=== PATIENT | male | born 1950 | race Caucasian/White ===

== ENCOUNTER 2017-09-13 16:13 | Inpatient (IN) ==
--- NOTE | 2017-09-13 16:23 | Emergency Department Note ---
Disposition Clinical Impression: CAD (coronary artery disease), History of hypertension, History of hyperlipidemia, History of diabetes mellitus, Renal failure, Abnormal chest x- ray, Chest pain, Dyspnea Disposition: Admitted As Inpatient Condition: Fair [facility]: [facility]Primary Care Provider[facility] - Forms: ED Satisfaction Letter General Adult HPI - General Chief complaint: ED Shortness of Breath/Dyspnea Stated complaint: "sob" Time Seen by Provider: 09/13/17 16:21 - History of Present Illness HPI Narrative: 66-year-old male with a history of coronary artery disease diabetes hypertension hyperlipidemia and previous RI currently on dialysis reports emergency department from the [facility]. There is concern for chest pain. The patient's had chest pain since yesterday. He describes midsternal nonradiating pain at rest. There has been no cough leg swelling or pain coughing up blood. The patient has no history of cancer and has not been anticoagulated. There is no history of abdominal pain vomiting or diarrhea. No back pain. There is no history of difficulty moving the arms or legs independently no slurred speech confusion or fever. The patient missed dialysis on Tuesday, his last dialysis was Tuesday. [facility] was concerned regarding the patient's chest pain, as well as missed dialysis and transferred the patient to the ED for evaluation. They report his initial troponin was negative. The patient has no history of PE or aneurysm. The patient also complains of shortness of breath. - Related Data Allergies Allergy/AdvReac Type Severity Reaction Status Date / Time diphenhydramine Allergy Rash Verified 09/13/17 16:19 [From Benadryl] meperidine Allergy Nausea Verified 09/13/17 16:20 morphine Allergy Nausea Verified 09/13/17 16:19 All systems ED: reviewed and negative except as stated. Past Medical History - Past Medical History Source: patient Medical history: Reports: coronary artery disease, diabetes, hyperlipidemia, hypertension, renal disease Course Course Narrative: [facility], chest x-ray shows a tortuous aorta. Initial troponin [facility] the [facility] negative per provider report. EKG from the [facility] negative. EKG on arrival shows no ST elevations. Vital Signs Temperature 97.0 F L 09/13/17 16:21 Pulse Rate 69 09/13/17 16:21 Respiratory Rate 16 09/13/17 16:21 Blood Pressure 131/72 09/13/17 16:21 O2 Sat by Pulse Oximetry 99 09/13/17 16:21 Temperature 97.0 F L 09/13/17 16:21 Pulse Rate 69 09/13/17 16:21 Respiratory Rate 16 09/13/17 16:21 Blood Pressure 131/72 09/13/17 16:21 O2 Sat by Pulse Oximetry 99 09/13/17 16:21 Oxygen Delivery Oxygen Delivery Nasal Cannula Medical Decision Making - [facility] Narrative Medical decision making narrative: The patient's chest x-ray report from the [facility] reveals a tortuous aorta, CT scan of the chest reveals no acute disease. The patient appears to have missed dialysis, his creatinine is 11 and his potassium was climbing 5.7. He has been complaining of chest pain, aspirin was ordered. The patient has a known history of CAD. The [facility], they felt the patient should be admitted, evaluated for chest pain, and dialyzed. Given the patient has significant comorbidities including coronary disease, renal failure , hyperlipidemia, hypertension, diabetes, with an elevated potassium, and recurrent chest pain, I thought it be appropriate to admit the patient to the hospital. It appears to be stable at this time. I reviewed the case with the hospitalist on-call who has accepted the patient to their care. - Lab Data Lab results reviewed: Yes I reviewed the patient's lab results. Result diagrams: 09/13/17 17:23 09/13/17 17:23 Lab Results 09/13/17 09/13/17 09/13/17 Range/Units 17:23 17:23 17:23 WBC 6.6 (4.3-11.1) K/mcL RBC 4.08 L (4.19-5.50) M/mcL Hgb 13.1 (12.9-16.9) g/dL Hct 40.7 (37.5-50.1) % MCV 99.8 (83.0-100.0) fL MCH 32.1 (28.0-33.3) pg MCHC 32.2 (31.6-35.5) g/dL RDW 14.6 H (11.5-14.5) % Plt Count 141 (140-400) K/mcL MPV 10.6 (9.4-12.4) fL Immature Gran % 0.3 (0-4) % Seg Neutrophils % 53.7 % Lymphocytes % 33.6 % Monocytes % 5.8 % Eosinophils % 5.5 % Basophils % 1.1 % Neutrophils # 3.5 (1.6-8.9) K/mcL Lymphocytes # 2.2 (0.6-4.6) K/mcL Monocytes # 0.4 (0.0-1.3) K/mcL Eosinophils # 0.4 (0.0-0.6) K/mcL Basophils # 0.1 (0.0-0.2) K/mcL PT 9.9 (9.4-12.1) Seconds INR 0.9 APTT 29.3 (26.0-36.0) Seconds Sodium 137 (136-145) mEq/L Potassium 5.7 H (3.5-5.1) mEq/L Chloride 96 L (98-107) mEq/L Carbon Dioxide 25 (23-29) mEq/L BUN 72 H (8-23) mg/dL Creatinine 11.28 H (0.70-1.30) mg/dL Est GFR ( Amer) 6 L (> 60) Est GFR (Non-Af Amer) 5 L (> 60) BUN/Creatinine Ratio 6 (6-26) Glucose 97 (70-105) mg/dL Calculated Osmolality 305 H (280-300) Lactic Acid (0.5-2.2) mmol/L Calcium 9.1 (8.6-10.3) mg/dL Total Bilirubin 0.4 (0.3-1.0) mg/dL Direct Bilirubin 0.0 (0.0-0.2) mg/dL Indirect Bilirubin 0.4 (0.0-1.2) mg/dL AST 11 L (13-39) Units/L ALT 10 (7-52) Units/L Alkaline Phosphatase 61 (34-104) Units/L Troponin I < 0.03 (< 0.04) ng/mL C-Reactive Protein 7 (Less than 10) mg/L B-Natriuretic Peptide (Less than 100) pg/mL Serum Total Protein 7.2 (6.4-8.9) g/dL Albumin 4.2 (3.5-5.7) g/dL Globulin 3.0 (2.4-3.5) g/dL Albumin/Globulin Ratio 1.4 (1.1-2.2) 09/13/17 09/13/17 Range/Units 17:23 17:23 WBC (4.3-11.1) K/mcL RBC (4.19-5.50) M/mcL Hgb (12.9-16.9) g/dL Hct (37.5-50.1) % MCV (83.0-100.0) fL MCH (28.0-33.3) pg MCHC (31.6-35.5) g/dL RDW (11.5-14.5) % Plt Count (140-400) K/mcL MPV (9.4-12.4) fL Immature Gran % (0-4) % Seg Neutrophils % % Lymphocytes % % Monocytes % % Eosinophils % % Basophils % % Neutrophils # (1.6-8.9) K/mcL Lymphocytes # (0.6-4.6) K/mcL Monocytes # (0.0-1.3) K/mcL Eosinophils # (0.0-0.6) K/mcL Basophils # (0.0-0.2) K/mcL PT (9.4-12.1) Seconds INR APTT (26.0-36.0) Seconds Sodium (136-145) mEq/L Potassium (3.5-5.1) mEq/L Chloride (98-107) mEq/L Carbon Dioxide (23-29) mEq/L BUN (8-23) mg/dL Creatinine (0.70-1.30) mg/dL Est GFR ( Amer) (> 60) Est GFR (Non-Af Amer) (> 60) BUN/Creatinine Ratio (6-26) Glucose (70-105) mg/dL Calculated Osmolality (280-300) Lactic Acid 0.5 (0.5-2.2) mmol/L Calcium (8.6-10.3) mg/dL Total Bilirubin (0.3-1.0) mg/dL Direct Bilirubin (0.0-0.2) mg/dL Indirect Bilirubin (0.0-1.2) mg/dL AST (13-39) Units/L ALT (7-52) Units/L Alkaline Phosphatase (34-104) Units/L Troponin I (< 0.04) ng/mL C-Reactive Protein (Less than 10) mg/L B-Natriuretic Peptide 238 H (Less than 100) pg/mL Serum Total Protein (6.4-8.9) g/dL Albumin (3.5-5.7) g/dL Globulin (2.4-3.5) g/dL Albumin/Globulin Ratio (1.1-2.2) - Radiology Data Radiology results reviewed: Yes I reviewed the patient's radiology results.
[2017-09-13] MEDS ORDERED: *HR* FentaNYL (PF) 100 MCG/2 ML VIAL IVP ONE (16:52)
[2017-09-13] MEDS ORDERED: Ondansetron 4 MG/2 ML VIAL IVP ONE (16:52)
[2017-09-13] MEDS ORDERED: Aspirin 81 MG TAB.CHEW PO ONE (16:53)
[2017-09-13] MEDS ORDERED: Isovue-370 500 ML INFUS..BTL IV ONE (16:59)
[2017-09-13 17:41] LABS: Basophils # 0.1 K/mcL (0.0-0.2); Basophils % 1.1 %; Eosinophils # 0.4 K/mcL (0.0-0.6); Eosinophils % 5.5 %; Hematocrit 40.7 % (37.5-50.1); Hemoglobin 13.1 g/dL (12.9-16.9); Immature Granulocytes % 0.3 % (0-4); Lymphocytes # 2.2 K/mcL (0.6-4.6); Lymphocytes % 33.6 %; Mean Corpuscular HGB Conc 32.2 g/dL (31.6-35.5); Mean Corpuscular Hemoglobin 32.1 pg (28.0-33.3); Mean Corpuscular Volume 99.8 fL (83.0-100.0); Mean Platelet Volume 10.6 fL (9.4-12.4); Monocytes # 0.4 K/mcL (0.0-1.3); Monocytes % 5.8 %; Neutrophils # 3.5 K/mcL (1.6-8.9); Platelet Count 141 K/mcL (140-400); Red Blood Count 4.08 M/mcL (4.19-5.50); Red Cell Distribution Width 14.6 % (11.5-14.5); Segmented Neutrophils % 53.7 %
[2017-09-13 17:42] LABS: INR 0.9; Prothrombin Time 9.9 Seconds (9.4-12.1)
[2017-09-13 17:45] LABS: Activated Partial Thrombo Time 29.3 Seconds (26.0-36.0)
[2017-09-13 18:22] LABS: Alanine Aminotransferase 10 Units/L (7-52); Albumin 4.2 g/dL (3.5-5.7); Albumin/Globulin Ratio 1.4 (1.1-2.2); Alkaline Phosphatase 61 Units/L (34-104); Aspartate Amino Transferase 11 Units/L (13-39); BUN/Creatinine Ratio 6 (6-26); Bilirubin,Indirect 0.4 mg/dL (0.0-1.2); Bilirubin,Total 0.4 mg/dL (0.3-1.0); Blood Urea Nitrogen 72 mg/dL (8-23); C-Reactive Protein 7 mg/L (Less than 10); Calcium 9.1 mg/dL (8.6-10.3); Carbon Dioxide 25 mEq/L (23-29); Chloride 96 mEq/L (98-107); Glucose 97 mg/dL (70-105); Osmolality,Calculated 305 (280-300); Potassium 5.7 mEq/L (3.5-5.1); Sodium 137 mEq/L (136-145); Total Protein 7.2 g/dL (6.4-8.9); Troponin I < 0.03 ng/mL (< 0.04); eGFR For African Americans 6 (> 60); eGFR For Non-African Americans 5 (> 60)
[2017-09-13] MEDS ORDERED: Naloxone 0.4 MG/ML INJ IVP PRN (20:44)
[2017-09-13] MEDS ORDERED: Acetaminophen 325 MG TABLET PO PRN (20:44)
[2017-09-13] MEDS ORDERED: *HR* Dextrose 50 % in Water (Syg) 50 ML SYRINGE IVP PRN (20:48)
[2017-09-13] MEDS ORDERED: Dextrose Gel 15 GM/37.5 ML TUBE PO PRN ×2 (20:48)
[2017-09-13] MEDS ORDERED: D5% in Water 1,000 ML IVC PRN (20:48)
--- NOTE | 2017-09-13 21:16 | Internal Med History&Physical ---
Date of Encounter: 09/13/17 Time of Encounter: 20:50 Internal Medicine - H&P: HPI Chief complaint: Chest pain Admitted From: Emergency Dept Plans for Post Hospital Care: Home History of present illness: Mr. Sidhu is a 66 year old male with h/o- ESRD, CAD, HTN, who present with c/o - chest pain. He just relocated from [place], [place] to [place] but reports a problem in having his HD unit transferred, which is why he did not receive usual HD session yesterday, last session being on Tuesday. He reports retrosternal chest pain yesterday and then today, which is nonradiating, mild- moderate in intensity, relived with nitroglycerine. He also re[orts exertional dyspnea and weight gain and swelling in his fingers in the last 2 days. No cough , fever/chills, palpitations, dizziness/syncope. Past Med Surg Social Fam HX - Past Medical History Source: patient Medical history: CHF, coronary artery disease, diabetes, hyperlipidemia, hypertension, renal disease Psychiatric history: anxiety, depression, PTSD - Past Surgical History Surgical History: knee replacement (left) - Social History Smoking Status: Current every day smoker Packs per day: 5-6 per day Alcohol use: none Drug use: none Occupational status: disabled Current living situation: Home, With Family Activity Level: Independent ambulation Recent Out of Country Travel Within the Last 8 Weeks: No Exposure or Possible Exposure to Illness During Travel: No - Family History Sister Hx Family Endocrine Disorder: Yes (DM) Internal Medicine - H&P: Meds 3 Allergy/AdvReac Type Severity Reaction Status Date / Time diphenhydramine Allergy Rash Verified 09/13/17 16:19 [From Benadryl] meperidine Allergy Nausea Verified 09/13/17 16:20 morphine Allergy Nausea Verified 09/13/17 16:19 All Systems PM: A 10-system review of systems was performed and is negative for pertinent findings except as documented above in the HPI. - Constitutional Constitutional: no chills, no fever(s), no night sweats - EENT Eyes: no change in vision, no discharge, no pain, no photophobia Ears: no ear discharge, no ear pain, no tinnitus Nose, mouth and throat: no dysphagia, no nasal discharge, no neck pain, no sore throat - Cardiovascular Cardiovascular ROS IM: chest pain, dyspnea on exertion, edema - Respiratory Respiratory: dyspnea on exertion, no cough, no dyspnea, no wheezing, no excessive phlegm production - Gastrointestinal Gastrointestinal: no abdominal pain, no diarrhea, no hematemesis, no hematochezia, no melena, no nausea, no vomiting - Musculoskeletal Musculoskeletal ROS IM: no numbness, no tingling - Integumentary Integumentary IM: no rash, no unusual bruising - Neurological Neurological ROS: no confusion, no convulsions, no focal weakness, no numbness, no tingling, no tremor(s) - Hematologic/Lymphatic Hematologic/Lymphatic: no easy bruising - Constitutional Vitals: Temp Pulse Resp BP Pulse Ox 97.0 F L 69 16 131/72 99 09/13/17 16:21 09/13/17 16:21 09/13/17 16:21 09/13/17 16:21 09/13/17 16:21 General appearance: Present: A&O X 3, answers questions appropriately - Respiratory Respiratory exam: Present: CTAB, wheezes (posterior expiratory wheezing). Absent: accessory muscle use, rales, rhonchi - Cardiovascular Cardiovascular exam: Present: RRR, +S1, +S2. Absent: diastolic murmur, gallop, rubs, systolic murmur - GI/Abdominal GI/Abdominal exam: Present: normal bowel sounds, soft (obese), no peritoneal signs. Absent: distended, tenderness - Extremities Exam Extremities exam: Present: full ROM, warm, radial pulses palpable and symmetrical. Absent: calf tenderness, cyanotic, pedal edema - Neurological Exam Neurological exam: Present: CN II-XII intact, oriented X3, no focal deficits. Absent: pronater drift, facial droop, speech deficit - Skin Skin exam: Present: dry, intact Internal Med - H&P Results - Labs CBC & Chem 7: 09/13/17 17:23 09/13/17 17:23 - EKG Data -: EKG Interpreted by Myself EKG shows normal: sinus rhythm Rate: normal - Assessment and plan (1) Hyperkalemia Current Visit: Yes Status: Acute Assessment and plan: due to missed HD and renal disease; EKG and Telemetry show no peaked T waves; will give 15g PO Kayexalate, continue Telemetry monitoring; will consult Nephrology for HD in am; (2) Chest pain Current Visit: Yes Status: Acute Assessment and plan: Atypical chest pain; to consider ACS; continue Telemetry, trend Troponins; EKG with no acute ischemic changes. continue ASA and statin, home med reconciliation not available. Qualifiers: Chest pain type: unspecified Qualified Code(s): R07.9 - Chest pain, unspecified (3) CHF (congestive heart failure) Current Visit: Yes Status: Chronic Assessment and plan: Previous Echo report unavailable as patient is not a local resident. Continue home meds when available; Qualifiers: Heart failure type: unspecified Heart failure chronicity: chronic Qualified Code(s): I50.9 - Heart failure, unspecified (4) CAD (coronary artery disease) Current Visit: Yes Status: Chronic Assessment and plan: continue ASA and statin; reconcile home meds when available. h/o- stents. Qualifiers: Coronary Disease-Associated Artery/Lesion type: [place] artery [place] vs. transplanted heart: [place] heart Associated angina: without angina Qualified Code(s): I25.10 - Atherosclerotic heart disease of [place] coronary artery without angina pectoris (5) History of diabetes mellitus Current Visit: Yes Status: Chronic Assessment and plan: Accucheck blood glucose monitoring with sliding scale insulin as needed; diabetic diet; (6) History of hyperlipidemia Current Visit: Yes Status: Chronic (7) History of hypertension Current Visit: Yes Status: Chronic (8) ESRD (end stage renal disease) on dialysis Current Visit: Yes Status: Chronic Assessment and plan: will consult Nephrology for HD needs; missed previous HD session, with hyperkalemia; continue to monitor closely; - Time Spent With Patient Total time spent is greater than 50% in coordination of care (as documented) at patient's floor/unit and/or counseling patient:
[2017-09-13] MEDS: Ipratropium/Albuterol Neb 3 ML IH SCH (21:50)
[2017-09-13] MEDS: Insulin LISPRO 300 UNITS/3 ML VIAL SQ SCH (23:18)
[2017-09-14] MEDS: *HR* HYDROcodone/Acet 5/325 mg TABLET PO PRN ×3 (01:37→20:51)
[2017-09-14] MEDS: traZODone 50 MG TABLET PO SCH ×2 (01:37→20:42)
[2017-09-14] MEDS: Ipratropium/Albuterol Neb 3 ML IH SCH ×4 (03:27→21:52)
[2017-09-14] MEDS: *HR* Heparin 5,000 UNIT/ML VIAL SQ SCH ×2 (04:45→17:07)
[2017-09-14 06:22] LABS: Basophils # 0.1 K/mcL (0.0-0.2); Basophils % 1.2 %; Eosinophils # 0.2 K/mcL (0.0-0.6); Eosinophils % 4.2 %; Immature Granulocytes % 0.4 % (0-4); Lymphocytes # 1.8 K/mcL (0.6-4.6); Lymphocytes % 31.9 %; Mean Corpuscular HGB Conc 31.6 g/dL (31.6-35.5); Mean Corpuscular Hemoglobin 31.3 pg (28.0-33.3); Mean Corpuscular Volume 99.2 fL (83.0-100.0); Mean Platelet Volume 10.4 fL (9.4-12.4); Monocytes # 0.3 K/mcL (0.0-1.3); Neutrophils # 3.2 K/mcL (1.6-8.9); Platelet Count 129 K/mcL (140-400); Red Blood Count 3.83 M/mcL (4.19-5.50); Red Cell Distribution Width 14.6 % (11.5-14.5); Segmented Neutrophils % 56.3 %
[2017-09-14 06:41] LABS: Calcium 8.4 mg/dL (8.6-10.3); Magnesium 3.4 mg/dL (1.6-2.6); Potassium 4.5 mEq/L (3.5-5.1)
--- NOTE | 2017-09-14 08:04 | Nephrology Consult Note ---
Date of Encounter: 09/14/17 Time of Encounter: 08:02 Assessment and Plan (1) ESRD (end stage renal disease) on dialysis Current Visit: Yes Status: Chronic The patient has end-stage renal disease in the setting of diabetes and hypertension. He has been on dialysis for 3 years. He recently moved to [facility] in for some reason dialysis arrangements were not successfully completed. He will undergo dialysis here in the hospital today. He will require a social service consult to help establish him as a patient at the [facility] unit in [facility]. (2) Type 2 diabetes mellitus with diabetic chronic kidney disease Current Visit: Yes Status: Acute Qualifiers: Diabetes mellitus chcf insulin use: with administration clerk use Chronic kidney disease stage: on chronic dialysis Qualified Code(s): E11.22 - Type 2 diabetes mellitus with diabetic chronic kidney disease; N18.6 - End stage renal disease; N18.6 - End stage renal disease; N18.6 - End stage renal disease; N18.6 - End stage renal disease; Z79.4 - half-way (current) use of insulin; Z79.4 - press machine feeder (current) use of insulin; Z79.4 - press machine feeder (current) use of insulin; Z79.4 - press machine feeder (current) use of insulin; Z99.2 - Dependence on renal dialysis; Z99.2 - Dependence on renal dialysis; Z99.2 - Dependence on renal dialysis; Z99.2 - Dependence on renal dialysis (3) Benign hypertensive kidney disease with end stage renal disease Current Visit: Yes Status: Acute History of Present Illness - History of Present Illness This is a 66-year-old male. He presented to the emergency room with complaints of chest discomfort. Patient has a history of end-stage renal disease. He has been on dialysis for 3 years. He was living in [facility] and was receiving dialysis at the [facility] unit. He recently moved to [place] this past Tuesday. [facility] the [facility] unit in [place] but the dialysis unit says they never received them. The patient's last dialysis was this past Tuesday. He was scheduled for dialysis yesterday. Patient was admitted with some chest discomfort. He says he is feeling better today. He does have a history of diabetes, coronary artery disease, and hypertension. He does not make any urine. His dry weight is 106 kg. He dialyzes 3-1/2 hours. Past Med Surg Social Fam HX - Past Medical History Medical history: CHF, coronary artery disease, diabetes, hyperlipidemia, hypertension, renal disease Psychiatric history: anxiety, depression, PTSD - Past Surgical History Surgical History: knee replacement - Social History Smoking Status: Current every day smoker Packs per day: 5-6 per day Alcohol use: none Drug use: none - Family History Sister Hx Family Endocrine Disorder: Yes (DM) Medications and Allergies 3 Allergy/AdvReac Type Severity Reaction Status Date / Time diphenhydramine Allergy Rash Verified 09/13/17 16:19 [From Benadryl] meperidine Allergy Nausea Verified 09/13/17 16:20 morphine Allergy Nausea Verified 09/13/17 16:19 Review of Systems Constitutional: as per HPI, weakness Eyes: bilateral: blurred vision (patient denies), diplopia (patient denies) Nose, mouth and throat: no dizziness, no headache(s) Cardiovascular: as per HPI, chest pain, chest pain at rest, dyspnea on exertion Respiratory: dyspnea on exertion Gastrointestinal: no abdominal pain, no change in bowel habits Musculoskeletal: back pain Integumentary: no hirsutism, no striae Neurological: weakness Psychiatric: no depression, no difficulty concentrating Endocrine: as per HPI Hematologic/Lymphatic: no easy bruising, no lymphadenopathy Exam - Vital Signs Vital signs: Initial Vital Signs Temp Pulse Resp BP Pulse Ox 97.0 F L 69 16 131/72 99 09/13/17 16:21 09/13/17 16:21 09/13/17 16:21 09/13/17 16:21 09/13/17 16:21 Vital Signs - Last 8 Hours Temp Pulse Resp BP Pulse Ox 09/14/17 07:32 98.4 F 78 16 133/72 97 09/14/17 03:27 18 91 09/14/17 03:23 97.8 F 79 16 140/83 93 Intake and Output 09/13/17 09/14/17 09/14/17 23:59 07:59 15:59 Intake Total 400 / 400 Balance 400 / 400 Intake: Oral 400 / 400 Other: Weight 108.465 kg 108.579 kg Blood Glucose* 125 Patient Weight 09/14/17 23:59 Weight 108.579 kg - General Appearance Exam: Patient is alert and oriented. He is in no acute distress. Vital signs are stable. Lungs clear to auscultation. Heart regular rate and rhythm with a 2/6 talk ejection murmur. Abdomen shows normal bowel sounds bruits masses, megaly or tenderness. There is no lower extremity swelling. There is a functioning AV fistula in the left upper extremity. Results - Lab Results 09/14/17 05:47 09/14/17 05:47 Most recent lab results Calcium 8.4 mg/dL (8.6-10.3) L 09/14/17 05:47 Magnesium 3.4 mg/dL (1.6-2.6) H 09/14/17 05:47 Consult Discharge Plan - Plan Referrals: [facility] [Primary Care Provider] -
[2017-09-14] MEDS ORDERED: 0.9 % Sodium Chloride 250 ML IVC PRN (08:06)
[2017-09-14] MEDS: Insulin LISPRO 300 UNITS/3 ML VIAL SQ SCH ×4 (09:25→20:53)
[2017-09-14] MEDS: Aspirin Enteric Coated 81 MG Tablet PO SCH (09:27)
[2017-09-14 09:53] LABS: Hepatitis B Surface Antibody 2.22 mIU/mL; Hepatitis B Surface Antigen Nonreactive (Nonreactive)
[2017-09-14] MEDS ORDERED: 0.9 % Sodium Chloride 1,000 ML ONE (12:01)
--- NOTE | 2017-09-14 12:27 | Electrocardiograph Report ---
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
--- NOTE | 2017-09-14 17:23 | Internal Med Progress Note ---
Date of Encounter: 09/14/17 Time of Encounter: 17:21 - Assessment and plan (1) Volume overload Current Visit: Yes Status: Acute Assessment and plan: Due to missing HD had HD this morning feeling better now cont HD as per Nephro recommendations Qualifiers: Hypervolemia type: unspecified Qualified Code(s): E87.70 - Fluid overload, unspecified (2) Chest pain Current Visit: Yes Status: Acute Assessment and plan: Atypical chest pain due to missing HD Mostly due to volume overload resolved with HD EKG with no acute ischemic changes continue ASA and statin resumed home med BB and Imdur Qualifiers: Chest pain type: unspecified Qualified Code(s): R07.9 - Chest pain, unspecified (3) ESRD (end stage renal disease) on dialysis Current Visit: Yes Status: Chronic Assessment and plan: Nephro on board feeling better now after HD (4) CAD (coronary artery disease) Current Visit: Yes Status: Chronic Assessment and plan: continue ASA and statin resumed home meds Qualifiers: Coronary Disease-Associated Artery/Lesion type: [place] artery [place] vs. transplanted heart: [place] heart Associated angina: without angina Qualified Code(s): I25.10 - Atherosclerotic heart disease of [place] coronary artery without angina pectoris (5) History of hypertension Current Visit: Yes Status: Chronic Assessment and plan: stable with home meds (6) History of hyperlipidemia Current Visit: Yes Status: Chronic Assessment and plan: on statin (7) History of diabetes mellitus Current Visit: Yes Status: Chronic Assessment and plan: Cont ISS will check HbA1C (8) CHF (congestive heart failure) Current Visit: Yes Status: Chronic Assessment and plan: Unspecified.. no previous 2 D Echo not in exacerbation resumed home meds Qualifiers: Heart failure type: unspecified Heart failure chronicity: chronic Qualified Code(s): I50.9 - Heart failure, unspecified (9) Hyperkalemia Current Visit: Yes Status: Acute Assessment and plan: improved - Time Spent With Patient Total time spent is greater than 50% in coordination of care (as documented) at patient's floor/unit and/or counseling patient: - Subjective Interval history: Mr. Sidhu is a 66 year old male with h/o- ESRD, CAD, HTN, who present with c/o - chest pain. He just relocated from [place], [place] to [place] but reports a problem in having his HD unit transferred, which is why he did not receive usual HD session yesterday, last session being on Tuesday. He reports retrosternal chest pain, which is non radiating, mild-moderate in intensity, relived with nitroglycerine. He also reported exertional dyspnea and weight gain and swelling in his fingers in the last 2 days. No cough, fever/chills, palpitations, dizziness/syncope. Pt went for HD today. Now he feels lot better, denied any more chest pressure. Breathing comfortably on RA. - Constitutional Vitals: Temp Pulse Resp BP Pulse Ox 97.3 F L 89 17 145/65 95 09/14/17 16:20 09/14/17 11:10 09/14/17 16:20 09/14/17 16:20 09/14/17 11:10 General appearance: Present: A&O X 3, answers questions appropriately - Head Head exam: Present: atraumatic, normal inspection - Neck Neck exam general surgery: Present: supple - Respiratory Respiratory exam: Present: decreased breath sounds. Absent: rales, respiratory distress, rhonchi, wheezes - Cardiovascular Cardiovascular exam: Present: RRR, +S1, +S2. Absent: tachycardia - GI/Abdominal GI/Abdominal exam: Present: normal bowel sounds, soft. Absent: rebound, rigid, tenderness - Extremities Exam Extremities exam: Present: pedal edema (trace). Absent: calf tenderness, tenderness - Back Exam Back exam: Absent: CVA tenderness (L), CVA tenderness (R) - Psychiatric Psychiatric exam: Present: normal affect, normal mood Internal Medicine: Result - Labs CBC & Chem 7: 09/14/17 05:47 09/14/17 05:47 Labs: Short CBC 09/14/17 Range/Units 05:47 WBC 5.7 (4.3-11.1) K/mcL Hgb 12.0 L (12.9-16.9) g/dL Hct 38.0 (37.5-50.1) % Plt Count 129 L (140-400) K/mcL Neutrophils # 3.2 (1.6-8.9) K/mcL BMP 09/14/17 05:47 Sodium 139 Potassium 4.5 Chloride 96 L Carbon Dioxide 27 BUN 75 H Creatinine 11.43 H Glucose 134 H Calcium 8.4 L Cardiac Enzymes 09/13/17 09/14/17 09/14/17 Range/Units 23:07 05:47 12:08 Troponin I < 0.03 < 0.03 < 0.03 (< 0.04) ng/mL - ABG Interpretation ABG results: PT/INR, D-dimer PT 9.9 Seconds (9.4-12.1) 09/13/17 17:23 Consult Discharge Plan - Plan Referrals: [facility] [Primary Care Provider] -
[2017-09-14] MEDS ORDERED: Nitroglycerin 0.4 MG TAB.SUBL SL SCH (17:30)
[2017-09-14] MEDS ORDERED: Nitroglycerin 0.4 MG TAB.SUBL SL PRN (18:24)
[2017-09-14] MEDS: Magnesium Oxide 400 MG TABLET PO SCH (20:42)
[2017-09-14] MEDS: Artificial Tears SOLN 15 ML BOTTLE OP SCH (20:45)
[2017-09-14] MEDS ORDERED: traZODone 50 MG TABLET PO SCH (21:00)
[2017-09-14] MEDS ORDERED: Isosorbide MONOnitrate (24 HR) 30 MG TAB.ER.24H PO SCH (21:00)
[2017-09-14] MEDS ORDERED: (Omega-3/Dha/Epa/Fish Oil [Fish Oil 1,000 Mg Softgel] PO SCH (21:00)
[2017-09-14] MEDS ORDERED: Insulin DETEMIR 100 UNIT/ML X5UNITS SQ SCH (21:00)
[2017-09-15] MEDS: Ipratropium/Albuterol Neb 3 ML IH SCH ×2 (03:39→10:49)
[2017-09-15 04:51] LABS: Calcium 8.2 mg/dL (8.6-10.3); Potassium 4.3 mEq/L (3.5-5.1)
[2017-09-15] MEDS: *HR* Heparin 5,000 UNIT/ML VIAL SQ SCH (05:17)
[2017-09-15] MEDS: *HR* HYDROcodone/Acet 5/325 mg TABLET PO PRN (05:18)
--- NOTE | 2017-09-15 08:34 | Nephrology Progress Note ---
Date of Encounter: 09/15/17 Time of Encounter: 08:10 - Assessment and Plan (1) ESRD (end stage renal disease) on dialysis Current Visit: Yes Status: Chronic Social work to complete arrangements with [email or web address] for chairtime tomorrow in [facility]. They will also notify [facility] for following patient in outpatient dialysis setting. No HD today keeping with MWF schedule per patient. Subjective Interval history: Sitting up in chair. Ate breakfast. Denies chest pain or shortness of breath. Objective - Vital Signs Vital signs: Vital Signs Temp Pulse Resp BP Pulse Ox 09/15/17 07:22 97 09/15/17 06:47 97.6 F 102 16 93/61 97 09/15/17 05:09 97.8 F 101 18 131/65 93 09/15/17 03:40 19 90 09/15/17 00:28 98.0 F 109 18 95/60 93 09/14/17 21:52 20 91 09/14/17 20:49 98.0 F 92 18 122/78 95 09/14/17 19:25 98.0 F 75 18 146/81 93 09/14/17 16:20 97.3 F L 17 145/65 09/14/17 16:05 119/74 09/14/17 15:50 128/78 09/14/17 15:35 117/80 09/14/17 15:20 127/80 09/14/17 15:05 122/79 09/14/17 14:50 116/69 09/14/17 14:35 113/77 09/14/17 14:20 120/71 09/14/17 14:05 125/74 09/14/17 13:50 124/82 09/14/17 13:35 133/77 09/14/17 13:20 130/76 09/14/17 13:05 136/75 09/14/17 12:50 129/71 09/14/17 12:35 97.3 F L 17 121/73 09/14/17 11:10 97.8 F 89 15 144/82 95 09/14/17 10:24 16 96 09/14/17 09:29 97 Intake and Output 09/14/17 09/15/17 09/15/17 23:59 07:59 15:59 Intake Total 0 / 0 0 / 0 Output Total 3600 / 3600 0 / 0 Balance -3600 / -3600 0 / 0 Intake: Oral 0 / 0 0 / 0 Output: Urine 0 / 0 0 / 0 Total Dialysis (HD) Output 3600 / 3600 Other: # Voids 0 # Bowel Movements 0 Weight 106.776 kg Blood Glucose* 206 120 Hemodialysis Net Fluid Removed 3000 (mL) Patient Weight 09/15/17 23:59 Weight 106.776 kg - General Appearance General appearance: Present: well-developed, well-nourished, appears started age , obese EENT: Present: mucous membranes moist Neck: Present: no JVD Respiratory: Present: clear Cardiology: Present: no edema, regular rate, regular rhythm Gastrointestinal: Present: normoactive bowel sounds, no tenderness Integumentary: Present: warm and dry Neurologic: Present: alert and oriented x3 - Lab 09/14/17 05:47 09/15/17 04:01 Most recent lab results Calcium 8.2 mg/dL (8.6-10.3) L 09/15/17 04:01 Magnesium 3.4 mg/dL (1.6-2.6) H 09/14/17 05:47 Consult Discharge Plan - Plan [facility]errals: [facility] [Primary Care Provider] -
[2017-09-15] MEDS: Aspirin Enteric Coated 81 MG Tablet PO SCH (08:48)
[2017-09-15] MEDS: Calcium Acetate 667 MG CAPSULE PO SCH ×2 (08:48→11:53)
[2017-09-15] MEDS: Magnesium Oxide 400 MG TABLET PO SCH (08:48)
[2017-09-15] MEDS: Artificial Tears SOLN 15 ML BOTTLE OP SCH (08:49)
[2017-09-15] MEDS: Insulin LISPRO 300 UNITS/3 ML VIAL SQ SCH ×2 (08:49→11:19)
[2017-09-15 08:52] LABS: Estimated Average Glucose 189 mg/dl; Hemoglobin A1C 8.2 %
[2017-09-15] MEDS ORDERED: Renal Vitamin 1 MG CAPSULE PO SCH (09:00)
[2017-09-15] MEDS ORDERED: Gabapentin 100 MG CAPSULE PO SCH (09:00)
[2017-09-15] MEDS ORDERED: Metoprolol XL (24 HR) Succ 25 MG TAB.ER.24H PO SCH (09:00)
[2017-09-15] MEDS ORDERED: Famotidine 20 MG TABLET PO SCH (09:00)
--- NOTE | 2017-09-15 10:44 | Discharge Summary ---
- NOTES TO OUTPATIENT PROVIDER Notes to Outpatient Provider: f/u with Fish Cleaner Machine Tender Dr. Becerra in 1-2 weeks. Please go to [facility] for HD on Date of Encounter: 09/15/17 Time of Encounter: 10:44 - Discharge Diagnosis (1) Volume overload Priority: Primary Status: Acute Qualifiers: Hypervolemia type: unspecified Qualified Code(s): E87.70 - Fluid overload, unspecified (2) Chest pain Priority: Primary Status: Acute Qualifiers: Chest pain type: unspecified Qualified Code(s): R07.9 - Chest pain, unspecified (3) ESRD (end stage renal disease) on dialysis Priority: Secondary Status: Chronic (4) CAD (coronary artery disease) Priority: Secondary Status: Chronic Qualifiers: Coronary Disease-Associated Artery/Lesion type: [place] artery [place] vs. transplanted heart: [place] heart Associated angina: without angina Qualified Code(s): I25.10 - Atherosclerotic heart disease of [place] coronary artery without angina pectoris (5) History of hypertension Priority: Secondary Status: Chronic (6) History of hyperlipidemia Priority: Secondary Status: Chronic (7) History of diabetes mellitus Priority: Secondary Status: Chronic (8) CHF (congestive heart failure) Priority: Secondary Status: Chronic Qualifiers: Heart failure type: unspecified Heart failure chronicity: chronic Qualified Code(s): I50.9 - Heart failure, unspecified (9) Hyperkalemia Priority: Secondary Status: Acute Hospital course: Mr. Sidhu is a 66 year old male with h/o- ESRD, CAD, HTN, who present with c/o - chest pain. He just relocated from [place], [place] to [place] but reports a problem in having his HD unit transferred, which is why he did not receive usual HD session yesterday, last session being on Tuesday. He reports retrosternal chest pain, which is non radiating, mild-moderate in intensity, relived with nitroglycerine. He also reported exertional dyspnea and weight gain and swelling in his fingers in the last 2 days. No cough, fever/chills, palpitations, dizziness/syncope. Pt was evaluated by our acls specialist Dr. Vela and did HD y/d. Pt symptoms improved. Since he moved to [facility] area, our SW setting up HD chair at [facility]. Apparently Dr. Vela does not go there, so I requested Dr. Becerra to follow on him as an out pt. Pt looks lot comfortable today and his Cr also improved. So he can go for HD on Tuesday at [facility]. - Time Spent with Patient Total time spent providing and/or coordinating discharge services: - Discharge Medications Home Medications: Acetaminophen [Non-Aspirin] 650 mg PO Q6H PRN 09/14/17 [History] Aspirin [Lo-Dose Aspirin EC] 81 mg PO DAILY 09/14/17 [History] Atorvastatin [Lipitor] 40 mg PO HS 09/14/17 [History] Calcium Acetate [Phos-LO] 2,668 mg PO TIDWM 09/14/17 [History] Carboxymethylcellulose Sodium [Refresh Tears] 1 drop OP QID 09/14/17 [History] Folic Acid/Vit Bcomp,C [Renal-Agustina Tablet] 0.8 mg PO DAILY 09/14/17 [History] Gabapentin [Neurontin] 100 mg PO DAILY 09/14/17 [History] Insulin ASPART [Novolog Flexpen] 35 unit SQ QAM 09/14/17 [History] Insulin ASPART [Novolog Flexpen] 40 unit SQ QPM 09/14/17 [History] Isosorbide MONOnitrate (24 HR) [Imdur] 30 mg PO HS 09/14/17 [History] Magnesium Oxide [Magnesium] 400 mg PO BID 09/14/17 [History] Metoprolol Succinate [Toprol Xl] 25 mg PO DAILY 09/14/17 [History] Nortriptyline [Pamelor] 25 mg PO HS 09/14/17 [History] [place]-3/Dha/Epa/Fish Oil [Fish Oil 1,000 mg Softgel] 3,000 mg PO BID 09/14/17 [ History] Ranitidine HCl [Acid Sack Department Supervisor] 150 mg PO DAILY 09/14/17 [History] Trazodone HCl 300 mg PO HS 09/14/17 [History] Insulin Glargine,Hum.rec.anlog [Lantus Solostar] 40 unit SQ HS #0 09/15/17 [Rx] Nitroglycerin 0.4 mg SL Q5MIN PRN tab.subl 09/15/17 [Rx] Nitroglycerin [Nitrostat] 0.4 mg SL Q5MIN PRN #0 09/15/17 [Rx] Allergies/Adverse Reactions: 3 Allergy/AdvReac Type Severity Reaction Status Date / Time diphenhydramine Allergy Rash Verified 09/14/17 09:02 [From Benadryl] meperidine Allergy Nausea Verified 09/14/17 09:02 morphine Allergy Nausea Verified 09/14/17 09:02 Date of admission: 09/13/17 20:26 Primary care physician: [facility] Consults: 09/13/17 21:34 Consult to Nephrology [CONS] Routine Consulting Provider: [facility]IM[facility] Reason for Consult: ESRD, missed HD; relocated to [facility] from [place], [place] Call Completed: Yes 09/14/17 08:14 Consult to Gynecology Teacher [CONS] Routine Reason for SW Consult: pt needs to get to get established with [facility] in [facility] for dialysis 09/14/17 08:15 Consult to Dialysis [CONS] ONCE - Constitutional Vitals: Temp Pulse Resp BP Pulse Ox 97.6 F 102 16 93/61 97 09/15/17 06:47 09/15/17 06:47 09/15/17 06:47 09/15/17 06:47 09/15/17 07:22 General appearance: Present: A&O X 3, answers questions appropriately - Head Head exam: Present: atraumatic, normal inspection - Neck Neck exam general surgery: Present: supple - Respiratory Respiratory exam: Present: decreased breath sounds. Absent: rales, respiratory distress, rhonchi, wheezes - Cardiovascular Cardiovascular exam: Present: RRR, +S1, +S2. Absent: tachycardia - GI/Abdominal GI/Abdominal exam: Present: normal bowel sounds, soft. Absent: rebound, rigid, tenderness - Extremities Exam Extremities exam: Absent: calf tenderness, pedal edema, tenderness - Back Exam Back exam: Absent: CVA tenderness (L), CVA tenderness (R) - Neurological Exam Neurological exam: Present: alert, oriented X3 - Psychiatric Psychiatric exam: Present: normal affect, normal mood - Patient Status Disposition: Home, Self-Care Condition: Good Overall status at discharge: patient is back to baseline - Discharge Instructions Follow Up With: [facility] [Primary Care Provider] - - Diet and Activity Diet: low salt diet
--- NOTE | 2017-09-15 10:55 | Event Note ---
Date of Encounter: 09/15/17 Time of Encounter: 10:[address] Medellin states patient was seen in hospital by Dr Galeana 's group but patient will be going to [facility] for his outpatient dialysis and Dr Galeana does not round at that dialysis center. Our group, [facility], have been asked to accept care of patient which we agree to do. Patient to be discharged today; we will follow him at [facility] dialysis unit.
[2017-09-15 11:08] VITALS: BP 108/69
--- NOTE | 2017-09-15 13:18 | Nephrology Consult Note ---
Date of Encounter: 09/15/17 Time of Encounter: 13:12 Assessment and Plan (1) ESRD (end stage renal disease) on dialysis Current Visit: Yes Status: Chronic Will be TTS in [facility] with Dr. Becerra. Instructed that health social work professor will give him chair time for [facility]. Renal diet, renal vitamins, and continue to renal dose all medications. (2) Volume overload Current Visit: Yes Status: Acute Qualifiers: Hypervolemia type: unspecified Qualified Code(s): E87.70 - Fluid overload, unspecified (3) CAD (coronary artery disease) Current Visit: Yes Status: Chronic Per primary team. Qualifiers: Coronary Disease-Associated Artery/Lesion type: [place] artery [place] vs. transplanted heart: [place] heart Associated angina: without angina Qualified Code(s): I25.10 - Atherosclerotic heart disease of [place] coronary artery without angina pectoris (4) History of diabetes mellitus Current Visit: Yes Status: Chronic Defer to primary team. (5) Chest pain Current Visit: Yes Status: Acute Has resolved at this time. Defer to primary team. Qualifiers: Qualified Code(s): R07.9 - Chest pain, unspecified History of Present Illness - Reason for Consult Consult date: 09/15/17 end stage renal disease - History of Present Illness Dr. Sidhu is a 66 year old male with ESRD. Lived in [place], [place], and was on TTS schedule. He did move closer to [facility] and wanted to get established there. Was unable to make the transition there without an accepting physican. He was told to come to ED to establish and get HD here at [place]. PMH: CAD and HTN. Consequently, Dr. Becerra has since seen the patient and he has been accepted to [facility] for TTS. Past Med Surg Social Fam HX - Past Medical History Medical history: CHF, coronary artery disease, diabetes, hyperlipidemia, hypertension, renal disease Psychiatric history: anxiety, depression, PTSD - Past Surgical History Surgical History: knee replacement - Social History Smoking Status: Current every day smoker Packs per day: 5-6 per day Alcohol use: none Drug use: none - Family History Sister Hx Family Endocrine Disorder: Yes (DM) Medications and Allergies Acetaminophen [Non-Aspirin] 650 mg PO Q6H PRN 09/14/17 [History] Aspirin [Lo-Dose Aspirin EC] 81 mg PO DAILY 09/14/17 [History] Atorvastatin [Lipitor] 40 mg PO HS 09/14/17 [History] Calcium Acetate [Phos-LO] 2,668 mg PO TIDWM 09/14/17 [History] Carboxymethylcellulose Sodium [Refresh Tears] 1 drop OP QID 09/14/17 [History] Folic Acid/Vit Bcomp,C [Renal-Agustina Tablet] 0.8 mg PO DAILY 09/14/17 [History] Gabapentin [Neurontin] 100 mg PO DAILY 09/14/17 [History] Insulin ASPART [Novolog Flexpen] 35 unit SQ QAM 09/14/17 [History] Insulin ASPART [Novolog Flexpen] 40 unit SQ QPM 09/14/17 [History] Isosorbide MONOnitrate (24 HR) [Imdur] 30 mg PO HS 09/14/17 [History] Magnesium Oxide [Magnesium] 400 mg PO BID 09/14/17 [History] Metoprolol Succinate [Toprol Xl] 25 mg PO DAILY 09/14/17 [History] Nortriptyline [Pamelor] 25 mg PO HS 09/14/17 [History] [place]-3/Dha/Epa/Fish Oil [Fish Oil 1,000 mg Softgel] 3,000 mg PO BID 09/14/17 [ History] Ranitidine HCl [Acid Document Imaging Manager] 150 mg PO DAILY 09/14/17 [History] Trazodone HCl 300 mg PO HS 09/14/17 [History] Insulin Glargine,Hum.rec.anlog [Lantus Solostar] 40 unit SQ HS #0 09/15/17 [Rx] Nitroglycerin 0.4 mg SL Q5MIN PRN tab.subl 09/15/17 [Rx] Nitroglycerin [Nitrostat] 0.4 mg SL Q5MIN PRN #0 09/15/17 [Rx] 3 Allergy/AdvReac Type Severity Reaction Status Date / Time diphenhydramine Allergy Rash Verified 09/14/17 09:02 [From Benadryl] meperidine Allergy Nausea Verified 09/14/17 09:02 morphine Allergy Nausea Verified 09/14/17 09:02 Review of Systems Constitutional: no anorexia, no fatigue, no fever(s) Nose, mouth and throat: no dizziness Cardiovascular: dyspnea, edema, no chest pain Respiratory: no dyspnea Gastrointestinal: no change in bowel habits Exam - Vital Signs Vital signs: Initial Vital Signs Temp Pulse Resp BP Pulse Ox 97.0 F L 69 16 131/72 99 09/13/17 16:21 09/13/17 16:21 09/13/17 16:21 09/13/17 16:21 09/13/17 16:21 Vital Signs - Last 8 Hours Temp Pulse Resp BP Pulse Ox 09/15/17 11:05 97.9 F 87 19 108/69 95 09/15/17 10:49 16 97 09/15/17 07:22 97 09/15/17 06:47 97.6 F 102 16 93/61 97 Intake and Output 09/14/17 09/15/17 09/15/17 23:59 07:59 15:59 Intake Total 0 / 0 0 / 0 120 / 120 Output Total 3600 / 3600 0 / 0 Balance -3600 / -3600 0 / 0 120 / 120 Intake: Oral 0 / 0 0 / 0 120 / 120 Output: Urine 0 / 0 0 / 0 Total Dialysis (HD) Output 3600 / 3600 Other: Meal Breakfast Percent of Meal Consumed 100% # Voids 0 # Bowel Movements 0 Weight 106.776 kg Blood Glucose* 206 120 241 Hemodialysis Net Fluid Removed 3000 (mL) Patient Weight 09/15/17 23:59 Weight 106.776 kg - General Appearance General appearance: well-developed, well-nourished EENT: ATNC, mucous membranes moist, hearing intact, vision intact Neck: supple Respiratory: clear Cardiology: no edema, normal S1, normal S2 Gastrointestinal: normoactive bowel sounds, no tenderness, no guarding Integumentary: no rash, warm and dry Neurologic: alert and oriented x3 Psychiatric: mood/affect appropriate, cooperative Results - Lab Results 09/14/17 05:47 09/15/17 04:01 Most recent lab results Calcium 8.2 mg/dL (8.6-10.3) L 09/15/17 04:01 Magnesium 3.4 mg/dL (1.6-2.6) H 09/14/17 05:47 Consult Discharge Plan - Plan Instructions: Chest Pain (DC) [facility]errals: [facility] [Primary Care Provider] - 09/22/17 10:15 am
== END 2017-09-15 13:42 | disposition home or self-care (01) | DRG 291 ==
LOC: EMEROO 16:13 → 2ANU 20:26
PROVIDERS: ADMIT Internal Medicine; ATTEND Internal Medicine

== ENCOUNTER 2018-05-16 02:07 | Inpatient (IN) ==
[2018-05-16] MEDS ORDERED: Ipratropium/Albuterol Neb 3 ML IH ONE (02:12)
[2018-05-16] MEDS ORDERED: predniSONE 20 MG TABLET PO ONE (02:12)
--- NOTE | 2018-05-16 02:15 | Emergency Department Note ---
Disposition Clinical Impression: CHF exacerbation Qualifiers: Heart failure type: systolic Qualified Code(s): I50.23 - Acute on chronic systolic (congestive) heart failure Pneumonia Qualifiers: Pneumonia type: due to unspecified organism Laterality: bilateral Lung location: lower lobe of lung Qualified Code(s): J18.1 - Lobar pneumonia, unspecified organism Disposition: Admitted As Inpatient Condition: Fair Time of Disposition: 04:26 SOB HPI - General Chief Complaint: ED Shortness of Breath/Dyspnea Stated Complaint: иван Time Seen by Provider: 05/16/18 02:12 Source: patient, EMS Mode of arrival: EMS Limitations: no limitations Nursing Notes Reviewed: Yes Vital Signs Reviewed: Yes - History of Present Illness 67-year-old male end-stage renal disease on dialysis, hypertension, COPD arrives to the emergency department with complaint of difficulty breathing. The patient is been combating pneumonia over the course the past few weeks. He is unsure if he was placed on anabiotic's. The patient's started describing worsening shortness of breath over the course the past 24 hours and states that it acutely worsened this evening. Patient arrives to the emergency department on 3 L nasal cannula. He does not wear oxygen at night or at home. The patient was noted to be in the low 90s on 3 L nasal cannula. The patient is very tachypneic with accessory muscle use and tripoding. The patient is speaking in 3-4 word sentences. He denies any associated chest pain. He denies any other complaints at this time including nausea, vomiting, chest pain, focalized weakness, fevers, chills. - Related Data Home Medications Medication Instructions Recorded Confirmed Acetaminophen [Non-Aspirin] 650 mg PO Q6H PRN 09/14/17 04/29/18 Aspirin [Lo-Dose Aspirin EC] 81 mg PO DAILY 09/14/17 04/29/18 Atorvastatin [Lipitor] 40 mg PO HS 09/14/17 04/29/18 Calcium Acetate [Phos-LO] 667 mg PO TIDWM 09/14/17 04/29/18 Folic Acid/Vit Bcomp,C [Renal-Agustina 0.8 mg PO DAILY 09/14/17 04/29/18 Tablet] Insulin ASPART [Novolog Flexpen] 0 - 10 unit SQ TID 09/14/17 04/29/18 Isosorbide MONOnitrate (24 HR) 30 mg PO HS 09/14/17 04/29/18 [Imdur] Nortriptyline [Pamelor] 25 mg PO HS 09/14/17 04/29/18 Ranitidine HCl [Acid Bow Maker Gift Wrapping] 150 mg PO DAILY 09/14/17 04/29/18 Insulin Glargine,Hum.rec.anlog 38 unit SQ HS 04/29/18 04/29/18 [Lantus Solostar] Propylene Glycol/Peg 400 [Sm 1 drop BOTH EYES TID 04/29/18 04/29/18 Lubricating Tears Eye Drops] Sevelamer HCl [Renagel] 1,600 mg PO BID 04/29/18 04/29/18 Trazodone HCl 250 mg PO HS 04/29/18 04/29/18 Previous Rx's Medication Instructions Recorded Nitroglycerin [Nitrostat] 0.4 mg SL Q5MIN PRN #0 09/15/17 Metoprolol XL (24 HR) Succ [Toprol 25 mg PO DAILY 30 Days #30 05/01/18 Xl] tab.er.24h Allergies Allergy/AdvReac Type Severity Reaction Status Date / Time diphenhydramine Allergy Rash Verified 04/29/18 10:43 [From Benadryl] meperidine Allergy Nausea Verified 04/29/18 10:43 morphine Allergy Nausea Verified 04/29/18 10:43 All systems ED: reviewed and negative except as stated. Constitutional: Reports: weakness. Denies: fever, chills ENT ED: Denies: dysphagia Cardiovascular: Reports: dyspnea on exertion. Denies: chest pain, orthopnea, edema Respiratory: Reports: cough, dyspnea, sputum production. Denies: wheezes, hemoptysis Gastrointestinal: Denies: abdominal pain, nausea, vomiting Genitourinary: Denies: urgency Musculoskeletal: Denies: back pain Integumentary: Denies: rash Neurological: Denies: headache Past Medical History - Past Medical History Attestation: Yes The following information was validated with the patient. Source: patient, old records reviewed Medical history: Reports: CHF, coronary artery disease, diabetes, hyperlipidemia, hypertension, renal disease Surgical history: Reports: knee replacement Psychiatric history: Reports: anxiety, depression, PTSD - Social History Smoking Status: Current every day smoker Smokeless Tobacco Status: No Alcohol use: Reports: none Drug use: Reports: none Physical Exam - General Limitations: no limitations General appearance: alert, in distress (moderate respiratory) - Head Head exam: atraumatic, normocephalic, normal inspection - Eye Eye exam: Present: normal appearance, PERRL, EOMI - ENT ENT exam: normal exam, normal oropharynx, mucous membranes moist - Neck Neck exam: Present: normal inspection, full ROM, trachea midline - Chest Chest inspection: Present: normal inspection, symmetric chest wall rise - Respiratory Respiratory exam: Present: respiratory distress, accessory muscle use, other (Decreased breath sounds bilaterally, Rales noted in right lower lobe.). Absent: wheezes - Cardiovascular Cardiovascular exam: Present: normal rhythm, tachycardia, normal heart sounds - Abdominal Exam Abdominal exam: Present: soft, Non-Tender. Absent: tenderness, distention, guarding, rebound, rigidity - Extremities Exam Extremities exam: Present: normal inspection, full ROM. Absent: tenderness, pedal edema - Neurological Exam Neurological exam: Present: alert, oriented X3 - Skin Skin exam: Present: warm Course Vital Signs Temperature 97.8 F 05/16/18 02:14 Pulse Rate 110 05/16/18 02:14 Respiratory Rate 22 05/16/18 02:14 Blood Pressure 187/107 05/16/18 02:14 O2 Sat by Pulse Oximetry 96 05/16/18 02:14 Temperature 97.8 F 05/16/18 02:14 Pulse Rate 110 05/16/18 02:14 Respiratory Rate 22 05/16/18 02:31 Blood Pressure 187/105 05/16/18 02:31 O2 Sat by Pulse Oximetry 95 05/16/18 02:31 Oxygen Delivery Oxygen Delivery Nasal Cannula Shortness of Breath/Dyspnea - MDM Narrative Medical decision making narrative: Patient's workup in the emergency department demonstrates findings consistent with a CHF exacerbation,. The patient was started on vancomycin and cefepime given the history of dialysis. The patient is due for dialysis tomorrow. The patient was placed on BiPAP and is resting comfortably and BiPAP at this time. He does have an elevated troponin which is likely consistent with the patient's CHF exacerbation. The patient was administered aspirin here in the emergency department. He denies any chest pain at this time. Patient will be admitted to the hospital for further workup and care. No further questions or concerns noted. - Lab Data Lab results reviewed: Yes I reviewed the patient's lab results. Result diagrams: 05/16/18 02:30 05/16/18 02:30 Lab Results 05/16/18 05/16/18 Range/Units 02:30 02:30 WBC 12.4 H (4.3-11.1) K/mcL RBC 3.88 L (4.19-5.50) M/mcL Hgb 11.5 L (12.9-16.9) g/dL Hct 37.2 L (37.5-50.1) % MCV 95.9 (83.0-100.0) fL MCH 29.6 (28.0-33.3) pg MCHC 30.9 L (31.6-35.5) g/dL RDW 14.9 H (11.5-14.5) % Plt Count 173 (140-400) K/mcL MPV 10.4 (9.4-12.4) fL Immature Gran % 0.4 (0-4) % Seg Neutrophils % 81.8 % Lymphocytes % 10.5 % Monocytes % 5.2 % Eosinophils % 1.5 % Basophils % 0.6 % Neutrophils # 10.1 H (1.6-8.9) K/mcL Lymphocytes # 1.3 (0.6-4.6) K/mcL Monocytes # 0.6 (0.0-1.3) K/mcL Eosinophils # 0.2 (0.0-0.6) K/mcL Basophils # 0.1 (0.0-0.2) K/mcL Sodium 135 L (136-145) mEq/L Potassium 5.1 (3.5-5.1) mEq/L Chloride 94 L (98-107) mEq/L Carbon Dioxide 24 (23-29) mEq/L BUN 54 H (8-23) mg/dL Creatinine 8.19 H (0.70-1.30) mg/dL Est GFR ( Amer) 8 L (> 60) Est GFR (Non-Af Amer) 7 L (> 60) BUN/Creatinine Ratio 7 (6-26) Glucose 188 H (70-105) mg/dL Calculated Osmolality 300 (280-300) Calcium 9.6 (8.6-10.3) mg/dL Troponin I 0.06 H* (< 0.04) ng/mL - Radiology Data Radiology results reviewed: Yes I reviewed the patient's radiology results. Chest X-Ray 05/16/18 02:12 IMPRESSION: Pulmonary edema with bibasilar atelectasis or pneumonia. D/ / Joe Epstein MD / Joe Epstein MD Interpreting Provider: Joe Epstein MD - EKG Data EKG attestation: Yes I reviewed and interpreted this EKG. EKG results narrative: Heart rate 87 beats for minute. Normal sinus rhythm. No ST elevation or ST depression noted. EKG with nonspecific changes noted from EKG on 04/29/2018. No other acute changes noted.
[2018-05-16 02:50] LABS: Basophils # 0.1 K/mcL (0.0-0.2); Basophils % 0.6 %; Eosinophils # 0.2 K/mcL (0.0-0.6); Eosinophils % 1.5 %; Hematocrit 37.2 % (37.5-50.1); Hemoglobin 11.5 g/dL (12.9-16.9); Immature Granulocytes % 0.4 % (0-4); Lymphocytes # 1.3 K/mcL (0.6-4.6); Lymphocytes % 10.5 %; Mean Corpuscular HGB Conc 30.9 g/dL (31.6-35.5); Mean Corpuscular Hemoglobin 29.6 pg (28.0-33.3); Mean Corpuscular Volume 95.9 fL (83.0-100.0); Mean Platelet Volume 10.4 fL (9.4-12.4); Monocytes # 0.6 K/mcL (0.0-1.3); Monocytes % 5.2 %; Neutrophils # 10.1 K/mcL (1.6-8.9); Platelet Count 173 K/mcL (140-400); Red Blood Count 3.88 M/mcL (4.19-5.50); Red Cell Distribution Width 14.9 % (11.5-14.5); Segmented Neutrophils % 81.8 %
[2018-05-16 03:07] LABS: Troponin I 0.06 ng/mL (< 0.04)
[2018-05-16 03:40] LABS: Calcium 9.6 mg/dL (8.6-10.3); Potassium 5.1 mEq/L (3.5-5.1)
[2018-05-16] MEDS ORDERED: Cefepime HCl 1,000 MG in Water for inj. (sterile) 20 ML 10 ML IVP STA (04:11)
[2018-05-16] MEDS ORDERED: Aspirin 325 MG TABLET PO ONE (04:23)
[2018-05-16] MEDS ORDERED: traZODone 50 MG TABLET PO STA (04:33)
--- NOTE | 2018-05-16 05:37 | Emergency Department Note ---
Disposition Clinical Impression: CHF exacerbation Qualifiers: Heart failure type: systolic Qualified Code(s): I50.23 - Acute on chronic systolic (congestive) heart failure Pneumonia Qualifiers: Pneumonia type: due to unspecified organism Laterality: bilateral Lung location: lower lobe of lung Qualified Code(s): J18.1 - Lobar pneumonia, unspecified organism Disposition: Admitted As Inpatient Condition: Fair General Adult HPI - General Chief complaint: ED Shortness of Breath/Dyspnea Stated complaint: иван Time Seen by Provider: 05/16/18 02:12 Source: patient, EMS Mode of arrival: EMS Limitations: no limitations Nursing Notes Reviewed: Yes Vital Signs Reviewed: Yes - History of Present Illness Pain Scale: 0 - Related Data Home Medications Medication Instructions Recorded Confirmed Acetaminophen [Non-Aspirin] 650 mg PO Q6H PRN 09/14/17 04/29/18 Aspirin [Lo-Dose Aspirin EC] 81 mg PO DAILY 09/14/17 04/29/18 Atorvastatin [Lipitor] 40 mg PO HS 09/14/17 04/29/18 Calcium Acetate [Phos-LO] 667 mg PO TIDWM 09/14/17 04/29/18 Folic Acid/Vit Bcomp,C [Renal-Agustina 0.8 mg PO DAILY 09/14/17 04/29/18 Tablet] Insulin ASPART [Novolog Flexpen] 0 - 10 unit SQ TID 09/14/17 04/29/18 Isosorbide MONOnitrate (24 HR) 30 mg PO HS 09/14/17 04/29/18 [Imdur] Nortriptyline [Pamelor] 25 mg PO HS 09/14/17 04/29/18 Ranitidine HCl [Acid Treasury Specialist] 150 mg PO DAILY 09/14/17 04/29/18 Insulin Glargine,Hum.rec.anlog 38 unit SQ HS 04/29/18 04/29/18 [Lantus Solostar] Propylene Glycol/Peg 400 [Sm 1 drop BOTH EYES TID 04/29/18 04/29/18 Lubricating Tears Eye Drops] Sevelamer HCl [Renagel] 1,600 mg PO BID 04/29/18 04/29/18 Trazodone HCl 250 mg PO HS 04/29/18 04/29/18 Previous Rx's Medication Instructions Recorded Nitroglycerin [Nitrostat] 0.4 mg SL Q5MIN PRN #0 09/15/17 Metoprolol XL (24 HR) Succ [Toprol 25 mg PO DAILY 30 Days #30 05/01/18 Xl] tab.er.24h Allergies Allergy/AdvReac Type Severity Reaction Status Date / Time diphenhydramine Allergy Rash Verified 04/29/18 10:43 [From Benadryl] meperidine Allergy Nausea Verified 04/29/18 10:43 morphine Allergy Nausea Verified 04/29/18 10:43 Constitutional: Reports: weakness. Denies: fever, chills ENT ED: Denies: dysphagia Cardiovascular: Reports: dyspnea on exertion. Denies: chest pain, orthopnea, edema Respiratory: Reports: cough, dyspnea, sputum production. Denies: wheezes, hemoptysis Gastrointestinal: Denies: abdominal pain, nausea, vomiting Genitourinary: Denies: urgency Musculoskeletal: Denies: back pain Integumentary: Denies: rash Neurological: Denies: headache Past Medical History - Past Medical History Medical history: Reports: CHF, coronary artery disease, diabetes, hyperlipidemia, hypertension, renal disease Surgical history: Reports: knee replacement Psychiatric history: Reports: anxiety, depression, PTSD - Social History Smoking Status: Current every day smoker Smokeless Tobacco Status: No Alcohol use: Reports: none Drug use: Reports: none Physical Exam - General Limitations: no limitations General appearance: alert, in distress (moderate respiratory) Course Vital Signs Temperature 97.8 F 05/16/18 02:14 Pulse Rate 110 05/16/18 02:14 Respiratory Rate 22 05/16/18 02:14 Blood Pressure 187/107 05/16/18 02:14 O2 Sat by Pulse Oximetry 96 05/16/18 02:14 Temperature 97.8 F 05/16/18 02:14 Pulse Rate 110 05/16/18 02:14 Respiratory Rate 22 05/16/18 02:31 Blood Pressure 187/105 05/16/18 02:31 O2 Sat by Pulse Oximetry 95 05/16/18 02:31 Oxygen Delivery Oxygen Delivery Nasal Cannula Medical Decision Making - Medical Records Medical records reviewed: Yes I reviewed the patient's medical records. - Lab Data Lab results reviewed: Yes I reviewed the patient's lab results. Result diagrams: 05/16/18 02:30 05/16/18 02:30 Lab Results 05/16/18 05/16/18 Range/Units 02:30 02:30 WBC 12.4 H (4.3-11.1) K/mcL RBC 3.88 L (4.19-5.50) M/mcL Hgb 11.5 L (12.9-16.9) g/dL Hct 37.2 L (37.5-50.1) % MCV 95.9 (83.0-100.0) fL MCH 29.6 (28.0-33.3) pg MCHC 30.9 L (31.6-35.5) g/dL RDW 14.9 H (11.5-14.5) % Plt Count 173 (140-400) K/mcL MPV 10.4 (9.4-12.4) fL Immature Gran % 0.4 (0-4) % Seg Neutrophils % 81.8 % Lymphocytes % 10.5 % Monocytes % 5.2 % Eosinophils % 1.5 % Basophils % 0.6 % Neutrophils # 10.1 H (1.6-8.9) K/mcL Lymphocytes # 1.3 (0.6-4.6) K/mcL Monocytes # 0.6 (0.0-1.3) K/mcL Eosinophils # 0.2 (0.0-0.6) K/mcL Basophils # 0.1 (0.0-0.2) K/mcL Sodium 135 L (136-145) mEq/L Potassium 5.1 (3.5-5.1) mEq/L Chloride 94 L (98-107) mEq/L Carbon Dioxide 24 (23-29) mEq/L BUN 54 H (8-23) mg/dL Creatinine 8.19 H (0.70-1.30) mg/dL Est GFR ( Amer) 8 L (> 60) Est GFR (Non-Af Amer) 7 L (> 60) BUN/Creatinine Ratio 7 (6-26) Glucose 188 H (70-105) mg/dL Calculated Osmolality 300 (280-300) Calcium 9.6 (8.6-10.3) mg/dL Troponin I 0.06 H* (< 0.04) ng/mL - Radiology Data Radiology results reviewed: Yes I reviewed the patient's radiology results. Chest X-Ray 05/16/18 02:12 IMPRESSION: Pulmonary edema with bibasilar atelectasis or pneumonia. D/ / Joe Epstein MD / Joe Epstein MD Interpreting Provider: Joe Epstein MD - EKG Data EKG #1 EKG attestation: Yes I reviewed and interpreted this EKG. EKG results narrative: EKG shows a normal sinus rhythm with ventricular rate of 87. No significant ST segment elevation or depression. No arrhythmia or ectopy. Critical Care Time Critical Care Time: Yes Total Critical Care Time: 35 Attestation: Critical care performed: Time is exclusive of separately billable procedures. Time includes: direct patient care, patient reassessment, coordination of patient care, interpretation of data (laboratory data, radiology data, and respiratory data), review of patient's medical records, medical consultation and documentation of patient care. Procedures included in critical care time: Procedures excluded from critical care time: Attestation Statement - Attestation Attestation: I, Iftikhar Portillo MD, personally evaluated this patient and discussed their management with the resident physician. I reviewed the resident's note and agree with the documented findings, medical decision making, and plan of care. 67-year-old male presents to the emergency department by EMS with a complaint of increased shortness of breath over the past day or so but much worse tonight during the night. There has been some increased cough. No fever. No chest pain. Patient does not use oxygen at home. He apparently was told he had pneumonia several weeks ago. He states this feels the same. On examination patient is a well-developed well-nourished male in no acute distress. He is alert and oriented 3. There is no cyanosis or diaphoresis. Breath sounds are markedly decreased bilaterally to scattered wheezes and biba silar rales. Regular rate and rhythm. Abdomen soft and nontender with normal bowel sounds. Chest x-ray shows some pulmonary edema and bibasilar atelectasis or pneumonia. EKG shows sinus rhythm with no acute ischemic changes. Labs reviewed. Blood cultures obtained and antibiotics initiated. The hospitalist, Dr. Arnold, was consulted and accepted admission of the patient.
[2018-05-16] MEDS ORDERED: Naloxone 0.4 MG/ML INJ IVP PRN (13:09)
[2018-05-16] MEDS ORDERED: Nitroglycerin 0.4 MG TAB.SUBL SL PRN (14:06)
[2018-05-16] MEDS ORDERED: 0.9 % Sodium Chloride 1,000 ML ONE (14:48)
[2018-05-16] MEDS ORDERED: 0.9 % Sodium Chloride 250 ML IVC PRN (14:56)
[2018-05-16] MEDS ORDERED: 0.9 % Sodium Chloride 1,000 ML PRIME SCH (15:00)
[2018-05-16] MEDS ORDERED: Artificial Tears SOLN 15 ML BOTTLE BOTH EYES PRN (15:00)
--- NOTE | 2018-05-16 16:26 | Nephrology Consult Note ---
Date of Encounter: 05/16/18 Time of Encounter: 14:00 Assessment and Plan (1) Volume overload Current Visit: No Status: Acute Urgent Hd today with UF goal of 4kg Plan for UF tomorrow if needed as well Fluid restriction Strict I/Os Qualifiers: Hypervolemia type: unspecified Qualified Code(s): E87.70 - Fluid overload, unspecified (2) ESRD (end stage renal disease) on dialysis Current Visit: No Status: Chronic HD urgently today planned with 2k bath Renal diet advised (3) History of hypertension Current Visit: No Status: Chronic Elevated, might be volume mediated and should improve with UF Resume home meds History of Present Illness - Reason for Consult Consult date: 05/16/18 end stage renal disease Requesting physician: Rodolfo Vega - History of Present Illness 67 y o male with PMH of ESRD on HD, HTN and COPD presenting after recent bout with PNA with prgressive SOB. Pt seen and examined sitting up in bed with face mask in visible distress and not able to speak more than a few words to me. Pt does admit to some dietary indiscretions. Last HD was on tuesday, has not missed recently. He denies LE edema but reports increasing abdominal girth. 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 [place] x4 and 2 leaking heart valves Psychiatric history: anxiety, depression, PTSD - Past Surgical History Surgical History: knee replacement Additional surgical history: left knee replaceed/tendons on left foot repaired, abcess through rectal area and removal of tailbone,. cardiac stents x3 - Social History Smoking Status: Former smoker Packs per day: 2 Smokeless Tobacco Status: No Alcohol use: none Drug use: none - Family History Sister Hx Family Endocrine Disorder: Yes (DM) Medications and Allergies Acetaminophen [Non-Aspirin] 650 mg PO Q6H PRN 09/14/17 [History] Aspirin [Lo-Dose Aspirin EC] 81 mg PO DAILY 09/14/17 [History] Atorvastatin [Lipitor] 40 mg PO HS 09/14/17 [History] Calcium Acetate [Phos-LO] 667 mg PO TIDWM 09/14/17 [History] Folic Acid/Vit Bcomp,C [Renal-Agustina Tablet] 0.8 mg PO DAILY 09/14/17 [History] Insulin ASPART [Novolog Flexpen] 0 - 10 unit SQ TID 09/14/17 [History] Isosorbide MONOnitrate (24 HR) [Imdur] 30 mg PO HS 09/14/17 [History] Nortriptyline [Pamelor] 25 mg PO HS 09/14/17 [History] Ranitidine HCl [Acid Flight Purser] 150 mg PO DAILY 09/14/17 [History] Nitroglycerin [Nitrostat] 0.4 mg SL Q5MIN PRN #0 09/15/17 [Rx] Insulin Glargine,Hum.rec.anlog [Lantus Solostar] 38 unit SQ HS 04/29/18 [History] Propylene Glycol/Peg 400 [Sm Lubricating Tears Eye Drops] 1 drop BOTH EYES TID 04/29/18 [History] Sevelamer HCl [Renagel] 1,600 mg PO BID 04/29/18 [History] Trazodone HCl 250 mg PO HS 04/29/18 [History] Metoprolol XL (24 HR) Succ [Toprol Xl] 25 mg PO DAILY 30 Days #30 tab.er.24h 05/01/18 [Rx] Allergy/AdvReac Type Severity Reaction Status Date / Time diphenhydramine Allergy Rash Verified 04/29/18 10:43 [From Benadryl] meperidine Allergy Nausea Verified 04/29/18 10:43 morphine Allergy Nausea Verified 04/29/18 10:43 Review of Systems All Systems review (narrative): The rest of the systems are negative Constitutional: fatigue (admits) Cardiovascular: chest pain (denies), leg edema (denies) Respiratory: cough (admits), dyspnea (admits) Gastrointestinal: bloating (admits) Exam - Vital Signs Vital signs: Initial Vital Signs Temp Pulse Resp BP Pulse Ox 97.8 F 110 22 187/107 96 05/16/18 02:14 05/16/18 02:14 05/16/18 02:14 05/16/18 02:14 05/16/18 02:14 Vital Signs - Last 8 Hours Temp Pulse Resp BP Pulse Ox 05/16/18 13:30 30 97 05/16/18 11:50 97.8 F 105 22 182/99 92 Intake and Output 05/16/18 05/16/18 05/16/18 07:59 15:59 23:59 Intake Total 260 / 260 Balance 260 / 260 Intake: IV Fluids 260 / 260 Maxipime 1,000 MG In Water for 10 / 10 inj. (sterile) 10 ML @ 300 mls/ hr IVP NOW STA Rx#:[id number] Vancocin 1,500 MG In 0.9 % 250 / 250 Sodium Chloride 250 ML @ 167 mls/hr IVPB ONCE ONE Rx#: [id number] Other: Weight 103.873 kg Blood Glucose* 139 113 Patient Weight 05/16/18 23:59 Weight 103.873 kg - General Appearance General appearance: moderate distress, chronically ill EENT: ATNC, mucous membranes moist Neck: no JVD, supple Additional Comments: Decreased BS throughout Cardiology: no edema, normal S1, normal S2 Gastrointestinal: no tenderness, no guarding, obese Integumentary: warm and dry Neurologic: no focal deficit Musculoskeletal: no deformities Psychiatric: mood/affect appropriate Results - Lab Results 05/16/18 02:30 05/16/18 02:30 Most recent lab results Calcium 9.6 mg/dL (8.6-10.3) 05/16/18 02:30 Consult Discharge Plan - Plan [facility]errals: [facility] [Primary Care Provider[facility] -
[2018-05-16] MEDS ORDERED: *HR* Heparin 5,000 UNIT/ML VIAL ONE (17:25)
[2018-05-16] MEDS ORDERED: Cefepime HCl 1,000 MG in Water for inj. (sterile) 20 ML 10 ML IVP SCH (18:00)
[2018-05-16] MEDS: Calcium Acetate 667 MG CAPSULE PO SCH (18:41)
[2018-05-16] MEDS: traZODone 50 MG TABLET PO SCH (20:36)
[2018-05-16] MEDS: Isosorbide MONOnitrate (24 HR) 30 MG TAB.ER.24H PO SCH (20:37)
[2018-05-16] MEDS: Acetaminophen 325 MG TABLET PO PRN (21:00)
--- NOTE | 2018-05-16 21:07 | Internal Med History&Physical ---
Date of Encounter: 05/16/18 Time of Encounter: 11:00 Internal Medicine - H&P: HPI Chief complaint: Difficulty breathing Admitted From: Home Plans for Post Hospital Care: Home History of present illness: The patient is a 67-year-old man. He has had end-stage renal disease (on hemodialysis) due to long-standing type 2 diabetes mellitus and hypertension. He does have COPD; smokes cigarettes every day. We admitted him to the hospital with progressing dyspnea developing in the last a couple days preceding this admission. It is associated with progressing hypoxia. He does not use oxygen at home at all. He required 3 L/min of oxygen in the emergency room; he is on 4 L/min of oxygen today. He denies fever and chills. He does have mild cough. His last hemodialysis was on Tuesday (3 days ago). Today is a Tuesday; he takes hemodialysis on Tuesdays, and Saturdays. He got BiPAP treatments in the emergency room. PAST MEDICAL HX: He does have end-stage renal disease (on hemodialysis) secondary to long- standing type 2 diabetes mellitus and hypertension. He is also treated for COPD (non-oxygen dependent), coronary artery disease, GERD and hyperlipidemia. He is also treated for PTSD and depression with anxiety. PAST FAMILY HX: See below.. PAST SOCIAL HX: See below.. REVIEW OF SYSTEMS: All 14 organ systems were reviewed by me with the patient. Positive and pertinent negative findings are listed above. The rest of organ systems is negative. PHYSICAL EXAM: Skin: Free of rash and discoloration. Eyes: Sclera is white. There is no discharge from eyes. ENMT: Oral/pharyngeal mucosa is normal in appearance. There is no discharge from nose or ears. Respiratory: He has decreased breath sounds at lung bases; posteriorly. I cannot hear any crackles, rhonchi or wheezes. CV: Heart is regular with no gallop or murmur. GI: Abdomen is flat and soft with no palpable mass or visceromegaly. : There is no tenderness in patient's flanks bilaterally. Neuro exam: He has good strength in upper and lower extremities. He has normal eye movements. Psychiatric: He has normal affect. His thought process is appropriate to the situation. ADDITIONAL DATA: His chest x-ray shows pulmonary edema with bibasilar atelectasis or pneumonia. His CBC shows hemoglobin of 11.5 with WBC of 12.4 thousand and platelet count of 173,000. He has normal electrolytes. His creatinine is 8.19. Random glucose is 188. His troponin is 0.06, 0.08 and 0.06. A/P: The patient may have pneumonia. This is why we will continue IV cefepime; we will stop IV vancomycin. Definitely he has fluid overload secondary to end-stage renal disease; he might have taken too much of by mouth fluids recently. I discussed this case with nephrology. They will give him hemodialysis today. We will get echocardiogram to look at his systolic/diastolic function. We will definitely repeat his chest x-ray and CBC/BMP in the morning. He has developed acute hypoxic respiratory failure secondary to pulmonary congestion. We will give him a supplemental oxygen. He may also benefit from nebulizer treatments with DuoNeb. He does have underlying COPD. Type 2 diabetes mellitus. We will keep him on diabetic diet and insulin. His other problems are mentioned above. They seem to be stable/controlled. 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 [place] x4 and 2 leaking heart valves Psychiatric history: anxiety, depression, PTSD - Past Surgical History Surgical History: knee replacement Additional surgical history: left knee replaceed/tendons on left foot repaired, abcess through rectal area and removal of tailbone,. cardiac stents x3 - Social History Smoking Status: Former smoker Packs per day: 2 Smokeless Tobacco Status: No Alcohol use: none Drug use: none - Family History Sister Hx Family Endocrine Disorder: Yes (DM) Internal Medicine - H&P: Meds Acetaminophen [Non-Aspirin] 650 mg PO Q6H PRN 09/14/17 [History] Aspirin [Lo-Dose Aspirin EC] 81 mg PO DAILY 09/14/17 [History] Atorvastatin [Lipitor] 40 mg PO HS 09/14/17 [History] Calcium Acetate [Phos-LO] 667 mg PO TIDWM 09/14/17 [History] Folic Acid/Vit Bcomp,C [Renal-Agustina Tablet] 0.8 mg PO DAILY 09/14/17 [History] Insulin ASPART [Novolog Flexpen] 0 - 10 unit SQ TID 09/14/17 [History] Isosorbide MONOnitrate (24 HR) [Imdur] 30 mg PO HS 09/14/17 [History] Nortriptyline [Pamelor] 25 mg PO HS 09/14/17 [History] Ranitidine HCl [Acid Cloth Boil Off Machine Operator] 150 mg PO DAILY 09/14/17 [History] Nitroglycerin [Nitrostat] 0.4 mg SL Q5MIN PRN #0 09/15/17 [Rx] Insulin Glargine,Hum.rec.anlog [Lantus Solostar] 38 unit SQ HS 04/29/18 [History] Propylene Glycol/Peg 400 [Sm Lubricating Tears Eye Drops] 1 drop BOTH EYES TID 04/29/18 [History] Sevelamer HCl [Renagel] 1,600 mg PO BID 04/29/18 [History] Trazodone HCl 250 mg PO HS 04/29/18 [History] Metoprolol XL (24 HR) Succ [Toprol Xl] 25 mg PO DAILY 30 Days #30 tab.er.24h 05/01/18 [Rx] Allergy/AdvReac Type Severity Reaction Status Date / Time diphenhydramine Allergy Rash Verified 04/29/18 10:43 [From Benadryl] meperidine Allergy Nausea Verified 04/29/18 10:43 morphine Allergy Nausea Verified 04/29/18 10:43 - Constitutional Vitals: Temp Pulse Resp BP Pulse Ox 98.3 F 102 17 117/74 97 05/16/18 20:34 05/16/18 20:34 05/16/18 20:34 05/16/18 20:34 05/16/18 20:34 General appearance: Present: A&O X 3, answers questions appropriately Exam: xx Internal Med - H&P Results - Labs CBC & Chem 7: 05/16/18 02:30 05/16/18 02:30 Labs: Short CBC 05/16/18 Range/Units 02:30 WBC 12.4 H (4.3-11.1) K/mcL Hgb 11.5 L (12.9-16.9) g/dL Hct 37.2 L (37.5-50.1) % Plt Count 173 (140-400) K/mcL Neutrophils # 10.1 H (1.6-8.9) K/mcL BMP 05/16/18 02:30 Sodium 135 L Potassium 5.1 Chloride 94 L Carbon Dioxide 24 BUN 54 H Creatinine 8.19 H Glucose 188 H Calcium 9.6 Cardiac Enzymes 05/16/18 05/16/18 05/16/18 Range/Units 02:30 08:21 13:54 Troponin I 0.06 H* 0.08 H* 0.06 H* (< 0.04) ng/mL - Impressions ITS Impressions Chest X-Ray 05/16/18 02:12 IMPRESSION: Pulmonary edema with bibasilar atelectasis or pneumonia. D/ / Joe Epstein MD / Joe Epstein MD Interpreting Provider: Joe Epstein MD - Assessment and plan (1) Pneumonia Current Visit: Yes Status: Acute Qualifiers: Pneumonia type: due to unspecified organism Laterality: bilateral Lung location: lower lobe of lung Qualified Code(s): J18.1 - Lobar pneumonia, unspecified organism (2) ESRD on hemodialysis Current Visit: Yes Status: Chronic (3) Acute respiratory failure with hypoxia Current Visit: Yes Status: Acute (4) Type 2 diabetes mellitus Current Visit: Yes Status: Chronic Qualifiers: Diabetes mellitus terminal carman insulin use: with terminal carman use Diabetes mellitus complication status: with kidney complications Diabetes mellitus complication detail: with chronic kidney disease Chronic kidney disease stage: on chronic dialysis Qualified Code(s): E11.22 - Type 2 diabetes mellitus with diabetic chronic kidney disease; N18.6 - End stage renal disease; Z79.4 - salvage determiner (current) use of insulin; Z99.2 - Dependence on renal dialysis (5) CAD (coronary artery disease) Current Visit: Yes Status: Chronic Qualifiers: Coronary Disease-Associated Artery/Lesion type: [place] artery [place] vs. transplanted heart: [place] heart Associated angina: without angina Qualified Code(s): I25.10 - Atherosclerotic heart disease of [place] coronary artery without angina pectoris - Time Spent With Patient Total time spent is greater than 50% in coordination of care (as documented) at patient's floor/unit and/or counseling patient: 25 - 35 minutes
[2018-05-17] MEDS: Acetaminophen 325 MG TABLET PO PRN ×2 (03:02→23:07)
[2018-05-17] MEDS ORDERED: Cefepime HCl 1,000 MG in 0.9 % Sodium Chloride Mini Bag 100 ML IVPB SCH (04:00)
[2018-05-17 05:04] LABS: Basophils % 0.6 %; Eosinophils # 0.2 K/mcL (0.0-0.6); Eosinophils % 2.6 %; Hematocrit 35.1 % (37.5-50.1); Hemoglobin 10.8 g/dL (12.9-16.9); Immature Granulocytes % 0.3 % (0-4); Lymphocytes # 1.4 K/mcL (0.6-4.6); Lymphocytes % 20.5 %; Mean Corpuscular HGB Conc 30.8 g/dL (31.6-35.5); Mean Corpuscular Hemoglobin 29.8 pg (28.0-33.3); Mean Corpuscular Volume 96.7 fL (83.0-100.0); Mean Platelet Volume 10.1 fL (9.4-12.4); Monocytes # 0.6 K/mcL (0.0-1.3); Neutrophils # 4.7 K/mcL (1.6-8.9); Platelet Count 151 K/mcL (140-400); Red Blood Count 3.63 M/mcL (4.19-5.50); Red Cell Distribution Width 15.4 % (11.5-14.5)
[2018-05-17 05:26] LABS: Calcium 9.4 mg/dL (8.6-10.3); Magnesium 2.4 mg/dL (1.6-2.6); Potassium 4.3 mEq/L (3.5-5.1)
[2018-05-17] MEDS ORDERED: 0.9 % Sodium Chloride 250 ML IVC PRN (07:26)
[2018-05-17] MEDS ORDERED: 0.9 % Sodium Chloride 1,000 ML PRIME SCH (07:30)
[2018-05-17] MEDS: Metoprolol XL (24 HR) Succ 25 MG TAB.ER.24H PO SCH (07:54)
[2018-05-17] MEDS: Aspirin Enteric Coated 81 MG Tablet PO SCH (07:54)
[2018-05-17] MEDS: Famotidine 20 MG TABLET PO SCH (07:54)
[2018-05-17] MEDS: Calcium Acetate 667 MG CAPSULE PO SCH ×3 (07:54→17:43)
[2018-05-17] MEDS: Renal Vitamin 1 CAP CAPSULE PO SCH (07:54)
[2018-05-17] MEDS ORDERED: 0.9 % Sodium Chloride 1,000 ML ONE (08:54)
[2018-05-17 08:55] LABS: Acinetobacter baumannii by PCR Not Detected (Not Detect); Candida albicans by PCR Not Detected (Not Detect); Candida glabrata by PCR Not Detected (Not Detect); Candida krusei by PCR Not Detected (Not Detect); Candida parapsilosis by PCR Not Detected (Not Detect); Candida tropicalis by PCR Not Detected (Not Detect); Enterobacter cloacae Cmplx PCR Not Detected (Not Detect); Enterobacteriaceae by PCR Not Detected (Not Detect); Enterococcus by PCR Not Detected (Not Detect); Escherichia coli by PCR Not Detected (Not Detect); Klebsiella oxytoca by PCR Not Detected (Not Detect); Klebsiella pneumoniae by PCR Not Detected (Not Detect); Proteus by PCR Not Detected (Not Detect); Pseudomonas aeruginosa by PCR Not Detected (Not Detect); Serratia marcescens by PCR Not Detected (Not Detect); Staphylococcus aureus by PCR Not Detected (Not Detect); Staphylococcus by PCR DETECTED (Not Detect); Streptococcus agalactiae(B)PCR Not Detected (Not Detect); Streptococcus by PCR Not Detected (Not Detect); Streptococcus pneumoniae PCR Not Detected (Not Detect); Streptococcus pyogenes (A) PCR Not Detected (Not Detect); mecA Methicillin-Resist Gene DETECTED (Not Detect)
--- NOTE | 2018-05-17 12:02 | Nephrology Progress Note ---
Date of Encounter: 05/17/18 Time of Encounter: 11:56 - Assessment and Plan (1) ESRD (end stage renal disease) on dialysis Current Visit: No Status: Chronic Current regimen is MWF at [facility]. HD completed yesterday without complication. UF ordered for today and in progress. Renal diet Renal vitamins Strict I/O Avoid nephrotoxins and renal dose all medications. (2) History of hypertension Current Visit: No Status: Chronic 129/79, stable. Continue current regimen. (3) Volume overload Current Visit: No Status: Acute Urgent Hd completed yesterday, UF today. Fluid restriction Strict I/Os Qualifiers: Hypervolemia type: unspecified Qualified Code(s): E87.70 - Fluid overload, unspecified (4) Anemia Current Visit: Yes Status: Acute Goal Hgb is 10-11. Hgb is 10.8, stable. Qualifiers: Qualified Code(s): D64.9 - Anemia, unspecified Subjective Principal diagnosis: difficulty in breathing Interval history: Pt seen and examined, during HD. Doing well. Admits to feeling much better. Denies shortness of breath or chest pain. Denies nausea, vomiting, diarrhea. Objective - Vital Signs Vital signs: Vital Signs Temp Pulse Resp BP Pulse Ox 05/17/18 07:11 98.0 F 103 18 129/79 94 05/17/18 02:57 98.6 F 109 18 120/69 94 05/16/18 23:42 98.4 F 107 17 113/74 92 05/16/18 20:34 98.3 F 102 17 117/74 97 05/16/18 19:40 97.1 F L 18 128/84 05/16/18 19:30 109/71 05/16/18 19:15 115/77 05/16/18 19:00 128/79 05/16/18 18:45 124/71 05/16/18 18:30 138/74 05/16/18 18:15 130/82 05/16/18 18:00 129/79 05/16/18 17:45 121/69 05/16/18 17:30 128/78 05/16/18 17:15 139/83 05/16/18 17:00 133/84 05/16/18 16:45 136/82 05/16/18 16:30 133/83 05/16/18 16:15 146/83 05/16/18 16:00 98.1 F 22 144/81 05/16/18 13:30 30 97 Intake and Output 05/16/18 05/17/18 05/17/18 23:59 07:59 15:59 Intake Total 850 / 850 480 / 480 Output Total 4600 / 4600 100 / 100 Balance -3750 / -3750 -100 / -100 480 / 480 Intake: IV Fluids Maxipime 1,000 MG In Water for inj. (sterile) 10 ML @ 300 mls/ hr IVP Q24H [facility] Rx#:[id number] Oral 240 / 240 480 / 480 Intake, Rinseback and Flushes 600 / 600 Output: Urine 0 / 0 100 / 100 Total Dialysis (HD) Output 4600 / 4600 Other: Meal Dinner Breakfast Percent of Meal Consumed 100% 80% Weight 104 kg Blood Glucose* 214 137 178 Hemodialysis Net Fluid Removed 4000 (mL) - General Appearance General appearance: Present: well-developed, well-nourished EENT: Present: ATNC, hearing intact, vision intact Neck: Present: supple Respiratory: Present: clear Cardiology: Present: no edema, normal S1 Dialysis Vascular Access: Arteriovenous Fistula thrill: Yes bruit: Yes Gastrointestinal: Present: normoactive bowel sounds, no tenderness, no guarding Integumentary: Present: no rash, warm and dry Neurologic: Present: alert and oriented x3 Psychiatric: Present: mood/affect appropriate, cooperative - Lab 05/17/18 04:40 05/17/18 04:40 Most recent lab results Calcium 9.4 mg/dL (8.6-10.3) 05/17/18 04:40 Magnesium 2.4 mg/dL (1.6-2.6) 05/17/18 04:40 Consult Discharge Plan - Plan [facility]errals: [facility] [Primary Care Provider] -
[2018-05-17] MEDS ORDERED: D5% in Water 1,000 ML IVC PRN (12:16)
[2018-05-17] MEDS ORDERED: Dextrose Gel 15 GM/37.5 ML TUBE PO PRN ×2 (12:16)
[2018-05-17] MEDS ORDERED: *HR* Dextrose 50 % in Water (Syg) 50 ML SYRINGE IVP PRN (12:16)
--- NOTE | 2018-05-17 15:55 | Electrocardiograph Report ---
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
--- NOTE | 2018-05-17 16:03 | Electrocardiograph Report ---
[place] [id number] Test Date: 2018-05-16 Pat Name: Nam Sidhu Department: EXAM19 Room: 2A22 Gender: M Leveler Helper: : 1950 Requested By: Lupillo Miguel Order Number: [id number] Reading MD: Javon Martinez Measurements Intervals [place] Rate: 87 P: 46 [place]: 156 QRS: -1 QRSD: 94 T: 108 QT: 411 QTc: 495 Interpretive Statements Sinus rhythm Nonspecific T abnormalities, lateral leads Borderline prolonged QT interval Electronically Signed On 05-17-2018 16:02:13 EST by Javon Martinez
[2018-05-17] MEDS: Insulin LISPRO 300 UNITS/3 ML VIAL SQ SCH (17:43)
[2018-05-17] MEDS ORDERED: WATER FOR INJ IVP SCH (18:00)
[2018-05-17] MEDS ORDERED: CEFEPIME HCL IVP SCH (18:00)
--- NOTE | 2018-05-17 19:35 | Internal Med Progress Note ---
Hospitalist Progress Note - Encounter Date of Encounter: 05/17/18 Time of Encounter: 11:00 - Subjective Interval History: Patient with a past medical history is negative for end-stage renal disease on hemodialysis who presents with shortness of breath Suspect secondary to volume overload Nephrology following with recommendations for hemodialysis - Exam Vitals: Temp Pulse Resp BP Pulse Ox 98.0 F 98 18 124/80 96 05/17/18 15:44 05/17/18 15:44 05/17/18 15:44 05/17/18 15:44 05/17/18 15:44 Exam: Gen.: Nonacute distress, alert and oriented 3 ENT: Mucosal membranes moist Respiratory: Lungs are clear to auscultation bilaterally without any wheezing rhonchi or rales Cardiovascular: Normal S1 and S2 regular rate rhythm no murmurs rubs or gallops Abdomen: Soft, nontender and nondistended with positive bowel sounds Extremities: No lower extremity edema Skin: Normal color - Assessment and Plan (1) Acute respiratory failure with hypoxia Current Visit: Yes Status: Acute Assessment and Plan: Patient with shortness of breath with acute hypoxic respiratory failure secondary to bilateral pleural effusion is due to volume overload in a patient with end-stage renal disease on hemodialysis Will maintain supplemental oxygenation as needed and management of volume overload as below with hemodialysis for end-stage renal disease. (2) Pleural effusion Current Visit: Yes Status: Acute Assessment and Plan: Chest x-ray and CT of the chest reveals small bilateral pleural effusions with interstitial pulmonary edema Suspect secondary to volume overload due to end-stage renal disease (3) ESRD on hemodialysis Current Visit: Yes Status: Chronic Assessment and Plan: Nephrology consulted with recommendations for urgent hemodialysis on 05/16/18 with ultrafiltration scheduled for today Appreciate any additional recommendations (4) CAD (coronary artery disease) Current Visit: Yes Status: Chronic Assessment and Plan: Stable; continue Imdur, beta freddie, aspirin and statin (5) Pneumonia Current Visit: Yes Status: Acute Assessment and Plan: Patient suspected to have pneumonia on admission but CT of the chest with no evidence of infiltrates therefore we will discontinue IV antibiotics (6) Type 2 diabetes mellitus Current Visit: Yes Status: Chronic Assessment and Plan: Will cover with sliding scale insulin - Time Spent with Patient Total time spent is greater than 50% in coordination of care (as documented) at patient's floor/unit and/or counseling patient: Internal Medicine: Result - Labs CBC & Chem 7: 01/03/19 03:02 05/18/18 03:02 Labs: Short CBC 05/17/18 Range/Units 04:40 WBC 6.9 (4.3-11.1) K/mcL Hgb 10.8 L (12.9-16.9) g/dL Hct 35.1 L (37.5-50.1) % Plt Count 151 (140-400) K/mcL Neutrophils # 4.7 (1.6-8.9) K/mcL BMP 05/17/18 04:40 Sodium 138 Potassium 4.3 Chloride 97 L Carbon Dioxide 30 H BUN 39 H Creatinine 6.32 H Glucose 160 H Calcium 9.4 - Impressions Impressions Chest X-Ray 05/17/18 08:00 IMPRESSION: Improving interstitial opacities and bilateral pleural effusions suggesting improving interstitial pulmonary edema. D/ / Brodie Hardy MD / Brodie Hardy MD Interpreting Provider: Brodie Hardy MD Chest CT 05/17/18 14:00 IMPRESSION: 1. Scattered subcentimeter calcified parenchymal nodules along with scattered mediastinal nodes consistent with granulomatous disease. 2. Bilateral small pleural effusions right greater than left with adjacent posterior basal consolidation suggestive of subsegmental atelectasis rather than pneumonia. 3. A mild centrilobular emphysema. D/ / Deangelo Kat MD / Deangelo Kat MD Interpreting Provider: Deangelo Kat MD Echocardiogram 05/17/18 21:04 Impressions: Normal sinus rhythm. Exam was not interpretable. Only the apical 3 chamber view is available. Patient requested exam to be stopped. Please do a complete examination once patient is more cooperative. Findings: Study Quality * Exam was not interpretable. On the apical 3 chamber view is available. Patient requested exam to be stopped. Please do a complete examination once patient is more cooperative. ECG Findings * Normal sinus rhythm. Consult Discharge Plan - Plan [facility]errals: [facility] [Primary Care Provider] - (4) CAD (coronary artery disease) Qualifiers: Coronary Disease-Associated Artery/Lesion type: [place] artery [place] vs. tr ansplanted heart: [place] heart Associated angina: without angina Qualified Code(s): I25.10 - Atherosclerotic heart disease of [place] coronary artery without angina pectoris (5) Pneumonia Qualifiers: Pneumonia type: due to unspecified organism Laterality: bilateral Lung location: lower lobe of lung Qualified Code(s): J18.1 - Lobar pneumonia, unspecified organism (6) Type 2 diabetes mellitus Qualifiers: Diabetes mellitus oysterman insulin use: with care home use Diabetes mellitus complication status: with kidney complications Diabetes mellitus complication detail: with chronic kidney disease Chronic kidney disease stage: on chronic dialysis Qualified Code(s): E11.22 - Type 2 diabetes mellitus with diabetic chronic kidney disease; N18.6 - End stage renal disease; Z79.4 - oysterman (cu rrent) use of insulin; Z99.2 - Dependence on renal dialysis
[2018-05-17] MEDS ORDERED: Insulin LISPRO 300 UNITS/3 ML VIAL SQ SCH (21:00)
[2018-05-17] MEDS: traZODone 50 MG TABLET PO SCH (23:05)
[2018-05-17] MEDS: Isosorbide MONOnitrate (24 HR) 30 MG TAB.ER.24H PO SCH (23:05)
[2018-05-18 04:11] LABS: Hemoglobin 10.6 g/dL (12.9-16.9); Mean Corpuscular HGB Conc 32.1 g/dL (31.6-35.5); Mean Corpuscular Hemoglobin 30.4 pg (28.0-33.3); Mean Corpuscular Volume 94.6 fL (83.0-100.0); Mean Platelet Volume 10.8 fL (9.4-12.4); Platelet Count 132 K/mcL (140-400); Red Blood Count 3.49 M/mcL (4.19-5.50); Red Cell Distribution Width 15.2 % (11.5-14.5)
[2018-05-18 04:33] LABS: Calcium 9.4 mg/dL (8.6-10.3); Potassium 4.7 mEq/L (3.5-5.1)
[2018-05-18] MEDS ORDERED: *HR* Heparin 10,000 UNIT/10 ML VIAL IV PRN (07:42)
[2018-05-18] MEDS ORDERED: 0.9 % Sodium Chloride 250 ML IVC PRN (07:42)
[2018-05-18] MEDS ORDERED: 0.9 % Sodium Chloride 1,000 ML PRIME SCH (07:45)
--- NOTE | 2018-05-18 07:53 | Internal Med Progress Note ---
Hospitalist Progress Note - Encounter Date of Encounter: 05/18/18 - Subjective Interval History: Patient with a past medical history is negative for end-stage renal disease on hemodialysis who presents with shortness of breath Suspect secondary to volume overload Improving interstitial pulmonary edema on chest x-ray (05/17/18) with ultrafiltration and hemodialysis - Exam Vitals: Temp Pulse Resp BP Pulse Ox 97.6 F 99 17 132/78 92 05/18/18 07:03 05/18/18 07:03 05/18/18 07:03 05/18/18 07:03 05/18/18 07:03 - Assessment and Plan (1) Acute respiratory failure with hypoxia Current Visit: Yes Status: Acute Assessment and Plan: Patient with shortness of breath with acute hypoxic respiratory failure secondar y to bilateral pleural effusion is due to volume overload in a patient with end- stage renal disease on hemodialysis Will maintain supplemental oxygenation as needed and management of volume overload as below with hemodialysis for end-stage renal disease. (2) Pleural effusion Current Visit: Yes Status: Acute Assessment and Plan: Chest x-ray and CT of the chest reveals small bilateral pleural effusions with interstitial pulmonary edema Suspect secondary to volume overload due to end-stage renal disease Improving interstitial pulmonary edema on chest x-ray (05/17/18) with ultrafiltration and hemodialysis Continue management of end-stage renal disease as below (3) ESRD on hemodialysis Current Visit: Yes Status: Chronic Assessment and Plan: Improving interstitial pulmonary edema on chest x-ray (05/17/18) with ultrafiltration on 05/17/18 and hemodialysis on 05/16/18 Nephrology following and appreciate any additional recommendations (4) CAD (coronary artery disease) Current Visit: Yes Status: Chronic Assessment and Plan: Stable; continue Imdur, beta freddie, aspirin and statin (5) Type 2 diabetes mellitus Current Visit: Yes Status: Chronic Assessment and Plan: Will cover with sliding scale insulin (6) Anemia Current Visit: Yes Status: Acute Assessment and Plan: Patient with a hemoglobin of 10.6 this morning Hemoglobin of 13.1 on 09/2017 Will order Hemoccult and monitor hemoglobin (7) Pneumonia Current Visit: Yes Status: Ruled-out Assessment and Plan: Patient suspected to have pneumonia on admission but CT of the chest with no evidence of infiltrates IV antibiotics discontinued - Time Spent with Patient Total time spent is greater than 50% in coordination of care (as documented) at patient's floor/unit and/or counseling patient: Internal Medicine: Result - Labs CBC & Chem 7: 05/18/18 03:02 05/18/18 03:02 Labs: Short CBC 05/18/18 Range/Units 03:02 WBC 7.0 (4.3-11.1) K/mcL Hgb 10.6 L (12.9-16.9) g/dL Hct 33.0 L (37.5-50.1) % Plt Count 132 L (140-400) K/mcL BMP 05/18/18 03:02 Sodium 138 Potassium 4.7 Chloride 96 L Carbon Dioxide 28 BUN 63 H Creatinine 7.65 H Glucose 190 H Calcium 9.4 - Impressions Impressions Chest X-Ray 05/17/18 08:00 IMPRESSION: Improving interstitial opacities and bilateral pleural effusions suggesting improving interstitial pulmonary edema. D/ / Brodie Hardy MD / Brodie Hardy MD Interpreting Provider: Brodie Hadry MD Chest CT 05/17/18 14:00 IMPRESSION: 1. Scattered subcentimeter calcified parenchymal nodules along with scattered mediastinal nodes consistent with granulomatous disease. 2. Bilateral small pleural effusions right greater than left with adjacent posterior basal consolidation suggestive of subsegmental atelectasis rather than pneumonia. 3. A mild centrilobular emphysema. D/ / Deangelo Kat MD / Deangelo Kat MD Interpreting Provider: Deangelo Kat MD Echocardiogram 05/17/18 21:04 Impressions: Normal sinus rhythm. Exam was not interpretable. Only the apical 3 chamber view is available. Patient requested exam to be stopped. Please do a complete examination once patient is more cooperative. Findings: Study Quality * Exam was not interpretable. On the apical 3 chamber view is available. Patient requested exam to be stopped. Please do a complete examination once patient is more cooperative. ECG Findings * Normal sinus rhythm. Consult Discharge Plan - Plan [facility]errals: [facility] [Primary Care Provider] - (4) CAD (coronary artery disease) Qualifiers: Coronary Disease-Associated Artery/Lesion type: [place] artery [place] vs. transplanted heart: [place] heart Associated angina: without angina Qualified Code(s): I25.10 - Atherosclerotic heart disease of [place] coronary artery without angina pectoris (5) Type 2 diabetes mellitus Qualifiers: Diabetes mellitus lean six sigma black belt insulin use: with retirement use Diabetes mellitus complication status: with kidney complications Diabetes mellitus complication detail: with chronic kidney disease Chronic kidney disease stage: on chronic d ialysis Qualified Code(s): E11.22 - Type 2 diabetes mellitus with diabetic chronic kidney disease; N18.6 - End stage renal disease; Z79.4 - intermediate (current) use of insulin; Z99.2 - Dependence on renal dialysis (6) Anemia Qualifiers: Qualified Code(s): D64.9 - Anemia, unspecified (7) Pneumonia Qualifiers: Pneumonia type: due to unspecified organism Laterality: bilateral Lung location: lower lobe of lung Qualified Code(s): J18.1 - Lobar pneumonia, unspecified organism
[2018-05-18] MEDS: Renal Vitamin 1 CAP CAPSULE PO SCH (08:04)
[2018-05-18] MEDS: Famotidine 20 MG TABLET PO SCH (08:04)
[2018-05-18] MEDS: Aspirin Enteric Coated 81 MG Tablet PO SCH (08:04)
[2018-05-18] MEDS: Insulin LISPRO 300 UNITS/3 ML VIAL SQ SCH ×4 (08:04→17:45)
[2018-05-18] MEDS: Calcium Acetate 667 MG CAPSULE PO SCH ×2 (08:04→13:25)
[2018-05-18] MEDS: Acetaminophen 325 MG TABLET PO PRN (09:39)
--- NOTE | 2018-05-18 11:15 | Nephrology Progress Note ---
Date of Encounter: 05/18/18 Time of Encounter: 11:14 - Assessment and Plan (1) ESRD (end stage renal disease) on dialysis Current Visit: No Status: Chronic Current regimen is MWF at [facility]. HD Tuesday, UF Tuesday, and HD today combined will be approximately 12 kgs removed. Spoke with MINERAL TECHNOLOGIST to obtain standing weight after HD treatment today for a new dry weight. Renal diet Renal vitamins Strict I/O Avoid nephrotoxins and renal dose all medications. (2) History of hypertension Current Visit: No Status: Chronic 121/86, stable. Continue current regimen. (3) Volume overload Current Visit: No Status: Acute HD today, see above. Fluid restriction Strict I/Os Qualifiers: Hypervolemia type: unspecified Qualified Code(s): E87.70 - Fluid overload, unspecified (4) Anemia Current Visit: Yes Status: Acute Goal Hgb is 10-11. Hgb is 10.6, stable. Qualifiers: Qualified Code(s): D64.9 - Anemia, unspecified Subjective Principal diagnosis: difficulty in breathing Interval history: Pt seen and examined, during HD. Doing well. Admits to feeling much better. Denies shortness of breath or chest pain. Denies nausea, vomiting, diarrhea. Objective - Vital Signs Vital signs: Vital Signs Temp Pulse Resp BP Pulse Ox 05/18/18 10:55 100/66 05/18/18 10:40 105/70 05/18/18 10:25 100/68 05/18/18 10:10 105/75 05/18/18 09:55 121/86 05/18/18 09:40 116/79 05/18/18 09:25 126/82 05/18/18 09:10 115/74 05/18/18 08:55 117/79 05/18/18 08:40 128/81 05/18/18 08:25 97.5 F L 18 125/80 05/18/18 08:05 92 05/18/18 07:03 97.6 F 99 17 132/78 92 05/18/18 04:03 98.1 F 92 18 116/63 96 05/17/18 23:13 96.2 F L 101 17 159/91 96 05/17/18 22:34 97 05/17/18 20:18 98.7 F 98 18 155/82 97 05/17/18 15:44 98.0 F 98 18 124/80 96 05/17/18 11:45 97.5 F L 18 114/79 05/17/18 11:20 115/72 Intake and Output 05/17/18 05/18/18 05/18/18 23:59 07:59 15:59 Intake Total 240 / 240 960 / 960 Output Total 0 / 0 0 / 0 Balance 240 / 240 0 / 0 960 / 960 Intake: Oral 240 / 240 360 / 360 Intake, Rinseback and Flushes 600 / 600 Output: Urine 0 / 0 0 / 0 Other: Meal Breakfast Percent of Meal Consumed 100% Weight 104.043 kg Blood Glucose* 197 168 165 Hemodialysis Net Fluid Removed 2869 (mL) - General Appearance General appearance: Present: well-developed, well-nourished EENT: Present: ATNC, hearing intact, vision intact Neck: Present: supple Respiratory: Present: clear Cardiology: Present: no edema, normal S1, normal S2 Dialysis Vascular Access: Arteriovenous Fistula thrill: Yes bruit: Yes Gastrointestinal: Present: normoactive bowel sounds, no tenderness, no guarding Integumentary: Present: no rash, warm and dry Neurologic: Present: alert and oriented x3 Psychiatric: Present: mood/affect appropriate, cooperative - Lab 05/18/18 03:02 05/18/18 03:02 Most recent lab results Calcium 9.4 mg/dL (8.6-10.3) 05/18/18 03:02 Magnesium 2.4 mg/dL (1.6-2.6) 05/17/18 04:40 Consult Discharge Plan - Plan Instructions: Heart Failure (DC), Bronchiolitis (DC) [facility]errals: [facility] [Primary Care Provider] - 05/29/18 10:15 am (Please follow up schedule...)
[2018-05-18] MEDS: Metoprolol XL (24 HR) Succ 25 MG TAB.ER.24H PO SCH (13:29)
[2018-05-18 13:37] VITALS: BP 101/67
--- NOTE | 2018-05-18 14:47 | Discharge Summary ---
- NOTES TO OUTPATIENT PROVIDER Notes to Outpatient Provider: Continue scheduled hemodialysis as an outpatient Orders not resulted at time of discharge: Pending orders 05/16/18 05:26 Culture,Blood [BC] Stat 05/17/18 14:10 Culture,Blood [BC] Stat 05/18/18 07:57 Fecal Hemoccult [Occult Blood,Stool] [BF] Routine 05/19/18 04:00 Basic Metabolic Panel AM 0400 CBC no Diff [Complete Blood Count w/o Diff] [HEME] AM 0400 05/20/18 04:00 Basic Metabolic Panel AM 0400 CBC no Diff [Complete Blood Count w/o Diff] [HEME] AM 04005/21/18 04:00 Basic Metabolic Panel AM 0400 CBC no Diff [Complete Blood Count w/o Diff] [HEME] AM 0400 05/22/18 04:00 Basic Metabolic Panel AM 0400 CBC no Diff [Complete Blood Count w/o Diff] [HEME] AM 040 Date of Encounter: 05/18/18 Time of Encounter: 11:00 - Discharge Diagnosis (1) Acute respiratory failure with hypoxia Priority: Primary Status: Acute (2) Pleural effusion Priority: Secondary Status: Acute (3) ESRD on hemodialysis Priority: Primary Status: Chronic (4) CAD (coronary artery disease) Priority: Secondary Status: Chronic Qualifiers: Coronary Disease-Associated Artery/Lesion type: [place] artery [place] vs. transplanted heart: [place] heart Associated angina: without angina Qualified Code(s): I25.10 - Atherosclerotic heart disease of [place] coronary artery without angina pectoris (5) Type 2 diabetes mellitus Priority: Secondary Status: Chronic Qualifiers: Diabetes mellitus exterminator insulin use: with exterminator use Diabetes mellitus complication status: with kidney complications Diabetes mellitus complication detail: with chronic kidney disease Chronic kidney disease stage: on chronic dialysis Qualified Code(s): E11.22 - Type 2 diabetes mellitus with diabetic chronic kidney disease; N18.6 - End stage renal disease; Z79.4 - termite exterminator (current) use of insulin; Z99.2 - Dependence on renal dialysis (6) Anemia Priority: Secondary Status: Acute Qualifiers: Qualified Code(s): D64.9 - Anemia, unspecified Hospital course: Patient is a 67-year-old male with past medical history significant for end- stage renal disease (on hemodialysis) due to long-standing type 2 diabetes mellitus and hypertension who presented to the ER on 05/16/18 due to shortness of breath. She reported of dyspnea approximately 2 days prior to admission with worsening hypoxia requiring more home O2. Patients hospital stay he was treated for volume overload secondary to end- stage renal disease and nephrology was consulted with recommendations for hemodialysis in addition to ultrafiltration and patient diuresed over 13 L during hospital stay. Patients shortness of breath resolved and will be discharged to follow-up with nephrology and outpatient hemodialysis. - Time Spent with Patient Total time spent providing and/or coordinating discharge services: Less than 30 minutes - Discharge Medications Home Medications: Acetaminophen [Non-Aspirin] 650 mg PO Q6H PRN 09/14/17 [History] Aspirin [Lo-Dose Aspirin EC] 81 mg PO DAILY 09/14/17 [History] Atorvastatin [Lipitor] 40 mg PO HS 09/14/17 [History] Calcium Acetate [Phos-LO] 667 mg PO TIDWM 09/14/17 [History] Folic Acid/Vit Bcomp,C [Renal-Agustina Tablet] 0.8 mg PO DAILY 09/14/17 [History] Insulin ASPART [Novolog Flexpen] 0 - 10 unit SQ TID 09/14/17 [History] Isosorbide MONOnitrate (24 HR) [Imdur] 30 mg PO HS 09/14/17 [History] Nortriptyline [Pamelor] 25 mg PO HS 09/14/17 [History] Ranitidine HCl [Acid Shift Supervisor Film Processing] 150 mg PO DAILY 09/14/17 [History] Nitroglycerin [Nitrostat] 0.4 mg SL Q5MIN PRN #0 09/15/17 [Rx] Insulin Glargine,Hum.rec.anlog [Lantus Solostar] 38 unit SQ HS 04/29/18 [History] Propylene Glycol/Peg 400 [Sm Lubricating Tears Eye Drops] 1 drop BOTH EYES TID 04/29/18 [History] Sevelamer HCl [Renagel] 1,600 mg PO BID 04/29/18 [History] Trazodone HCl 250 mg PO HS 04/29/18 [History] Metoprolol XL (24 HR) Succ [Toprol Xl] 25 mg PO DAILY 30 Days #30 tab.er.24h 05/01/18 [Rx] Allergies/Adverse Reactions: Allergy/AdvReac Type Severity Reaction Status Date / Time diphenhydramine Allergy Rash Verified 04/29/18 10:43 [From Benadryl] meperidine Allergy Nausea Verified 04/29/18 10:43 morphine Allergy Nausea Verified 04/29/18 10:43 Date of admission: 05/16/18 04:46 Primary care physician: PCP CHANDU Consults: 05/16/18 09:45 Consult to Dialysis [CONS] ONCE 05/16/18 13:13 Consult to Nephrology [CONS] Routine Consulting Provider: Kidney Radha/HARRIET/RUY/CHERELLE Reason for Consult: HYPOXIA/ESRD; POSSIBLE PNA. Time Notified: 13:00 Call Completed: Yes 05/17/18 07:30 Consult to Dialysis [CONS] ONCE 05/18/18 07:45 Consult to Dialysis [CONS] ONCE - Constitutional Vitals: Temp Pulse Resp BP Pulse Ox 97.6 F 120 18 101/67 92 05/18/18 12:48 05/18/18 13:25 05/18/18 12:48 05/18/18 13:25 05/18/18 08:05 General appearance: Present: A&O X 3, answers questions appropriately Exam: Gen.: Nonacute distress, alert and oriented 3 Skin: Normal color - Patient Status Disposition: Home, Self-Care Condition: Fair - Discharge Instructions Instructions: Heart Failure (DC), Bronchiolitis (DC) Follow Up With: CHANDUPCP [Primary Care Provider] - 05/29/18 10:15 am (Please follow up schedule...)
[2018-05-18] MEDS ORDERED: *HR* Heparin 5,000 UNIT/ML VIAL SQ SCH (18:00)
== END 2018-05-18 20:00 | disposition home or self-care (01) | DRG 291 ==
LOC: EMEROOARM 02:07 → 2ANU 02:07 → SUATTDRO 04:46 → OBSVTOIN 04:46 → 2ANU 06:21
PROVIDERS: ADMIT Family Medicine; ATTEND Hospitalist

== ENCOUNTER 2018-11-10 06:03 | Inpatient (IN) ==
--- NOTE | 2018-11-10 06:22 | Emergency Department Note ---
Disposition Clinical Impression: ESRD (end stage renal disease) on dialysis, Pleural effusion Volume overload Qualifiers: Hypervolemia type: other Qualified Code(s): E87.79 - Other fluid overload Disposition: Admitted As Inpatient Condition: Fair [facility] Provider[facility] - Forms: ED Satisfaction Letter Time of Disposition: 07:48 SOB HPI - General Chief Complaint: ED Shortness of Breath/Dyspnea Stated Complaint: SoB Time Seen by Provider: 11/10/18 06:04 Source: patient, EMS Mode of arrival: EMS Limitations: no limitations Nursing Notes Reviewed: Yes Vital Signs Reviewed: Yes - History of Present Illness Nontoxic-appearing 68-year-old male with a history of CHF, end-stage renal disease on hemodialysis, diabetes, COPD, hypertension, and hyperlipidemia presents to ED via EMS complaining of episode of shortness of breath and chest pain upon waking this morning. Patient states that he has a resident at [facility]. Patient states that upon waking he had chest pressure and "stomach breathing". Patient states that he was supposed to go to dialysis today however was diverted to this facility upon disclosing these complaints. Patient states that current chest pain is 4 out of 10 but it was worse earlier and increases with inspiration. Patient states that shortness of breath is improved. Dyspnea improves with sitting up, rest. Dyspnea is worsened by laying flat, exertion, and coughing. Patient states that he has had a productive cough "for a few months"patient describes sputum yellow/latham. Patient is tachycardic but denies palpitations. Patient was given oxygen SENIOR SERVICE AIDE arrival. He denies any hemoptysis or lower extremity pain/swelling. He denies any fever or chills. He does state that yesterday evening he was rather nauseated and did have one episode of nonbloody nonbilious emesis. Pt Subjective Complaint: shortness of breath Onset (ago): Just SENIOR SERVICE AIDE Context: other (upon waking from sleep) Severity: moderate Consistency/Duration: intermittent Improves with: oxygen, rest, upright position Worsens with: lying flat, exertion, coughing, inspiration Known history of: COPD, congestive heart failure, diabetes Associated symptoms: Reports: chest pain, pain with inspiration, cough Treatment prior to arrival: oxygen Cough Description: Productive (yellow, latham x "a few months") Cough Frequency: Persistent Sputum production: Yes Sputum Amount: Moderate Sputum Color: Yellow, Latham - Related Data Home oxygen amount: none Home Medications Medication Instructions Recorded Confirmed Calcium Acetate [Phos-LO] 2,001 mg PO TIDWM 09/14/17 10/18/18 Ranitidine HCl [Acid Platen Drier Operator] 150 mg PO DAILY 09/14/17 11/10/18 Sevelamer HCl [Renagel] 2,400 mg PO TID 04/29/18 11/10/18 Docusate [Colace] 200 mg PO DAILY 09/11/18 11/10/18 Isosorbide MONOnitrate (24 HR) 30 mg PO DAILY 09/11/18 11/10/18 [Imdur] Acetaminophen [Tylenol] 1,000 mg PO Q6HR PRN 10/18/18 11/10/18 Acetaminophen [Tylenol] 1,300 mg PO Q12H 10/18/18 10/18/18 Atorvastatin [Lipitor] 40 mg PO HS 10/18/18 11/10/18 GuaiFENesin/Dextromethorphan 1 tab PO BID PRN 10/18/18 11/10/18 [Mucinex Dm] Insulin Glargine,Hum.rec.anlog 38 unit SQ HS 10/18/18 11/10/18 [Basaglar Kwikpen U-100] Insulin LISPRO [HumaLOG] 0 units SQ AD 10/18/18 11/10/18 Menthol [Bengay Ultra Strength] 1 patch TP DAILY 10/18/18 11/10/18 Metoprolol Succinate [Toprol Xl] 12.5 mg PO DAILY 10/18/18 11/10/18 Non-Formulary Medication 1 cap PO DAILY 10/18/18 10/18/18 Non-Formulary Medication 1 tab PO DAILY 10/18/18 10/18/18 Nortriptyline [Pamelor] 10 mg PO HS 10/18/18 11/10/18 Omeprazole [PriLOSEC] 20 mg PO DAILY 10/18/18 11/10/18 Polyethylene Glycol 3350 [MiraLax 17 gm PO DAILY 10/18/18 11/10/18 bowel prep] Propylene Glycol/Peg 400 [Systane 1 drop BOTH EYES TID 10/18/18 11/10/18 0.3-0.4% Eye Drops] Tramadol HCl [Ultram] 50 mg PO Q12H PRN 10/18/18 11/10/18 Trazodone HCl 300 mg PO HS 10/18/18 11/10/18 B Complex W-C No.20/Folic Acid 1 mg PO DAILY 11/10/18 11/10/18 [Virt-Caps Softgel] Previous Rx's Medication Instructions Recorded Nitroglycerin [Nitrostat] 0.4 mg SL Q5MIN PRN #0 09/15/17 Lidocaine Patch [Lidoderm 5% patch] 1 each TP DAILY PRN #30 adh..patch 10/20/18 Allergies Allergy/AdvReac Type Severity Reaction Status Date / Time diphenhydramine Allergy Rash Verified 09/11/18 20:49 [From Benadryl] meperidine AdvReac Nausea Verified 09/11/18 20:49 morphine AdvReac Nausea Verified 09/11/18 20:49 All systems ED: reviewed and negative except as stated. Review of Systems: As Per HPI Constitutional: Denies: fever, chills, weakness, weight change Eyes: Denies: eye pain, eye discharge, vision change ENT ED: Denies: ear pain, throat pain, dental pain, hearing loss, epistaxis, congestion, dysphagia Cardiovascular: Reports: chest pain, dyspnea on exertion. Denies: palpitations, edema, syncope Respiratory: Reports: cough, dyspnea, sputum production (latham/yellow x "a few months"). Denies: wheezes, hemoptysis, stridor Gastrointestinal: Denies: abdominal pain, nausea, vomiting, diarrhea, constipation, hematemesis, melena, hematochezia Genitourinary: Denies: urgency, dysuria, frequency, hematuria Musculoskeletal: Reports: back pain (Patient sts "lumbar" with severe "radiculopathy" which is chronic). Denies: neck pain, arthralgia, myalgia Integumentary: Denies: rash, abrasion, lesions Neurological: Denies: headache, weakness, numbness, paresthesias, confusion, abnormal gait, vertigo Psychiatric: Denies: anxiety, depression, suicidal thoughts, homicidal thoughts, auditory hallucinations, visual hallucinations Endocrine: Denies: fatigue Hematological/Lymphatic: Denies: easy bleeding, easy bruising Allergic/Immunologic: Denies: facial swelling, urticaria Past Medical History - Past Medical History Attestation: Yes The following information was validated with the patient. Source: patient, nursing notes reviewed Medical history: Reports: CHF, COPD, coronary artery disease, diabetes, dialysis, hyperlipidemia, hypertension, myocardial infarction, renal disease Surgical history: Reports: angioplasty/stent, knee replacement Psychiatric history: Reports: anxiety, depression, PTSD - Social History Smoking Status: Current every day smoker Smokeless Tobacco Status: No Alcohol use: Reports: none Drug use: Reports: none Physical Exam - General Limitations: physical limitation General appearance: alert, in no apparent distress - Head Head exam: atraumatic, normocephalic, normal inspection - Eye Eye exam: Present: normal appearance, PERRL, EOMI. Absent: conjunctival injection - ENT ENT exam: mucous membranes moist - Neck Neck exam: Present: normal inspection, full ROM, trachea midline. Absent: tenderness - Chest Chest inspection: Present: normal inspection, symmetric chest wall rise - Respiratory Respiratory exam: Present: other (lung sounds diminshed, right lower lobe). Absent: respiratory distress, wheezes, stridor, accessory muscle use, prolonged expiratory phase - Cardiovascular Cardiovascular exam: Present: normal rhythm, tachycardia - Abdominal Exam Abdominal exam: Present: soft, Non-Tender, normal bowel sounds. Absent: distention, rigidity - Extremities Exam Extremities exam: Present: normal inspection, full ROM. Absent: pedal edema, calf tenderness - Expanded Upper Extremity Exam Arm exam: Present: other (AV fistula to left upper arm with positive thrill) Vascular exam: Normal: capillary refill, radial pulse, ulnar pulse - Expanded Lower Extremity Exam Gait: not tested/not observed - Neurological Exam Neurological exam: Present: alert, oriented X3 - Psychiatric Psychiatric exam: Present: normal affect, normal mood - Skin Skin exam: Present: warm, dry, intact. Absent: diaphoresis Course Course Narrative: 0732: Review of records shows that the patient was admitted to this facility on 10/17/18. He was brought in for AMS and end-stage renal disease/CHF during that encounter. At that time, his BNP was over 3000. Today's BNP is still elevated above 2600. Chest x-ray shows mild interval enlargement of a presumed right- sided pleural effusion as well as findings suggestive of pulmonary edema. His troponin is elevated at 0.05 however he denies any current chest pain as of Now. He does state that his dyspnea has resolved with the application of oxygen by nasal cannula. The patient was evaluated by a [facility] nephrology on his last encounter. He does follow with the [facility] group and is a Tuesday dialysis patient. Review of records shows that the patient is noncompliant with his hemodialysis, as he elects to finish his dialysis early quite frequently. Given elevated BNP and chest x-ray findings she was given Lasix here in the emergency department. Troponin is elevated at 0.05, potentially a renally due to his decreased kidney function. He was given aspirin in the emergency department. He will be admitted to medicine for further evaluation and management. I have discussed this patient's case with Dr. Laird, ED attending. He has had a [id number] evaluation with the patient, reviewed his laboratory and radiology findings, and agrees with this plan. - Consultations Consultation #1: I discussed this patient's case with Dr. Hanna. He states that the nephrology group will be happy to see the patient in house. He states that he will arrange dialysis for this patient for later today. I discussed the patient's persistent tachycardia around 120 bpm. He suggested against any IV fluid administration at this time for fear of respiratory compromise, unless the patient would develop any sort of arrhythmia or other EKG changes. Time: 07:39 Vital Signs Temperature 98.2 F 11/10/18 06:12 Pulse Rate 113 11/10/18 06:12 Respiratory Rate 18 11/10/18 06:12 Blood Pressure 142/98 11/10/18 06:12 O2 Sat by Pulse Oximetry 95 11/10/18 06:12 Temperature 98.2 F 11/10/18 06:12 Pulse Rate 120 11/10/18 07:43 Respiratory Rate 22 11/10/18 07:43 Blood Pressure 152/88 11/10/18 07:43 O2 Sat by Pulse Oximetry 95 11/10/18 07:43 Oxygen Delivery Oxygen Delivery Nasal Cannula Shortness of Breath/Dyspnea - Medical Records Medical records reviewed: Yes I reviewed the patient's medical records. - Lab Data Lab results reviewed: Yes I reviewed the patient's lab results. Lab results narrative: Lab Results 11/10/18 11/10/18 11/10/18 Range/Units 06:36 06:36 06:36 WBC 9.3 (4.3-11.1) K/mcL RBC 3.89 L (4.19-5.50) M/mcL Hgb 11.5 L (12.9-16.9) g/dL Hct 38.0 (37.5-50.1) % MCV 97.7 (83.0-100.0) fL MCH 29.6 (28.0-33.3) pg MCHC 30.3 L (31.6-35.5) g/dL RDW 15.9 H (11.5-14.5) % Plt Count 129 L (140-400) K/mcL MPV 11.0 (9.4-12.4) fL Immature Gran % 0.3 (0-4) % Seg Neutrophils % 79.8 % Lymphocytes % 12.4 % Monocytes % 5.7 % Eosinophils % 1.3 % Basophils % 0.5 % Neutrophils # 7.4 (1.6-8.9) K/mcL Lymphocytes # 1.2 (0.6-4.6) K/mcL Monocytes # 0.5 (0.0-1.3) K/mcL Eosinophils # 0.1 (0.0-0.6) K/mcL Basophils # 0.1 (0.0-0.2) K/mcL PT 10.5 (9.4-12.1) Seconds INR 0.9 APTT 30.3 (26.0-36.0) Seconds Sodium 137 (136-145) mEq/L Potassium 3.9 (3.5-5.1) mEq/L Chloride 93 L (98-107) mEq/L Carbon Dioxide 33 H (23-29) mEq/L BUN 41 H (8-23) mg/dL Creatinine 5.70 H (0.70-1.30) mg/dL Est GFR ( Amer) 12 L (> 60) Est GFR (Non-Af Amer) 10 L (> 60) BUN/Creatinine Ratio 7 (6-26) Glucose 182 H (70-105) mg/dL Calculated Osmolality 299 (280-300) Lactic Acid (0.5-2.2) mmol/L Calcium 11.6 H (8.6-10.3) mg/dL Troponin I 0.05 H* (< 0.04) ng/mL B-Natriuretic Peptide (Less than 100) pg/mL 11/10/18 11/10/18 Range/Units 06:36 06:36 WBC (4.3-11.1) K/mcL RBC (4.19-5.50) M/mcL Hgb (12.9-16.9) g/dL Hct (37.5-50.1) % MCV (83.0-100.0) fL MCH (28.0-33.3) pg MCHC (31.6-35.5) g/dL RDW (11.5-14.5) % Plt Count (140-400) K/mcL MPV (9.4-12.4) fL Immature Gran % (0-4) % Seg Neutrophils % % Lymphocytes % % Monocytes % % Eosinophils % % Basophils % % Neutrophils # (1.6-8.9) K/mcL Lymphocytes # (0.6-4.6) K/mcL Monocytes # (0.0-1.3) K/mcL Eosinophils # (0.0-0.6) K/mcL Basophils # (0.0-0.2) K/mcL PT (9.4-12.1) Seconds INR APTT (26.0-36.0) Seconds Sodium (136-145) mEq/L Potassium (3.5-5.1) mEq/L Chloride (98-107) mEq/L Carbon Dioxide (23-29) mEq/L BUN (8-23) mg/dL Creatinine (0.70-1.30) mg/dL Est GFR ( Amer) (> 60) Est GFR (Non-Af Amer) (> 60) BUN/Creatinine Ratio (6-26) Glucose (70-105) mg/dL Calculated Osmolality (280-300) Lactic Acid 0.8 (0.5-2.2) mmol/L Calcium (8.6-10.3) mg/dL Troponin I (< 0.04) ng/mL B-Natriuretic Peptide 2635 H (Less than 100) pg/mL Result diagrams: 11/10/18 06:36 11/10/18 06:36 Lab Results 11/10/18 11/10/18 11/10/18 Range/Units 06:36 06:36 06:36 WBC 9.3 (4.3-11.1) K/mcL RBC 3.89 L (4.19-5.50) M/mcL Hgb 11.5 L (12.9-16.9) g/dL Hct 38.0 (37.5-50.1) % MCV 97.7 (83.0-100.0) fL MCH 29.6 (28.0-33.3) pg MCHC 30.3 L (31.6-35.5) g/dL RDW 15.9 H (11.5-14.5) % Plt Count 129 L (140-400) K/mcL MPV 11.0 (9.4-12.4) fL Immature Gran % 0.3 (0-4) % Seg Neutrophils % 79.8 % Lymphocytes % 12.4 % Monocytes % 5.7 % Eosinophils % 1.3 % Basophils % 0.5 % Neutrophils # 7.4 (1.6-8.9) K/mcL Lymphocytes # 1.2 (0.6-4.6) K/mcL Monocytes # 0.5 (0.0-1.3) K/mcL Eosinophils # 0.1 (0.0-0.6) K/mcL Basophils # 0.1 (0.0-0.2) K/mcL PT 10.5 (9.4-12.1) Seconds INR 0.9 APTT 30.3 (26.0-36.0) Seconds Sodium 137 (136-145) mEq/L Potassium 3.9 (3.5-5.1) mEq/L Chloride 93 L (98-107) mEq/L Carbon Dioxide 33 H (23-29) mEq/L BUN 41 H (8-23) mg/dL Creatinine 5.70 H (0.70-1.30) mg/dL Est GFR ( Amer) 12 L (> 60) Est GFR (Non-Af Amer) 10 L (> 60) BUN/Creatinine Ratio 7 (6-26) Glucose 182 H (70-105) mg/dL Calculated Osmolality 299 (280-300) Lactic Acid (0.5-2.2) mmol/L Calcium 11.6 H (8.6-10.3) mg/dL Troponin I 0.05 H* (< 0.04) ng/mL B-Natriuretic Peptide (Less than 100) pg/mL Urine Color (Yellow) Urine Clarity (Clear) Urine pH (5.0-8.0) pH Units Ur Specific Fraser (1.010-1.025) Urine Protein (Neg-Trace) mg/dL Urine Glucose (UA) (Normal) mg/dL Urine Ketones (Negative) mg/dL Urine Blood (Negative) Urine Nitrite (Negative) Urine Bilirubin (Negative) Urine Urobilinogen (Normal) mg/dL Ur Leukocyte Esterase (Negative) Urine Microscopic RBC (0-3) per hpf Urine Microscopic WBC (0-3) per hpf Ur Squamous Epith Cells (None-Few) per lpf Urine Bacteria (None-Few) per hpf Hyaline Casts (None-Few) per lpf Ur Culture Indicated? (NO) 11/10/18 11/10/18 11/10/18 Range/Units 06:36 06:36 08:01 WBC (4.3-11.1) K/mcL RBC (4.19-5.50) M/mcL Hgb (12.9-16.9) g/dL Hct (37.5-50.1) % MCV (83.0-100.0) fL MCH (28.0-33.3) pg MCHC (31.6-35.5) g/dL RDW (11.5-14.5) % Plt Count (140-400) K/mcL MPV (9.4-12.4) fL Immature Gran % (0-4) % Seg Neutrophils % % Lymphocytes % % Monocytes % % Eosinophils % % Basophils % % Neutrophils # (1.6-8.9) K/mcL Lymphocytes # (0.6-4.6) K/mcL Monocytes # (0.0-1.3) K/mcL Eosinophils # (0.0-0.6) K/mcL Basophils # (0.0-0.2) K/mcL PT (9.4-12.1) Seconds INR APTT (26.0-36.0) Seconds Sodium (136-145) mEq/L Potassium (3.5-5.1) mEq/L Chloride (98-107) mEq/L Carbon Dioxide (23-29) mEq/L BUN (8-23) mg/dL Creatinine (0.70-1.30) mg/dL Est GFR ( Amer) (> 60) Est GFR (Non-Af Amer) (> 60) BUN/Creatinine Ratio (6-26) Glucose (70-105) mg/dL Calculated Osmolality (280-300) Lactic Acid 0.8 (0.5-2.2) mmol/L Calcium (8.6-10.3) mg/dL Troponin I (< 0.04) ng/mL B-Natriuretic Peptide 2635 H (Less than 100) pg/mL Urine Color Yellow (Yellow) Urine Clarity Clear (Clear) Urine pH 8.0 (5.0-8.0) pH Units Ur Specific Fraser 1.012 (1.010-1.025) Urine Protein >=300 H (Neg-Trace) mg/dL Urine Glucose (UA) 250 H (Normal) mg/dL Urine Ketones Negative (Negative) mg/dL Urine Blood Small H (Negative) Urine Nitrite Negative (Negative) Urine Bilirubin Negative (Negative) Urine Urobilinogen Normal (Normal) mg/dL Ur Leukocyte Esterase Negative (Negative) Urine Microscopic RBC 3-5 H (0-3) per hpf Urine Microscopic WBC 3-5 H (0-3) per hpf Ur Squamous Epith Cells Many H (None-Few) per lpf Urine Bacteria None Seen (None-Few) per hpf Hyaline Casts None Seen (None-Few) per lpf Ur Culture Indicated? NO (NO) - Radiology Data Radiology results reviewed: Yes I reviewed the patient's radiology results. Chest X-Ray 11/10/18 06:04 IMPRESSION: Redemonstration of findings most compatible with pulmonary edema/CHF with mild interval enlargement of a layering right-sided pleural effusion. No other significant interval change. D/ / Blaine Merchant / Blaine Merchant Interpreting Provider: Blaine Merchant - EKG Data EKG attestation: Yes I reviewed and interpreted this EKG. EKG results narrative: EKG shows sinus tachycardia at a rate of 121 bpm. HI interval 139, QRS duration 99, QT/QTc interval 341/484. No ectopy noted. No ST elevation or significant ST depressions. No significant change in morphology when compared to an EKG dated from 10/18/18. Attestation Statement - Attestation Attestation: I, Adalberto Laird DO have provided [id number] time during the care of this patient. Detailed review the presentation, symptoms, medical history were discussed and reviewed with the advanced practice provider David Dunn PA-C/[id number]. Medical intervention labs and imaging studies were reviewed in detail. See full documentation of physical exam and course of care in the advanced practice provider's note. I agree with the determined course of care, medical intervention and disposition put forth by the advanced practice provider. See below documentation for changes or alterations in documentation.
[2018-11-10] MEDS ORDERED: Aspirin 81 MG TAB.CHEW PO ONE (06:43)
[2018-11-10 06:50] LABS: Basophils # 0.1 K/mcL (0.0-0.2); Basophils % 0.5 %; Eosinophils # 0.1 K/mcL (0.0-0.6); Eosinophils % 1.3 %; Hemoglobin 11.5 g/dL (12.9-16.9); Immature Granulocytes % 0.3 % (0-4); Lymphocytes # 1.2 K/mcL (0.6-4.6); Lymphocytes % 12.4 %; Mean Corpuscular HGB Conc 30.3 g/dL (31.6-35.5); Mean Corpuscular Hemoglobin 29.6 pg (28.0-33.3); Mean Corpuscular Volume 97.7 fL (83.0-100.0); Monocytes # 0.5 K/mcL (0.0-1.3); Monocytes % 5.7 %; Neutrophils # 7.4 K/mcL (1.6-8.9); Platelet Count 129 K/mcL (140-400); Red Blood Count 3.89 M/mcL (4.19-5.50); Red Cell Distribution Width 15.9 % (11.5-14.5); Segmented Neutrophils % 79.8 %; White Blood Count 9.3 K/mcL (4.3-11.1)
[2018-11-10 06:58] LABS: INR 0.9; Prothrombin Time 10.5 Seconds (9.4-12.1)
[2018-11-10 07:01] LABS: Activated Partial Thrombo Time 30.3 Seconds (26.0-36.0)
[2018-11-10 07:12] LABS: Calcium 11.6 mg/dL (8.6-10.3); Potassium 3.9 mEq/L (3.5-5.1)
[2018-11-10 07:17] LABS: Troponin I 0.05 ng/mL (< 0.04)
[2018-11-10] MEDS ORDERED: Furosemide 40 MG/4 ML VIAL IVP ONE (07:24)
--- NOTE | 2018-11-10 07:53 | Emergency Department Note ---
Disposition Clinical Impression: ESRD (end stage renal disease) on dialysis, Pleural effusion Volume overload Qualifiers: Hypervolemia type: other Qualified Code(s): E87.79 - Other fluid overload Disposition: Admitted As Inpatient Condition: Fair Time of Disposition: 08:45 General Adult HPI - General Chief complaint: ED Shortness of Breath/Dyspnea Stated complaint: SoB Time Seen by Provider: 11/10/18 06:04 Source: patient, EMS Mode of arrival: EMS Limitations: physical limitation - History of Present Illness Pain Scale: 8 - Related Data Home Medications Medication Instructions Recorded Confirmed Calcium Acetate [Phos-LO] 2,001 mg PO TIDWM 09/14/17 10/18/18 Ranitidine HCl [Acid Crimping Machine Operator For Metal] 150 mg PO DAILY 09/14/17 11/10/18 Sevelamer HCl [Renagel] 2,400 mg PO TID 04/29/18 11/10/18 Docusate [Colace] 200 mg PO DAILY 09/11/18 11/10/18 Isosorbide MONOnitrate (24 HR) 30 mg PO DAILY 09/11/18 11/10/18 [Imdur] Acetaminophen [Tylenol] 1,000 mg PO Q6HR PRN 10/18/18 11/10/18 Acetaminophen [Tylenol] 1,300 mg PO Q12H 10/18/18 10/18/18 Atorvastatin [Lipitor] 40 mg PO HS 10/18/18 11/10/18 GuaiFENesin/Dextromethorphan 1 tab PO BID PRN 10/18/18 11/10/18 [Mucinex Dm] Insulin Glargine,Hum.rec.anlog 38 unit SQ 10/18/18 11/10/18 [Basaglar Kwikpen U-100] Insulin LISPRO [HumaLOG] 0 units SQ AD 10/18/18 11/10/18 Menthol [Bengay Ultra Strength] 1 patch TP DAILY 10/18/18 11/10/18 Metoprolol Succinate [Toprol Xl] 12.5 mg PO DAILY 10/18/18 11/10/18 Non-Formulary Medication 1 cap PO DAILY 10/18/18 10/18/18 Non-Formulary Medication 1 tab PO DAILY 10/18/18 10/18/18 Nortriptyline [Pamelor] 10 mg PO HS 10/18/18 11/10/18 Omeprazole [PriLOSEC] 20 mg PO DAILY 10/18/18 11/10/18 Polyethylene Glycol 3350 [MiraLax 17 gm PO DAILY 10/18/18 11/10/18 bowel prep] Propylene Glycol/Peg 400 [Systane 1 drop BOTH EYES TID 10/18/18 11/10/18 0.3-0.4% Eye Drops] Tramadol HCl [Ultram] 50 mg PO Q12H PRN 10/18/18 11/10/18 Trazodone HCl 300 mg PO HS 10/18/18 11/10/18 B Complex W-C No.20/Folic Acid 1 mg PO DAILY 11/10/18 11/10/18 [Virt-Caps Softgel] Previous Rx's Medication Instructions Recorded Nitroglycerin [Nitrostat] 0.4 mg SL Q5MIN PRN #0 09/15/17 Lidocaine Patch [Lidoderm 5% patch] 1 each TP DAILY PRN #30 adh..patch 10/20/18 Allergies Allergy/AdvReac Type Severity Reaction Status Date / Time diphenhydramine Allergy Rash Verified 09/11/18 20:49 [From Benadryl] meperidine AdvReac Nausea Verified 09/11/18 20:49 morphine AdvReac Nausea Verified 09/11/18 20:49 Constitutional: Denies: fever, chills, weakness, weight change Eyes: Denies: eye pain, eye discharge, vision change ENT ED: Denies: ear pain, throat pain, dental pain, hearing loss, epistaxis, congestion, dysphagia Cardiovascular: Reports: chest pain, dyspnea on exertion. Denies: palpitations, edema, syncope Respiratory: Reports: cough, dyspnea, sputum production (hart/yellow x "a few months"). Denies: wheezes, hemoptysis, stridor Gastrointestinal: Denies: abdominal pain, nausea, vomiting, diarrhea, constipation, hematemesis, melena, hematochezia Genitourinary: Denies: urgency, dysuria, frequency, hematuria Musculoskeletal: Reports: back pain (Patient sts "lumbar" with severe "radiculopathy" which is chronic). Denies: neck pain, arthralgia, myalgia Integumentary: Denies: rash, abrasion, lesions Neurological: Denies: headache, weakness, numbness, paresthesias, confusion, abnormal gait, vertigo Psychiatric: Denies: anxiety, depression, suicidal thoughts, homicidal thoughts, auditory hallucinations, visual hallucinations Endocrine: Denies: fatigue Hematological/Lymphatic: Denies: easy bleeding, easy bruising Allergic/Immunologic: Denies: facial swelling, urticaria Past Medical History - Past Medical History Medical history: Reports: CHF, COPD, coronary artery disease, diabetes, dialysis, hyperlipidemia, hypertension, myocardial infarction, renal disease Surgical history: Reports: angioplasty/stent, knee replacement Psychiatric history: Reports: anxiety, depression, PTSD - Social History Smoking Status: Current every day smoker Smokeless Tobacco Status: No Alcohol use: Reports: none Drug use: Reports: none Physical Exam - General Limitations: physical limitation General appearance: alert, in no apparent distress Course Vital Signs Temperature 98.2 F 11/10/18 06:12 Pulse Rate 113 11/10/18 06:12 Respiratory Rate 18 11/10/18 06:12 Blood Pressure 142/98 11/10/18 06:12 O2 Sat by Pulse Oximetry 95 11/10/18 06:12 Temperature 98.2 F 11/10/18 06:12 Pulse Rate 120 11/10/18 07:43 Respiratory Rate 22 11/10/18 07:43 Blood Pressure 152/88 11/10/18 07:43 O2 Sat by Pulse Oximetry 95 11/10/18 07:43 Oxygen Delivery Oxygen Delivery Nasal Cannula Medical Decision Making - Lab Data Result diagrams: 11/10/18 06:36 11/10/18 06:36 Lab Results 11/10/18 11/10/18 11/10/18 Range/Units 06:36 06:36 06:36 WBC 9.3 (4.3-11.1) K/mcL RBC 3.89 L (4.19-5.50) M/mcL Hgb 11.5 L (12.9-16.9) g/dL Hct 38.0 (37.5-50.1) % MCV 97.7 (83.0-100.0) fL MCH 29.6 (28.0-33.3) pg MCHC 30.3 L (31.6-35.5) g/dL RDW 15.9 H (11.5-14.5) % Plt Count 129 L (140-400) K/mcL MPV 11.0 (9.4-12.4) fL Immature Gran % 0.3 (0-4) % Seg Neutrophils % 79.8 % Lymphocytes % 12.4 % Monocytes % 5.7 % Eosinophils % 1.3 % Basophils % 0.5 % Neutrophils # 7.4 (1.6-8.9) K/mcL Lymphocytes # 1.2 (0.6-4.6) K/mcL Monocytes # 0.5 (0.0-1.3) K/mcL Eosinophils # 0.1 (0.0-0.6) K/mcL Basophils # 0.1 (0.0-0.2) K/mcL PT 10.5 (9.4-12.1) Seconds INR 0.9 APTT 30.3 (26.0-36.0) Seconds Sodium 137 (136-145) mEq/L Potassium 3.9 (3.5-5.1) mEq/L Chloride 93 L (98-107) mEq/L Carbon Dioxide 33 H (23-29) mEq/L BUN 41 H (8-23) mg/dL Creatinine 5.70 H (0.70-1.30) mg/dL Est GFR ( Amer) 12 L (> 60) Est GFR (Non-Af Amer) 10 L (> 60) BUN/Creatinine Ratio 7 (6-26) Glucose 182 H (70-105) mg/dL Calculated Osmolality 299 (280-300) Lactic Acid (0.5-2.2) mmol/L Calcium 11.6 H (8.6-10.3) mg/dL Troponin I 0.05 H* (< 0.04) ng/mL B-Natriuretic Peptide (Less than 100) pg/mL Urine Color (Yellow) Urine Clarity (Clear) Urine pH (5.0-8.0) pH Units Ur Specific [place] (1.010-1.025) Urine Protein (Neg-Trace) mg/dL Urine Glucose (UA) (Normal) mg/dL Urine Ketones (Negative) mg/dL Urine Blood (Negative) Urine Nitrite (Negative) Urine Bilirubin (Negative) Urine Urobilinogen (Normal) mg/dL Ur Leukocyte Esterase (Negative) Urine Microscopic RBC (0-3) per hpf Urine Microscopic WBC (0-3) per hpf Ur Squamous Epith Cells (None-Few) per lpf Urine Bacteria (None-Few) per hpf Hyaline Casts (None-Few) per lpf Ur Culture Indicated? (NO) 11/10/18 11/10/18 11/10/18 Range/Units 06:36 06:36 08:01 WBC (4.3-11.1) K/mcL RBC (4.19-5.50) M/mcL Hgb (12.9-16.9) g/dL Hct (37.5-50.1) % MCV (83.0-100.0) fL MCH (28.0-33.3) pg MCHC (31.6-35.5) g/dL RDW (11.5-14.5) % Plt Count (140-400) K/mcL MPV (9.4-12.4) fL Immature Gran % (0-4) % Seg Neutrophils % % Lymphocytes % % Monocytes % % Eosinophils % % Basophils % % Neutrophils # (1.6-8.9) K/mcL Lymphocytes # (0.6-4.6) K/mcL Monocytes # (0.0-1.3) K/mcL Eosinophils # (0.0-0.6) K/mcL Basophils # (0.0-0.2) K/mcL PT (9.4-12.1) Seconds INR APTT (26.0-36.0) Seconds Sodium (136-145) mEq/L Potassium (3.5-5.1) mEq/L Chloride (98-107) mEq/L Carbon Dioxide (23-29) mEq/L BUN (8-23) mg/dL Creatinine (0.70-1.30) mg/dL Est GFR ( Amer) (> 60) Est GFR (Non-Af Amer) (> 60) BUN/Creatinine Ratio (6-26) Glucose (70-105) mg/dL Calculated Osmolality (280-300) Lactic Acid 0.8 (0.5-2.2) mmol/L Calcium (8.6-10.3) mg/dL Troponin I (< 0.04) ng/mL B-Natriuretic Peptide 2635 H (Less than 100) pg/mL Urine Color Yellow (Yellow) Urine Clarity Clear (Clear) Urine pH 8.0 (5.0-8.0) pH Units Ur Specific [place] 1.012 (1.010-1.025) Urine Protein >=300 H (Neg-Trace) mg/dL Urine Glucose (UA) 250 H (Normal) mg/dL Urine Ketones Negative (Negative) mg/dL Urine Blood Small H (Negative) Urine Nitrite Negative (Negative) Urine Bilirubin Negative (Negative) Urine Urobilinogen Normal (Normal) mg/dL Ur Leukocyte Esterase Negative (Negative) Urine Microscopic RBC 3-5 H (0-3) per hpf Urine Microscopic WBC 3-5 H (0-3) per hpf Ur Squamous Epith Cells Many H (None-Few) per lpf Urine Bacteria None Seen (None-Few) per hpf Hyaline Casts None Seen (None-Few) per lpf Ur Culture Indicated? NO (NO) Attestation Statement - Attestation Attestation: I, Adalberto Laird DO have provided [id number] time during the care of this patient. Detailed review the presentation, symptoms, medical history were discussed and reviewed with the advanced practice provider David Dunn PA-C/ESEQUIEL. Medical intervention labs and imaging studies were reviewed in detail. See full documentation of physical exam and course of care in the advanced practice provider's note. I agree with the determined course of care, medical intervention and disposition put forth by the advanced practice provider. See below documentation for changes or alterations in documentation. 68-year-old male presents emergency room for evaluation of generalized malaise shortness of breath and feeling like he is fluid overloaded. Patient has a history of renal failure and is currently on dialysis. He does still make small amounts of urine. He denies any recent falls trauma or injury. Currently denying any fevers or chills. He has not had any chest pain. He has persistently worsening shortness of breath and fluid overload. No recent nausea vomiting or diarrhea. He has not traveled outside the country and has not sta rted any new medications. He is a typical Tuesday dialysis patient under the care of Dr. Apodaca. Vital signs reviewed and the patient has persistently tachycardic. Lungs appear to be clear on auscultation with diminished aeration in the bases the lungs. Heart is tachycardic with no murmurs. Bedside point of care ultrasound completed by myself showing no signs of pericardial effusion. There is flattening to the right ventricle otherwise no bowing of the ventricular septum at this point. Left heart and ventricle appear to be slightly dilated. There is good contractility noted with no signs of pericardial effusion. These imaging modalities were saved and completed by myself. Abdomen is soft nontender nondistended. Extremities otherwise normal. Patient is mentating appropriately. He does not have any acute signs of decompensation outside of the elevated heart rate. Kidney function is significantly worse in comparison the previous. His potassium is normal. Otgentry nur has no other acute etiology noted on the chest x-ray outside of pulmonary congestion. Mediastinum appears to be stable on presentation there is no signs of acute cardiac related etiology. Conversation was had with the on-call cab station attendant Dr. Hanna. He recommended no fluids at this time and will be set up for dialysis here for volume status control. Patient is otherwise stable. We will monitor the heart rate here closely. Is otherwise in no distress. The hospitalist is been contacted this time. EKG was reviewed by the previous provider documented in the advanced practice provider's note. See detailed documentation the physical exam, medical intervention, medical decision-making disposition in the advanced practice provider's documentation. One single dose of Lasix was given secondary to the patient's abilities to previous urine. 0845 Patient was discussed with the hospitalist Dr. Pugh. Detailed review the presentation symptoms medical intervention and recommendations from nephrology were discussed at length. No other acute recommendations or concerns at this point. Patient will be monitored here in the emergency department until the admission process is completed. No other acute etiology noted during this treatment course and evaluation. Patient is otherwise clinically stable.
[2018-11-10] MEDS ORDERED: 0.9 % Sodium Chloride 250 ML IVC PRN (08:08)
[2018-11-10] MEDS ORDERED: 0.9 % Sodium Chloride 1,000 ML PRIME SCH (08:15)
[2018-11-10 08:33] LABS: Bilirubin,Urine Negative (Negative); Blood,Urine Small (Negative); Clarity,Urine Clear (Clear); Glucose,Urine (UA) 250 mg/dL (Normal); Ketones,Urine Negative (Negative); Leukocyte Esterase,Urine Negative (Negative); Nitrite,Urine Negative (Negative); Protein,Urine >=300 mg/dL (Neg-Trace); Specific Gravity,Urine 1.012 (1.010-1.025); Urobilinogen,Urine Normal (Normal)
[2018-11-10 08:35] LABS: Color,Urine Yellow (Yellow)
[2018-11-10 08:37] LABS: Bacteria,Urine None Seen per hpf (None-Few); Hyaline Casts,Urine None Seen per lpf (None-Few); Squamous Epithelial Cell,Urine Many per lpf (None-Few)
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
[2018-11-10] MEDS ORDERED: Naloxone 0.4 MG/ML INJ IVP PRN ×2 (15:50→15:52)
[2018-11-10] MEDS ORDERED: Ondansetron 4 MG/2 ML VIAL IVP PRN (15:52)
[2018-11-10] MEDS ORDERED: Nitroglycerin 0.4 MG TAB.SUBL SL PRN (16:15)
[2018-11-10] MEDS ORDERED: GuaiFENesin/Dextromethorphan TABLET PO PRN (16:15)
[2018-11-10] MEDS ORDERED: D5% in Water 1,000 ML IVC PRN (16:23)
[2018-11-10] MEDS ORDERED: *HR* Dextrose 50 % in Water (Syg) 50 ML SYRINGE IVP PRN (16:23)
[2018-11-10] MEDS ORDERED: Dextrose Gel 15 GM/37.5 ML TUBE PO PRN ×2 (16:23)
[2018-11-10 16:33] LABS: Basophils % 0.4 %; Eosinophils # 0.1 K/mcL (0.0-0.6); Eosinophils % 1.3 %; Hematocrit 38.2 % (37.5-50.1); Immature Granulocytes % 0.4 % (0-4); Lymphocytes # 1.3 K/mcL (0.6-4.6); Lymphocytes % 12.3 %; Mean Corpuscular HGB Conc 31.4 g/dL (31.6-35.5); Mean Corpuscular Hemoglobin 29.5 pg (28.0-33.3); Mean Corpuscular Volume 93.9 fL (83.0-100.0); Mean Platelet Volume 10.8 fL (9.4-12.4); Monocytes # 0.6 K/mcL (0.0-1.3); Neutrophils # 8.1 K/mcL (1.6-8.9); Platelet Count 151 K/mcL (140-400); Red Blood Count 4.07 M/mcL (4.19-5.50); Red Cell Distribution Width 16.1 % (11.5-14.5); Segmented Neutrophils % 79.6 %; White Blood Count 10.2 K/mcL (4.3-11.1)
--- NOTE | 2018-11-10 16:46 | Nephrology Consult Note ---
Date of Encounter: 11/10/18 Time of Encounter: 11:25 Assessment and Plan (1) ESRD (end stage renal disease) on dialysis Current Visit: Yes Status: Chronic ESRD on HD every MWF. Due for dialysis today, and I've reviewed his labs/vitals/med list/progress notes/imaging/exam and used this for complex MDM and E/M to compose his HD orders for today. Will reassess tomorrow. Thank you for consulting the [facility]. History of Present Illness - Reason for Consult Consult date: 11/10/18 end stage renal disease Requesting physician: David Dunn - Chief Complaint ESRD and missed HD earlier today - History of Present Illness The patient is a pleasant 68-year-old male with a past medical history of end-stage renal disease on hemodialysis every Tuesday/Tuesday/Tuesday who presented with chest pain. Nephrology was consulted because of his history of dialysis. He said he last completed dialysis on Tuesday. Earlier today while being transported to the dialysis unit, he complained of having some chest pain, and so he was brought to [place]. He could not describe any palliative or provocative factors for his chest pain, and he described it as coming and going. Onset earlier today. Past Med Surg Social Fam HX - Past Medical History Medical history: CHF, COPD, coronary artery disease, diabetes, dialysis, h yperlipidemia, hypertension, myocardial infarction, renal disease Additional medical history: Hiatal hernia, 2 leaky heart valves: Tuesday, Tuesday, Tuesday dialysis Psychiatric history: anxiety, depression, PTSD - Past Surgical History Surgical History: angioplasty/stent, knee replacement Additional surgical history: left knee replaceed/tendons on left foot repaired, abcess through rectal area and removal of tailbone,. cardiac stents x3 - Social History Smoking Status: Current every day smoker Smokeless Tobacco Status: No Alcohol use: none Drug use: none - Family History Sister Hx Family Endocrine Disorder: Yes (DM) Medications and Allergies Calcium Acetate [Phos-LO] 2,001 mg PO TIDWM 09/14/17 [History] Ranitidine HCl [Acid Area Field Person] 150 mg PO DAILY 09/14/17 [History] Nitroglycerin [Nitrostat] 0.4 mg SL Q5MIN PRN #0 09/15/17 [Rx] Sevelamer HCl [Renagel] 2,400 mg PO TID 04/29/18 [History] Docusate [Colace] 200 mg PO DAILY 09/11/18 [History] Isosorbide MONOnitrate (24 HR) [Imdur] 30 mg PO DAILY 09/11/18 [History] Acetaminophen [Tylenol] 1,000 mg PO Q6HR PRN 10/18/18 [History] Acetaminophen [Tylenol] 1,300 mg PO Q12H 10/18/18 [History] Atorvastatin [Lipitor] 40 mg PO HS 10/18/18 [History] GuaiFENesin/Dextromethorphan [Mucinex Dm] 1 tab PO BID PRN 10/18/18 [History] Insulin Glargine,Hum.rec.anlog [Basaglar Kwikpen U-100] 38 unit SQ HS 10/18/18 [History] Insulin LISPRO [HumaLOG] 0 units SQ AD 10/18/18 [History] Menthol [Bengay Ultra Strength] 1 patch TP DAILY 10/18/18 [History] Metoprolol Succinate [Toprol Xl] 12.5 mg PO DAILY 10/18/18 [History] Non-Formulary Medication 1 cap PO DAILY 10/18/18 [History] Non-Formulary Medication 1 tab PO DAILY 10/18/18 [History] Nortriptyline [Pamelor] 10 mg PO HS 10/18/18 [History] Omeprazole [PriLOSEC] 20 mg PO DAILY 10/18/18 [History] Polyethylene Glycol 3350 [MiraLax bowel prep] 17 gm PO DAILY 10/18/18 [History] Propylene Glycol/Peg 400 [Systane 0.3-0.4% Eye Drops] 1 drop BOTH EYES TID 10/18/18 [History] Tramadol HCl [Ultram] 50 mg PO Q12H PRN 10/18/18 [History] Trazodone HCl 300 mg PO HS 10/18/18 [History] Lidocaine Patch [Lidoderm 5% patch] 1 each TP DAILY PRN #30 adh..patch 10/20/18 [Rx] B Complex W-C No.20/Folic Acid [Virt-Caps Softgel] 1 mg PO DAILY 11/10/18 [History] 3 Allergy/AdvReac Type Severity Reaction Status Date / Time diphenhydramine Allergy Rash Verified 09/11/18 20:49 [From Benadryl] meperidine AdvReac Nausea Verified 09/11/18 20:49 morphine AdvReac Nausea Verified 09/11/18 20:49 Review of Systems All Systems: reviewed and no additional remarkable complaints except as stated Exam - Vital Signs Vital signs: Initial Vital Signs Temp Pulse Resp BP Pulse Ox 98.2 F 113 18 142/98 95 11/10/18 06:12 11/10/18 06:12 11/10/18 06:12 11/10/18 06:12 11/10/18 06:12 Vital Signs - Last 8 Hours Temp Pulse Resp BP Pulse Ox 11/10/18 14:50 160/98 11/10/18 14:35 163/106 11/10/18 14:20 153/100 11/10/18 14:05 146/94 11/10/18 13:50 98.9 F 18 137/74 11/10/18 10:47 98.1 F 114 16 156/96 89 11/10/18 09:27 116 20 141/92 95 Intake and Output 11/10/18 11/10/18 11/10/18 07:59 15:59 23:59 Intake Total 600 / 600 Output Total 0 / 0 Balance 600 / 600 Intake: Oral 0 / 0 Intake, Rinseback and Flushes 600 / 600 Output: Urine 0 / 0 Other: Weight 115.757 kg 103.1 kg Blood Glucose* 150 Hemodialysis Net Fluid Removed 1167 (mL) Patient Weight 11/10/18 23:59 Weight 103.1 kg - General Appearance General appearance: well-developed, well-nourished, appears started age EENT: PERRL, mucous membranes moist Neck: supple Respiratory: course breath sounds Cardiology: edema (trace to 1+ pretibial pitting edema bilaterally), regular rate, regular rhythm, normal S1, normal S2 - Dialysis Access Dialysis Vascular Access: Arteriovenous Fistula (left upper extremity) thrill: Yes bruit: Yes Gastrointestinal: normoactive bowel sounds, no tenderness, no guarding Integumentary: warm and dry Neurologic: no focal deficit, no asterixis, alert and oriented x3 Musculoskeletal: no cyanosis, no clubbing Psychiatric: mood/affect appropriate, cooperative Results - Lab Results 11/10/18 15:52 11/11/18 05:16 Most recent lab results 11/10/18 06:36 Calcium 11.6 H Consult Discharge Plan - Plan [facility]errals: [facility] [Primary Care Provider] -
[2018-11-10 16:52] LABS: Albumin 4.1 g/dL (3.5-5.7); Albumin/Globulin Ratio 1.3 (1.1-2.2); Calcium 10.1 mg/dL (8.6-10.3); Globulin 3.1 g/dL (2.4-3.5); Potassium 3.5 mEq/L (3.5-5.1); Total Protein 7.2 g/dL (6.4-8.9)
[2018-11-10 17:20] LABS: Estimated Average Glucose 126 mg/dl
[2018-11-10] MEDS ORDERED: *HR* LORazepam 1 MG TABLET PO ONE (19:25)
[2018-11-10] MEDS ORDERED: *HR* LORazepam 2 MG/ML VIAL IVP PRN (19:26)
[2018-11-10] MEDS: Metoprolol XL (24 HR) Succ 25 MG TAB.ER.24H PO SCH (21:03)
[2018-11-10] MEDS: Artificial Tears SOLN 15 ML BOTTLE BOTH EYES SCH (21:07)
[2018-11-10] MEDS: Insulin LISPRO 300 UNITS/3 ML VIAL SQ SCH ×2 (21:07→21:12)
[2018-11-10] MEDS: traZODone 50 MG TABLET PO SCH (23:08)
--- NOTE | 2018-11-11 05:36 | Electrocardiograph Report ---
[facility] Test Date: 2018-11-10 Pat Name: Nam Sidhu Department: EXAM1 Room: 2NE18 Gender: M Bartenders: : 1950 Requested By: David Dunn Order Number: [id number] Reading MD: Curt Moore Measurements Intervals [place] Rate: 121 P: 21 IA: 139 QRS: -4 QRSD: 99 T: 134 QT: 341 QTc: 484 Interpretive Statements Sinus tachycardia Electronically Signed On 11-11-2018 5:34:41 EDT by Curt Moore
[2018-11-11] MEDS: *HR* Heparin 5,000 UNIT/ML VIAL SQ SCH ×2 (06:13→16:56)
[2018-11-11 06:19] LABS: Prothrombin Time 11.3 Seconds (9.4-12.1)
[2018-11-11 06:27] LABS: Calcium 10.4 mg/dL (8.6-10.3); Potassium 4.3 mEq/L (3.5-5.1)
[2018-11-11 06:29] LABS: Troponin I 0.05 ng/mL (< 0.04)
[2018-11-11 06:45] LABS: Chol/HDL Ratio 2.7 (0-4.9); Magnesium 2.2 mg/dL (1.6-2.6); Phosphorous 3.4 mg/dL (2.7-4.5)
--- NOTE | 2018-11-11 07:50 | Internal Med Progress Note ---
Hospitalist Progress Note - Encounter Date of Encounter: 11/11/18 Time of Encounter: 09:15 - Subjective Interval History: awake, sob and le edema improved with HD, denies any chest pain, pressure, cough or wheezing. discussed treatment plan and answered all questions - Exam Vitals: Temp Pulse Resp BP Pulse Ox 97.6 F 105 20 134/84 90 11/11/18 03:40 11/11/18 03:40 11/11/18 03:40 11/11/18 03:40 11/11/18 03:40 Exam: gen- alert, awake,appears stated age cv- reg rate and rhythm, normal s1,s2, no pitting le edema lungs- ctabl, + crackles bases, normal resp effort on o2 nc abd- soft, non tender, non distended neuro- AAOx3 - Assessment and Plan (1) Volume overload Current Visit: Yes Status: Acute (2) ESRD (end stage renal disease) on dialysis Current Visit: No Status: Chronic (3) CHF (congestive heart failure) Current Visit: Yes Status: Acute (4) Elevated troponin Current Visit: No Status: Acute - Summary of Assessment and Plan Summary of Assessment and Plan: Mr Willett has pmhx systolic CHF, CAD s/p CABG, DM on insulin, ESRD on HD MWF, HTN, Valvular disease, Anxiety, depression and tobacco dependence. He presented with fluid overload secondary to non compliance with home fluid restriction and dialysis. He is admitted with volume overload secondary to ESRD and acute on chronic systolic CHF. Volume Overload 2/2 non compliance with ESRD fluid restriction and Acute on chronic systolic CHF -ESRD as per nephro, daily weights, FR 1.8 L daily Acute on Chronic HFrEF 45% - makes no urine, volume removal by HD -cont asa, statin, imdur, toprol XL Trop Elevation, actually less than his baseline EKG without acute ischemic changes, adynamic mildly elevated trop -no need to trend further, lower than baseline and asx -fu with established cards on dc CAD s/p PCI and CABG- meds as above DM- cont SSI, will assess 24 h need of sliding scale on diabetic diet here, home long acting is 38units HS HTN,BP at goal- cont meds as above Anx/Depression- cont nortriptyline, trazadone Tobacco dependence- cessation education, refused nicotine patch vte ppx sqh Internal Medicine: Result - Labs CBC & Chem 7: 11/10/18 15:52 11/11/18 05:16 Labs: Short CBC 11/10/18 Range/Units 15:52 WBC 10.2 (4.3-11.1) K/mcL Hgb 12.0 L (12.9-16.9) g/dL Hct 38.2 (37.5-50.1) % Plt Count 151 (140-400) K/mcL Neutrophils # 8.1 (1.6-8.9) K/mcL BMP 11/10/18 11/11/18 15:52 05:16 Sodium 137 137 Potassium 3.5 4.3 Chloride 97 L 95 L Carbon Dioxide 30 H 30 H BUN 15 31 H Creatinine 2.59 H 4.72 H Glucose 127 H 156 H Calcium 10.1 10.4 H Cardiac Enzymes 11/10/18 11/10/18 11/11/18 Range/Units 16:00 22:19 05:16 Troponin I 0.06 H* 0.05 H* 0.05 H* (< 0.04) ng/mL Liver Function 11/10/18 Range/Units 15:52 Total Bilirubin 1.0 (0.3-1.0) mg/dL AST 13 (13-39) Units/L ALT 9 (7-52) Units/L Alkaline Phosphatase 68 (34-104) Units/L Albumin 4.1 (3.5-5.7) g/dL Urine 11/10/18 Range/Units 08:01 Urine Color Yellow (Yellow) Urine Clarity Clear (Clear) Urine pH 8.0 (5.0-8.0) pH Units Ur Specific [place] 1.012 (1.010-1.025) Urine Protein >=300 H (Neg-Trace) mg/dL Urine Glucose (UA) 250 H (Normal) mg/dL - ABG Interpretation ABG results: PT/INR, D-dimer PT 11.3 Seconds (9.4-12.1) 11/11/18 05:16 Consult Discharge Plan - Plan [facility]errals: [facility] [Primary Care Provider] - (1) Volume overload Qualifiers: Hypervolemia type: other Qualified Code(s): E87.79 - Other fluid overload (3) CHF (congestive heart failure) Qualifiers: Heart failure type: systolic Heart failure chronicity: acute on chronic Qualified Code(s): I50.23 - Acute on chronic systolic (congestive) heart failure
[2018-11-11] MEDS: Famotidine 20 MG TABLET PO SCH (08:13)
[2018-11-11] MEDS: Isosorbide MONOnitrate (24 HR) 30 MG TAB.ER.24H PO SCH (08:13)
[2018-11-11] MEDS: Metoprolol XL (24 HR) Succ 25 MG TAB.ER.24H PO SCH (08:13)
[2018-11-11] MEDS: Renal Vitamin 1 CAP CAPSULE PO SCH (08:14)
[2018-11-11] MEDS: Methyl Salicylate/Menthol 57 APPL/57 GM TUBE TP SCH (08:14)
[2018-11-11] MEDS: Artificial Tears SOLN 15 ML BOTTLE BOTH EYES SCH ×3 (08:14→20:22)
[2018-11-11] MEDS: Insulin LISPRO 300 UNITS/3 ML VIAL SQ SCH ×4 (08:15→20:37)
--- NOTE | 2018-11-11 10:18 | Nephrology Progress Note ---
Date of Encounter: 11/11/18 Time of Encounter: 08:15 - Assessment and Plan (1) ESRD (end stage renal disease) on dialysis Current Visit: Yes Status: Chronic He completed dialysis yesterday (Tuesday), and does not have indications for extra HD today (Tuesday). His next tentative dialysis will be planned for his typical MWF (i.e., on Tuesday). I will be available in the interim, but please feel free to call or page me if any questions. Thank you. Subjective Principal diagnosis: ESRD Interval history: Pt was briefly s/e earlier today. He completed HD yesterday and I/Os plus vitals were reviewed. Objective - Vital Signs Vital signs: Vital Signs Temp Pulse Resp BP Pulse Ox 11/11/18 08:06 102 18 142/95 90 11/11/18 03:40 97.6 F 105 20 134/84 90 11/10/18 22:47 98.0 F 112 18 140/88 91 11/10/18 19:47 98.5 F 114 17 128/76 91 11/10/18 17:57 97.5 F L 112 16 142/93 92 11/10/18 17:39 98.6 F 18 116/74 11/10/18 17:20 98/70 11/10/18 17:05 101/75 11/10/18 16:50 106/76 11/10/18 16:35 115/76 11/10/18 16:20 109/75 11/10/18 16:05 123/73 11/10/18 15:50 135/87 11/10/18 15:35 141/88 11/10/18 15:20 144/97 11/10/18 15:05 147/95 11/10/18 14:50 160/98 11/10/18 14:35 163/106 11/10/18 14:20 153/100 11/10/18 14:05 146/94 11/10/18 13:50 98.9 F 18 137/74 11/10/18 10:47 98.1 F 114 16 156/96 89 Intake and Output 11/10/18 11/11/18 11/11/18 23:59 07:59 15:59 Intake Total 240 / 240 Output Total 4100 / 4100 Balance -4100 / -3500 240 / 240 Intake: Oral 240 / 240 Output: Total Dialysis (HD) Output 4100 / 4100 Other: Meal Breakfast Percent of Meal Consumed 50% # Urine Diapers 1 1 Weight 103 kg Blood Glucose* 205 157 Hemodialysis Net Fluid Removed 3500 (mL) - General Appearance General appearance: Present: well-developed, well-nourished Exam: No acute distress was noted. He appeared to be resting comfortably. He appeared to be breathing comfortably. - Lab 11/10/18 15:52 11/11/18 05:16 Most recent lab results 11/11/18 11/11/18 05:16 05:16 Calcium 10.4 H Phosphorus 3.4 Magnesium 2.2 Consult Discharge Plan - Plan [facility]errals: [facility] [Primary Care Provider] -
[2018-11-11] MEDS: traMADol 50 MG TABLET PO PRN (14:23)
[2018-11-11] MEDS: traZODone 50 MG TABLET PO SCH (20:22)
[2018-11-12 06:00] LABS: Calcium 10.7 mg/dL (8.6-10.3); Potassium 4.2 mEq/L (3.5-5.1)
[2018-11-12] MEDS: *HR* Heparin 5,000 UNIT/ML VIAL SQ SCH ×2 (06:03→17:32)
--- NOTE | 2018-11-12 07:47 | Internal Med Progress Note ---
Hospitalist Progress Note - Encounter Date of Encounter: 11/12/18 Time of Encounter: 09:40 - Subjective Interval History: awake, pleasant. sob is greatly improved. denies le edema. feeling baseline. he and son updated rn and pt confirmed to me he declines to go back to [facility]. supposedly being sent to [facility] was already a process started outpt. - Exam Vitals: Temp Pulse Resp BP Pulse Ox 98.8 F 105 14 144/98 93 11/12/18 07:15 11/12/18 07:15 11/12/18 07:15 11/12/18 07:15 11/12/18 07:15 Exam: gen- alert, awake,appears stated age cv- reg rate and rhythm, normal s1,s2, no pitting le edema, no jvd lungs- ctabl, no crackles, scattered exp wheezing, normal resp effort on room air neuro- AAOx3 - Assessment and Plan (1) Volume overload Current Visit: Yes Status: Resolved (2) ESRD (end stage renal disease) on dialysis Current Visit: No Status: Chronic (3) CHF (congestive heart failure) Current Visit: Yes Status: Resolved (4) Elevated troponin Current Visit: No Status: Ruled-out - Summary of Assessment and Plan Summary of Assessment and Plan: Mr Willett has pmhx systolic CHF, CAD s/p CABG, DM on insulin, ESRD on HD MWF, HTN, Valvular disease, Anxiety, depression and tobacco dependence. He presented with fluid overload secondary to non compliance with home fluid restriction and dialysis. He is admitted with volume overload secondary to ESRD and acute on chronic systolic CHF. Volume Overload, resolved 2/2 non compliance with ESRD fluid restriction and Acute on chronic systolic CHF -ESRD as per nephro, daily weights, FR 1.8 L daily -next HD in am Acute on Chronic HFrEF 45%, resolved with HD - makes no urine, volume removal by HD -cont asa, statin, imdur, toprol XL Trop Elevation, actually less than his baseline EKG without acute ischemic changes, adynamic mildly elevated trop -no need to trend further, lower than baseline and asx -fu with established cards on dc CAD s/p PCI and CABG- meds as above DM- cont SSI, home long acting is 38units HS, has been near goal with SSI 10 units in last 24 hrs, start levemir 5 units HS HTN,BP at goal- cont meds as above Anx/Depression- cont nortriptyline, trazadone Tobacco dependence- cessation education, refused nicotine patch vte ppx sq dispo- awaiting [facility] for dispo to snf and confirmation of which one, he is medically stable for dc Internal Medicine: Result - Labs CBC & Chem 7: 11/10/18 15:52 11/12/18 05:19 Labs: BMP 11/12/18 05:19 Sodium 134 L Potassium 4.2 Chloride 94 L Carbon Dioxide 30 H BUN 50 H Creatinine 6.24 H Glucose 199 H Calcium 10.7 H - ABG Interpretation ABG results: PT/INR, D-dimer PT 11.3 Seconds (9.4-12.1) 11/11/18 05:16 Consult Discharge Plan - Plan [facility]errals: [facility] [Primary Care Provider] - (1) Volume overload Qualifiers: Hypervolemia type: other Qualified Code(s): E87.79 - Other fluid overload (3) CHF (congestive heart failure) Qualifiers: Heart failure type: systolic Heart failure chronicity: acute on chronic Qualified Code(s): I50.23 - Acute on chronic systolic (congestive) heart failure
[2018-11-12] MEDS: Artificial Tears SOLN 15 ML BOTTLE BOTH EYES SCH ×3 (08:48→20:33)
[2018-11-12] MEDS: Insulin LISPRO 300 UNITS/3 ML VIAL SQ SCH ×3 (08:48→20:30)
[2018-11-12] MEDS: Famotidine 20 MG TABLET PO SCH (08:49)
[2018-11-12] MEDS: Metoprolol XL (24 HR) Succ 25 MG TAB.ER.24H PO SCH (08:50)
[2018-11-12] MEDS: Isosorbide MONOnitrate (24 HR) 30 MG TAB.ER.24H PO SCH (08:51)
[2018-11-12] MEDS: Methyl Salicylate/Menthol 57 APPL/57 GM TUBE TP SCH (08:52)
[2018-11-12] MEDS: Renal Vitamin 1 CAP CAPSULE PO SCH (08:52)
[2018-11-12] MEDS ORDERED: NON-FORMULARY MEDICATION 1 EACH EACH (Ranitidine Hcl [Acid Reducer] 150 MG) PO SCH (09:00)
[2018-11-12] MEDS: traMADol 50 MG TABLET PO PRN (11:58)
[2018-11-12] MEDS: Insulin DETEMIR 100 UNIT/ML X5UNITS SQ SCH (20:30)
[2018-11-12] MEDS: traZODone 50 MG TABLET PO SCH (20:33)
[2018-11-13 03:16] LABS: White Blood Count 5.6 K/mcL (4.3-11.1)
[2018-11-13 03:17] LABS: Basophils # 0.1 K/mcL (0.0-0.2); Basophils % 0.9 %; Eosinophils # 0.2 K/mcL (0.0-0.6); Eosinophils % 3.9 %; Hematocrit 33.7 % (37.5-50.1); Immature Granulocytes % 0.2 % (0-4); Lymphocytes # 1.6 K/mcL (0.6-4.6); Mean Corpuscular HGB Conc 30.9 g/dL (31.6-35.5); Mean Corpuscular Hemoglobin 29.5 pg (28.0-33.3); Mean Corpuscular Volume 95.7 fL (83.0-100.0); Mean Platelet Volume 10.6 fL (9.4-12.4); Monocytes # 0.4 K/mcL (0.0-1.3); Monocytes % 7.5 %; Neutrophils # 3.3 K/mcL (1.6-8.9); Platelet Count 138 K/mcL (140-400); Red Blood Count 3.52 M/mcL (4.19-5.50); Red Cell Distribution Width 15.5 % (11.5-14.5); Segmented Neutrophils % 58.5 %
[2018-11-13 03:29] LABS: Hemoglobin 10.4 g/dL (12.9-16.9)
[2018-11-13 03:33] LABS: Calcium 10.9 mg/dL (8.6-10.3); Potassium 4.4 mEq/L (3.5-5.1)
[2018-11-13] MEDS: *HR* Heparin 5,000 UNIT/ML VIAL SQ SCH ×2 (05:59→17:20)
[2018-11-13] MEDS ORDERED: 0.9 % Sodium Chloride 250 ML IVC PRN (07:01)
--- NOTE | 2018-11-13 07:22 | Internal Med Progress Note ---
Hospitalist Progress Note - Encounter Date of Encounter: 11/13/18 - Exam Vitals: Temp Pulse Resp BP Pulse Ox 97.6 F 102 19 147/97 96 11/13/18 04:52 11/13/18 04:52 11/13/18 04:52 11/13/18 04:52 11/13/18 04:52 - Assessment and Plan (1) Volume overload Current Visit: Yes Status: Resolved (2) ESRD (end stage renal disease) on dialysis Current Visit: No Status: Chronic (3) CHF (congestive heart failure) Current Visit: Yes Status: Resolved (4) Elevated troponin Current Visit: No Status: Ruled-out - Time Spent with Patient Total time spent is greater than 50% in coordination of care (as documented) at patient's floor/unit and/or counseling patient: Internal Medicine: Result - Labs CBC & Chem 7: 11/13/18 02:53 11/13/18 02:53 Labs: Short CBC 11/13/18 Range/Units 02:53 WBC 5.6 (4.3-11.1) K/mcL Hgb 10.4 L D (12.9-16.9) g/dL Hct 33.7 L (37.5-50.1) % Plt Count 138 L (140-400) K/mcL Neutrophils # 3.3 (1.6-8.9) K/mcL BMP 11/13/18 02:53 Sodium 134 L Potassium 4.4 Chloride 95 L Carbon Dioxide 30 H BUN 65 H Creatinine 7.30 H Glucose 173 H Calcium 10.9 H - ABG Interpretation ABG results: PT/INR, D-dimer PT 11.3 Seconds (9.4-12.1) 11/11/18 05:16 Consult Discharge Plan - Plan Referrals: [facility] [Primary Care Provider] - (1) Volume overload Qualifiers: Hypervolemia type: other Qualified Code(s): E87.79 - Other fluid overload (3) CHF (congestive heart failure) Qualifiers: Heart failure type: systolic Heart failure chronicity: acute on chronic Qualified Code(s): I50.23 - Acute on chronic systolic (congestive) heart failure
[2018-11-13] MEDS: Renal Vitamin 1 CAP CAPSULE PO SCH (07:51)
[2018-11-13] MEDS: Famotidine 20 MG TABLET PO SCH (07:51)
[2018-11-13] MEDS: Artificial Tears SOLN 15 ML BOTTLE BOTH EYES SCH ×3 (07:52→21:41)
[2018-11-13] MEDS: Insulin LISPRO 300 UNITS/3 ML VIAL SQ SCH ×4 (07:52→21:40)
[2018-11-13] MEDS: Methyl Salicylate/Menthol 57 APPL/57 GM TUBE TP SCH (07:54)
--- NOTE | 2018-11-13 09:45 | Nephrology Progress Note ---
Date of Encounter: 11/13/18 Time of Encounter: 07:50 - Assessment and Plan (1) ESRD (end stage renal disease) on dialysis Current Visit: Yes Status: Chronic End-stage renal disease on thrice weekly hemodialysis: I reviewed the patient's labs, vital signs, progress notes, imaging and medication lists, which required complex evaluation and management and medical decision making to compose the patient's dialysis orders. For patients with end-stage renal disease, as always, I recommend following strict I's and O's, daily weights, renal diet, avoidance of nephrotoxic agents, renal dosing. His next dialysis would tentatively be planned for Tuesday, if he remains in the hospital. Thank you. Subjective Principal diagnosis: ESRD Interval history: Pt was briefly seen and examined earlier today. He did not affirm nausea, vomiting, or diarrhea. He said that he will be soon moving to [facility], which is closer to his adult son. Objective - Vital Signs Vital signs: Vital Signs Temp Pulse Resp BP Pulse Ox 11/13/18 07:34 98.3 F 99 16 146/95 11/13/18 04:52 97.6 F 102 19 147/97 96 11/12/18 20:37 95 11/12/18 20:09 98.2 F 100 21 139/87 98 11/12/18 15:25 98.5 F 101 14 127/88 95 Intake and Output 11/12/18 11/13/18 11/13/18 23:59 07:59 15:59 Intake Total 0 / 0 240 / 240 Balance 0 / 0 240 / 240 Intake: Oral 0 / 0 240 / 240 Other: Meal Lunch Breakfast Percent of Meal Consumed 100% 25% Weight 103.3 kg Blood Glucose* 191 158 Patient Weight 11/13/18 23:59 Weight 103.3 kg - General Appearance Exam: General appearance: well-developed, well-nourished, appears started age EENT: PERRL, mucous membranes moist Neck: supple Respiratory: clear to auscultation Cardiology: no edema, regular rate, regular rhythm, normal S1, normal S2 - Dialysis Access Dialysis Vascular Access: Arteriovenous Fistula (left upper extremity) thrill: Yes bruit: Yes Gastrointestinal: normoactive bowel sounds, no tenderness, no guarding Integumentary: warm and dry Neurologic: chronic LE weakness, alert and oriented x3 Musculoskeletal: no cyanosis, no clubbing Psychiatric: mood/affect appropriate, cooperative - Lab 11/13/18 02:53 11/13/18 02:53 Most recent lab results 11/13/18 02:53 Calcium 10.9 H Consult Discharge Plan - Plan Additional Instructions: Continue routine HD sessions MWF 1.8 L daily fluid restriction Referrals: [facility] [Primary Care Provider] -
--- NOTE | 2018-11-13 10:04 | Discharge Summary ---
- NOTES TO OUTPATIENT PROVIDER Notes to Outpatient Provider: continue routine HD sessions, daily 1.8 L fluid restriction Orders not resulted at time of discharge: Pending orders 11/10/18 08:05 Culture,Blood [BC] Stat 11/14/18 04:00 BMP [Basic Metabolic Panel] AM 0400 11/15/18 04:00 BMP [Basic Metabolic Panel] AM 0400 11/16/18 04:00 BMP [Basic Metabolic Panel] AM 0400 11/17/18 04:00 BMP [Basic Metabolic Panel] AM 0400 Date of Encounter: 11/13/18 Time of Encounter: 08:20 - Discharge Diagnosis (1) Volume overload Priority: Primary Status: Resolved Assessment and Plan: Volume Overload, resolved 2/2 non compliance with ESRD fluid restriction and Acute on chronic systolic CHF -ESRD as per nephro, FR 1.8 L daily HD session 11/13, next due 11/15 Qualifiers: Hypervolemia type: other Qualified Code(s): E87.79 - Other fluid overload (2) ESRD (end stage renal disease) on dialysis Priority: Secondary Status: Chronic (3) CHF (congestive heart failure) Priority: Secondary Status: Resolved Assessment and Plan: Acute on Chronic HFrEF 45%, resolved with HD - makes no urine, volume removal by HD -cont asa, statin, imdur, toprol XL Qualifiers: Heart failure type: systolic Heart failure chronicity: acute on chronic Qualified Code(s): I50.23 - Acute on chronic systolic (congestive) heart failure (4) Elevated troponin Priority: Secondary Status: Ruled-out Assessment and Plan: Trop Elevation, actually less than his baseline EKG without acute ischemic changes, adynamic mildly elevated trop lower than baseline and asx -fu with established cards on dc Hospital course: Mr. Sidhu is a 68 year old male pmhx systolic CHF, CAD s/p CABG, DM on insulin, ESRD on HD MWF, HTN, Valvular disease, Anxiety, depression and tobacco dependence. He presented with fluid overload secondary to non compliance with home fluid restriction and dialysis. His symptoms resolved compeltely with dialysis. the complete details of his hospital course can be found in diagnoses section of this document. His course was uncomplicated and SW arranged dc back to SNF. He is discharged in stable condition Discharge discussed with: patient, nurse, social work Time spent discussing smoking cessation with patient: more than 10 minutes - Time Spent with Patient Total time spent providing and/or coordinating discharge services: Time spent: Less than 30 minutes (25 min) - Discharge Medications Prescriptions: Continued Nitroglycerin [Nitrostat] 0.4 mg SL Q5MIN PRN #0 PRN Reason: Chest Pain Sevelamer HCl [Renagel] 2,400 mg PO TID Docusate [Colace] 200 mg PO DAILY Isosorbide MONOnitrate (24 HR) [Imdur] 30 mg PO DAILY Acetaminophen [Tylenol] 1,000 mg PO Q6HR PRN PRN Reason: Pain Atorvastatin [Lipitor] 40 mg PO HS GuaiFENesin/Dextromethorphan [Mucinex Dm] 1 tab PO BID PRN PRN Reason: Cough Insulin Glargine,Hum.rec.anlog [Basaglar Kwikpen U-100] 38 unit SQ HS Insulin LISPRO [HumaLOG] 0 units SQ AD Menthol [Bengay Ultra Strength] 1 patch TP DAILY Metoprolol Succinate [Toprol Xl] 12.5 mg PO DAILY Nortriptyline [Pamelor] 10 mg PO HS Omeprazole [PriLOSEC] 20 mg PO DAILY Polyethylene Glycol 3350 [MiraLax bowel prep] 17 gm PO DAILY Propylene Glycol/Peg 400 [Systane 0.3-0.4% Eye Drops] 1 drop BOTH EYES TID Tramadol HCl [Ultram] 50 mg PO Q12H PRN PRN Reason: Pain Trazodone HCl 300 mg PO HS B Complex W-C No.20/Folic Acid [Virt-Caps Softgel] 1 mg PO DAILY Glucagon,Human Recombinant [Glucagen] 1 mg IJ AD PRN PRN Reason: BLOOD GLUCOSE Lidocaine Patch [Lidoderm 5% patch] 1 patch TP DAILY PRN PRN Reason: Breakthrough Pain Ranitidine HCl [Acid Electromechanical Technician] 150 mg PO DAILY Home Medications: Nitroglycerin [Nitrostat] 0.4 mg SL Q5MIN PRN #0 09/15/17 [Rx] Sevelamer HCl [Renagel] 2,400 mg PO TID 04/29/18 [History] Docusate [Colace] 200 mg PO DAILY 09/11/18 [History] Isosorbide MONOnitrate (24 HR) [Imdur] 30 mg PO DAILY 09/11/18 [History] Acetaminophen [Tylenol] 1,000 mg PO Q6HR PRN 10/18/18 [History] Atorvastatin [Lipitor] 40 mg PO HS 10/18/18 [History] GuaiFENesin/Dextromethorphan [Mucinex Dm] 1 tab PO BID PRN 10/18/18 [History] Insulin Glargine,Hum.rec.anlog [Basaglar Kwikpen U-100] 38 unit SQ HS 10/18/18 [History] Insulin LISPRO [HumaLOG] 0 units SQ AD 10/18/18 [History] Menthol [Bengay Ultra Strength] 1 patch TP DAILY 10/18/18 [History] Metoprolol Succinate [Toprol Xl] 12.5 mg PO DAILY 10/18/18 [History] Nortriptyline [Pamelor] 10 mg PO HS 10/18/18 [History] Omeprazole [PriLOSEC] 20 mg PO DAILY 10/18/18 [History] Polyethylene Glycol 3350 [MiraLax bowel prep] 17 gm PO DAILY 10/18/18 [History] Propylene Glycol/Peg 400 [Systane 0.3-0.4% Eye Drops] 1 drop BOTH EYES TID 10/18/18 [History] Tramadol HCl [Ultram] 50 mg PO Q12H PRN 10/18/18 [History] Trazodone HCl 300 mg PO HS 10/18/18 [History] B Complex W-C No.20/Folic Acid [Virt-Caps Softgel] 1 mg PO DAILY 11/10/18 [History] Glucagon,Human Recombinant [Glucagen] 1 mg IJ AD PRN 11/11/18 [History] Lidocaine Patch [Lidoderm 5% patch] 1 patch TP DAILY PRN 11/11/18 [History] Ranitidine HCl [Acid Electromechanical Technician] 150 mg PO DAILY 11/11/18 [History] Allergies/Adverse Reactions: Allergy/AdvReac Type Severity Reaction Status Date / Time diphenhydramine Allergy Rash Verified 09/11/18 20:49 [From Benadryl] meperidine AdvReac Nausea Verified 09/11/18 20:49 morphine AdvReac Nausea Verified 09/11/18 20:49 Date of admission: 11/10/18 15:15 [facility] care physician: [facility] Consults: 11/10/18 08:09 Consult to Nephrology [CONS] Stat Consulting Provider: Kidney Radha/HARRIET/RUY/CHERELLE Reason for Consult: ESRD on HD Time Notified: 08:10 Call Completed: Yes 11/10/18 08:15 Consult to Dialysis [CONS] ONCE 11/12/18 07:46 Consult to Case Management [CONS] Routine Comment: assess home needs, anticipate dc 11/1311/12/18 11:41 Consult to Keg Filler [CONS] Routine Reason for SW Consult: pt does not want to go back to [facility], family noting [facility] placement, medically stable for dc 11/13/18 07:15 Consult to Dialysis [CONS] ONCE Discharging clinician: Phyllis Murry - Constitutional Vitals: Temp Pulse Resp BP Pulse Ox 98.3 F 99 16 146/95 96 11/13/18 07:34 11/13/18 07:34 11/13/18 07:34 11/13/18 07:34 11/13/18 04:52 Exam: awake, in HD, pleasant. he has no complaints. no shortness of breath, orthopnea, cp or le edema. He is on room air and comfortable. dc plan discussed and he has no questions. gen- alert, awake,appears stated age cv- reg rate and rhythm, normal s1,s2, no pitting le edema lungs- ctabl, no crackles, wheezing or rhonchi, normal resp effort on room air abd- soft, non tender, + bs neuro- AAOx3 - Patient Status Disposition: Transfer SNF Condition: Good Overall status at discharge: patient is back to baseline - Discharge Instructions Follow Up With: [facility] [Primary Care Provider] - Additional Instructions: Continue routine HD sessions MWF 1.8 L daily fluid restriction - Diet and Activity Activity: increase activity as tolerated Diet: advance to your usual diet (renal, cardiac, diabetic)
--- NOTE | 2018-11-13 10:13 | Physician Discharge Referral ---
ExtendedCare Referral Info Provider in Charge after Transfer: PCP - Diagnosis (1) Volume overload Priority: Primary Status: Resolved (2) ESRD (end stage renal disease) on dialysis Priority: Secondary Status: Chronic (3) CHF (congestive heart failure) Priority: Secondary Status: Resolved (4) Elevated troponin Priority: Secondary Status: Ruled-out (5) Tobacco dependence Priority: Secondary Status: Chronic (6) Anxiety and depression Priority: Secondary Status: Chronic (7) Diabetes Priority: Secondary Status: Chronic (8) CAD (coronary artery disease) Priority: Secondary Status: Chronic (9) HLD (hyperlipidemia) Priority: Secondary Status: Chronic (10) HTN (hypertension), benign Status: Chronic - Transfer Medications Home Medications: Nitroglycerin [Nitrostat] 0.4 mg SL Q5MIN PRN #0 09/15/17 [Rx] Sevelamer HCl [Renagel] 2,400 mg PO TID 04/29/18 [History] Docusate [Colace] 200 mg PO DAILY 09/11/18 [History] Isosorbide MONOnitrate (24 HR) [Imdur] 30 mg PO DAILY 09/11/18 [History] Acetaminophen [Tylenol] 1,000 mg PO Q6HR PRN 10/18/18 [History] Atorvastatin [Lipitor] 40 mg PO HS 10/18/18 [History] GuaiFENesin/Dextromethorphan [Mucinex Dm] 1 tab PO BID PRN 10/18/18 [History] Insulin Glargine,Hum.rec.anlog [Basaglar Kwikpen U-100] 38 unit SQ HS 10/18/18 [History] Insulin LISPRO [HumaLOG] 0 units SQ AD 10/18/18 [History] Menthol [Bengay Ultra Strength] 1 patch TP DAILY 10/18/18 [History] Metoprolol Succinate [Toprol Xl] 12.5 mg PO DAILY 10/18/18 [History] Nortriptyline [Pamelor] 10 mg PO HS 10/18/18 [History] Omeprazole [PriLOSEC] 20 mg PO DAILY 10/18/18 [History] Polyethylene Glycol 3350 [MiraLax bowel prep] 17 gm PO DAILY 10/18/18 [History] Propylene Glycol/Peg 400 [Systane 0.3-0.4% Eye Drops] 1 drop BOTH EYES TID 10/18/18 [History] Tramadol HCl [Ultram] 50 mg PO Q12H PRN 10/18/18 [History] Trazodone HCl 300 mg PO HS 10/18/18 [History] B Complex W-C No.20/Folic Acid [Virt-Caps Softgel] 1 mg PO DAILY 11/10/18 [History] Glucagon,Human Recombinant [Glucagen] 1 mg IJ AD PRN 11/11/18 [History] Lidocaine Patch [Lidoderm 5% patch] 1 patch TP DAILY PRN 11/11/18 [History] Ranitidine HCl [Acid Sample Checker] 150 mg PO DAILY 11/11/18 [History] Allergies/Adverse Reactions: Allergy/AdvReac Type Severity Reaction Status Date / Time diphenhydramine Allergy Rash Verified 09/11/18 20:49 [From Benadryl] meperidine AdvReac Nausea Verified 09/11/18 20:49 morphine AdvReac Nausea Verified 09/11/18 20:49 - Respiratory Orders None Smoking Cessation: Smoking cessation has been advised. For more information, call the [place] Tobacco Quit Line at 5-835-SQSS-NOW. He refused nicotine patch - Ancillary Orders May use pressure relief devices daily prn - Advance Directives Code Status: Full Code - Rehabiliation Orders Rehab Potential: Good Rehab Orders: ROM Exercises, Evaluation for Physical Therapy, Evaluation for Occupational Therapy - Treatments Skin tear care topically daily PRN per policy List/Other: MWF dialysis - Diet Orders No Added Salt (VITALY) (1.8 L daily fluid restriction), No Concentrated Sweets, Renal, Cardiac CERTIFICATION: I certify that the transfer of the above named patient to an Extended Care Facility is necessary for the continuing treatment of the diagnosis listed. The above information is true and accurate reflection of patient's current condition. Confidential - Redisclosure prohibited without a patient's written consent.
[2018-11-13] MEDS: traMADol 50 MG TABLET PO PRN (10:38)
[2018-11-13] MEDS: Metoprolol XL (24 HR) Succ 25 MG TAB.ER.24H PO SCH (14:21)
[2018-11-13] MEDS: Isosorbide MONOnitrate (24 HR) 30 MG TAB.ER.24H PO SCH (14:21)
[2018-11-13] MEDS: traZODone 50 MG TABLET PO SCH (21:42)
[2018-11-13] MEDS: Insulin DETEMIR 100 UNIT/ML X5UNITS SQ SCH (21:42)
[2018-11-14] MEDS: *HR* Heparin 5,000 UNIT/ML VIAL SQ SCH ×2 (06:10→16:50)
[2018-11-14 07:05] LABS: Calcium 10.4 mg/dL (8.6-10.3); Potassium 4.1 mEq/L (3.5-5.1)
--- NOTE | 2018-11-14 07:19 | Internal Med Progress Note ---
Hospitalist Progress Note - Encounter Date of Encounter: 11/14/18 Time of Encounter: 08:20 - Subjective Interval History: asleep, awkae sto anme, continues to have no complaints. awaiting new snf placement. no sob, cough, wheezing or le edema. - Exam Vitals: Temp Pulse Resp BP Pulse Ox 98.7 F 91 22 144/89 95 11/14/18 04:39 11/14/18 04:39 11/14/18 04:39 11/14/18 04:39 11/14/18 04:39 Exam: gen- alert, awake,appears stated age cv- reg rate and rhythm, normal s1,s2, no pitting le edema lungs- ctabl, normal resp effort on room air abd- soft, non tender, + bs neuro- AAOx3 - Assessment and Plan (1) Volume overload Current Visit: Yes Status: Resolved (2) ESRD (end stage renal disease) on dialysis Current Visit: No Status: Chronic (3) CHF (congestive heart failure) Current Visit: Yes Status: Resolved (4) Tobacco dependence Current Visit: Yes Status: Chronic (5) Anxiety and depression Current Visit: Yes Status: Chronic (6) Diabetes Current Visit: No Status: Chronic (7) CAD (coronary artery disease) Current Visit: No Status: Chronic (8) HLD (hyperlipidemia) Current Visit: No Status: Chronic (9) HTN (hypertension), benign Current Visit: No Status: Chronic - Summary of Assessment and Plan Summary of Assessment and Plan: Mr Willett has pmhx systolic CHF, CAD s/p CABG, DM on insulin, ESRD on HD MWF, HTN, Valvular disease, Anxiety, depression and tobacco dependence. He presented with fluid overload secondary to non compliance with home fluid res triction and dialysis. He is admitted with volume overload secondary to ESRD and acute on chronic s ystolic CHF. He is awaiting new SNF placement and transfer of HD seat to [facility]. He remains medically stable for dc Volume Overload, resolved 2/2 non compliance with ESRD fluid restriction and Acute on chronic systolic CHF -ESRD as per nephro, daily weights, FR 1.8 L daily -next HD 7/3 Acute on Chronic HFrEF 45%, resolved with HD - makes no urine, volume removal by HD -cont asa, statin, imdur, toprol XL Trop Elevation, actually less than his baseline EKG without acute ischemic changes, adynamic mildly elevated trop -no need to trend further, lower than baseline and asx -fu with established cards on dc CAD s/p PCI and CABG- meds as above DM- cont SSI, home long acting is 38units HS, has been near goal with SSI 10 units in last 24 hrs, start levemir 5 units HS HTN,BP at goal- cont meds as above Anx/Depression- cont nortriptyline, trazadone Tobacco dependence- cessation education, [facility] nicotine [facility]: Result - Labs CBC & Chem 7: 11/13/18 02:53 11/14/18 05:56 Labs: BMP 11/14/18 05:56 Sodium 136 Potassium 4.1 Chloride 93 L Carbon Dioxide 34 H BUN 39 H Creatinine 5.14 H Glucose 179 H Calcium 10.4 H - ABG Interpretation ABG results: PT/INR, D-dimer PT 11.3 Seconds (9.4-12.1) 11/11/18 05:16 Consult Discharge Plan - Plan Instructions: Heart Failure (DC), Chest Pain (DC), Acute Respiratory Distress Syndrome (DC), Hemodialysis (DC), Dialysis Diet (DC), Diabetes Mellitus Type 2 in Adults (DC), Chronic Obstructive Pulmonary Disease (DC), Chronic Hypertension (DC), Anemia (GEN), Anxiety (DC), End-Stage Kidney Disease (GEN), Cigarette Smoking and Your Health, Director Of Golf (GEN) Additional Instructions: Continue routine HD sessions MWF 1.8 L daily fluid restriction [facility]errals: [facility] [Primary Care Provider] - (1) Volume overload Qualifiers: Hypervolemia type: other Qualified Code(s): E87.79 - Other fluid overload (3) CHF (congestive heart failure) Qualifiers: Heart failure type: systolic Heart failure chronicity: acute on chronic Qualified Code(s): I50.23 - Acute on chronic systolic (congestive) heart failure (6) Diabetes Qualifiers: Diabetes mellitus type: type 2 Diabetes mellitus exterminator helper termite insulin use: with detention use Diabetes mellitus complication status: with kidney complications Diabetes mellitus complication detail: with chronic kidney disease Chronic kidney disease stage: on chronic dialysis Qualified Code(s): E11.22 - Type 2 diabetes mellitus with diabetic chronic kidney disease; N18.6 - End stage renal disease; Z79.4 - terminal manager (current) use of insulin; Z99.2 - Dependence on renal dialysis (7) CAD (coronary artery disease) Qualifiers: Coronary Disease-Associated Artery/Lesion type: unspecified vessel or lesion type [place] vs. transplanted heart: [place] heart Associated angina: with unspe cified angina Qualified Code(s): I25.119 - Atherosclerotic heart disease of [place] coronary artery with unspecified angina pectoris (8) HLD (hyperlipidemia) Qualifiers: Hyperlipidemia type: unspecified Qualified Code(s): E78.5 - Hyperlipidemia, unspecified
[2018-11-14] MEDS: Famotidine 20 MG TABLET PO SCH (07:51)
[2018-11-14] MEDS: Isosorbide MONOnitrate (24 HR) 30 MG TAB.ER.24H PO SCH (07:52)
[2018-11-14] MEDS: Renal Vitamin 1 CAP CAPSULE PO SCH (07:52)
[2018-11-14] MEDS: Metoprolol XL (24 HR) Succ 25 MG TAB.ER.24H PO SCH (07:52)
[2018-11-14] MEDS: Insulin LISPRO 300 UNITS/3 ML VIAL SQ SCH ×4 (07:53→20:11)
[2018-11-14] MEDS: Artificial Tears SOLN 15 ML BOTTLE BOTH EYES SCH ×3 (07:53→20:13)
[2018-11-14] MEDS: Methyl Salicylate/Menthol 57 APPL/57 GM TUBE TP SCH (07:53)
--- NOTE | 2018-11-14 10:23 | Nephrology Progress Note ---
Date of Encounter: 11/14/18 Time of Encounter: 10:21 - Assessment and Plan (1) ESRD (end stage renal disease) on dialysis Current Visit: Yes Status: Chronic Current regimen is MWF. Plan for HD tomorrow. Renal diet Renal vitamins Strict I/O Avoid nephrotoxins and renal dose all medications.. (2) Anxiety and depression Current Visit: Yes Status: Chronic Per primary. (3) CHF (congestive heart failure) Current Visit: Yes Status: Resolved Per primary. Qualifiers: Heart failure type: systolic Heart failure chronicity: acute on chronic Qualified Code(s): I50.23 - Acute on chronic systolic (congestive) heart failure Subjective Principal diagnosis: ESRD Interval history: Pt seen and examined, doing well. Denies nausea, vomiting, diarrhea. Denies chest pain or shortness of breath. Objective - Vital Signs Vital signs: Vital Signs Temp Pulse Resp BP Pulse Ox 11/14/18 07:19 98.0 F 94 16 139/89 11/14/18 04:39 98.7 F 91 22 144/89 95 11/13/18 20:52 98.6 F 100 25 129/82 97 11/13/18 15:54 98.7 F 98 16 132/92 11/13/18 13:20 114/69 11/13/18 13:00 97.9 F 18 147/86 11/13/18 12:05 121/79 11/13/18 11:50 149/82 11/13/18 11:35 125/75 11/13/18 11:20 116/78 11/13/18 11:05 129/63 11/13/18 10:50 135/78 11/13/18 10:35 121/77 Intake and Output 11/13/18 11/14/18 11/14/18 23:59 07:59 15:59 Intake Total 200 / 1040 50 / 170 120 / 170 Balance 200 / -3060 50 / 170 120 / 170 Intake: Oral 200 / 440 50 / 170 120 / 170 Other: Meal Dinner Breakfast Percent of Meal Consumed 100% 100% # Urine Diapers 1 Weight 98.5 kg Blood Glucose* 167 Patient Weight 11/14/18 23:59 Weight 98.5 kg - General Appearance General appearance: Present: well-developed, well-nourished EENT: Present: ATNC, hearing intact, vision intact Neck: Present: supple Respiratory: Present: clear Cardiology: Present: edema (Trace bilat lower extremity edema.), normal S1, normal S2 Gastrointestinal: Present: normoactive bowel sounds, no tenderness, no guarding Integumentary: Present: no rash, warm and dry Neurologic: Present: alert and oriented x3 Musculoskeletal: Present: no deformities, no erythema Psychiatric: Present: mood/affect appropriate, cooperative - Lab 11/13/18 02:53 11/14/18 05:56 Most recent lab results 11/14/18 05:56 Calcium 10.4 H Consult Discharge Plan - Plan Instructions: Heart Failure (DC), Chest Pain (DC), Acute Respiratory Distress Syndrome (DC), Hemodialysis (DC), Dialysis Diet (DC), Diabetes Mellitus Type 2 in Adults (DC), Chronic Obstructive Pulmonary Disease (DC), Chronic Hypertension (DC), Anemia (GEN), Anxiety (DC), End-Stage Kidney Disease (GEN), Cigarette Smoking and Your Health, Spray Gunner (GEN) Additional Instructions: Continue routine HD sessions MWF 1.8 L daily fluid restriction [facility]errals: [facility] [Primary Care Provider] -
[2018-11-14] MEDS: traMADol 50 MG TABLET PO PRN (11:40)
[2018-11-14] MEDS: traZODone 50 MG TABLET PO SCH (20:12)
[2018-11-14] MEDS: Insulin DETEMIR 100 UNIT/ML X5UNITS SQ SCH (20:12)
[2018-11-15 02:24] LABS: Basophils # 0.1 K/mcL (0.0-0.2); Basophils % 0.8 %; Eosinophils # 0.3 K/mcL (0.0-0.6); Eosinophils % 4.2 %; Hematocrit 35.1 % (37.5-50.1); Hemoglobin 10.7 g/dL (12.9-16.9); Immature Granulocytes % 0.3 % (0-4); Lymphocytes # 1.9 K/mcL (0.6-4.6); Mean Corpuscular HGB Conc 30.5 g/dL (31.6-35.5); Mean Corpuscular Hemoglobin 29.3 pg (28.0-33.3); Mean Corpuscular Volume 96.2 fL (83.0-100.0); Mean Platelet Volume 10.8 fL (9.4-12.4); Monocytes # 0.5 K/mcL (0.0-1.3); Monocytes % 8.4 %; Neutrophils # 3.2 K/mcL (1.6-8.9); Platelet Count 155 K/mcL (140-400); Red Blood Count 3.65 M/mcL (4.19-5.50); Red Cell Distribution Width 15.5 % (11.5-14.5); Segmented Neutrophils % 54.3 %; White Blood Count 5.9 K/mcL (4.3-11.1)
[2018-11-15 02:42] LABS: Calcium 10.8 mg/dL (8.6-10.3); Potassium 4.3 mEq/L (3.5-5.1)
[2018-11-15] MEDS: *HR* Heparin 5,000 UNIT/ML VIAL SQ SCH ×2 (05:29→17:11)
[2018-11-15] MEDS ORDERED: 0.9 % Sodium Chloride 250 ML IVC PRN (07:47)
[2018-11-15] MEDS ORDERED: 0.9 % Sodium Chloride 1,000 ML PRIME SCH (08:00)
[2018-11-15] MEDS: Famotidine 20 MG TABLET PO SCH (08:28)
[2018-11-15] MEDS: Renal Vitamin 1 CAP CAPSULE PO SCH (08:28)
[2018-11-15] MEDS: Methyl Salicylate/Menthol 57 APPL/57 GM TUBE TP SCH (08:29)
[2018-11-15] MEDS: Artificial Tears SOLN 15 ML BOTTLE BOTH EYES SCH ×3 (08:34→20:04)
[2018-11-15] MEDS: Insulin LISPRO 300 UNITS/3 ML VIAL SQ SCH ×4 (08:34→20:34)
[2018-11-15] MEDS: traMADol 50 MG TABLET PO PRN ×2 (08:40→20:02)
--- NOTE | 2018-11-15 10:33 | Nephrology Progress Note ---
Date of Encounter: 11/15/18 Time of Encounter: 10:30 - Assessment and Plan (1) ESRD (end stage renal disease) on dialysis Current Visit: Yes Status: Chronic Current regimen is MWF. HD in progress for today. Renal diet Renal vitamins Strict I/O Avoid nephrotoxins and renal dose all medications.. (2) Anxiety and depression Current Visit: Yes Status: Chronic Per primary. (3) CHF (congestive heart failure) Current Visit: Yes Status: Resolved Per primary. Qualifiers: Heart failure type: systolic Heart failure chronicity: acute on chronic Qualified Code(s): I50.23 - Acute on chronic systolic (congestive) heart failure Subjective Principal diagnosis: ESRD Interval history: Pt seen and examined, doing well. Denies nausea, vomiting, diarrhea. Denies chest pain or shortness of breath. Objective - Vital Signs Vital signs: Vital Signs Temp Pulse Resp BP Pulse Ox 11/15/18 09:55 98.3 F 18 137/87 11/15/18 07:58 98.4 F 102 18 164/95 96 11/15/18 03:56 97.8 F 93 20 138/85 11/14/18 20:09 98.2 F 97 20 120/81 92 11/14/18 15:35 98 16 140/84 Intake and Output 11/14/18 11/15/18 11/15/18 23:59 07:59 15:59 Intake Total 710 / 880 100 / 820 720 / 820 Balance 710 / 880 100 / 820 720 / 820 Intake: Oral 710 / 880 100 / 220 120 / 220 Intake, Rinseback and Flushes 600 / 600 Other: Meal Dinner Percent of Meal Consumed 10% Blood Glucose* 189 167 Hemodialysis Net Fluid Removed 0 (mL) - General Appearance General appearance: Present: well-developed, well-nourished EENT: Present: ATNC, hearing intact, vision intact Neck: Present: supple Respiratory: Present: clear Cardiology: Present: no edema, normal S1, normal S2 Dialysis Vascular Access: Arteriovenous Fistula thrill: Yes bruit: Yes Gastrointestinal: Present: normoactive bowel sounds, no tenderness, no guarding Integumentary: Present: no rash, warm and dry Neurologic: Present: alert and oriented x3 Musculoskeletal: Present: no deformities, no erythema Psychiatric: Present: mood/affect appropriate, cooperative - Lab 11/15/18 01:14 11/15/18 01:14 Most recent lab results 11/15/18 01:14 Calcium 10.8 H Consult Discharge Plan - Plan Instructions: Heart Failure (DC), Chest Pain (DC), Acute Respiratory Distress Syndrome (DC), Hemodialysis (DC), Dialysis Diet (DC), Diabetes Mellitus Type 2 in Adults (DC), Chronic Obstructive Pulmonary Disease (DC), Chronic Hypertension (DC), Anemia (GEN), Anxiety (DC), End-Stage Kidney Disease (GEN), Cigarette Smoking and Your Health, Hospital Sales Representative (GEN) Additional Instructions: Continue routine HD sessions MWF 1.8 L daily fluid restriction Referrals: [facility] [Primary Care Provider] -
[2018-11-15] MEDS: Metoprolol XL (24 HR) Succ 25 MG TAB.ER.24H PO SCH (14:35)
[2018-11-15] MEDS: Isosorbide MONOnitrate (24 HR) 30 MG TAB.ER.24H PO SCH (14:36)
--- NOTE | 2018-11-15 17:26 | Internal Med Progress Note ---
Hospitalist Progress Note - Encounter Date of Encounter: 11/15/18 Time of Encounter: 11:00 - Subjective Interval History: No major events overnight. Patient denied any chest pain, shortness of breath or abdominal pain. - Exam Vitals: Temp Pulse Resp BP Pulse Ox 98.9 F 102 18 119/78 97 11/15/18 14:00 11/15/18 16:58 11/15/18 16:58 11/15/18 16:58 11/15/18 16:58 Exam: . gen- alert, awake,appears stated age cv- reg rate and rhythm, normal s1,s2, no pitting le edema lungs- ctabl, normal resp effort on room air abd- soft, non tender, + bs neuro- AAOx3 - Assessment and Plan (1) CHF (congestive heart failure) Current Visit: Yes Status: Resolved (2) ESRD (end stage renal disease) on dialysis Current Visit: Yes Status: Chronic (3) CAD (coronary artery disease) Current Visit: No Status: Chronic (4) HTN (hypertension), benign Current Visit: Yes Status: Chronic (5) HLD (hyperlipidemia) Current Visit: Yes Status: Chronic (6) Diabetes Current Visit: Yes Status: Chronic (7) Noncompliance with renal dialysis Current Visit: No Status: Acute (8) Volume overload Current Visit: Yes Status: Resolved (9) Behavior concern Current Visit: Yes Status: Acute - Summary of Assessment and Plan Summary of Assessment and Plan: Mr Willett has pmhx systolic CHF, CAD s/p CABG, DM on insulin, ESRD on HD MWF, HTN, Valvular disease, Anxiety, depression and tobacco dependence. He presented with fluid overload secondary to non compliance with home fluid restriction and dialysis. He is admitted with volume overload secondary to ESRD and acute on chronic systolic CHF. He is awaiting new SNF placement and transfer of HD seat to [facility]. He remains medically stable for dc Acute on Chronic decompensated HFrEF 45%, resolved with HD -2/2 non compliance with ESRD fluid restriction and Acute on chronic systolic CHF - makes no urine, volume removal by HD - cont toprol XL ESRD on HD MWF -ESRD as per nephro, daily weights, got his sedation today. -Nephrology team is following. Trop Elevation: - Type 2 event 2/2 decompensated heart failure and CKD, his troponin levels were less than previous admissions - EKG without acute ischemic changes, adynamic mildly elevated trop - f/u with established cards on dc CAD s/p PCI and CABG- Continue asa, statin, imdur, and toprol. DM- cont SSI, home long acting is 38units HS, was on 10 units while in the hospital, we will increase his dose to 20 units. Continue to check his BJM before meals and at bedtime HTN,BP at goal- cont meds as above Anx/Depression- cont nortriptyline, trazadone Tobacco dependence- cessation education, refused nicotine patch vte ppx sqh Disposition: Patient declined to go back to [facility] and adoption social worker is working on new placement. - Time Spent with Patient Total time spent is greater than 50% in coordination of care (as documented) at patient's floor/unit and/or counseling patient: Plan of Care Discussed with: patient Internal Medicine: Result - Labs CBC & Chem 7: 11/15/18 01:14 11/15/18 01:14 Labs: Short CBC 11/15/18 Range/Units 01:14 WBC 5.9 (4.3-11.1) K/mcL Hgb 10.7 L (12.9-16.9) g/dL Hct 35.1 L (37.5-50.1) % Plt Count 155 (140-400) K/mcL Neutrophils # 3.2 (1.6-8.9) K/mcL BMP 11/15/18 01:14 Sodium 136 Potassium 4.3 Chloride 93 L Carbon Dioxide 32 H BUN 52 H Creatinine 6.32 H Glucose 183 H Calcium 10.8 H - ABG Interpretation ABG results: PT/INR, D-dimer PT 11.3 Seconds (9.4-12.1) 11/11/18 05:16 Consult Discharge Plan - Plan Instructions: Heart Failure (DC), Chest Pain (DC), Acute Respiratory Distress Syndrome (DC), Hemodialysis (DC), Dialysis Diet (DC), Diabetes Mellitus Type 2 in Adults (DC), Chronic Obstructive Pulmonary Disease (DC), Chronic Hypertension (DC), Anemia (GEN), Anxiety (DC), End-Stage Kidney Disease (GEN), Cigarette Smoking and Your Health, Digital Printer Operator (GEN) Additional Instructions: Continue routine HD sessions MWF 1.8 L daily fluid restriction [facility]Primary Care Provider[facility] - (1) CHF (congestive heart failure) Qualifiers: Heart failure type: systolic Heart failure chronicity: acute on chronic Qualified Code(s): I50.23 - Acute on chronic systolic (congestive) heart failure (3) CAD (coronary artery disease) Qualifiers: Coronary Disease-Associated Artery/Lesion type: unspecified vessel or lesion type [place] vs. transplanted heart: [place] heart Associated angina: with unspecified angina Qualified Code(s): I25.119 - Atherosclerotic heart disease of [place] coronary artery with unspecified angina pectoris (5) HLD (hyperlipidemia) Qualifiers: Hyperlipidemia type: unspecified Qualified Code(s): E78.5 - Hyperlipidemia, unspecified (6) Diabetes Qualifiers: Diabetes mellitus type: type 2 Diabetes mellitus senior living insulin use: with senior living use Diabetes mellitus complication status: with kidney complications Diabetes mellitus complication detail: with chronic kidney disease Chronic kidney disease stage: on chronic dialysis Qualified Code(s): E11.22 - Type 2 diabetes mellitus with diabetic chronic kidney disease; N18.6 - End stage renal disease; Z79.4 - ferry terminal agent (current) use of insulin; Z99.2 - Dependence on renal dialysis (8) Volume overload Qualifiers: Hypervolemia type: other Qualified Code(s): E87.79 - Other fluid overload
[2018-11-15] MEDS: traZODone 50 MG TABLET PO SCH (20:03)
[2018-11-15] MEDS: Insulin DETEMIR 100 UNIT/ML X5UNITS SQ SCH (22:22)
[2018-11-16] MEDS: *HR* Heparin 5,000 UNIT/ML VIAL SQ SCH ×2 (05:58→16:11)
[2018-11-16 06:10] LABS: Calcium 10.7 mg/dL (8.6-10.3); Potassium 4.2 mEq/L (3.5-5.1)
[2018-11-16] MEDS: Insulin LISPRO 300 UNITS/3 ML VIAL SQ SCH ×4 (08:58→21:29)
[2018-11-16] MEDS: Famotidine 20 MG TABLET PO SCH (08:58)
[2018-11-16] MEDS: Metoprolol XL (24 HR) Succ 25 MG TAB.ER.24H PO SCH (08:59)
[2018-11-16] MEDS: Isosorbide MONOnitrate (24 HR) 30 MG TAB.ER.24H PO SCH (08:59)
[2018-11-16] MEDS: Renal Vitamin 1 CAP CAPSULE PO SCH (09:00)
[2018-11-16] MEDS: Artificial Tears SOLN 15 ML BOTTLE BOTH EYES SCH ×3 (09:06→19:45)
[2018-11-16] MEDS: Methyl Salicylate/Menthol 57 APPL/57 GM TUBE TP SCH (09:07)
--- NOTE | 2018-11-16 09:33 | Nephrology Progress Note ---
Date of Encounter: 11/16/18 Time of Encounter: 09:31 - Assessment and Plan (1) ESRD (end stage renal disease) on dialysis Current Visit: Yes Status: Chronic Current regimen is MWF. HD completed yesterday. Renal diet Renal vitamins Strict I/O Avoid nephrotoxins and renal dose all medications.. (2) Anxiety and depression Current Visit: Yes Status: Chronic Per primary. (3) CHF (congestive heart failure) Current Visit: Yes Status: Resolved Per primary. Qualifiers: Heart failure type: systolic Heart failure chronicity: acute on chronic Qualified Code(s): I50.23 - Acute on chronic systolic (congestive) heart failure Subjective Principal diagnosis: ESRD Interval history: Pt seen and examined, doing well. Denies nausea, vomiting, diarrhea. Denies chest pain or shortness of breath. States he is waiting on social work to find placement in an ECF. Objective - Vital Signs Vital signs: Vital Signs Temp Pulse Resp BP Pulse Ox 11/16/18 08:13 83 18 119/78 98 11/16/18 04:48 98.1 F 82 16 94/56 92 11/15/18 20:07 97.7 F 101 18 124/76 91 11/15/18 16:58 102 18 119/78 97 11/15/18 14:00 98.9 F 20 116/71 11/15/18 13:25 101/67 11/15/18 13:10 106/69 11/15/18 12:55 98/58 11/15/18 12:40 108/53 11/15/18 12:25 122/72 11/15/18 12:10 115/74 11/15/18 11:55 109/67 11/15/18 11:40 108/69 11/15/18 11:25 115/70 11/15/18 11:10 116/76 11/15/18 10:55 119/76 11/15/18 10:40 121/79 11/15/18 10:25 134/90 11/15/18 10:10 138/85 11/15/18 09:55 98.3 F 18 137/87 Intake and Output 11/15/18 11/16/18 11/16/18 23:59 07:59 15:59 Other: Stool Size Small Stool Consistency soft Stool Characteristics Tarry Pasty Stool Color Brown # Bowel Movement Diapers 1 Weight 94 kg Blood Glucose* 116 130 125 Patient Weight 11/16/18 23:59 Weight 94 kg - General Appearance General appearance: Present: well-developed, well-nourished EENT: Present: ATNC, hearing intact, vision intact Neck: Present: supple Respiratory: Present: clear, wheezing Cardiology: Present: no edema, normal S1, normal S2 Dialysis Vascular Access: Arteriovenous Fistula thrill: Yes bruit: Yes Gastrointestinal: Present: normoactive bowel sounds, no tenderness, no guarding Integumentary: Present: no rash, warm and dry Neurologic: Present: alert and oriented x3 Musculoskeletal: Present: no deformities, no erythema Psychiatric: Present: mood/affect appropriate, cooperative - Lab 11/15/18 01:14 11/16/18 05:33 Most recent lab results 11/16/18 05:33 Calcium 10.7 H Consult Discharge Plan - Plan Instructions: Heart Failure (DC), Chest Pain (DC), Acute Respiratory Distress Syndrome (DC), Hemodialysis (DC), Dialysis Diet (DC), Diabetes Mellitus Type 2 in Adults (DC), Chronic Obstructive Pulmonary Disease (DC), Chronic Hypertension (DC), Anemia (GEN), Anxiety (DC), End-Stage Kidney Disease (GEN), Cigarette Smoking and Your Health, Unindentured Apprentice (GEN) Additional Instructions: Continue routine HD sessions MWF 1.8 L daily fluid restriction [facility]errals: [facility] [Primary Care Provider] -
--- NOTE | 2018-11-16 14:09 | Internal Med Progress Note ---
Hospitalist Progress Note - Encounter Date of Encounter: 11/16/18 Time of Encounter: 10:15 - Subjective Interval History: Patient was seen this exam. No events overnight. He denied abdominal pain chest pain or shortness of breath. - Exam Vitals: Temp Pulse Resp BP Pulse Ox 98.1 F 83 18 119/78 98 11/16/18 04:48 11/16/18 08:13 11/16/18 08:13 11/16/18 08:13 11/16/18 08:13 Exam: . gen- alert, awake,appears stated age cv- reg rate and rhythm, normal s1,s2, no pitting le edema lungs- ctabl, normal resp effort on room air abd- soft, non tender, + bs neuro- AAOx3 - Assessment and Plan (1) CHF (congestive heart failure) Current Visit: Yes Status: Resolved (2) ESRD (end stage renal disease) on dialysis Current Visit: Yes Status: Chronic (3) CAD (coronary artery disease) Current Visit: No Status: Chronic (4) HTN (hypertension), benign Current Visit: Yes Status: Chronic (5) HLD (hyperlipidemia) Current Visit: Yes Status: Chronic (6) Diabetes Current Visit: Yes Status: Chronic (7) Noncompliance with renal dialysis Current Visit: No Status: Acute (8) Volume overload Current Visit: Yes Status: Resolved (9) Behavior concern Current Visit: Yes Status: Acute - Summary of Assessment and Plan Summary of Assessment and Plan: Mr Willett has pmhx systolic CHF, CAD s/p CABG, DM on insulin, ESRD on HD MWF, HTN, Valvular disease, Anxiety, depression and tobacco dependence. He presented with fluid overload secondary to non compliance with home fluid restriction and dialysis. He is admitted with volume overload secondary to ESRD and acute on chronic syst olic CHF. Acute on Chronic decompensated HFrEF 45%, resolved with HD -2/2 non compliance with ESRD fluid restriction and Acute on chronic systolic CHF - makes no urine, volume removal by HD - cont toprol XL ESRD on HD MWF -ESRD as per nephro, daily weights, got his sedation today. -Nephrology team is following. Appreciate recommendations - Continue renal diet Trop Elevation: - Type 2 event 2/2 decompensated heart failure and CKD, his troponin levels were less than previous admissions - EKG without acute ischemic changes, adynamic mildly elevated trop - f/u with established cards on dc CAD s/p PCI and CABG- Continue asa, statin, imdur, and toprol. DM- cont SSI, home long acting is 38units HS, was on 10 units while in the hospital, we will increase his dose to 20 units. Continue to check his BJM before meals and at bedtime HTN,BP at goal- cont meds as above Anx/Depression- cont nortriptyline, trazadone Tobacco dependence- cessation education, refused nicotine patch vte heparin sc Disposition: He is awaiting new SNF placement and transfer of HD seat to [facility]. He remains medically stable for dc - Time Spent with Patient Total time spent is greater than 50% in coordination of care (as documented) at patient's floor/unit and/or counseling patient: Plan of Care Discussed with: patient Internal Medicine: Result - Labs CBC & Chem 7: 11/15/18 01:14 11/16/18 05:33 Labs: BMP 11/16/18 05:33 Sodium 136 Potassium 4.2 Chloride 95 L Carbon Dioxide 32 H BUN 37 H Creatinine 4.59 H Glucose 141 H Calcium 10.7 H - ABG Interpretation ABG results: PT/INR, D-dimer PT 11.3 Seconds (9.4-12.1) 11/11/18 05:16 Consult Discharge Plan - Plan Instructions: Heart Failure (DC), Chest Pain (DC), Acute Respiratory Distress Syndrome (DC), Hemodialysis (DC), Dialysis Diet (DC), Diabetes Mellitus Type 2 in Adults (DC), Chronic Obstructive Pulmonary Disease (DC), Chronic Hypertension (DC), Anemia (GEN), Anxiety (DC), End-Stage Kidney Disease (GEN), Cigarette Smoking and Your Health, Non Destructive Testing Engineer (GEN) Additional Instructions: Continue routine HD sessions MWF 1.8 L daily fluid restriction [facility]errals: [facility] [Primary Care Provider] - (1) CHF (congestive heart failure) Qualifiers: Heart failure type: systolic Heart failure chronicity: acute on chronic Qualified Code(s): I50.23 - Acute on chronic systolic (congestive) heart failure (3) CAD (coronary artery disease) Qualifiers: Coronary Disease-Associated Artery/Lesion type: unspecified vessel or lesion type [place] vs. transplanted heart: [place] heart Associated angina: with uns pecified angina Qualified Code(s): I25.119 - Atherosclerotic heart disease of [place] coronary artery with unspecified angina pectoris (5) HLD (hyperlipidemia) Qualifiers: Hyperlipidemia type: unspecified Qualified Code(s): E78.5 - Hyperlipidemia, unspecified (6) Diabetes Qualifiers: Diabetes mellitus type: type 2 Diabetes mellitus [facility] insulin use: with medical terminologist use Diabetes mellitus complication status: with kidney complications Diabetes mellitus complication detail: with chronic kidney disease Chronic kidney disease stage: on chronic dialysis Qualified Code(s): E11.22 - Type 2 diabetes mellitus with diabetic chronic kidney disease; N18.6 - End stage renal disease; Z79.4 - residential (current) use of insulin; Z99.2 - Dependence on renal dialysis (8) Volume overload Qualifiers: Hypervolemia type: other Qualified Code(s): E87.79 - Other fluid overload
[2018-11-16] MEDS: traZODone 50 MG TABLET PO SCH (19:45)
[2018-11-16] MEDS: Insulin DETEMIR 100 UNIT/ML X5UNITS SQ SCH (21:29)
[2018-11-17 05:20] LABS: Basophils # 0.1 K/mcL (0.0-0.2); Basophils % 0.7 %; Eosinophils # 0.2 K/mcL (0.0-0.6); Eosinophils % 3.4 %; Hematocrit 38.1 % (37.5-50.1); Hemoglobin 11.5 g/dL (12.9-16.9); Immature Granulocytes % 0.4 % (0-4); Lymphocytes # 2.1 K/mcL (0.6-4.6); Lymphocytes % 29.1 %; Mean Corpuscular HGB Conc 30.2 g/dL (31.6-35.5); Mean Corpuscular Hemoglobin 28.8 pg (28.0-33.3); Mean Corpuscular Volume 95.3 fL (83.0-100.0); Monocytes # 0.5 K/mcL (0.0-1.3); Monocytes % 7.1 %; Neutrophils # 4.2 K/mcL (1.6-8.9); Platelet Count 157 K/mcL (140-400); Red Cell Distribution Width 15.4 % (11.5-14.5); Segmented Neutrophils % 59.3 %; White Blood Count 7.1 K/mcL (4.3-11.1)
[2018-11-17] MEDS: *HR* Heparin 5,000 UNIT/ML VIAL SQ SCH ×3 (05:38→17:44)
[2018-11-17 05:39] LABS: Calcium 11.1 mg/dL (8.6-10.3); Potassium 4.4 mEq/L (3.5-5.1)
[2018-11-17] MEDS: Renal Vitamin 1 CAP CAPSULE PO SCH (08:07)
[2018-11-17] MEDS: Famotidine 20 MG TABLET PO SCH (08:08)
[2018-11-17] MEDS: Insulin LISPRO 300 UNITS/3 ML VIAL SQ SCH ×3 (08:08→16:20)
[2018-11-17] MEDS: Artificial Tears SOLN 15 ML BOTTLE BOTH EYES SCH ×5 (08:16→20:37)
[2018-11-17] MEDS: Methyl Salicylate/Menthol 57 APPL/57 GM TUBE TP SCH (08:17)
[2018-11-17] MEDS ORDERED: 0.9 % Sodium Chloride 250 ML IVC PRN (08:22)
[2018-11-17] MEDS: traMADol 50 MG TABLET PO PRN ×2 (11:41→20:37)
[2018-11-17] MEDS: Metoprolol XL (24 HR) Succ 25 MG TAB.ER.24H PO SCH (13:36)
[2018-11-17] MEDS: Isosorbide MONOnitrate (24 HR) 30 MG TAB.ER.24H PO SCH (13:36)
--- NOTE | 2018-11-17 15:41 | Nephrology Progress Note ---
Date of Encounter: 11/17/18 Time of Encounter: 12:00 - Assessment and Plan (1) ESRD (end stage renal disease) on dialysis Current Visit: Yes Status: Chronic Continue HD with UF as tolerated Continue renal diet Continue fluid restriction Lytes stable Pt desires more PT (2) CHF (congestive heart failure) Current Visit: Yes Status: Resolved Qualifiers: Heart failure type: systolic Heart failure chronicity: acute on chronic Qualified Code(s): I50.23 - Acute on chronic systolic (congestive) heart failure (3) Anxiety and depression Current Visit: Yes Status: Chronic Subjective Principal diagnosis: ESRD Interval history: Interim noted, pt seen and examined on HD, doing well but awaiting discharge. transferring to ECF and HD unit in [facility] to be close to son Objective - Vital Signs Vital signs: Vital Signs Temp Pulse Resp BP Pulse Ox 11/17/18 15:27 97.9 F 107 116/69 11/17/18 13:04 98.9 F 18 121/67 11/17/18 12:30 109/59 11/17/18 12:15 113/55 11/17/18 12:00 109/51 11/17/18 11:45 113/59 11/17/18 11:30 106/69 11/17/18 11:15 124/74 11/17/18 11:00 129/64 11/17/18 10:45 112/57 11/17/18 10:30 105/57 11/17/18 10:15 104/69 11/17/18 10:00 109/67 11/17/18 09:45 111/65 11/17/18 09:30 114/64 11/17/18 09:15 124/76 11/17/18 09:00 98.8 F 18 122/83 11/17/18 07:17 98.1 F 105 116/85 11/17/18 04:33 98.2 F 99 20 129/80 97 11/16/18 22:11 98.2 F 95 18 123/79 90 11/16/18 16:57 98.0 F 93 16 132/88 97 Intake and Output 11/16/18 11/17/18 11/17/18 23:59 07:59 15:59 Intake Total 200 / 1040 840 / 1040 Output Total 3600 / 3600 Balance 200 / -2560 -2760 / -2560 Intake: Oral 200 / 440 240 / 440 Intake, Rinseback and Flushes 600 / 600 Output: Urine 0 / 0 Total Dialysis (HD) Output 3600 / 3600 Other: Meal Lunch Percent of Meal Consumed 100% # Voids 1 # Urine Diapers 1 Weight 95.9 kg Blood Glucose* 212 150 121 Hemodialysis Net Fluid Removed 3000 (mL) Patient Weight 11/17/18 23:59 Weight 95.9 kg - Lab 11/17/18 04:45 11/17/18 04:45 Most recent lab results 11/17/18 04:45 Calcium 11.1 H Consult Discharge Plan - Plan Instructions: Heart Failure (DC), Chest Pain (DC), Acute Respiratory Distress Syndrome (DC), Hemodialysis (DC), Dialysis Diet (DC), Diabetes Mellitus Type 2 in Adults (DC), Chronic Obstructive Pulmonary Disease (DC), Chronic Hypertension (DC), Anemia (GEN), Anxiety (DC), End-Stage Kidney Disease (GEN), Cigarette Smoking and Your Health, Political Cartoonist (GEN) Additional Instructions: Continue routine HD sessions MWF 1.8 L daily fluid restriction [facility]errals: [facility] [Primary Care Provider] -
--- NOTE | 2018-11-17 17:24 | Internal Med Progress Note ---
Hospitalist Progress Note - Encounter Date of Encounter: 11/17/18 Time of Encounter: 09:00 - Subjective Interval History: No major events overnight. - Exam Vitals: Temp Pulse Resp BP Pulse Ox 97.9 F 107 18 116/69 97 11/17/18 15:27 11/17/18 15:27 11/17/18 13:04 11/17/18 15:27 11/17/18 04:33 Exam: . gen- alert, awake,appears stated age cv- reg rate and rhythm, normal s1,s2, no pitting le edema lungs- ctabl, normal resp effort on room air abd- soft, non tender, + bs neuro- AAOx3 - Assessment and Plan (1) CHF (congestive heart failure) Current Visit: Yes Status: Resolved (2) ESRD (end stage renal disease) on dialysis Current Visit: Yes Status: Chronic (3) CAD (coronary artery disease) Current Visit: No Status: Chronic (4) HTN (hypertension), benign Current Visit: Yes Status: Chronic (5) HLD (hyperlipidemia) Current Visit: Yes Status: Chronic (6) Diabetes Current Visit: Yes Status: Chronic (7) Noncompliance with renal dialysis Current Visit: No Status: Acute (8) Volume overload Current Visit: Yes Status: Resolved (9) Behavior concern Current Visit: Yes Status: Acute - Summary of Assessment and Plan Summary of Assessment and Plan: Mr Willett has pmhx systolic CHF, CAD s/p CABG, DM on insulin, ESRD on HD MWF, HTN, Valvular disease, Anxiety, depression and tobacco dependence. He presented with fluid overload secondary to non compliance with home fluid restriction and dialysis. He is admitted with volume overload secondary to ESRD and acute on chronic systolic CHF. Acute on Chronic decompensated HFrEF 45%, resolved with HD -2/2 non compliance with ESRD fluid restriction and Acute on chronic systolic CHF - makes no urine, volume removal by HD - cont toprol XL ESRD on HD MWF -ESRD as per nephro, daily weights, got his session today. -Nephrology team is following. Appreciate recommendations - Continue renal diet Trop Elevation: - Type 2 event 2/2 decompensated heart failure and CKD, his troponin levels were less than previous admissions - EKG without acute ischemic changes, adynamic mildly elevated trop - f/u with established cards on dc CAD s/p PCI and CABG- Continue asa, statin, imdur, and toprol. DM- cont SSI, home long acting is 38units HS, was on 10 units while in the hospital, we will increase his dose to 20 units. Continue to check his BJM before meals and at bedtime HTN,BP at goal- cont meds as above Anx/Depression- cont nortriptyline, trazadone Tobacco dependence- cessation education, refused nicotine patch vte heparin sc Disposition: He is awaiting new SNF placement and transfer of HD seat to [facility] on. He remains medically stable for dc - Time Spent with Patient Total time spent is greater than 50% in coordination of care (as documented) at patient's floor/unit and/or counseling patient: Plan of Care Discussed with: social work Internal Medicine: Result - Labs CBC & Chem 7: 11/17/18 04:45 11/17/18 04:45 Labs: Short CBC 11/17/18 Range/Units 04:45 WBC 7.1 (4.3-11.1) K/mcL Hgb 11.5 L (12.9-16.9) g/dL Hct 38.1 (37.5-50.1) % Plt Count 157 (140-400) K/mcL Neutrophils # 4.2 (1.6-8.9) K/mcL BMP 11/17/18 04:45 Sodium 134 L Potassium 4.4 Chloride 93 L Carbon Dioxide 30 H BUN 56 H Creatinine 6.04 H Glucose 136 H Calcium 11.1 H - ABG Interpretation ABG results: PT/INR, D-dimer PT 11.3 Seconds (9.4-12.1) 11/11/18 05:16 Consult Discharge Plan - Plan Instructions: Heart Failure (DC), Chest Pain (DC), Acute Respiratory Distress Syndrome (DC), Hemodialysis (DC), Dialysis Diet (DC), Diabetes Mellitus Type 2 in Adults (DC), Chronic Obstructive Pulmonary Disease (DC), Chronic Hypertension (DC), Anemia (GEN), Anxiety (DC), End-Stage Kidney Disease (GEN), Cigarette Smoking and Your Health, Preload Supervisor (GEN) Additional Instructions: Continue routine HD sessions MWF 1.8 L daily fluid restriction [facility]errals: [facility] [Primary Care Provider] - (1) CHF (congestive heart failure) Qualifiers: Heart failure type: systolic Heart failure chronicity: acute on chronic Qualified Code(s): I50.23 - Acute on chronic systolic (congestive) heart failure (3) CAD (coronary artery disease) Qualifiers: Coronary Disease-Associated Artery/Lesion type: unspecified vessel or lesion type [place] vs. transplanted heart: [place] heart Associated angina: with unspecified angina Qualified Code(s): I25.119 - Atherosclerotic heart disease of [place] coronary artery with unspecified angina pectoris (5) HLD (hyperlipidemia) Qualifiers: Hyperlipidemia type: unspecified Qualified Code(s): E78.5 - Hyperlipidemia, unspecified (6) Diabetes Qualifiers: Diabetes mellitus type: type 2 Diabetes mellitus terminal worker insulin use: with terminal worker use Diabetes mellitus complication status: with kidney complications Diabetes mellitus complication detail: with chronic kidney disease Chronic kidney disease stage: on chronic dialysis Qualified Code(s): E11.22 - Type 2 diabetes mellitus with diabetic chronic kidney disease; N18.6 - End stage renal disease; Z79.4 - manager long term care (current) use of insulin; Z99.2 - Dependence on renal dialysis (8) Volume overload Qualifiers: Hypervolemia type: other Qualified Code(s): E87.79 - Other fluid overload
[2018-11-17] MEDS: traZODone 50 MG TABLET PO SCH (20:37)
[2018-11-18] MEDS: Insulin LISPRO 300 UNITS/3 ML VIAL SQ SCH ×5 (04:01→21:14)
[2018-11-18] MEDS: Insulin DETEMIR 100 UNIT/ML X5UNITS SQ SCH ×2 (04:01→22:17)
[2018-11-18] MEDS: *HR* Heparin 5,000 UNIT/ML VIAL SQ SCH ×2 (05:45→17:23)
[2018-11-18] MEDS: Isosorbide MONOnitrate (24 HR) 30 MG TAB.ER.24H PO SCH (09:10)
[2018-11-18] MEDS: Famotidine 20 MG TABLET PO SCH (09:10)
[2018-11-18] MEDS: Metoprolol XL (24 HR) Succ 25 MG TAB.ER.24H PO SCH (09:11)
[2018-11-18] MEDS: Artificial Tears SOLN 15 ML BOTTLE BOTH EYES SCH ×3 (09:12→20:20)
[2018-11-18] MEDS: Methyl Salicylate/Menthol 57 APPL/57 GM TUBE TP SCH (09:13)
[2018-11-18] MEDS: Renal Vitamin 1 CAP CAPSULE PO SCH (09:15)
--- NOTE | 2018-11-18 11:19 | Nephrology Progress Note ---
Date of Encounter: 11/18/18 Time of Encounter: 12:00 - Assessment and Plan (1) ESRD (end stage renal disease) on dialysis Current Visit: Yes Status: Chronic (2) CHF (congestive heart failure) Current Visit: Yes Status: Resolved Qualifiers: Heart failure type: systolic Heart failure chronicity: acute on chronic Qualified Code(s): I50.23 - Acute on chronic systolic (congestive) heart failure (3) Anxiety and depression Current Visit: Yes Status: Chronic Subjective Principal diagnosis: ESRD Interval history: Pt seen and examined s/p HD yesterday, doing well but awaiting discharge. Transferring to ECF and HD unit in [facility] to be close to son Objective - Vital Signs Vital signs: Vital Signs Temp Pulse Resp BP Pulse Ox 11/18/18 07:26 97.8 F 84 16 111/69 11/18/18 05:46 98 F 84 14 106/63 92 11/17/18 21:54 98.5 F 94 16 119/83 97 11/17/18 15:27 97.9 F 107 116/69 11/17/18 13:04 98.9 F 18 121/67 11/17/18 12:30 109/59 11/17/18 12:15 113/55 11/17/18 12:00 109/51 11/17/18 11:45 113/59 11/17/18 11:30 106/69 Intake and Output 11/17/18 11/18/18 11/18/18 23:59 07:59 15:59 Intake Total 120 / 1160 60 / 300 240 / 300 Balance 120 / -2440 60 / 300 240 / 300 Intake: Oral 120 / 560 60 / 300 240 / 300 Other: Meal Dinner Breakfast Percent of Meal Consumed 100% 100% # Urine Diapers 1 Weight 95.3 kg Blood Glucose* 209 174 Patient Weight 11/18/18 23:59 Weight 95.3 kg - Lab 11/17/18 04:45 11/17/18 04:45 Consult Discharge Plan - Plan Instructions: Heart Failure (DC), Chest Pain (DC), Acute Respiratory Distress Syndrome (DC), Hemodialysis (DC), Dialysis Diet (DC), Diabetes Mellitus Type 2 in Adults (DC), Chronic Obstructive Pulmonary Disease (DC), Chronic Hypertension (DC), Anemia (GEN), Anxiety (DC), End-Stage Kidney Disease (GEN), Cigarette Smoking and Your Health, Health Information Coder (GEN) Additional Instructions: Continue routine HD sessions MWF 1.8 L daily fluid restriction Referrals: [facility]P [Primary Care Provider] -
--- NOTE | 2018-11-18 12:39 | Internal Med Progress Note ---
Hospitalist Progress Note - Encounter Date of Encounter: 11/18/18 Time of Encounter: 09:00 - Subjective Interval History: No events overnight. Patient had no chest pain, palpitation or shortness of breath. Patient denied fever or chills or night sweats. Patient has no nausea/vomiting or abdominal pain He is mad that we could not find him replacement. - Exam Vitals: Temp Pulse Resp BP Pulse Ox 97.8 F 84 16 111/69 92 11/18/18 07:26 11/18/18 07:11/18/18 07:11/18/18 07:11/18/18 05:46 Exam: . gen- alert, awake,appears stated age cv- reg rate and rhythm, normal s1,s2, no pitting le edema lungs- ctabl, normal resp effort on room air abd- soft, non tender, + bs neuro- AAOx3 - Assessment and Plan (1) CHF (congestive heart failure) Current Visit: Yes Status: Resolved (2) ESRD (end stage renal disease) on dialysis Current Visit: Yes Status: Chronic (3) CAD (coronary artery disease) Current Visit: No Status: Chronic (4) HTN (hypertension), benign Current Visit: Yes Status: Chronic (5) HLD (hyperlipidemia) Current Visit: Yes Status: Chronic (6) Diabetes Current Visit: Yes Status: Chronic (7) Noncompliance with renal dialysis Current Visit: No Status: Acute (8) Volume overload Current Visit: Yes Status: Resolved (9) Behavior concern Current Visit: Yes Status: Acute - Summary of Assessment and Plan Summary of Assessment and Plan: Mr Willett has pmhx systolic CHF, CAD s/p CABG, DM on insulin, ESRD on HD MWF, HTN, Valvular disease, Anxiety, depression and tobacco dependence. He presented with fluid overload secondary to non compliance with home fluid restriction and dialysis. He is admitted with volume overload secondary to ESRD and acute on chronic systolic CHF. Acute on Chronic decompensated HFrEF 45%, resolved with HD -2/2 non compliance with ESRD fluid restriction and Acute on chronic systolic CHF - makes no urine, volume removal by HD - cont toprol XL ESRD on HD MWF -ESRD as per nephro, daily weights, got his session today. -Nephrology team is following. Appreciate recommendations - Continue renal diet Trop Elevation: - Type 2 event 2/2 decompensated heart failure and CKD, his troponin levels were less than previous admissions - EKG without acute ischemic changes, adynamic mildly elevated trop - f/u with established cards on dc CAD s/p PCI and CABG- Continue asa, statin, imdur, and toprol. DM- cont SSI, home long acting is 38units HS, was on 10 units while in the hospital, we will increase his dose to 20 units. Continue to check his BJM before meals and at bedtime HTN,BP at goal- cont meds as above Anx/Depression- cont nortriptyline, trazadone Tobacco dependence- cessation education, refused nicotine patch vte heparin sc Disposition: He is awaiting new SNF placement and transfer of HD seat to [facility]. He remains medically stable for dc - Time Spent with Patient Total time spent is greater than 50% in coordination of care (as documented) at patient's floor/unit and/or counseling patient: Plan of Care Discussed with: patient Internal Medicine: Result - Labs CBC & Chem 7: 11/17/18 04:45 11/17/18 04:45 - ABG Interpretation ABG results: PT/INR, D-dimer PT 11.3 Seconds (9.4-12.1) 11/11/18 05:16 Consult Discharge Plan - Plan Instructions: Heart Failure (DC), Chest Pain (DC), Acute Respiratory Distress Syndrome (DC), Hemodialysis (DC), Dialysis Diet (DC), Diabetes Mellitus Type 2 in Adults (DC), Chronic Obstructive Pulmonary Disease (DC), Chronic Hypertension (DC), Anemia (GEN), Anxiety (DC), End-Stage Kidney Disease (GEN), Cigarette Smoking and Your Health, 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 transplanted heart: [place] heart Associated angina: with unspecified angina Qualified Code(s): I25.119 - Atherosclerotic heart disease of [place] coronary artery with unspecified angina pectoris (5) HLD (hyperlipidemia) Qualifiers: Hyperlipidemia type: unspecified Qualified Code(s): E78.5 - Hyperlipidemia, unspecified (6) Diabetes Qualifiers: Diabetes mellitus type: type 2 Diabetes mellitus shelter insulin use: with extermination supervisor use Diabetes mellitus complication status: with kidney complications Diabetes mellitus complication detail: with chronic kidney disease Chronic kidney disease stage: on chronic dialysis Qualified Code(s): E11.22 - Type 2 diabetes mellitus with diabetic chronic kidney disease; N18.6 - End stage renal disease; Z79.4 - terminal block assembler (current) use of insulin; Z99.2 - Dependence on renal dialysis (8) Volume overload Qualifiers: Hypervolemia type: other Qualified Code(s): E87.79 - Other fluid overload
[2018-11-18] MEDS: traZODone 50 MG TABLET PO SCH (20:20)
[2018-11-18] MEDS: traMADol 50 MG TABLET PO PRN (22:20)
--- NOTE | 2018-11-19 06:16 | Event Note ---
Date of Encounter: 11/19/18 Time of Encounter: 06:18 Rapid Response called at 0533 due to neurologic symptoms. Nursing was waking patient to give morning medication and patient was complaining of weakness in his right leg, decreased and asymmetrical sensation on his face, and facial droop. Physician team evaluated the patient and at that time he demonstrated an NIH score of 8 due to RLE weakness, slurred speech. He was alert and oriented x 3. No recent medications given. Blood sugar of 142. Patient was given narcan 2mg due to tramodol being given around 2200. Stroke alert was called and patient was ordered a stat CT of the head. Patient brought to ED in anticipation for [facility] teleconference. Patient's symptoms have mostly resolved at time of arrival to ED. He is still experiencing RLE weakness which he is now stating has been present for the past 2 months. Sensation, facial droop have completely resolved and new NIH was assessed to be 3. CT head was communicated by [facility] to be negative for acute process. Dr. Clancy with [facility] contacted Dr. Strauss and stated that patient is out of thrombolytic window and given that patient's symptoms have resolved, recommended TIA workup. MRI of the head was ordered, carotid US, echocardiogram. Patient returned to medical floor.
[2018-11-19] MEDS: *HR* Heparin 5,000 UNIT/ML VIAL SQ SCH ×2 (06:18→17:06)
[2018-11-19 06:56] LABS: Basophils # 0.1 K/mcL (0.0-0.2); Basophils % 0.8 %; Eosinophils # 0.2 K/mcL (0.0-0.6); Eosinophils % 3.3 %; Hematocrit 39.6 % (37.5-50.1); Immature Granulocytes % 0.3 % (0-4); Lymphocytes # 1.4 K/mcL (0.6-4.6); Lymphocytes % 23.6 %; Mean Corpuscular HGB Conc 30.3 g/dL (31.6-35.5); Mean Corpuscular Volume 95.7 fL (83.0-100.0); Mean Platelet Volume 10.8 fL (9.4-12.4); Monocytes # 0.4 K/mcL (0.0-1.3); Monocytes % 7.3 %; Neutrophils # 3.9 K/mcL (1.6-8.9); Platelet Count 153 K/mcL (140-400); Red Blood Count 4.14 M/mcL (4.19-5.50); Red Cell Distribution Width 15.3 % (11.5-14.5); Segmented Neutrophils % 64.7 %
[2018-11-19 07:03] LABS: INR 0.9; Prothrombin Time 9.7 Seconds (9.4-12.1)
[2018-11-19 07:17] LABS: Albumin 3.8 g/dL (3.5-5.7); Albumin/Globulin Ratio 1.1 (1.1-2.2); Bilirubin,Total 0.5 mg/dL (0.3-1.0); Calcium 11.2 mg/dL (8.6-10.3); Globulin 3.4 g/dL (2.4-3.5); Potassium 4.1 mEq/L (3.5-5.1); Total Protein 7.2 g/dL (6.4-8.9)
[2018-11-19 07:29] LABS: Troponin I 0.04 ng/mL (< 0.04)
[2018-11-19] MEDS: Artificial Tears SOLN 15 ML BOTTLE BOTH EYES SCH ×3 (08:42→21:08)
[2018-11-19] MEDS: Methyl Salicylate/Menthol 57 APPL/57 GM TUBE TP SCH (08:42)
[2018-11-19] MEDS: Insulin LISPRO 300 UNITS/3 ML VIAL SQ SCH ×4 (08:42→21:09)
[2018-11-19] MEDS: Metoprolol XL (24 HR) Succ 25 MG TAB.ER.24H PO SCH (09:36)
[2018-11-19] MEDS: Famotidine 20 MG TABLET PO SCH (09:36)
[2018-11-19] MEDS: Isosorbide MONOnitrate (24 HR) 30 MG TAB.ER.24H PO SCH (09:37)
[2018-11-19] MEDS: Renal Vitamin 1 CAP CAPSULE PO SCH (09:47)
--- NOTE | 2018-11-19 11:02 | Neurology - Consult Note ---
Date of Encounter: 11/19/18 Time of Encounter: 11:02 Assessment and Plan (1) TIA (transient ischemic attack) Current Visit: Yes Status: Acute This patient apparently had a systolic this morning perhaps could be a TIA considering he has multiple risk factors for the stroke. Now he is back to his baseline MRI of the rain is negative for any acute infarct CT of the head earlier was also negative Recommend a stroke workup including carotid duplex as well as an echocardiogram As mentioned considering his history and multiple risk factors certainly he is at risk for stroke and a TIA Recommend monitoring of his blood pressure and keep it on a stable range Currently is not on any antiplatelet therapy suggest to start him on an aspirin 81 mg daily along with statin Monitor his lipid profile as well Ms. CHF certainly increase the risk of TIA and stroke Watch for any cardiac arrhythmias as if there is an evidence of atrial fibrillation perhaps he might need anticoagulation Patient is also on high doses of trazodone as well as tramadol considering his age and multiple risk factors and CHF certainly we have to be careful about any potential side effect especially sedation and mental status changes History of Present Illness HPI: Mr. Sidhu is a 68 year old male who is been admitted for increasing SOB< and peripheral edema, noted to have weakness in his right legs for that Rapid Response was called in at 0533, apparently Nursing was waking patient to give morning medication and he complained of weakness in his right leg, decreased and asymmetrical sensation on his face, and facial droop. PT was evaluated by medicine at that time he demonstrated an NIH score of 8 due to RLE weakness, slurred speech. Blood sugar of 142. Patient was given narcan 2mg due to tramodol being given around 2200. Stroke alert was called in, CT of the head was negative, patient was taking to the emergency room for [facility] tele stroke, symptoms have mostly resolved at time of arrival to ED. NIH was assessed to be 3. Patient was not to be a candidate for TPA as his symptoms has resolved now he seems to be back to his baseline , except that occasionally weakness of right lower extremity which she had it for quite some time Patient is been getting a stroke workup now . . Past Med Surg Social Fam HX - Past Medical History Medical history: CHF, COPD, coronary artery disease, diabetes, dialysis, hyperlipidemia, hypertension, myocardial infarction, renal disease Additional medical history: Hiatal hernia, 2 leaky heart valves: Tuesday, Tuesday, Tuesday dialysis Psychiatric history: anxiety, depression, PTSD - Past Surgical History Surgical History: angioplasty/stent, knee replacement Additional surgical history: left knee replaceed/tendons on left foot repaired, abcess through rectal area and removal of tailbone,. cardiac stents x3 - Social History Smoking Status: Current every day smoker Smokeless Tobacco Status: No Alcohol use: none Drug use: none - Family History Sister Hx Family Endocrine Disorder: Yes (DM) Medications and Allergies Nitroglycerin [Nitrostat] 0.4 mg SL Q5MIN PRN #0 09/15/17 [Rx] Sevelamer HCl [Renagel] 2,400 mg PO TID 04/29/18 [History] Docusate [Colace] 200 mg PO DAILY 09/11/18 [History] Isosorbide MONOnitrate (24 HR) [Imdur] 30 mg PO DAILY 09/11/18 [History] Acetaminophen [Tylenol] 1,000 mg PO Q6HR PRN 10/18/18 [History] Atorvastatin [Lipitor] 40 mg PO HS 10/18/18 [History] GuaiFENesin/Dextromethorphan [Mucinex Dm] 1 tab PO BID PRN 10/18/18 [History] Insulin Glargine,Hum.rec.anlog [Basaglar Kwikpen U-100] 38 unit SQ HS 10/18/18 [History] Insulin LISPRO [HumaLOG] 0 units SQ AD 10/18/18 [History] Menthol [Bengay Ultra Strength] 1 patch TP DAILY 10/18/18 [History] Metoprolol Succinate [Toprol Xl] 12.5 mg PO DAILY 10/18/18 [History] Nortriptyline [Pamelor] 10 mg PO HS 10/18/18 [History] Omeprazole [PriLOSEC] 20 mg PO DAILY 10/18/18 [History] Polyethylene Glycol 3350 [MiraLax bowel prep] 17 gm PO DAILY 10/18/18 [History] Propylene Glycol/Peg 400 [Systane 0.3-0.4% Eye Drops] 1 drop BOTH EYES TID 10/18/18 [History] Tramadol HCl [Ultram] 50 mg PO Q12H PRN 10/18/18 [History] Trazodone HCl 300 mg PO HS 10/18/18 [History] B Complex W-C No.20/Folic Acid [Virt-Caps Softgel] 1 mg PO DAILY 11/10/18 [History] Glucagon,Human Recombinant [Glucagen] 1 mg IJ AD PRN 11/11/18 [History] Lidocaine Patch [Lidoderm 5% patch] 1 patch TP DAILY PRN 11/11/18 [History] Ranitidine HCl [Acid Education Faculty Member] 150 mg PO DAILY 11/11/18 [History] Allergy/AdvReac Type Severity Reaction Status Date / Time diphenhydramine Allergy Rash Verified 09/11/18 20:49 [From Benadryl] meperidine AdvReac Nausea Verified 09/11/18 20:49 morphine AdvReac Nausea Verified 09/11/18 20:49 All Systems: The remainder of the systems were reviewed and are negative Physical Examination - Vital Signs Vital Signs: Initial Vital Signs Temp Pulse Resp BP Pulse Ox 98.2 F 113 18 142/98 95 11/10/18 06:12 11/10/18 06:12 11/10/18 06:12 11/10/18 06:12 11/10/18 06:12 - Exam Exam: GENERAL: Comfortable in no acute distress HEENT: Normal LUNGS: CTA HEART: RRR, S1 S2 Audible, no murmur EXTREMITIES: No Pedal edema. DETAILED NEUROLOGICAL EXAMINATION: MENTAL STATUS: Oriented to person, place, date and situation. Memory: knows the President, Aware of recent events Recent Memory Intact, Attention span is normal Cranial Nerve Examination: CN - II: Visual Acuity, Field of Vision Normal, Fundus examination: No disk edema, Pupils- size shape reaction to light and accommodation: All normal. CN III, IV, : External ocular movements were intact, Pupils were reactive, Nodrooping of the eyelids CN V: Sensation over the face to light touch and pinprick all normal. Corneal reflexes not tested, jaw jerk normal. CN VII: No facial asymmetry, no flattening of nasolabial folds, no difficulty in closing the eyes, no loss of forehead wrinkles, no difficulty in eye-closure, frowning raising eyebrows. CNVIII: No significant hearing loss CN IX, X: Uvula centralized not deviated, Gag reflex: Not tested CN X1: Sternocleidomastoid, trapezius, normal or evidence of any weakness. CN X11: No Dysarthria, no wasting or fibrilation f tongue muscles, no deviation, tongue muscle strength normal. Motor examination: No hypertrophy, tone was normal, power grade 0-5 Upper limbs Proximal- No difficulty in lifting the arms above the head. Distal- No weakness in distal muscles On formal testing 4/4 all over Lower limbs On formal testing 4/4 all over Coordination: Hcturt-nh-yliw normal. Target pursuit normal finger tapping normal, Rapid alternating moment of wrist normal Sensory system: Superficial sensations- Touch normal. Pain- Pinprick, Temperature decrease Deep sensation normal, Joint position sense normal. Cortical sensation, Tactile discrimination, localization and extinction all normal. Deep tendon reflexes. Symmetrical bilateral, No evidence of Babinski. No sign of meningeal irritation Gait Examination: Deferred - Constitutional General appearance: comfortable Results - Laboratory Findings CBC and BMP: 11/19/18 06:38 11/19/18 06:38 Abnormal lab findings: Abnormal lab results RBC 4.14 M/mcL (4.19-5.50) L 11/19/18 06:38 Hgb 12.0 g/dL (12.9-16.9) L 11/19/18 06:38 Hct 35.1 % (37.5-50.1) L 11/15/18 01:14 MCHC 30.3 g/dL (31.6-35.5) L 11/19/18 06:38 RDW 15.3 % (11.5-14.5) H 11/19/18 06:38 Plt Count 138 K/mcL (140-400) L 11/13/18 02:53 Heparin Anti-Xa, Unfract 0.02 IU/mL (0.30-0.70) L 11/19/18 06:38 Sodium 134 mEq/L (136-145) L 11/17/18 04:45 Chloride 93 mEq/L (98-107) L 11/19/18 06:38 Carbon Dioxide 34 mEq/L (23-29) H 11/19/18 06:38 BUN 53 mg/dL (8-23) H 11/19/18 06:38 6.27 mg/dL (0.70-1.30) H 11/19/18 06:38 Est GFR ( Amer) 11 (> 60) L 11/19/18 06:38 Est GFR (Non-Af Amer) 9 (> 60) L 11/19/18 06:38 Glucose 142 mg/dL (70-105) H 11/19/18 06:38 POC Glucose 185 mg/dL (70-99) H 11/18/18 20:42 6.0 % (-5.6) H 11/10/18 06:26 301 (280-300) H 11/19/18 06:38 Calcium 11.2 mg/dL (8.6-10.3) H 11/19/18 06:38 AST 12 Units/L (13-39) L 11/19/18 06:38 0.04 ng/mL (< 0.04) H* 11/19/18 06:38 B-Natriuretic Peptide 2635 pg/mL (Less than 100) H 11/10/18 06:36 >=300 mg/dL (Neg-Trace) H 11/10/18 08:01 250 mg/dL (Normal) H 11/10/18 08:01 Small (Negative) H 11/10/18 08:01 3-5 per hpf (0-3) H 11/10/18 08:01 3-5 per hpf (0-3) H 11/10/18 08:01 Ur Squamous Epith Cells Many per lpf (None-Few) H 11/10/18 08:01 Consult Discharge Plan - Plan Instructions: Heart Failure (DC), Chest Pain (DC), Acute Respiratory Distress Syndrome (DC), Hemodialysis (DC), Dialysis Diet (DC), Diabetes Mellitus Type 2 in Adults (DC), Chronic Obstructive Pulmonary Disease (DC), Chronic Hypertension (DC), Anemia (GEN), Anxiety (DC), End-Stage Kidney Disease (GEN), Cigarette Smoking and Your Health, 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
--- NOTE | 2018-11-19 12:44 | Internal Med Progress Note ---
Hospitalist Progress Note - Encounter Date of Encounter: 11/19/18 Time of Encounter: 10:25 - Subjective Interval History: There was a stroke alert called on the patient in the morning due to facial droop and right-sided weakness. Patient was seen by me this morning and he was completely awake, alert and oriented. He was complaining about right leg pain happened after he fell down at home before he came into the hospital. - Exam Vitals: Temp Pulse Resp BP Pulse Ox 98.1 F 84 16 128/78 97 11/19/18 11:42 11/19/18 11:42 11/19/18 11:42 11/19/18 11:42 11/19/18 08:01 Exam: . General: Patient is alert, oriented 3. Head: Atraumatic, normal inspection, normocephalic. Eye: EOMI, PERRLA, no scleral icterus noted. Neck: Normal inspection,. Respiratory: No respiratory distress, rhonchi, or wheezes noted. Cardiovascular: Regular rate , S1 and S2 audible. No murmurs, rubs, or gallops. GI: Soft, nondistended, normal bowel sounds. Extremities:No joint swelling, right hip pain with deep palpation, no swelling or erythema noted. Range of motion in right lower extremity is restricted and limited due to pain. Neurological: Alert, oriented 3, no focal deficits. CN II-XII is normal. Psychiatric: normal affect, normal mood. Skin: Dry, intact, warm. Normal color. No rashes. - Assessment and Plan (1) TIA (transient ischemic attack) Current Visit: Yes Status: Acute (2) Hip pain, right Current Visit: Yes Status: Acute (3) CHF (congestive heart failure) Current Visit: Yes Status: Resolved (4) ESRD (end stage renal disease) on dialysis Current Visit: Yes Status: Chronic (5) CAD (coronary artery disease) Current Visit: No Status: Chronic (6) HTN (hypertension), benign Current Visit: Yes Status: Chronic (7) HLD (hyperlipidemia) Current Visit: Yes Status: Chronic (8) Diabetes Current Visit: Yes Status: Chronic (9) Noncompliance with renal dialysis Current Visit: No Status: Acute (10) Volume overload Current Visit: Yes Status: Resolved (11) Behavior concern Current Visit: Yes Status: Resolved - Summary of Assessment and Plan Summary of Assessment and Plan: Mr Willett has pmhx systolic CHF, CAD s/p CABG, DM on insulin, ESRD on HD MWF, HTN, Valvular disease, Anxiety, depression and tobacco dependence. He presented with fluid overload secondary to non compliance with home fluid restriction and dialysis. TIA: - Overnight event, patient has multiple risk factors. - Workup included MRI of the brain was negative, carotid Dopplers are pending, echo is pending - We will start the patient on aspirin and continue Lipitor at 40 mg. Neurology was consulted and appreciate recommendations Right hip pain: New event - Patient sustained a fall at home before presentation, he has right sided hip pain and right lower extremity limited range of motion - Right hip x-ray revealed subtle sclerosis of the right femoral neck which could indicate nondisplaced fracture or normal variant trabecular pattern - Orthopedic surgery service is consulted, appreciate recommendations. Will proceed with MRI of the right hip as per their recommendation. - Discussed with the patient to stop tramadol giving his morning symptoms of confusion and sutured with Tylenol. He agreed. Acute on Chronic decompensated HFrEF 45%, resolved with HD -2/2 non compliance with ESRD fluid restriction and Acute on chronic systolic CHF - makes no urine, volume removal by HD - cont toprol XL ESRD on HD MWF -ESRD as per nephro, daily weights, got his session today. -Nephrology team is following. Appreciate recommendations -Continue renal diet Trop Elevation: - Type 2 event 2/2 decompensated heart failure and CKD, his troponin levels were less than previous admissions - EKG without acute ischemic changes, adynamic mildly elevated trop - f/u with established cards on dc CAD s/p PCI and CABG- Continue asa, statin, imdur, and toprol. DM- cont SSI, home long acting is 38units HS, was on 10 units while in the hospital, we will increase his dose to 20 units. Continue to check his BJM before meals and at bedtime HTN,BP at goal- cont meds as above Anx/Depression- cont nortriptyline, trazadone Tobacco dependence- cessation education, refused nicotine patch vte heparin sc Disposition: He is awaiting new SNF placement and transfer of HD seat to [facility]. - Time Spent with Patient Total time spent is greater than 50% in coordination of care (as documented) at patient's floor/unit and/or counseling patient: Plan of Care Discussed with: patient Internal Medicine: Result - Labs CBC & Chem 7: 11/19/18 06:38 11/19/18 06:38 Labs: Short CBC 11/19/18 Range/Units 06:38 WBC 6.0 (4.3-11.1) K/mcL Hgb 12.0 L (12.9-16.9) g/dL Hct 39.6 (37.5-50.1) % Plt Count 153 (140-400) K/mcL Neutrophils # 3.9 (1.6-8.9) K/mcL BMP 11/19/18 06:38 Sodium 137 Potassium 4.1 Chloride 93 L Carbon Dioxide 34 H BUN 53 H Creatinine 6.27 H Glucose 142 H Calcium 11.2 H Cardiac Enzymes 11/19/18 Range/Units 06:38 Troponin I 0.04 H* (< 0.04) ng/mL Liver Function 11/19/18 Range/Units 06:38 Total Bilirubin 0.5 (0.3-1.0) mg/dL AST 12 L (13-39) Units/L ALT 10 (7-52) Units/L Alkaline Phosphatase 73 (34-104) Units/L Albumin 3.8 (3.5-5.7) g/dL - ABG Interpretation ABG results: PT/INR, D-dimer PT 9.7 Seconds (9.4-12.1) 11/19/18 06:38 - Impressions Impressions Head CT 11/19/18 05:35 IMPRESSION: No acute intracranial hemorrhage or mass effect. Atherosclerosis of the intracranial internal carotid and vertebrobasilar arteries. Critical results were called by Dr. Samuel Rose to DR ESPOSITO on 11/19/2018 at 06:00. D/ / Samuel Rose / Samuel Rose Interpreting Provider: Samuel Rose Brain MRI 11/19/18 06:06 IMPRESSION: No acute intracranial abnormality. Mild parenchymal volume loss. Minimal chronic microvascular disease. D/ / King Reyes MD / King Reyes MD Interpreting Provider: King Reyes MD Foreign Body Localization X-Ray 11/19/18 06:41 IMPRESSION: No evidence of metallic foreign body within the orbits. D/ / Josh Oshea MD / Josh Oshea MD Interpreting Provider: Josh Ohsea MD Hip X-Ray 11/19/18 10:27 IMPRESSION: Subtle sclerosis of the right femoral neck could indicate nondisplaced fracture or normal variant trabecular pattern. RECOMMENDATION: If pain or concern for fracture persists, consider MR imaging. 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 transplanted heart: [place] heart Associated angina: with unspecified angina Qualified Code(s): I25.119 - Atherosclerotic heart disease of [place] coronary artery with unspecified angina pectoris (7) HLD (hyperlipidemia) Qualifiers: Hyperlipidemia type: unspecified Qualified Code(s): E78.5 - Hyperlipidemia, unspecified (8) Diabetes Qualifiers: Diabetes mellitus type: type 2 Diabetes mellitus halfway insulin use: with halfway use Diabetes mellitus complication status: with kidney complications Diabetes mellitus complication detail: with chronic kidney disease Chronic kidney disease stage: on chronic dialysis Qualified Code(s): E11.22 - Type 2 diabetes mellitus with diabetic chronic kidney disease; N18.6 - End stage renal disease; Z79.4 - custodial (current) use of insulin; Z99.2 - Dependence on renal dialysis (10) Volume overload Qualifiers: Hypervolemia type: other Qualified Code(s): E87.79 - Other fluid overload
[2018-11-19] MEDS: Aspirin Enteric Coated 81 MG Tablet PO SCH (13:00)
[2018-11-19] MEDS: Insulin DETEMIR 100 UNIT/ML X5UNITS SQ SCH (21:09)
[2018-11-19] MEDS: traZODone 50 MG TABLET PO SCH (21:11)
[2018-11-20] MEDS: *HR* Heparin 5,000 UNIT/ML VIAL SQ SCH ×2 (05:54→17:53)
[2018-11-20 07:29] LABS: Hematocrit 38.3 % (37.5-50.1); Hemoglobin 12.1 g/dL (12.9-16.9); Mean Corpuscular HGB Conc 31.6 g/dL (31.6-35.5); Mean Corpuscular Hemoglobin 29.7 pg (28.0-33.3); Mean Corpuscular Volume 93.9 fL (83.0-100.0); Mean Platelet Volume 10.9 fL (9.4-12.4); Platelet Count 152 K/mcL (140-400); Red Blood Count 4.08 M/mcL (4.19-5.50); Red Cell Distribution Width 15.4 % (11.5-14.5)
[2018-11-20] MEDS ORDERED: *HR* Heparin 10,000 UNIT/10 ML VIAL IV PRN (07:34)
[2018-11-20] MEDS ORDERED: 0.9 % Sodium Chloride 250 ML IVC PRN (07:34)
[2018-11-20 07:45] LABS: Calcium 10.8 mg/dL (8.6-10.3); Potassium 4.5 mEq/L (3.5-5.1)
[2018-11-20] MEDS ORDERED: 0.9 % Sodium Chloride 1,000 ML PRIME SCH (07:45)
[2018-11-20] MEDS ORDERED: Perflutren Lipid Microsphere 1.3 ML in 0.9 % Sodium Chloride 8.7 ML IVP ONE (07:57)
[2018-11-20] MEDS ORDERED: Perflutren Lipid Microsphere 2 ML VIAL ONE (08:06)
[2018-11-20] MEDS: Methyl Salicylate/Menthol 57 APPL/57 GM TUBE TP SCH (09:25)
[2018-11-20] MEDS: Artificial Tears SOLN 15 ML BOTTLE BOTH EYES SCH ×3 (09:25→20:46)
--- NOTE | 2018-11-20 09:33 | Neurology Progress Note ---
<Natan Sarabia J - Last Filed: 11/20/18 11:53> Date of Encounter: 11/20/18 Time of Encounter: 09:33 Assessment and Plan (1) TIA (transient ischemic attack) Current Visit: Yes Status: Acute neurology consulted with concerns for TIA Patient had abrupt onset of facial droop, paresthesias and right leg weakness Symptoms resolved rather abruptly, he remains deficit free overnight. Neurological exam remains nonfocal MRI of the brain negative for any acute infarct, earlier CT had also negative TTE and carotid duplex studies are pending Patient has risk factors for stroke/TIA including obesity,CAD, DM, HLD, HTN Given risk factors we are recommending aspirin and statin therapy Additionally, we are recommending aggressive risk factor modifications; these have been discussed with the patient Subjective Principal diagnosis: TIA Interval history: the patient was seen and examined at the bedside today in follow-up for suspicion of a TIA. he reports that yesterday he experienced an acute onset of right-sided facial droop, paresthesias and increasing weakness beyond baseline chronic weakness in his right lower extremity. all symptoms presented rather abruptly and resolved very quickly. Clinically, he remains stable overnight without any acute neurological deficits and he reports he is back to baseline. I discussed neuroimaging results including negative MRI of the brain. TTE and duplex scans are pending at this time. POC was discussed including starting daily ASA and Statin meds as well as aggressive risk factor modifications. Objective - Constitutional Vitals: Temp Pulse Resp BP Pulse Ox 98.4 F 92 17 145/90 97 11/20/18 07:42 11/20/18 07:42 11/20/18 07:42 11/20/18 07:42 11/20/18 07:42 Exam: Examination: General Examination: *CONSTITUTIONAL: Alert and oriented x3, no acute distress *GENERAL APPEARANCE OF PATIENT appears healthy and well groomed *EYES: pupils equal, round, reactive to light and accommodation, conjunctiva clear without masses or ulcerations, fundi normal. *CARDIOVASCULAR: no peripheral edema, distal temperature normal, dorsalis pedis pulses normal. 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 right hip flexor 3/5 which is a chronic finding, anterior tobialis, and dorsoflexion of the left foot 4/5. *MUSCLE TONE IN THE UPPER AND LOWER EXTREMITIES normal. No abnormal movements, fasciculations or atrophy identified. Neurological: *ORIENTATION to person, situation, time and place *LANGUAGE AND FUNCTION no significant aphasia or dysarthia was noted. *ATTENTION AND CONCENTRATION are normal *LANGUAGE FUNCTION no significant aphasia or dysarthia was noted. *FUND OF KNOWLEDGE aware of current events, past history, vocabulary *MENTAL attention span and concentration normal. *CN II optic fundi were normal, no papilledema noted. *CN III,IV, PERRLA extraocular eye movements were full, no nystagmus and no ptosis noted. *CN V shows normal sensation and jaw opens symmetrically. *CN VII shows normal facial movement symmetrically, upper and lower bilaterally. *CN VIII shows no significant hearing loss on exam *CN IX-Xpalate elevated symmetrically *CN XI normal strength in the sternocleidomastoid muscles, symmetrical shoulder shrugging. *CN XII tongue protruded in the midline, with normal strength and movement. *SENSORY EXAMINATION light touch intact *REFLEXES: DTR's were normal and symmetrical B/L bicep, brachial radialis and triceps are grade 2/4 diffusely, DTR of LLE is absent s/p knee replacement and DTR of RLE is 2/4, b/l achilles 2/4, no pathological reflexes were noted. *CEREBELLAR TESTING normal finger to nose, heel/knee/lockett *PAIN LEVEL 0/10 Results - Laboratory Findings CBC and BMP: 11/20/18 07:07 11/20/18 07:07 Abnormal lab findings: Abnormal lab results RBC 4.08 M/mcL (4.19-5.50) L 11/20/18 07:07 Hgb 12.1 g/dL (12.9-16.9) L 11/20/18 07:07 Hct 35.1 % (37.5-50.1) L 11/15/18 01:14 MCHC 30.3 g/dL (31.6-35.5) L 11/19/18 06:38 RDW 15.4 % (11.5-14.5) H 11/20/18 07:07 Plt Count 138 K/mcL (140-400) L 11/13/18 02:53 Heparin Anti-Xa, Unfract 0.02 IU/mL (0.30-0.70) L 11/19/18 06:38 Sodium 135 mEq/L (136-145) L 11/20/18 07:07 Chloride 91 mEq/L (98-107) L 11/20/18 07:07 Carbon Dioxide 31 mEq/L (23-29) H 11/20/18 07:07 BUN 65 mg/dL (8-23) H 11/20/18 07:07 7.41 mg/dL (0.70-1.30) H 11/20/18 07:07 Est GFR ( Amer) 9 (> 60) L 11/20/18 07:07 Est GFR (Non-Af Amer) 7 (> 60) L 11/20/18 07:07 Glucose 130 mg/dL (70-105) H 11/20/18 07:07 POC Glucose 176 mg/dL (70-99) H 11/19/18 15:58 6.0 % (-5.6) H 11/10/18 06:26 301 (280-300) H 11/19/18 06:38 Calcium 10.8 mg/dL (8.6-10.3) H 11/20/18 07:07 AST 12 Units/L (13-39) L 11/19/18 06:38 0.04 ng/mL (< 0.04) H* 11/19/18 06:38 B-Natriuretic Peptide 2635 pg/mL (Less than 100) H 11/10/18 06:36 >=300 mg/dL (Neg-Trace) H 11/10/18 08:01 250 mg/dL (Normal) H 11/10/18 08:01 Small (Negative) H 11/10/18 08:01 3-5 per hpf (0-3) H 11/10/18 08:01 3-5 per hpf (0-3) H 11/10/18 08:01 Ur Squamous Epith Cells Many per lpf (None-Few) H 11/10/18 08:01 Consult Discharge Plan - Plan Instructions: Heart Failure (DC), Chest Pain (DC), Acute Respiratory Distress Syndrome (DC), Hemodialysis (DC), Dialysis Diet (DC), Diabetes Mellitus Type 2 in Adults (DC), Chronic Obstructive Pulmonary Disease (DC), Chronic Hypertension (DC), Anemia (GEN), Anxiety (DC), End-Stage Kidney Disease (GEN), Cigarette Smoking and Your Health, 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 If echo and carotid are negative okay to discharge from neurology standpoint MRI of the brain is negative for any acute infarct continue on antiplatelet therapy Amos Angeles MD. NeurologyI Objective - Constitutional Vitals: Temp Pulse Resp BP Pulse Ox 97.6 F 92 18 106/71 97 11/20/18 10:15 11/20/18 07:42 11/20/18 13:36 11/20/18 13:15 11/20/18 07:42 Results - Laboratory Findings CBC and BMP: 11/20/18 07:07 11/20/18 07:07 Abnormal lab findings: Abnormal lab results RBC 4.08 M/mcL (4.19-5.50) L 11/20/18 07:07 Hgb 12.1 g/dL (12.9-16.9) L 11/20/18 07:07 Hct 35.1 % (37.5-50.1) L 11/15/18 01:14 MCHC 30.3 g/dL (31.6-35.5) L 11/19/18 06:38 RDW 15.4 % (11.5-14.5) H 11/20/18 07:07 Plt Count 138 K/mcL (140-400) L 11/13/18 02:53 Heparin Anti-Xa, Unfract 0.02 IU/mL (0.30-0.70) L 11/19/18 06:38 Sodium 135 mEq/L (136-145) L 11/20/18 07:07 Chloride 91 mEq/L (98-107) L 11/20/18 07:07 Carbon Dioxide 31 mEq/L (23-29) H 11/20/18 07:07 BUN 65 mg/dL (8-23) H 11/20/18 07:07 7.41 mg/dL (0.70-1.30) H 11/20/18 07:07 Est GFR ( Amer) 9 (> 60) L 11/20/18 07:07 Est GFR (Non-Af Amer) 7 (> 60) L 11/20/18 07:07 Glucose 130 mg/dL (70-105) H 11/20/18 07:07 POC Glucose 176 mg/dL (70-99) H 11/19/18 15:58 6.0 % (-5.6) H 11/10/18 06:26 301 (280-300) H 11/19/18 06:38 Calcium 10.8 mg/dL (8.6-10.3) H 11/20/18 07:07 AST 12 Units/L (13-39) L 11/19/18 06:38 0.04 ng/mL (< 0.04) H* 11/19/18 06:38 B-Natriuretic Peptide 2635 pg/mL (Less than 100) H 11/10/18 06:36 >=300 mg/dL (Neg-Trace) H 11/10/18 08:01 250 mg/dL (Normal) H 11/10/18 08:01 Small (Negative) H 11/10/18 08:01 3-5 per hpf (0-3) H 11/10/18 08:01 3-5 per hpf (0-3) H 11/10/18 08:01 Ur Squamous Epith Cells Many per lpf (None-Few) H 11/10/18 08:01
[2018-11-20] MEDS: Renal Vitamin 1 CAP CAPSULE PO SCH (09:36)
[2018-11-20] MEDS: Aspirin Enteric Coated 81 MG Tablet PO SCH (09:36)
[2018-11-20] MEDS: Famotidine 20 MG TABLET PO SCH (09:36)
[2018-11-20] MEDS: Insulin LISPRO 300 UNITS/3 ML VIAL SQ SCH ×4 (09:37→21:04)
--- NOTE | 2018-11-20 10:26 | Nephrology Progress Note ---
Date of Encounter: 11/20/18 Time of Encounter: 10:25 - Assessment and Plan (1) CHF (congestive heart failure) Current Visit: Yes Status: Resolved Per primary. Qualifiers: Heart failure type: systolic Heart failure chronicity: acute on chronic Qualified Code(s): I50.23 - Acute on chronic systolic (congestive) heart failure (2) ESRD (end stage renal disease) on dialysis Current Visit: Yes Status: Chronic Continue HD with UF as tolerated. HD in progress for today. Continue renal diet Continue fluid restriction Lytes stable Pt desires more PT (3) Anxiety and depression Current Visit: Yes Status: Chronic Per primary. (4) TIA (transient ischemic attack) Current Visit: Yes Status: Acute Neurology on board, appreciate recommendations. Subjective Principal diagnosis: ESRD Interval history: Pt seen and examined during HD, tolerating well. Denies nausea, vomiting, diarrhea. Denies chest pain or shortness of breath. States he is waiting on social work to find placement in an ECF. Objective - Vital Signs Vital signs: Vital Signs Temp Pulse Resp BP Pulse Ox 11/20/18 07:42 98.4 F 92 17 145/90 97 11/20/18 04:43 91 11/20/18 04:36 98.2 F 97 16 146/91 11/20/18 00:37 98.3 F 95 16 133/92 11/19/18 20:49 97.8 F 90 16 133/92 11/19/18 20:34 98.1 F 89 14 118/77 95 11/19/18 15:55 98.0 F 96 16 113/87 11/19/18 11:42 98.1 F 84 16 128/78 Intake and Output 11/19/18 11/20/18 11/20/18 23:59 07:59 15:59 Intake Total 120 / 460 Output Total 0 / 0 Balance 120 / 460 Intake: Oral 120 / 460 Output: Urine 0 / 0 Other: Meal Dinner Percent of Meal Consumed 5% # Urine Diapers 1 Weight 95.4 kg Blood Glucose* 201 140 Patient Weight 11/20/18 23:59 Weight 95.4 kg - General Appearance General appearance: Present: well-developed, well-nourished EENT: Present: ATNC, hearing intact, vision intact Neck: Present: supple Respiratory: Present: clear Cardiology: Present: no edema, normal S1, normal S2 Dialysis Vascular Access: Arteriovenous Fistula thrill: Yes bruit: Yes Gastrointestinal: Present: normoactive bowel sounds, no tenderness, no guarding Integumentary: Present: no rash, warm and dry Neurologic: Present: alert and oriented x3 Musculoskeletal: Present: no deformities, no erythema Psychiatric: Present: mood/affect appropriate, cooperative - Lab 11/20/18 07:07 11/20/18 07:07 Most recent lab results 11/20/18 07:07 Calcium 10.8 H Consult Discharge Plan - Plan Instructions: Heart Failure (DC), Chest Pain (DC), Acute Respiratory Distress Syndrome (DC), Hemodialysis (DC), Dialysis Diet (DC), Diabetes Mellitus Type 2 in Adults (DC), Chronic Obstructive Pulmonary Disease (DC), Chronic Hypertension (DC), Anemia (GEN), Anxiety (DC), End-Stage Kidney Disease (GEN), Cigarette Smoking and 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
--- NOTE | 2018-11-20 14:21 | Orthopedic Consult Note ---
Date of Encounter: 11/20/18 Time of Encounter: 13:10 Assessment and Plan (1) Hip pain, right Current Visit: Yes Status: Acute Hip xray shows - Subtle sclerosis of the right femoral neck could indicate nondisplaced fracture or normal variant trabecular pattern. Discussed with Dr. Sullivan who also reviewed xrays and recommend MRI for further evaluation of questionable fracture. Will determine if surgery is necessary once ABHIJEET results. Continue pain control per primary team. Limit RLE motion or weight bearing until MRI resulted. History of Present Illness Chief complaint: right hip pain HPI: Mr. Sidhu is a 68 year old male presented to the ER 1 week ago for SOB and CP. He has h/o COPD, CHF, ESRD on hemodialysis, DM, HTN and recent TIA during admission. Orthopedics consulted as patient mentioned yesterday that he has been having right hip pain. Patient states he tripped at home roughly 3 weeks ago landing on right hip and has had pain since that time in the right hip going down leg. States he has a chronic issue where his tailbone was fractured 20+ years ago and healed wrong according to patient and states he also had disc issues causing chronic numbness in legs. He states this recent fall was because his leg was numb and unable to feel when he tripped. States this is the first time this has happened. Pain is constant but worse with ambulating. Denies any other new concerns at this time. Past Med Surg Social Fam HX - Past Medical History Medical history: CHF, COPD, coronary artery disease, diabetes, dialysis, hyperlipidemia, hypertension, myocardial infarction, renal disease Additional medical history: Hiatal hernia, 2 leaky heart valves: Tuesday, Tuesday, Tuesday dialysis Psychiatric history: anxiety, depression, PTSD - Past Surgical History Surgical History: angioplasty/stent, knee replacement Additional surgical history: left knee replaceed/tendons on left foot repaired, abcess through rectal area and removal of tailbone,. cardiac stents x3 - Social History Smoking Status: Current every day smoker Smokeless Tobacco Status: No Alcohol use: none Drug use: none - Family History Sister Hx Family Endocrine Disorder: Yes (DM) Medications and Allergies Nitroglycerin [Nitrostat] 0.4 mg SL Q5MIN PRN #0 09/15/17 [Rx] Sevelamer HCl [Renagel] 2,400 mg PO TID 04/29/18 [History] Docusate [Colace] 200 mg PO DAILY 09/11/18 [History] Isosorbide MONOnitrate (24 HR) [Imdur] 30 mg PO DAILY 09/11/18 [History] Acetaminophen [Tylenol] 1,000 mg PO Q6HR PRN 10/18/18 [History] Atorvastatin [Lipitor] 40 mg PO HS 10/18/18 [History] GuaiFENesin/Dextromethorphan [Mucinex Dm] 1 tab PO BID PRN 10/18/18 [History] Insulin Glargine,Hum.rec.anlog [Basaglar Kwikpen U-100] 38 unit SQ HS 10/18/18 [History] Insulin LISPRO [HumaLOG] 0 units SQ AD 10/18/18 [History] Menthol [Bengay Ultra Strength] 1 patch TP DAILY 10/18/18 [History] Metoprolol Succinate [Toprol Xl] 12.5 mg PO DAILY 10/18/18 [History] Nortriptyline [Pamelor] 10 mg PO HS 10/18/18 [History] Omeprazole [PriLOSEC] 20 mg PO DAILY 10/18/18 [History] Polyethylene Glycol 3350 [MiraLax bowel prep] 17 gm PO DAILY 10/18/18 [History] Propylene Glycol/Peg 400 [Systane 0.3-0.4% Eye Drops] 1 drop BOTH EYES TID 10/18/18 [History] Tramadol HCl [Ultram] 50 mg PO Q12H PRN 10/18/18 [History] Trazodone HCl 300 mg PO HS 10/18/18 [History] B Complex W-C No.20/Folic Acid [Virt-Caps Softgel] 1 mg PO DAILY 11/10/18 [History] Glucagon,Human Recombinant [Glucagen] 1 mg IJ AD PRN 11/11/18 [History] Lidocaine Patch [Lidoderm 5% patch] 1 patch TP DAILY PRN 11/11/18 [History] Ranitidine HCl [Acid Irish Moss Bleacher] 150 mg PO DAILY 11/11/18 [History] Allergy/AdvReac Type Severity Reaction Status Date / Time diphenhydramine Allergy Rash Verified 09/11/18 20:49 [From Benadryl] meperidine AdvReac Nausea Verified 09/11/18 20:49 morphine AdvReac Nausea Verified 09/11/18 20:49 All Systems Reviewed: The remainder of the systems were reviewed and are negative - Constitutional Constitutional: as per HPI - Cardiovascular Cardiovascular: as per HPI - Respiratory Respiratory: as per HPI - Musculoskeletal Musculoskeletal: as per HPI Physical Exam - Constitutional Vitals: Temp Pulse Resp BP Pulse Ox 97.6 F 92 18 107/75 97 11/20/18 10:15 11/20/18 07:42 11/20/18 10:15 11/20/18 12:15 11/20/18 07:42 - Hip right Tenderness with palpation: lateral (Right hip has no visible open wounds or lesions. no noted swelling or erythema. Tenderness to palpation of lateral hip more than anterior hip. no calf tenderness to palpation. motion of hip restricted secondary to fracture. good dorsiflexion of foot. sensation intact distally. ) Results - Labs Result Diagrams: 11/20/18 07:07 11/20/18 07:07 Labs: Abnormal lab results RBC 4.08 M/mcL (4.19-5.50) L 11/20/18 07:07 Hgb 12.1 g/dL (12.9-16.9) L 11/20/18 07:07 Hct 35.1 % (37.5-50.1) L 11/15/18 01:14 MCHC 30.3 g/dL (31.6-35.5) L 11/19/18 06:38 RDW 15.4 % (11.5-14.5) H 11/20/18 07:07 Plt Count 138 K/mcL (140-400) L 11/13/18 02:53 Heparin Anti-Xa, Unfract 0.02 IU/mL (0.30-0.70) L 11/19/18 06:38 Sodium 135 mEq/L (136-145) L 11/20/18 07:07 Chloride 91 mEq/L (98-107) L 11/20/18 07:07 Carbon Dioxide 31 mEq/L (23-29) H 11/20/18 07:07 BUN 65 mg/dL (8-23) H 11/20/18 07:07 7.41 mg/dL (0.70-1.30) H 11/20/18 07:07 Est GFR ( Amer) 9 (> 60) L 11/20/18 07:07 Est GFR (Non-Af Amer) 7 (> 60) L 11/20/18 07:07 Glucose 130 mg/dL (70-105) H 11/20/18 07:07 POC Glucose 176 mg/dL (70-99) H 11/19/18 15:58 6.0 % (-5.6) H 11/10/18 06:26 301 (280-300) H 11/19/18 06:38 Calcium 10.8 mg/dL (8.6-10.3) H 11/20/18 07:07 AST 12 Units/L (13-39) L 11/19/18 06:38 0.04 ng/mL (< 0.04) H* 11/19/18 06:38 B-Natriuretic Peptide 2635 pg/mL (Less than 100) H 11/10/18 06:36 >=300 mg/dL (Neg-Trace) H 11/10/18 08:01 250 mg/dL (Normal) H 11/10/18 08:01 Small (Negative) H 11/10/18 08:01 3-5 per hpf (0-3) H 11/10/18 08:01 3-5 per hpf (0-3) H 11/10/18 08:01 Ur Squamous Epith Cells Many per lpf (None-Few) H 11/10/18 08:01 H & H 11/20/18 Range/Units 07:07 Hgb 12.1 L (12.9-16.9) g/dL Hct 38.3 (37.5-50.1) % All other labs normal. 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 Sullivan, who was available for all aspects of care.
[2018-11-20] MEDS: Metoprolol XL (24 HR) Succ 25 MG TAB.ER.24H PO SCH (15:46)
--- NOTE | 2018-11-20 15:50 | Internal Med Progress Note ---
Hospitalist Progress Note - Encounter Date of Encounter: 11/20/18 Time of Encounter: 10:00 - Subjective Interval History: No acute events overnight. Patient denied any abdominal pain, chest pain or shortness of breath. He has no fever, chills or night sweats. He does not report any pain coming from his hip. - Exam Vitals: Temp Pulse Resp BP Pulse Ox 97.6 F 103 18 113/75 97 11/20/18 10:15 11/20/18 15:41 11/20/18 13:36 11/20/18 15:41 11/20/18 07:42 Exam: . General: Patient is alert, oriented 3. Head: Atraumatic, normal inspection, normocephalic. Eye: EOMI, PERRLA, no scleral icterus noted. Neck: Normal inspection,. Respiratory: No respiratory distress, rhonchi, or wheezes noted. Cardiovascular: Regular rate , S1 and S2 audible. No murmurs, rubs, or gallops. GI: Soft, nondistended, normal bowel sounds. Extremities:No joint swelling, right hip pain with deep palpation, no swelling or erythema noted. Range of motion in right lower extremity is restricted and limited due to pain. Neurological: Alert, oriented 3, no focal deficits. CN II-XII is normal. Psychiatric: normal affect, normal mood. Skin: Dry, intact, warm. Normal color. No rashes. - Assessment and Plan (1) TIA (transient ischemic attack) Current Visit: Yes Status: Acute (2) Hip pain, right Current Visit: Yes Status: Acute (3) CHF (congestive heart failure) Current Visit: Yes Status: Resolved (4) ESRD (end stage renal disease) on dialysis Current Visit: Yes Status: Chronic (5) CAD (coronary artery disease) Current Visit: No Status: Chronic (6) HTN (hypertension), benign Current Visit: Yes Status: Chronic (7) HLD (hyperlipidemia) Current Visit: Yes Status: Chronic (8) Diabetes Current Visit: Yes Status: Chronic (9) Noncompliance with renal dialysis Current Visit: No Status: Acute (10) Volume overload Current Visit: Yes Status: Resolved (11) Behavior concern Current Visit: Yes Status: Resolved - Summary of Assessment and Plan Summary of Assessment and Plan: Mr Willett has pmhx systolic CHF, CAD s/p CABG, DM on insulin, ESRD on HD MWF, HTN, Valvular disease, Anxiety, depression and tobacco dependence. He presented with fluid overload secondary to non compliance with home fluid restriction and dialysis. Right hip pain: New event - Patient sustained a fall at home before presentation, he has right sided hip pain and right lower extremity limited range of motion - Right hip x-ray revealed subtle sclerosis of the right femoral neck which could indicate nondisplaced fracture or normal variant trabecular pattern - Orthopedic surgery service is consulted, appreciate recommendations. pending MRI of the right hip for further management. - Limit RLE motion or weight bearing TIA: - Overnight event, patient has multiple risk factors. - Workup included MRI of the brain was negative, carotid Dopplers revealed calc ified plauqes in the right and the left carotids but no stenosis noted , echo is pending - on aspirin and continue Lipitor at 40 mg. Acute on Chronic decompensated HFrEF 45%, resolved with HD -2/2 non compliance with ESRD fluid restriction and Acute on chronic systolic CHF - makes no urine, volume removal by HD - cont toprol XL ESRD on HD MWF -ESRD as per nephro, daily weights, got his session today. -Nephrology team is following. Appreciate recommendations -Continue renal diet Trop Elevation: - Type 2 event 2/2 decompensated heart failure and CKD, his troponin levels were less than previous admissions - EKG without acute ischemic changes, adynamic mildly elevated trop - f/u with established cards on dc CAD s/p PCI and CABG- Continue asa, statin, imdur, and toprol. DM- cont SSI, home long acting is 38units HS, was on 10 units while in the hospital, we will increase his dose to 20 units. Continue to check his BJM before meals and at bedtime HTN,BP at goal- cont meds as above Anx/Depression- cont nortriptyline, trazadone Tobacco dependence- cessation education, refused nicotine patch vte heparin sc Disposition: inaptient, He is awaiting new SNF placement and transfer of HD seat to [facility]. - Time Spent with Patient Total time spent is greater than 50% in coordination of care (as documented) at patient's floor/unit and/or counseling patient: Plan of Care Discussed with: patient Internal Medicine: Result - Labs CBC & Chem 7: 11/20/18 07:07 11/20/18 07:07 Labs: Short CBC 11/20/18 Range/Units 07:07 WBC 6.0 (4.3-11.1) K/mcL Hgb 12.1 L (12.9-16.9) g/dL Hct 38.3 (37.5-50.1) % Plt Count 152 (140-400) K/mcL BMP 11/20/18 07:07 Sodium 135 L Potassium 4.5 Chloride 91 L Carbon Dioxide 31 H BUN 65 H Creatinine 7.41 H Glucose 130 H Calcium 10.8 H - ABG Interpretation ABG results: PT/INR, D-dimer PT 9.7 Seconds (9.4-12.1) 11/19/18 06:38 - Impressions Impressions Hip X-Ray 11/19/18 10:27 IMPRESSION: Subtle sclerosis of the right femoral neck could indicate nondisplaced fracture or normal variant trabecular pattern. RECOMMENDATION: If pain or concern for fracture persists, consider MR imaging. D/ / 11/19/2018 11:50:10 Naveed Stiles MD / laury Interpreting Provider: Naveed Stiles MD Consult Discharge Plan - Plan Instructions: Heart Failure (DC), Chest Pain (DC), Acute Respiratory Distress Syndrome (DC), Hemodialysis (DC), Dialysis Diet (DC), Diabetes Mellitus Type 2 in Adults (DC), Chronic Obstructive Pulmonary Disease (DC), Chronic Hypertension (DC), Anemia (GEN), Anxiety (DC), End-Stage Kidney Disease (GEN), Cigarette Smoking and Your Health, Professor Of Social Work (GEN) Additional Instructions: Continue routine HD sessions MWF 1.8 L daily fluid restriction [facility]: [facility]Primary Care Provider[facility] - (3) CHF (congestive heart failure) Qualifiers: Heart failure type: systolic Heart failure chronicity: acute on chronic Qualified Code(s): I50.23 - Acute on chronic systolic (congestive) heart failure (5) CAD (coronary artery disease) Qualifiers: Coronary Disease-Associated Artery/Lesion type: unspecified vessel or lesion type [place] vs. transplanted heart: [place] heart Associated angina: with unspecified angina Qualified Code(s): I25.119 - Atherosclerotic heart disease of [place] coronary artery with unspecified angina pectoris (7) HLD (hyperlipidemia) Qualifiers: Hyperlipidemia type: unspecified Qualified Code(s): E78.5 - Hyperlipidemia, unspecified (8) Diabetes Qualifiers: Diabetes mellitus type: type 2 Diabetes mellitus ocean transportation intermediary insulin use: with nursing home use Diabetes mellitus complication status: with kidney complications Diabetes mellitus complication detail: with chronic kidney disease Chronic kidney disease stage: on chronic dialysis Qualified Code(s): E11.22 - Type 2 diabetes mellitus with diabetic chronic kidney disease; N18.6 - End stage renal disease; Z79.4 - FPC (current) use of insulin; Z99.2 - Dependence on renal dialysis (10) Volume overload Qualifiers: Hypervolemia type: other Qualified Code(s): E87.79 - Other fluid overload
[2018-11-20] MEDS: Isosorbide MONOnitrate (24 HR) 30 MG TAB.ER.24H PO SCH (17:49)
[2018-11-20] MEDS: Insulin DETEMIR 100 UNIT/ML X5UNITS SQ SCH (21:05)
[2018-11-20] MEDS: traZODone 50 MG TABLET PO SCH (22:19)
[2018-11-21] MEDS: *HR* Heparin 5,000 UNIT/ML VIAL SQ SCH ×2 (04:58→17:14)
[2018-11-21 05:50] LABS: Hematocrit 38.7 % (37.5-50.1); Hemoglobin 11.9 g/dL (12.9-16.9); Mean Corpuscular HGB Conc 30.7 g/dL (31.6-35.5); Mean Corpuscular Volume 94.4 fL (83.0-100.0); Mean Platelet Volume 10.7 fL (9.4-12.4); Platelet Count 150 K/mcL (140-400); Red Cell Distribution Width 15.5 % (11.5-14.5); White Blood Count 6.6 K/mcL (4.3-11.1)
[2018-11-21 06:07] LABS: Calcium 10.4 mg/dL (8.6-10.3); Potassium 4.3 mEq/L (3.5-5.1)
[2018-11-21] MEDS: Insulin LISPRO 300 UNITS/3 ML VIAL SQ SCH ×4 (08:50→17:18)
[2018-11-21] MEDS: Famotidine 20 MG TABLET PO SCH (08:51)
[2018-11-21] MEDS: Aspirin Enteric Coated 81 MG Tablet PO SCH (08:51)
[2018-11-21] MEDS: Renal Vitamin 1 CAP CAPSULE PO SCH (08:51)
[2018-11-21] MEDS: Isosorbide MONOnitrate (24 HR) 30 MG TAB.ER.24H PO SCH (08:51)
[2018-11-21] MEDS: Metoprolol XL (24 HR) Succ 25 MG TAB.ER.24H PO SCH (08:51)
[2018-11-21] MEDS: Artificial Tears SOLN 15 ML BOTTLE BOTH EYES SCH ×3 (08:52→22:00)
[2018-11-21] MEDS: Methyl Salicylate/Menthol 57 APPL/57 GM TUBE TP SCH (08:52)
--- NOTE | 2018-11-21 12:03 | Nephrology Progress Note ---
Date of Encounter: 11/21/18 Time of Encounter: 12:02 - Assessment and Plan (1) CHF (congestive heart failure) Current Visit: Yes Status: Resolved Per primary. Qualifiers: Heart failure type: systolic Heart failure chronicity: acute on chronic Qualified Code(s): I50.23 - Acute on chronic systolic (congestive) heart failure (2) ESRD (end stage renal disease) on dialysis Current Visit: Yes Status: Chronic Continue HD with UF as tolerated. HD completed yesterday, plan for HD tomorrow. Continue renal diet Continue fluid restriction Lytes stable Pt desires more PT (3) Anxiety and depression Current Visit: Yes Status: Chronic Per primary. (4) TIA (transient ischemic attack) Current Visit: Yes Status: Acute Neurology on board, appreciate recommendations. Subjective Principal diagnosis: TIA Interval history: Pt seen and examined is doing well. Feeling fatigued. Denies nausea, vomiting, diarrhea. Denies chest pain or shortness of breath. States he is waiting on social work to find placement in an ECF. Objective - Vital Signs Vital signs: Vital Signs Temp Pulse Resp BP Pulse Ox 11/21/18 09:32 98 11/21/18 07:00 98.4 F 98 14 143/95 98 11/21/18 06:00 98.6 F 99 14 129/85 93 11/20/18 20:50 98.1 F 98 18 125/81 11/20/18 20:48 98.1 F 97 18 125/81 11/20/18 15:53 104 18 113/75 95 11/20/18 15:41 103 113/75 11/20/18 13:36 18 11/20/18 13:15 106/71 11/20/18 13:00 114/75 11/20/18 12:45 109/74 11/20/18 12:30 115/73 11/20/18 12:15 107/75 Intake and Output 11/20/18 11/21/18 11/21/18 23:59 07:59 15:59 Intake Total 270 / 510 240 / 510 Output Total 0 / 0 Balance 270 / 510 240 / 510 Intake: Oral 270 / 510 240 / 510 Output: Urine 0 / 0 Other: Meal Dinner Breakfast Percent of Meal Consumed 10% 25% Stool Size Small Stool Consistency soft Stool Characteristics Normal for Patient Stool Color Brown # Bowel Movement Diapers 1 Weight 95.8 kg Blood Glucose* 200 124 164 Patient Weight 11/21/18 23:59 Weight 95.8 kg - General Appearance General appearance: Present: well-developed, well-nourished EENT: Present: ATNC, hearing intact, vision intact Neck: Present: supple Respiratory: Present: clear, wheezing Cardiology: Present: no edema, normal S1, normal S2 Dialysis Vascular Access: Arteriovenous Fistula thrill: Yes bruit: Yes Gastrointestinal: Present: normoactive bowel sounds, no tenderness, no guarding Integumentary: Present: no rash, warm and dry Neurologic: Present: alert and oriented x3 Musculoskeletal: Present: no deformities, no erythema Psychiatric: Present: mood/affect appropriate, cooperative - Lab 11/21/18 05:10 11/21/18 05:10 Most recent lab results 11/21/18 05:10 Calcium 10.4 H Consult Discharge Plan - Plan Instructions: Heart Failure (DC), Chest Pain (DC), Acute Respiratory Distress Syndrome (DC), Hemodialysis (DC), Dialysis Diet (DC), Diabetes Mellitus Type 2 in Adults (DC), Chronic Obstructive Pulmonary Disease (DC), Chronic Hypertension (DC), Anemia (GEN), Anxiety (DC), End-Stage Kidney Disease (GEN), Cigarette Smoking and Your Health, Exec. Creative Director (GEN) Additional Instructions: Continue routine HD sessions MWF 1.8 L daily fluid restriction [facility]errals: [facility] [Primary Care Provider] -
--- NOTE | 2018-11-21 14:02 | Internal Med Progress Note ---
Hospitalist Progress Note - Encounter Date of Encounter: 11/21/18 Time of Encounter: 09:00 - Subjective Interval History: Patient was seen today. He denied chest pain or shortness of breath. He has no nausea/vomiting/abdominal pain. His hip does not hurt him as it used to be. He denied any depression or suicidal ideation. He looks in better mood today compared to yesterday. - Exam Vitals: Temp Pulse Resp BP Pulse Ox 98.4 F 98 14 143/95 98 11/21/18 07:00 11/21/18 07:00 11/21/18 07:00 11/21/18 07:00 11/21/18 09:32 Exam: . General: Patient is alert, oriented 3. Head: Atraumatic, normal inspection, normocephalic. Eye: EOMI, PERRLA, no scleral icterus noted. Neck: Normal inspection,. Respiratory: No respiratory distress, rhonchi, or wheezes noted. Cardiovascular: Regular rate , S1 and S2 audible. No murmurs, rubs, or gallops. GI: Soft, nondistended, normal bowel sounds. Extremities:No joint swelling,. Range of motion in right lower extremity is restricted and limited due to pain. Neurological: Alert, oriented 3, no focal deficits. CN II-XII is normal. Psychiatric: normal affect, normal mood. Skin: Dry, intact, warm. Normal color. No rashes. - Assessment and Plan (1) TIA (transient ischemic attack) Current Visit: Yes Status: Acute (2) Hip pain, right Current Visit: Yes Status: Acute (3) CHF (congestive heart failure) Current Visit: Yes Status: Resolved (4) ESRD (end stage renal disease) on dialysis Current Visit: Yes Status: Chronic (5) CAD (coronary artery disease) Current Visit: No Status: Chronic (6) HTN (hypertension), benign Current Visit: Yes Status: Chronic (7) HLD (hyperlipidemia) Current Visit: Yes Status: Chronic (8) Diabetes Current Visit: Yes Status: Chronic (9) Noncompliance with renal dialysis Current Visit: No Status: Acute (10) Volume overload Current Visit: Yes Status: Resolved (11) Behavior concern Current Visit: Yes Status: Resolved - Summary of Assessment and Plan Summary of Assessment and Plan: Mr Willett has pmhx systolic CHF, CAD s/p CABG, DM on insulin, ESRD on HD MWF, HTN, Valvular disease, Anxiety, depression and tobacco dependence. He presented with fluid overload secondary to non compliance with home fluid restriction and dialysis. Right hip pain: imrpoving. - Patient sustained a fall at home before presentation, he has right sided hip pain and right lower extremity limited range of motion - Right hip x-ray revealed subtle sclerosis of the right femoral neck which could indicate nondisplaced fracture or normal variant trabecular pattern, MRI of the head did not reveal any fracture. It showed contracted muscle. - Orthopedic surgery service is consulted, appreciate recommendations. TIA: - Overnight event, patient has multiple risk factors. - Workup included MRI of the brain was negative, carotid Dopplers revealed calcified plauqes in the right and the left carotids but no stenosis noted , echo is pending - on aspirin and continue Lipitor at 40 mg. Acute on Chronic decompensated HFrEF 45%, resolved with HD -2/2 non compliance with ESRD fluid restriction and Acute on chronic systolic CHF - makes no urine, volume removal by HD - cont toprol XL ESRD on HD MWF -ESRD as per nephro, daily weights, got his session yesterday. -Nephrology team is following. Appreciate recommendations -Continue renal diet Trop Elevation: - Type 2 event 2/2 decompensated heart failure and CKD, his troponin levels were less than previous admissions - EKG without acute ischemic changes, adynamic mildly elevated trop - f/u with established cards on dc CAD s/p PCI and CABG- Continue asa, statin, imdur, and toprol. DM- cont SSI, home long acting is 38units HS, was on 10 units while in the hospital, we will increase his dose to 20 units. Continue to check his BJM before meals and at bedtime HTN,BP at goal- cont meds as above Anx/Depression- cont nortriptyline, trazadone Tobacco dependence- cessation education, refused nicotine patch vte heparin sc Disposition: inaptient, He is awaiting new SNF placement. Discharge tomorrow - Time Spent with Patient Total time spent is greater than 50% in coordination of care (as documented) at patient's floor/unit and/or counseling patient: Plan of Care Discussed with: patient Internal Medicine: Result - Labs CBC & Chem 7: 11/21/18 05:10 11/21/18 05:10 Labs: Short CBC 11/21/18 Range/Units 05:10 WBC 6.6 (4.3-11.1) K/mcL Hgb 11.9 L (12.9-16.9) g/dL Hct 38.7 (37.5-50.1) % Plt Count 150 (140-400) K/mcL BMP 11/21/18 05:10 Sodium 135 L Potassium 4.3 Chloride 95 L Carbon Dioxide 28 BUN 46 H Creatinine 5.49 H Glucose 131 H Calcium 10.4 H - ABG Interpretation ABG results: PT/INR, D-dimer PT 9.7 Seconds (9.4-12.1) 11/19/18 06:38 - Impressions Impressions Hip MRI 11/19/18 12:57 IMPRESSION: 1. No fracture of the right hip. No right hip joint effusion. 2. Strain at the origin of the right adductor muscles. D/ / Ebonie Thomas MD / Ebonie Thomas MD Interpreting Provider: Ebonie Thomas MD Consult Discharge Plan - Plan Instructions: Heart Failure (DC), Chest Pain (DC), Acute Respiratory Distress Syndrome (DC), Hemodialysis (DC), Dialysis Diet (DC), Diabetes Mellitus Type 2 in Adults (DC), Chronic Obstructive Pulmonary Disease (DC), Chronic Hypertension (DC), Anemia (GEN), Anxiety (DC), End-Stage Kidney Disease (GEN), Cigarette Smoking and Your Health, Vending Technician (GEN) Additional Instructions: Continue routine HD sessions MWF 1.8 L daily fluid restriction [facility]errals: [facility] [Primary Care Provider] - (3) CHF (congestive heart failure) Qualifiers: Heart failure type: systolic Heart failure chronicity: acute on chronic Qualified Code(s): I50.23 - Acute on chronic systolic (congestive) heart failure (5) CAD (coronary artery disease) Qualifiers: Coronary Disease-Associated Artery/Lesion type: unspecified vessel or lesion type [place] vs. transplanted heart: [place] heart Associated angina: with unspecified angina Qualified Code(s): I25.119 - Atherosclerotic heart disease of [place] coronary artery with unspecified angina pectoris (7) HLD (hyperlipidemia) Qualifiers: Hyperlipidemia type: unspecified Qualified Code(s): E78.5 - Hyperlipidemia, unspecified (8) Diabetes Qualifiers: Diabetes mellitus type: type 2 Diabetes mellitus moth exterminator insulin use: with moth exterminator use Diabetes mellitus complication status: with kidney complications Diabetes mellitus complication detail: with chronic kidney disease Chronic kidney disease stage: on chronic dialysis Qualified Code(s): E11.22 - Type 2 diabetes mellitus with diabetic chronic kidney disease; N18.6 - End stage renal disease; Z79.4 - ocean transportation intermediary (current) use of insulin; Z99.2 - Dependence on renal dialysis (10) Volume overload Qualifiers: Hypervolemia type: other Qualified Code(s): E87.79 - Other fluid overload
--- NOTE | 2018-11-21 15:59 | Orthopedics Progress Note ---
Date of Encounter: 11/21/18 Time of Encounter: 15:10 - Assessment and Plan (1) Hip pain, right Current Visit: Yes Status: Acute No tenderness to palpation of the right hip today. No visible ecchymosis or open wounds. No calf tenderness, hip and knee motion limited secondary to pain in hip. knee motion roughly 10-60 degrees. good dorsiflexion of foot, sensation intact distally. MRI showed no acute fractures to the right hip at this time. No surgical i ntervention necessary. Continue with PT/OT to progress motion and weight bearing as tolerated. Can follow up with sports medicine outpatient as necessary if pain does not continue to improve. Patient continues to ask about his old tailbone injury. Discussed with Dr. Sullivan and with this being over 20 years old would not likely be addressed during this admission but could arrange for follow up outpatient for further evaluation by pain management as necessary. Patient expressed understanding. Orthopedics will sign off at this time but please call for any future questions. Subjective Principal diagnosis: right hip pain Interval history: Patient states he has a little hip pain today but feeling better. Still having trouble with motion or bearing weight Objective Vital signs: Vital Signs Temp Pulse Resp BP Pulse Ox 11/21/18 09:32 98 11/21/18 07:00 98.4 F 98 14 143/95 98 11/21/18 06:00 98.6 F 99 14 129/85 93 11/20/18 20:50 98.1 F 98 18 125/81 11/20/18 20:48 98.1 F 97 18 125/81 11/20/18 15:53 104 18 113/75 95 Intake and Output 11/20/18 11/21/18 11/21/18 23:59 07:59 15:59 Intake Total 270 / 510 240 / 510 Output Total 0 / 0 Balance 270 / 510 240 / 510 Intake: Oral 270 / 510 240 / 510 Output: Urine 0 / 0 Other: Meal Dinner Breakfast Percent of Meal Consumed 10% 25% Stool Size Small Stool Consistency soft Stool Characteristics Normal for Patient Stool Color Brown # Bowel Movement Diapers 1 Weight 95.8 kg Blood Glucose* 200 124 164 Patient Weight 11/21/18 23:59 Weight 95.8 kg - Labs CBC & BMP: 11/21/18 05:10 11/21/18 05:10 Labs: Abnormal lab results RBC 4.10 M/mcL (4.19-5.50) L 11/21/18 05:10 Hgb 11.9 g/dL (12.9-16.9) L 11/21/18 05:10 Hct 35.1 % (37.5-50.1) L 11/15/18 01:14 MCHC 30.7 g/dL (31.6-35.5) L 11/21/18 05:10 RDW 15.5 % (11.5-14.5) H 11/21/18 05:10 Plt Count 138 K/mcL (140-400) L 11/13/18 02:53 Heparin Anti-Xa, Unfract 0.02 IU/mL (0.30-0.70) L 11/19/18 06:38 Sodium 135 mEq/L (136-145) L 11/21/18 05:10 Chloride 95 mEq/L (98-107) L 11/21/18 05:10 Carbon Dioxide 31 mEq/L (23-29) H 11/20/18 07:07 BUN 46 mg/dL (8-23) H 11/21/18 05:10 5.49 mg/dL (0.70-1.30) H 11/21/18 05:10 Est GFR ( Amer) 13 (> 60) L 11/21/18 05:10 Est GFR (Non-Af Amer) 10 (> 60) L 11/21/18 05:10 Glucose 131 mg/dL (70-105) H 11/21/18 05:10 POC Glucose 124 mg/dL (70-99) H 11/21/18 07:15 6.0 % (-5.6) H 11/10/18 06:26 301 (280-300) H 11/19/18 06:38 Calcium 10.4 mg/dL (8.6-10.3) H 11/21/18 05:10 AST 12 Units/L (13-39) L 11/19/18 06:38 0.04 ng/mL (< 0.04) H* 11/19/18 06:38 B-Natriuretic Peptide 2635 pg/mL (Less than 100) H 11/10/18 06:36 >=300 mg/dL (Neg-Trace) H 11/10/18 08:01 250 mg/dL (Normal) H 11/10/18 08:01 Small (Negative) H 11/10/18 08:01 3-5 per hpf (0-3) H 11/10/18 08:01 3-5 per hpf (0-3) H 11/10/18 08:01 Ur Squamous Epith Cells Many per lpf (None-Few) H 11/10/18 08:01 Consult Discharge Plan - Plan Instructions: Heart Failure (DC), Chest Pain (DC), Acute Respiratory Distress Syndrome (DC), Hemodialysis (DC), Dialysis Diet (DC), Diabetes Mellitus Type 2 in Adults (DC), Chronic Obstructive Pulmonary Disease (DC), Chronic Hypertension (DC), Anemia (GEN), Anxiety (DC), End-Stage Kidney Disease (GEN), Cigarette Smoking and Your Health, Finish Mixer (GEN) Additional Instructions: Continue routine HD sessions MWF 1.8 L daily fluid restriction [facility]errals: [facility] [Primary Care Provider] -
[2018-11-21] MEDS: traZODone 50 MG TABLET PO SCH (22:03)
[2018-11-21] MEDS: Insulin DETEMIR 100 UNIT/ML X5UNITS SQ SCH (22:04)
[2018-11-22 01:41] LABS: Hematocrit 36.3 % (37.5-50.1); Hemoglobin 11.3 g/dL (12.9-16.9); Mean Corpuscular HGB Conc 31.1 g/dL (31.6-35.5); Mean Corpuscular Hemoglobin 29.7 pg (28.0-33.3); Mean Corpuscular Volume 95.5 fL (83.0-100.0); Platelet Count 146 K/mcL (140-400); Red Cell Distribution Width 15.4 % (11.5-14.5); White Blood Count 6.6 K/mcL (4.3-11.1)
[2018-11-22 01:47] LABS: Potassium 4.5 mEq/L (3.5-5.1)
[2018-11-22] MEDS: *HR* Heparin 5,000 UNIT/ML VIAL SQ SCH ×2 (04:51→18:11)
[2018-11-22] MEDS ORDERED: *HR* Heparin 10,000 UNIT/10 ML VIAL IV PRN (07:36)
[2018-11-22] MEDS ORDERED: 0.9 % Sodium Chloride 250 ML IVC PRN (07:36)
[2018-11-22] MEDS ORDERED: 0.9 % Sodium Chloride 1,000 ML PRIME SCH (07:45)
[2018-11-22] MEDS: Aspirin Enteric Coated 81 MG Tablet PO SCH (08:31)
[2018-11-22] MEDS: Renal Vitamin 1 CAP CAPSULE PO SCH (08:31)
[2018-11-22] MEDS: Metoprolol XL (24 HR) Succ 25 MG TAB.ER.24H PO SCH (08:31)
[2018-11-22] MEDS: Isosorbide MONOnitrate (24 HR) 30 MG TAB.ER.24H PO SCH (08:31)
[2018-11-22] MEDS: Famotidine 20 MG TABLET PO SCH (08:31)
[2018-11-22] MEDS: Insulin LISPRO 300 UNITS/3 ML VIAL SQ SCH ×4 (08:34→20:49)
[2018-11-22] MEDS: Methyl Salicylate/Menthol 57 APPL/57 GM TUBE TP SCH (08:34)
[2018-11-22] MEDS: Artificial Tears SOLN 15 ML BOTTLE BOTH EYES SCH ×3 (08:36→20:40)
--- NOTE | 2018-11-22 09:50 | Nephrology Progress Note ---
Date of Encounter: 11/22/18 Time of Encounter: 09:48 - Assessment and Plan (1) CHF (congestive heart failure) Current Visit: Yes Status: Resolved Per primary. Qualifiers: Heart failure type: systolic Heart failure chronicity: acute on chronic Qualified Code(s): I50.23 - Acute on chronic systolic (congestive) heart failure (2) ESRD (end stage renal disease) on dialysis Current Visit: Yes Status: Chronic Continue HD with UF as tolerated. HD in progress for today. Continue renal diet Continue fluid restriction Lytes stable Pt desires more PT (3) Anxiety and depression Current Visit: Yes Status: Chronic Per primary. (4) TIA (transient ischemic attack) Current Visit: Yes Status: Acute Neurology on board, appreciate recommendations. Subjective Principal diagnosis: right hip pain Interval history: Pt seen and examined during hemodialysis, tolerating well. Feeling fatigued. Denies nausea, vomiting, diarrhea. Denies chest pain or shortness of breath. He tells me he is going to and extend the care facility today per [place] in social work. Objective - Vital Signs Vital signs: Vital Signs Temp Pulse Resp BP Pulse Ox 11/22/18 09:40 87/63 11/22/18 09:25 127/89 11/22/18 09:10 127/84 11/22/18 08:55 130/78 11/22/18 08:40 97.9 F 18 122/85 11/22/18 07:33 97.8 F 102 19 139/90 18 11/22/18 03:46 98.2 F 99 22 138/87 97 11/21/18 19:50 98.7 F 93 18 131/81 98 Intake and Output 11/21/18 11/22/18 11/22/18 23:59 07:59 15:59 Intake Total 600 / 600 Balance 600 / 600 Intake: Intake, Rinseback and Flushes 600 / 600 Other: Weight 97.5 kg Blood Glucose* 186 110 Hemodialysis Net Fluid Removed 1025 (mL) Patient Weight 11/22/18 23:59 Weight 97.5 kg - General Appearance General appearance: Present: well-developed, well-nourished EENT: Present: ATNC, hearing intact, vision intact Neck: Present: supple Respiratory: Present: clear Cardiology: Present: no edema, normal S1, normal S2 Dialysis Vascular Access: Arteriovenous Fistula thrill: Yes bruit: Yes Gastrointestinal: Present: normoactive bowel sounds, no tenderness, no guarding Integumentary: Present: no rash, warm and dry Neurologic: Present: alert and oriented x3 Musculoskeletal: Present: no deformities, no erythema Psychiatric: Present: mood/affect appropriate, cooperative - Lab 11/22/18 01:10 11/22/18 01:10 Most recent lab results 11/22/18 01:10 Calcium 11.0 H Consult Discharge Plan - Plan Instructions: Heart Failure (DC), Chest Pain (DC), Acute Respiratory Distress Syndrome (DC), Hemodialysis (DC), Dialysis Diet (DC), Diabetes Mellitus Type 2 in Adults (DC), Chronic Obstructive Pulmonary Disease (DC), Chronic Hypertension (DC), Anemia (GEN), Anxiety (DC), End-Stage Kidney Disease (GEN), Cigarette Smoking and Your Health, Defensive Fire Control Systems Operator (GEN) Additional Instructions: Continue routine HD sessions MWF 1.8 L daily fluid restriction [facility]errals: [facility] [Primary Care Provider] -
--- NOTE | 2018-11-22 15:05 | Internal Med Progress Note ---
Hospitalist Progress Note - Encounter Date of Encounter: 11/22/18 Time of Encounter: 15:03 - Subjective Interval History: The patient was seen and examined at the bedside Patient reported lower back pain and has a right leg weakness patient unable to lift up his right leg On the MRI of lumbar spine to rule out nerve compression Patient denied chest pain or shortness of breath The patient has urinary incontinence and constipation - Exam Vitals: Temp Pulse Resp BP Pulse Ox 98 F 102 18 128/88 98 11/22/18 12:28 11/22/18 07:33 11/22/18 12:28 11/22/18 12:28 11/22/18 07:33 Exam: . General: Patient is alert, oriented 3. Head: Atraumatic, normal inspection, normocephalic. Eye: EOMI, PERRLA, no scleral icterus noted. Neck: Normal inspection,. Respiratory: No respiratory distress, rhonchi, or wheezes noted. Cardiovascular: Regular rate , S1 and S2 audible. No murmurs, rubs, or gallops. GI: Soft, nondistended, normal bowel sounds. Extremities:No joint swelling,. Range of motion in right lower extremity is restricted and limited due to pain, patient is unable to lift his right leg Neurological: Alert, oriented 3, right leg weakness 2/5 compared to the left leg CN II-XII is normal. , Patient able to move his upper limbs Skin: Dry, intact, warm. Normal color. No rashes. DVT Prophylaxis: Heparin - Summary of Assessment and Plan Summary of Assessment and Plan: Mr Willett has pmhx systolic CHF, CAD s/p CABG, DM on insulin, ESRD on HD MWF, HTN, Valvular disease, Anxiety, depression and tobacco dependence. He presented with fluid overload secondary to non compliance with home fluid restriction and dialysis. Right hip pain and lower back pain - Patient sustained a fall at home before presentation, he has right sided hip pain and right lower extremity weakness - Right hip x-ray revealed subtle sclerosis of the right femoral neck which coul d indicate nondisplaced fracture or normal variant trabecular pattern, MRI of the head did not reveal any fracture. It showed contracted muscle. - Orthopedic surgery service is consulted, appreciate recommendations. - order MRI lumbar spine to r/o Acute nerve compression as the patient has also urinary incontinence right leg weakness - Overnight event, patient has multiple risk factors. - Workup MRI of the brain was negative, carotid Dopplers revealed calcified plauqes in the right and the left carotids but no stenosis noted , echo showed ejection fraction 40% - on aspirin and continue Lipitor at 40 mg. - Order MRI of the lumbar spine to rule out acute nerve compression Acute on Chronic decompensated HFrEF 45%, resolved with HD -2/2 non compliance with ESRD fluid restriction and Acute on chronic systolic CH - cont toprol XL ESRD on HD MWF -ESRD as per nephro, daily weights, got his session yesterday. -Nephrology team is following. Appreciate recommendations -Continue renal diet Trop Elevation: - Type 2 event 2/2 decompensated heart failure and ESRD, his troponin levels were less than previous admissions, has chronic troponin elevation due to ESRD - EKG without acute ischemic changes, adynamic mildly elevated trop - f/u with established cards on dc CAD s/p PCI and CABG- Continue asa, statin, imdur, and toprol. DM- cont SSI, home long acting is 38units HS, was on 10 units while in the hospital, increased his dose to 20 units. Continue to check his BJM before meals and at bedtime HTN,BP at goal- cont meds as above Anx/Depression- cont nortriptyline, trazadone Tobacco dependence- cessation education, refused nicotine patch vte heparin sc Disposition: inaptient, He is awaiting new SNF placement. Discharge tomorrow - Time Spent with Patient Total time spent is greater than 50% in coordination of care (as documented) at patient's floor/unit and/or counseling patient: Internal Medicine: Result - Labs CBC & Chem 7: 11/22/18 01:10 11/22/18 01:10 Labs: Short CBC 11/22/18 Range/Units 01:10 WBC 6.6 (4.3-11.1) K/mcL Hgb 11.3 L (12.9-16.9) g/dL Hct 36.3 L (37.5-50.1) % Plt Count 146 (140-400) K/mcL BMP 11/22/18 01:10 Sodium 134 L Potassium 4.5 Chloride 94 L Carbon Dioxide 29 BUN 63 H Creatinine 6.33 H Glucose 167 H Calcium 11.0 H Cardiac Enzymes 11/22/18 Range/Units 11:00 Troponin I 0.04 H* (< 0.04) ng/mL - ABG Interpretation ABG results: PT/INR, D-dimer PT 9.7 Seconds (9.4-12.1) 11/19/18 06:38 Consult Discharge Plan - Plan Instructions: Heart Failure (DC), Chest Pain (DC), Acute Respiratory Distress Syndrome (DC), Hemodialysis (DC), Dialysis Diet (DC), Diabetes Mellitus Type 2 in Adults (DC), Chronic Obstructive Pulmonary Disease (DC), Chronic Hypertension (DC), Anemia (GEN), Anxiety (DC), End-Stage Kidney Disease (GEN), Cigarette Smoking and Your Health, Emergency Medicine Physician (GEN) Additional Instructions: Continue routine HD sessions MWF 1.8 L daily fluid restriction [facility]: [facility] [Primary Care Provider] -
[2018-11-22] MEDS: traMADol 50 MG TABLET PO PRN (15:20)
[2018-11-22] MEDS ORDERED: *HR* HYDROcodone/Acet 5/325 mg TABLET PO ONE (16:46)
[2018-11-22] MEDS: traZODone 50 MG TABLET PO SCH (20:45)
[2018-11-22] MEDS: Insulin DETEMIR 100 UNIT/ML X5UNITS SQ SCH (20:46)
[2018-11-23 04:08] LABS: Hematocrit 37.3 % (37.5-50.1); Hemoglobin 11.5 g/dL (12.9-16.9); Mean Corpuscular HGB Conc 30.8 g/dL (31.6-35.5); Mean Corpuscular Volume 97.4 fL (83.0-100.0); Platelet Count 158 K/mcL (140-400); Red Blood Count 3.83 M/mcL (4.19-5.50); Red Cell Distribution Width 15.6 % (11.5-14.5); White Blood Count 6.6 K/mcL (4.3-11.1)
[2018-11-23 04:25] LABS: Albumin 3.7 g/dL (3.5-5.7); Albumin/Globulin Ratio 1.4 (1.1-2.2); Bilirubin,Total 0.5 mg/dL (0.3-1.0); Calcium 10.5 mg/dL (8.6-10.3); Globulin 2.7 g/dL (2.4-3.5); Magnesium 2.2 mg/dL (1.6-2.6); Potassium 4.4 mEq/L (3.5-5.1); Total Protein 6.4 g/dL (6.4-8.9)
[2018-11-23] MEDS: *HR* Heparin 5,000 UNIT/ML VIAL SQ SCH (05:11)
[2018-11-23] MEDS: Isosorbide MONOnitrate (24 HR) 30 MG TAB.ER.24H PO SCH (08:32)
[2018-11-23] MEDS: Metoprolol XL (24 HR) Succ 25 MG TAB.ER.24H PO SCH (08:32)
[2018-11-23] MEDS: Famotidine 20 MG TABLET PO SCH (08:32)
[2018-11-23] MEDS: Renal Vitamin 1 CAP CAPSULE PO SCH (08:32)
[2018-11-23] MEDS: Aspirin Enteric Coated 81 MG Tablet PO SCH (08:32)
[2018-11-23] MEDS: Artificial Tears SOLN 15 ML BOTTLE BOTH EYES SCH ×3 (08:33→20:42)
[2018-11-23] MEDS: Methyl Salicylate/Menthol 57 APPL/57 GM TUBE TP SCH (08:33)
[2018-11-23] MEDS: Insulin LISPRO 300 UNITS/3 ML VIAL SQ SCH ×4 (08:36→20:42)
--- NOTE | 2018-11-23 09:58 | Internal Med Progress Note ---
Hospitalist Progress Note - Encounter Date of Encounter: 11/23/18 Time of Encounter: 09:56 - Subjective Interval History: Patient was seen and examined at the site has right leg pain and weakness MRI of lower back still pending - Exam Vitals: Temp Pulse Resp BP Pulse Ox 97.8 F 95 15 108/76 93 11/23/18 07:16 11/23/18 07:16 11/23/18 07:16 11/23/18 07:16 11/23/18 07:16 Exam: . General: Patient is alert, oriented 3. Head: Atraumatic, normal inspection, normocephalic. Eye: EOMI, PERRLA, no scleral icterus noted. Neck: Normal inspection,. Respiratory: No respiratory distress, rhonchi, or wheezes noted. Cardiovascular: Regular rate , S1 and S2 audible. No murmurs, rubs, or gallops. GI: Soft, nondistended, normal bowel sounds. Extremities:No joint swelling,. Range of motion in right lower extremity is restricted and limited due to pain, patient is unable to lift his right leg Neurological: Alert, oriented 3, right leg weakness 2/5 compared to the left leg CN II-XII is normal. , Patient able to move his upper limbs Skin: Dry, intact, warm. Normal color. No rashes. DVT Prophylaxis: Heparin - Summary of Assessment and Plan Summary of Assessment and Plan: Mr Willett has pmhx systolic CHF, CAD s/p CABG, DM on insulin, ESRD on HD MWF, HTN, Valvular disease, Anxiety, depression and tobacco dependence. He presented with fluid overload secondary to non compliance with home fluid restriction and dialysis. Right hip pain and lower back pain - Patient sustained a fall at home before presentation, he has right sided hip pain and right lower extremity weakness - Right hip x-ray revealed subtle sclerosis of the right femoral neck which could indicate nondisplaced fracture or normal variant trabecular pattern, MRI of the head did not reveal any fracture. It showed contracted muscle. - Orthopedic surgery service is consulted, appreciate recommendations. - order MRI lumbar spine to r/o Acute nerve compression as the patient has also urinary incontinence right leg weakness - patient has multiple risk factors. - Workup MRI of the brain was negative, carotid Dopplers revealed calcified plauqes in the right and the left carotids but no stenosis noted , echo showed ejection fraction 40% - on aspirin and continue Lipitor at 40 mg. - Order MRI of the lumbar spine to rule out acute nerve compression, still pen ding Acute on Chronic decompensated HFrEF 45%, resolved with HD -2/2 non compliance with ESRD fluid restriction and Acute on chronic systolic CH - cont toprol XL ESRD on HD MWF -ESRD as per nephro, daily weights, got his session yesterday. -Nephrology team is following. Appreciate recommendations -Continue renal diet Trop Elevation: - Type 2 event 2/2 decompensated heart failure and ESRD, his troponin levels were less than previous admissions, has chronic troponin elevation due to ESRD - EKG without acute ischemic changes, adynamic mildly elevated trop - f/u with established cards on dc CAD s/p PCI and CABG- Continue asa, statin, imdur, and toprol. DM- cont SSI, home long acting is 38units HS, was on 10 units while in the hospital, increased his dose to 20 units. Continue to check his BJM before meals and at bedtime HTN,BP at goal- cont meds as above Anx/Depression- cont nortriptyline, trazadone Tobacco dependence- cessation education, refused nicotine patch vte heparin sc Disposition: inaptient, He is awaiting new SNF placement. Discharge tomorrow - Time Spent with Patient Total time spent is greater than 50% in coordination of care (as documented) at patient's floor/unit and/or counseling patient: Internal Medicine: Result - Labs CBC & Chem 7: 11/23/18 03:11 11/23/18 03:11 Labs: Short CBC 11/23/18 Range/Units 03:11 WBC 6.6 (4.3-11.1) K/mcL Hgb 11.5 L (12.9-16.9) g/dL Hct 37.3 L (37.5-50.1) % Plt Count 158 (140-400) K/mcL BMP 11/23/18 03:11 Sodium 135 L Potassium 4.4 Chloride 95 L Carbon Dioxide 30 H BUN 40 H Creatinine 4.62 H Glucose 169 H Calcium 10.5 H Cardiac Enzymes 11/22/18 Range/Units 11:00 Troponin I 0.04 H* (< 0.04) ng/mL Liver Function 11/23/18 Range/Units 03:11 Total Bilirubin 0.5 (0.3-1.0) mg/dL AST 11 L (13-39) Units/L ALT 9 (7-52) Units/L Alkaline Phosphatase 66 (34-104) Units/L Albumin 3.7 (3.5-5.7) g/dL - ABG Interpretation ABG results: PT/INR, D-dimer PT 9.7 Seconds (9.4-12.1) 11/19/18 06:38 Consult Discharge Plan - Plan Instructions: Heart Failure (DC), Chest Pain (DC), Acute Respiratory Distress Syndrome (DC), Hemodialysis (DC), Dialysis Diet (DC), Diabetes Mellitus Type 2 in Adults (DC), Chronic Obstructive Pulmonary Disease (DC), Chronic Hypertension (DC), Anemia (GEN), Anxiety (DC), End-Stage Kidney Disease (GEN), Cigarette Smoking and Your Health, Pump Tester (GEN) Additional Instructions: Continue routine HD sessions MWF 1.8 L daily fluid restriction [facility]errals: [facility] [Primary Care Provider] -
--- NOTE | 2018-11-23 11:06 | Nephrology Progress Note ---
<Tawnya Scales - Last Filed: 11/23/18 11:01> Date of Encounter: 11/23/18 Time of Encounter: 11:04 - Assessment and Plan (1) CHF (congestive heart failure) Current Visit: Yes Status: Resolved Per primary. Qualifiers: Heart failure type: systolic Heart failure chronicity: acute on chronic Qualified Code(s): I50.23 - Acute on chronic systolic (congestive) heart failure (2) ESRD (end stage renal disease) on dialysis Current Visit: Yes Status: Chronic Continue HD with UF as tolerated. HD completed yesterday. Plan for HD tomorrow. Continue renal diet Continue fluid restriction Lytes stable Pt desires more PT (3) Anxiety and depression Current Visit: Yes Status: Chronic Per primary. (4) TIA (transient ischemic attack) Current Visit: Yes Status: Acute Neurology on board, appreciate recommendations. Subjective Principal diagnosis: right hip pain Interval history: Pt seen and examined doing well. Feeling fatigued. Denies nausea, vomiting, diarrhea. Denies chest pain or shortness of breath. Social work is still attempting to place in an ECF. Objective - Vital Signs Vital signs: Vital Signs Temp Pulse Resp BP Pulse Ox 11/23/18 07:16 97.8 F 95 15 108/76 93 11/23/18 04:58 97.9 F 100 18 122/84 92 11/23/18 00:32 98.2 F 93 14 126/78 96 11/22/18 20:39 99.3 F 99 20 124/89 93 11/22/18 15:41 95 18 109/75 97 11/22/18 12:28 98 F 18 128/88 11/22/18 12:10 108/79 11/22/18 11:55 103/76 11/22/18 11:40 93/67 11/22/18 11:25 102/72 11/22/18 11:10 98/68 Intake and Output 11/22/18 11/23/18 11/23/18 23:59 07:59 15:59 Intake Total 240 / 960 0 / 0 0 / 0 Output Total 0 / 0 Balance 240 / -690 0 / 0 0 / 0 Intake: Oral 240 / 360 0 / 0 0 / 0 Output: Urine 0 / 0 Other: Meal Dinner Breakfast Percent of Meal Consumed 95% 0% Stool Size Moderate Stool Consistency soft Stool Characteristics Normal for Patient Pasty Stool Color Brown # Urine Diapers 1 # Bowel Movement Diapers 1 Weight 97.9 kg Blood Glucose* 203 144 Patient Weight 11/23/18 23:59 Weight 97.9 kg - General Appearance General appearance: Present: well-developed, well-nourished EENT: Present: ATNC, hearing intact, vision intact Neck: Present: supple Respiratory: Present: clear Cardiology: Present: no edema, normal S1, normal S2 Dialysis Vascular Access: Arteriovenous Fistula thrill: Yes bruit: Yes Gastrointestinal: Present: normoactive bowel sounds, no tenderness, no guarding Integumentary: Present: no rash, warm and dry Neurologic: Present: alert and oriented x3 Musculoskeletal: Present: no deformities, no erythema Psychiatric: Present: mood/affect appropriate, cooperative - Lab 11/23/18 03:11 11/23/18 03:11 Most recent lab results 11/23/18 03:11 Calcium 10.5 H Phosphorus 4.0 Magnesium 2.2 Consult Discharge Plan - Plan Instructions: Heart Failure (DC), Chest Pain (DC), Acute Respiratory Distress Syndrome (DC), Hemodialysis (DC), Dialysis Diet (DC), Diabetes Mellitus Type 2 in Adults (DC), Chronic Obstructive Pulmonary Disease (DC), Chronic Hypertension (DC), Anemia (GEN), Anxiety (DC), End-Stage Kidney Disease (GEN), Cigarette Smoking and Your Health, Wind Tunnel Mechanic (GEN) Additional Instructions: Continue routine HD sessions MWF 1.8 L daily fluid restriction [facility]errals: [facility] [Primary Care Provider] - <Gail Carcamo - Last Filed: 11/23/18 23:51> Date of Encounter: 11/23/18 - Assessment and Plan (1) CHF (congestive heart failure) Current Visit: Yes Status: Resolved Qualifiers: Heart failure type: systolic Heart failure chronicity: acute on chronic Qualified Code(s): I50.23 - Acute on chronic systolic (congestive) heart failure (2) ESRD (end stage renal disease) on dialysis Current Visit: Yes Status: Chronic (3) Anxiety and depression Current Visit: Yes Status: Chronic (4) TIA (transient ischemic attack) Current Visit: Yes Status: Acute Objective - Vital Signs Vital signs: Vital Signs Temp Pulse Resp BP Pulse Ox 11/23/18 21:23 96 11/23/18 19:25 98.1 F 86 20 103/65 97 11/23/18 16:02 97.8 F 90 14 98/62 94 11/23/18 07:16 97.8 F 95 15 108/76 93 11/23/18 04:58 97.9 F 100 18 122/84 92 11/23/18 00:32 98.2 F 93 14 126/78 96 Intake and Output 11/23/18 11/23/18 11/23/18 07:59 15:59 23:59 Intake Total 0 / 240 0 / 240 240 / 240 Output Total 0 / 0 Balance 0 / 240 0 / 240 240 / 240 Intake: Oral 0 / 240 0 / 240 240 / 240 Output: Urine 0 / 0 Other: Meal Breakfast Dinner Percent of Meal Consumed 0% 15% Stool Size Moderate Moderate Stool Consistency soft soft Stool Characteristics Normal for Patient Normal for Patient Pasty Stool Color Brown Brown # Urine Diapers 1 # Bowel Movements 1 # Bowel Movement Diapers 1 1 Weight 97.9 kg Blood Glucose* 131 149 Patient Weight 11/23/18 23:59 Weight 97.9 kg - Lab 11/23/18 03:11 11/23/18 03:11 - Attending Attestation I examined this patient and my medical decision-making was reviewed with the Resident Physician/POWDER GUARD. I agree with the documented findings, disposition and treatment plan as described except to the extent set forth below. Pt seen and examined sittin up in chair doing well, reports PT so far going well but eager to be discharge to rehab for more. s/p HD yesterday. On exam: chronic ill appearing NAD, lungs clear, heart S1S2, Abd soft, NT, no LE edema bilat. Labs reviewed. Next HD planned tomorrow. Lytes stable. Continue renal diet, MRI planned today per pt. Discharge planning per primary team.
[2018-11-23] MEDS ORDERED: *HR* HYDROcodone/Acet 5/325 mg TABLET PO ONE (14:22)
--- NOTE | 2018-11-23 17:27 | Event Note ---
Date of Encounter: 11/23/18 Time of Encounter: 17:26 MRI of lumbar spine show: . Spondylolysis of L5 with grade 1 anterolisthesis of L5 on S1. 2. No significant spinal canal stenosis of the lumbar spine. 3. Neural foraminal narrowing at L4-L5 and L5-S1 as above. 4. Interval decrease in the hematoma involving the right psoas musculature. 5. There is nonspecific stranding involving the soft tissues of the left retroperitoneum. Orthopedic on board , will discuss with about hematoma
[2018-11-23] MEDS: traZODone 50 MG TABLET PO SCH (20:41)
[2018-11-23] MEDS: traMADol 50 MG TABLET PO PRN (20:41)
[2018-11-23] MEDS: Insulin DETEMIR 100 UNIT/ML X5UNITS SQ SCH (20:43)
[2018-11-24 05:06] LABS: Hematocrit 37.4 % (37.5-50.1); Hemoglobin 11.6 g/dL (12.9-16.9); Mean Corpuscular Hemoglobin 29.8 pg (28.0-33.3); Mean Corpuscular Volume 96.1 fL (83.0-100.0); Mean Platelet Volume 10.5 fL (9.4-12.4); Platelet Count 152 K/mcL (140-400); Red Blood Count 3.89 M/mcL (4.19-5.50); Red Cell Distribution Width 15.5 % (11.5-14.5); White Blood Count 6.1 K/mcL (4.3-11.1)
[2018-11-24 05:25] LABS: Calcium 11.1 mg/dL (8.6-10.3); Potassium 4.3 mEq/L (3.5-5.1)
[2018-11-24] MEDS: Insulin LISPRO 300 UNITS/3 ML VIAL SQ SCH ×4 (07:51→21:06)
[2018-11-24] MEDS ORDERED: 0.9 % Sodium Chloride 250 ML IVC PRN (08:20)
[2018-11-24] MEDS ORDERED: *HR* Heparin 10,000 UNIT/10 ML VIAL IV PRN (08:20)
[2018-11-24] MEDS ORDERED: 0.9 % Sodium Chloride 1,000 ML PRIME SCH (08:30)
[2018-11-24] MEDS: Artificial Tears SOLN 15 ML BOTTLE BOTH EYES SCH ×3 (08:32→21:04)
--- NOTE | 2018-11-24 09:51 | Internal Med Progress Note ---
Hospitalist Progress Note - Encounter Date of Encounter: 11/24/18 Time of Encounter: 09:47 - Subjective Interval History: The patient was seen and examined at the bedside MRI of lumbar spine showed evidence of psoas muscle hematoma, I think to orthopedics team today and will see the patient for possible IR guided aspiration versus conservative approach Hb stable and BP stable patient still right leg weakness and pain - Exam Vitals: Temp Pulse Resp BP Pulse Ox 98.3 F 95 16 135/79 91 11/24/18 07:18 11/24/18 07:18 11/24/18 07:18 11/24/18 07:18 11/24/18 07:18 Exam: . General: Patient is alert, oriented 3. Head: Atraumatic, normal inspection, normocephalic. Eye: EOMI, PERRLA, no scleral icterus noted. Neck: Normal inspection,. Respiratory: No respiratory distress, rhonchi, or wheezes noted. Cardiovascular: Regular rate , S1 and S2 audible. No murmurs, rubs, or gallops. GI: Soft, nondistended, normal bowel sounds. Extremities:No joint swelling,. Range of motion in right lower extremity is restricted and limited due to pain, patient is unable to lift his right leg Neurological: Alert, oriented 3, right leg weakness 2/5 compared to the left leg CN II-XII is normal. , Patient able to move his upper limbs Skin: Dry, intact, warm. Normal color. No rashes. DVT Prophylaxis: SCD - Summary of Assessment and Plan Summary of Assessment and Plan: Mr Willett has pmhx systolic CHF, CAD s/p CABG, DM on insulin, ESRD on HD MWF, HTN, Valvular disease, Anxiety, depression and tobacco dependence. He presented with fluid overload secondary to non compliance with home fluid restriction and dialysis. Right hip pain with weakness and lower back pain MRI of lumbar spine show 1. Spondylolysis of L5 with grade 1 anterolisthesis of L5 on S1. 2. No significant spinal canal stenosis of the lumbar spine. 3. Neural foraminal narrowing at L4-L5 and L5-S1 as above. 4. Interval decrease in the hematoma involving the right psoas musculature. 5. There is nonspecific stranding involving the soft tissues of the left retroperitoneum. I spoke with orthopedic team today, they will see patient, waiting further recommendation d/c heparin , placed on SCD for DVT PPX H stable 11.6 probably need outpatient neurosurgery evaluation, - Patient sustained a fall at home before presentation, he has right sided hip pain and right lower extremity weakness - Right hip x-ray revealed subtle sclerosis of the right femoral neck which could indicate nondisplaced fracture or normal variant trabecular pattern, MRI of the head did not reveal any fracture. It showed contracted muscle. - Workup MRI of the brain was negative, carotid Dopplers revealed calcified plauqes in the right and the left carotids but no stenosis noted , echo showed ejection fraction 40% - on aspirin and continue Lipitor at 40 mg. - Order MRI of the lumbar spine to rule out acute nerve compression, still pending Acute on Chronic decompensated HFrEF 45%, resolved with HD -2/2 non compliance with ESRD fluid restriction and Acute on chronic systolic CH - cont toprol XL ESRD on HD MWF -ESRD as per nephro, daily weights, got his session yesterday. -Nephrology team is following. Appreciate recommendations -Continue renal diet Trop Elevation: - Type 2 event 2/2 decompensated heart failure and ESRD, his troponin levels were less than previous admissions, has chronic troponin elevation due to ESRD - EKG without acute ischemic changes, adynamic mildly elevated trop - f/u with established cards on dc CAD s/p PCI and CABG- Continue asa, statin, imdur, and toprol. DM- cont SSI, home long acting is 38units HS, was on 10 units while in the hospital, increased his dose to 20 units. Continue to check his BJM before meals and at bedtime HTN,BP at goal- cont meds as above Anx/Depression- cont nortriptyline, trazadone Tobacco dependence- cessation education, refused nicotine patch vte heparin sc Disposition: inaptient, He is awaiting new SNF placement. Discharge tomorrow - Time Spent with Patient Total time spent is greater than 50% in coordination of care (as documented) at patient's floor/unit and/or counseling patient: Internal Medicine: Result - Labs CBC & Chem 7: 11/24/18 04:56 11/24/18 04:56 Labs: Short CBC 11/24/18 Range/Units 04:56 WBC 6.1 (4.3-11.1) K/mcL Hgb 11.6 L (12.9-16.9) g/dL Hct 37.4 L (37.5-50.1) % Plt Count 152 (140-400) K/mcL BMP 11/24/18 04:56 Sodium 132 L Potassium 4.3 Chloride 96 L Carbon Dioxide 29 BUN 55 H Creatinine 6.12 H Glucose 104 Calcium 11.1 H - ABG Interpretation ABG results: PT/INR, D-dimer PT 9.7 Seconds (9.4-12.1) 11/19/18 06:38 - Impressions Impressions Lumbar Spine MRI 11/23/18 15:01 IMPRESSION: 1. Spondylolysis of L5 with grade 1 anterolisthesis of L5 on S1. 2. No significant spinal canal stenosis of the lumbar spine. 3. Neural foraminal narrowing at L4-L5 and L5-S1 as above. 4. Interval decrease in the hematoma involving the right psoas musculature. 5. There is nonspecific stranding involving the soft tissues of the left retroperitoneum. D/ / Mario Moralez MD / Mario Moralez MD Interpreting Provider: Mario Moralez MD Consult Discharge Plan - Plan Instructions: Heart Failure (DC), Chest Pain (DC), Acute Respiratory Distress Syndrome (DC), Hemodialysis (DC), Dialysis Diet (DC), Diabetes Mellitus Type 2 in Adults (DC), Chronic Obstructive Pulmonary Disease (DC), Chronic Hypertension (DC), Anemia (GEN), Anxiety (DC), End-Stage Kidney Disease (GEN), Cigarette Smok ing and Your Health, Door Opener (GEN) Additional Instructions: Continue routine HD sessions MWF 1.8 L daily fluid restriction [facility]errals: [facility] [Primary Care Provider] -
--- NOTE | 2018-11-24 10:05 | Nephrology Progress Note ---
Date of Encounter: 11/24/18 Time of Encounter: 10:03 - Assessment and Plan (1) CHF (congestive heart failure) Current Visit: Yes Status: Resolved Per primary. Qualifiers: Heart failure type: systolic Heart failure chronicity: acute on chronic Qualified Code(s): I50.23 - Acute on chronic systolic (congestive) heart failure (2) ESRD (end stage renal disease) on dialysis Current Visit: Yes Status: Chronic Continue HD with UF as tolerated. HD in progress for today. Continue renal diet Continue fluid restriction Lytes stable Pt desires more PT (3) Anxiety and depression Current Visit: Yes Status: Chronic Per primary. (4) TIA (transient ischemic attack) Current Visit: Yes Status: Acute Neurology on board, appreciate recommendations. Subjective Principal diagnosis: right hip pain Interval history: Pt seen and examined during HD, tolerating well. Feeling fatigued. Denies nausea, vomiting, diarrhea. Denies chest pain or shortness of breath. Social work is still attempting to place in an ECF. Objective - Vital Signs Vital signs: Vital Signs Temp Pulse Resp BP Pulse Ox 11/24/18 07:18 98.3 F 95 16 135/79 91 11/24/18 03:54 98.2 F 93 17 112/78 98 11/23/18 21:23 96 11/23/18 19:25 98.1 F 86 20 103/65 97 11/23/18 16:02 97.8 F 90 14 98/62 94 Intake and Output 11/23/18 11/24/18 11/24/18 23:59 07:59 15:59 Intake Total 240 / 240 Balance 240 / 240 Intake: Oral 240 / 240 Other: Meal Dinner Percent of Meal Consumed 15% Stool Size Moderate Stool Consistency soft Stool Characteristics Normal for Patient Stool Color Brown # Urine Diapers 1 # Bowel Movements 1 # Bowel Movement Diapers 1 Weight 97.8 kg Blood Glucose* 149 104 Patient Weight 11/24/18 23:59 Weight 97.8 kg - General Appearance General appearance: Present: well-developed, well-nourished EENT: Present: ATNC, hearing intact, vision intact Neck: Present: supple Respiratory: Present: clear Cardiology: Present: no edema, normal S1, normal S2 Dialysis Vascular Access: Arteriovenous Fistula thrill: Yes bruit: Yes Gastrointestinal: Present: normoactive bowel sounds, no tenderness, no guarding Integumentary: Present: no rash, warm and dry Neurologic: Present: alert and oriented x3 Musculoskeletal: Present: no deformities, no erythema Psychiatric: Present: mood/affect appropriate, cooperative - Lab 11/24/18 04:56 11/24/18 04:56 Most recent lab results 11/24/18 04:56 Calcium 11.1 H Consult Discharge Plan - Plan Instructions: Heart Failure (DC), Chest Pain (DC), Acute Respiratory Distress Syndrome (DC), Hemodialysis (DC), Dialysis Diet (DC), Diabetes Mellitus Type 2 in Adults (DC), Chronic Obstructive Pulmonary Disease (DC), Chronic Hypertension (DC), Anemia (GEN), Anxiety (DC), End-Stage Kidney Disease (GEN), Cigarette Smoking and Your Health, 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
[2018-11-24] MEDS: Methyl Salicylate/Menthol 57 APPL/57 GM TUBE TP SCH (10:47)
[2018-11-24] MEDS: Renal Vitamin 1 CAP CAPSULE PO SCH (11:09)
[2018-11-24] MEDS: Famotidine 20 MG TABLET PO SCH (11:09)
[2018-11-24] MEDS: Aspirin Enteric Coated 81 MG Tablet PO SCH (11:09)
--- NOTE | 2018-11-24 12:13 | Event Note ---
Date of Encounter: 11/24/18 Time of Encounter: 12:09 Orthopedics update - Hospitalist contacted me this morning about findings of psoas hematoma on a lumbar MRI that was ordered yesterday possibly contributing to patient's right hip pain. Hospitalist also mentioned new weakness in the right leg. Dr. Enrique has been contacted about the MRI results of the lumbar spine and he will see the patient in consultation to offer recommendations for further management. I have placed a call to IR for their input if the hematoma can be aspirated or not. I spoke with Dr. Templeton and he feels that this hematoma is possible to be aspirated if recommended in order to decrease pain/pressure being placed on surrounding nerves. Compared to MRI from 10/09 hematoma is noted to be smaller per report. He states this procedure can be set up on outpatient basis as needed. If procedure to be performed inpatient then patient would need to be NPO and anticoagulants stopped.
[2018-11-24] MEDS: Metoprolol XL (24 HR) Succ 25 MG TAB.ER.24H PO SCH (13:09)
[2018-11-24] MEDS: Isosorbide MONOnitrate (24 HR) 30 MG TAB.ER.24H PO SCH (13:09)
[2018-11-24] MEDS: traZODone 50 MG TABLET PO SCH (21:05)
[2018-11-24] MEDS: Insulin DETEMIR 100 UNIT/ML X5UNITS SQ SCH (21:05)
--- NOTE | 2018-11-24 23:22 | Spine Progress Note ---
Date of Encounter: 11/24/18 Time of Encounter: 17:10 - Assessment and Plan (1) Psoas hematoma, right, secondary to anticoagulant therapy Current Visit: Yes Status: Acute On exam he is lying in bed in mild distress secondary to right hip pain. Afebrile vital signs stable. Pupils equally round. Trachea midline. Chest excursion is symmetrical. Abdomen obese. He has weakness with hip flexion associated with pain. He also has pain with attempts of knee extension. He is otherwise grossly neurovascularly intact with regard to his bilateral lower ex tremities. His hips move symmetrically. There is no clonus. There is no cyanosis or edema. CT scan of the lumbar spine reveals a psoas hematoma on the right which is smaller in size compared to previous examination. There is a grade 1 spondylolisthesis L5-S1 and a spondylolysis of L5. He also has lumbar stenosis at L4-5 and L5-S1 Impression: 1) psoas hematoma right 2) weakness with hip flexion 3) spondylolisthesis L5-S1 4) lumbar stenosis Plan: I believe the bulk of his symptomatologies rated to his iliopsoas hematoma and weakness most likely occurring after his fall. He did state he was on anticoagulation at the time. With regard to his lumbar stenosis and spondylolisthesis this can be followed on an outpatient basis. He can follow-up in the spine Center in 2-3 weeks at which time he can see one of our interventional pain physicians for consideration of lumbar epidural steroid injections if symptoms persist. He could also be considered for EMG to see if lumbar radiculopathy is in part a contributing factor to his right lower extremity pain. I see no role for urgent surgical intervention at this time. Follow-up in spine Center in 3 weeks with physiatry or interventional pain management. Qualifiers: Encounter type: initial encounter Qualified Code(s): S30.1XXA - Contusion of abdominal wall, initial encounter (2) Spondylolisthesis at L5-S1 level Current Visit: Yes Status: Chronic (3) Lumbar stenosis Current Visit: Yes Status: Acute Qualifiers: Neurogenic claudication status: without neurogenic claudication Qualified Code(s): M48.061 - Spinal stenosis, lumbar region without neurogenic claudication Subjective Principal diagnosis: right hip pain Interval history: Mr. Sidhu is a 68 year old male presented to the ER 1 week ago for SOB and CP. He has h/o COPD, CHF, ESRD on hemodialysis, DM, HTN and recent TIA during admission. Patient states he tripped at home roughly 3 weeks ago landing on right hip and has had pain since that time in the right hip going down leg. States he has a chronic issue where his tailbone was fractured 20+ years ago and healed wrong according to patient and states he also had disc issues causing chronic numbness in legs. He states this recent fall was because his leg was numb and unable to feel when he tripped. States this is the first time this has happened. Pain is constant but worse with ambulating. He also has complaint of weakness in the right leg. Objective Vital signs: Vital Signs Temp Pulse Resp BP Pulse Ox 11/24/18 21:08 98.6 F 100 14 104/73 90 11/24/18 16:14 97.1 F L 100 16 98/64 93 11/24/18 12:35 97.8 F 18 96/66 11/24/18 12:15 133/104 11/24/18 12:00 103/93 11/24/18 11:45 98/65 11/24/18 11:30 99/69 11/24/18 11:15 102/84 11/24/18 11:00 96/65 11/24/18 10:45 105/86 11/24/18 10:30 114/85 11/24/18 10:15 99/64 11/24/18 10:00 92/64 11/24/18 09:45 83/60 11/24/18 09:30 99/68 11/24/18 09:15 114/91 11/24/18 09:00 125/80 11/24/18 08:45 98.1 F 16 122/83 11/24/18 07:18 98.3 F 95 16 135/79 91 11/24/18 03:54 98.2 F 93 17 112/78 98 Intake and Output 11/24/18 11/24/18 11/24/18 07:59 15:59 23:59 Intake Total 960 / 1420 460 / 1420 Output Total 2600 / 2600 Balance -1640 / -1180 460 / -1180 Intake: Oral 360 / 820 460 / 820 Intake, Rinseback and Flushes 600 / 600 Output: Total Dialysis (HD) Output 2600 / 2600 Other: Meal Lunch Dinner Percent of Meal Consumed 5% 10% # Urine Diapers 1 Weight 97.8 kg Blood Glucose* 104 118 192 Hemodialysis Net Fluid Removed 2000 (mL) Patient Weight 11/24/18 23:59 Weight 97.8 kg - Labs CBC & BMP: 11/24/18 04:56 11/24/18 04:56 Labs: Abnormal lab results RBC 3.89 M/mcL (4.19-5.50) L 11/24/18 04:56 Hgb 11.6 g/dL (12.9-16.9) L 11/24/18 04:56 Hct 37.4 % (37.5-50.1) L 11/24/18 04:56 MCHC 31.0 g/dL (31.6-35.5) L 11/24/18 04:56 RDW 15.5 % (11.5-14.5) H 11/24/18 04:56 Plt Count 138 K/mcL (140-400) L 11/13/18 02:53 Heparin Anti-Xa, Unfract 0.02 IU/mL (0.30-0.70) L 11/19/18 06:38 Sodium 132 mEq/L (136-145) L 11/24/18 04:56 Chloride 96 mEq/L (98-107) L 11/24/18 04:56 Carbon Dioxide 30 mEq/L (23-29) H 11/23/18 03:11 BUN 55 mg/dL (8-23) H 11/24/18 04:56 Creatinine 6.12 mg/dL (0.70-1.30) H 11/24/18 04:56 Est GFR ( Amer) 11 (> 60) L 11/24/18 04:56 Est GFR (Non-Af Amer) 9 (> 60) L 11/24/18 04:56 Glucose 169 mg/dL (70-105) H 11/23/18 03:11 POC Glucose 149 mg/dL (70-99) H 11/23/18 20:30 Hemoglobin A1c 6.0 % (-5.6) H 11/10/18 06:26 Calculated Osmolality 301 (280-300) H 11/19/18 06:38 Calcium 11.1 mg/dL (8.6-10.3) H 11/24/18 04:56 AST 11 Units/L (13-39) L 11/23/18 03:11 Troponin I 0.04 ng/mL (< 0.04) H* 11/22/18 11:00 B-Natriuretic Peptide 2635 pg/mL (Less than 100) H 11/10/18 06:36 Urine Protein >=300 mg/dL (Neg-Trace) H 11/10/18 08:01 Urine Glucose (UA) 250 mg/dL (Normal) H 11/10/18 08:01 Urine Blood Small (Negative) H 11/10/18 08:01 Urine Microscopic RBC 3-5 per hpf (0-3) H 11/10/18 08:01 Urine Microscopic WBC 3-5 per hpf (0-3) H 11/10/18 08:01 Ur Squamous Epith Cells Many per lpf (None-Few) H 11/10/18 08:01 Consult Discharge Plan - Plan Instructions: Heart Failure (DC), Chest Pain (DC), Acute Respiratory Distress Syndrome (DC), Hemodialysis (DC), Dialysis Diet (DC), Diabetes Mellitus Type 2 in Adults (DC), Chronic Obstructive Pulmonary Disease (DC), Chronic Hypertension (DC), Anemia (GEN), Anxiety (DC), End-Stage Kidney Disease (GEN), Cigarette Smoking and Your Health, [place] Nurse (GEN) Additional Instructions: Continue routine HD sessions MWF 1.8 L daily fluid restriction [facility]: [facility] [Primary Care Provider] -
[2018-11-25 05:08] LABS: Hematocrit 39.6 % (37.5-50.1); Hemoglobin 12.2 g/dL (12.9-16.9); Mean Corpuscular HGB Conc 30.8 g/dL (31.6-35.5); Mean Corpuscular Hemoglobin 29.7 pg (28.0-33.3); Mean Corpuscular Volume 96.4 fL (83.0-100.0); Platelet Count 150 K/mcL (140-400); Red Blood Count 4.11 M/mcL (4.19-5.50); Red Cell Distribution Width 15.7 % (11.5-14.5); White Blood Count 6.9 K/mcL (4.3-11.1)
[2018-11-25 05:52] LABS: Potassium 4.8 mEq/L (3.5-5.1)
--- NOTE | 2018-11-25 09:44 | Nephrology Progress Note ---
Date of Encounter: 11/25/18 Time of Encounter: 09:44 - Assessment and Plan (1) CHF (congestive heart failure) Current Visit: Yes Status: Resolved Qualifiers: Heart failure type: systolic Heart failure chronicity: acute on chronic Qualified Code(s): I50.23 - Acute on chronic systolic (congestive) heart failure (2) ESRD (end stage renal disease) on dialysis Current Visit: Yes Status: Chronic Continue HD with UF as tolerated. Continue renal diet Continue fluid restriction Lytes stable Pt desires more PT (3) Anxiety and depression Current Visit: Yes Status: Chronic (4) TIA (transient ischemic attack) Current Visit: Yes Status: Acute Subjective Principal diagnosis: right hip pain Interval history: Patient seen. No new complaint. Objective - Vital Signs Vital signs: Vital Signs Temp Pulse Resp BP Pulse Ox 11/25/18 06:31 79.9 F L 97 126/80 11/25/18 05:39 98.6 F 96 14 118/70 92 11/24/18 21:08 98.6 F 100 14 104/73 90 11/24/18 16:14 97.1 F L 100 16 98/64 93 11/24/18 12:35 97.8 F 18 96/66 11/24/18 12:15 133/104 11/24/18 12:00 103/93 11/24/18 11:45 98/65 11/24/18 11:30 99/69 11/24/18 11:15 102/84 11/24/18 11:00 96/65 11/24/18 10:45 105/86 11/24/18 10:30 114/85 11/24/18 10:15 99/64 11/24/18 10:00 92/64 11/24/18 09:45 83/60 Intake and Output 11/24/18 11/25/18 11/25/18 23:59 07:59 15:59 Intake Total 460 / 1420 0 / 240 240 / 240 Balance 460 / -1180 0 / 240 240 / 240 Intake: Oral 460 / 820 0 / 240 240 / 240 Other: Meal Dinner Breakfast Percent of Meal Consumed 10% 100% Weight 96.5 kg Blood Glucose* 192 129 Patient Weight 11/25/18 23:59 Weight 96.5 kg - General Appearance General appearance: Present: well-developed, well-nourished EENT: Present: ATNC Neck: Present: supple Cardiology: Present: regular rate Integumentary: Present: warm and dry - Lab 11/27/18 04:06 11/27/18 04:06 Most recent lab results 11/25/18 04:47 Calcium 11.0 H Consult Discharge Plan - Plan Instructions: Heart Failure (DC), Chest Pain (DC), Acute Respiratory Distress Syndrome (DC), Hemodialysis (DC), Dialysis Diet (DC), Diabetes Mellitus Type 2 in Adults (DC), Chronic Obstructive Pulmonary Disease (DC), Chronic Hypertension (DC), Anemia (GEN), Anxiety (DC), End-Stage Kidney Disease (GEN), Cigarette Smoking and Your Health, 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
--- NOTE | 2018-11-25 09:52 | Internal Med Progress Note ---
Hospitalist Progress Note - Encounter Date of Encounter: 11/25/18 Time of Encounter: 09:50 - Subjective Interval History: The patient was seen and examined at the bedside Continue to have weakness of right hip flexion with pain Plan for IR guided psoas muscle hematoma aspiration - Exam Vitals: Temp Pulse Resp BP Pulse Ox 79.9 F L 97 14 126/80 92 11/25/18 06:31 11/25/18 06:31 11/25/18 05:39 11/25/18 06:31 11/25/18 05:39 Exam: . General: Patient is alert, oriented 3. Head: Atraumatic, normal inspection, normocephalic. Eye: EOMI, PERRLA, no scleral icterus noted. Neck: Normal inspection,. Respiratory: No respiratory distress, rhonchi, or wheezes noted. Cardiovascular: Regular rate , S1 and S2 audible. No murmurs, rubs, or gallops. GI: Soft, nondistended, normal bowel sounds. Extremities:No joint swelling,. Range of motion in right lower extremity is restricted and limited due to pain, patient is unable to lift his right leg Neurological: Alert, oriented 3, right leg weakness mainly flexion movement 2/5 compared to the left leg CN II-XII is normal. , Patient able to move his upper limbs Skin: Dry, intact, warm. Normal color. No rashes. DVT Prophylaxis: SCD - Summary of Assessment and Plan Summary of Assessment and Plan: Mr Willett has pmhx systolic CHF, CAD s/p CABG, DM on insulin, ESRD on HD MWF, HTN, Valvular disease, Anxiety, depression and tobacco dependence. He presented with fluid overload secondary to non compliance with home fluid restriction and dialysis. Right hip pain with hip flexion weakness and lower back pain MRI of lumbar spine show 1. Spondylolysis of L5 with grade 1 anterolisthesis of L5 on S1. 2. No significant spinal canal stenosis of the lumbar spine. 3. Neural foraminal narrowing at L4-L5 and L5-S1 as above. 4. Interval decrease in the hematoma involving the right psoas musculature. 5. There is nonspecific stranding involving the soft tissues of the left retroperitoneum. I spoke with orthopedic team, plan for IR guided aspiration of hematoma d/c heparin , placed on SCD for DVT PPX H stable probably need outpatient neurosurgery evaluation, - Patient sustained a fall at home before presentation, he has right sided hip pain and right lower extremity weakness - Right hip x-ray revealed subtle sclerosis of the right femoral neck which could indicate nondisplaced fracture or normal variant trabecular pattern, MRI of the head did not reveal any fracture. It showed contracted muscle. - Workup MRI of the brain was negative, carotid Dopplers revealed calcified plauqes in the right and the left carotids but no stenosis noted , echo showed ejection fraction 40% - on aspirin and continue Lipitor at 40 mg. - Acute on Chronic decompensated HFrEF 45%, resolved with HD -2/2 non compliance with ESRD fluid restriction and Acute on chronic systolic CH - cont toprol XL ESRD on HD MWF -ESRD as per nephro, daily weights, got his session yesterday. -Nephrology team is following. Appreciate recommendations -Continue renal diet Trop Elevation: - Type 2 event 2/2 decompensated heart failure and ESRD, his troponin levels were less than previous admissions, has chronic troponin elevation due to ESRD - EKG without acute ischemic changes, adynamic mildly elevated trop - f/u with established cards on dc CAD s/p PCI and CABG- Continue asa, statin, imdur, and toprol. DM- cont SSI, home long acting is 38units HS, was on 10 units while in the hospital, increased his dose to 20 units. Continue to check his BJM before meals and at bedtime HTN,BP at goal- cont meds as above Anx/Depression- cont nortriptyline, trazadone Tobacco dependence- cessation education, refused nicotine patch vte heparin sc Disposition: inaptient, He is awaiting new SNF placement. Discharge tomorrow - Time Spent with Patient Total time spent is greater than 50% in coordination of care (as documented) at patient's floor/unit and/or counseling patient: Internal Medicine: Result - Labs CBC & Chem 7: 11/25/18 04:47 11/25/18 04:47 Labs: Short CBC 11/25/18 Range/Units 04:47 WBC 6.9 (4.3-11.1) K/mcL Hgb 12.2 L (12.9-16.9) g/dL Hct 39.6 (37.5-50.1) % Plt Count 150 (140-400) K/mcL BMP 11/25/18 04:47 Sodium 137 Potassium 4.8 Chloride 93 L Carbon Dioxide 34 H BUN 38 H Creatinine 4.72 H Glucose 137 H Calcium 11.0 H - ABG Interpretation ABG results: PT/INR, D-dimer PT 9.7 Seconds (9.4-12.1) 11/19/18 06:38 Consult Discharge Plan - Plan Instructions: Heart Failure (DC), Chest Pain (DC), Acute Respiratory Distress Syndrome (DC), Hemodialysis (DC), Dialysis Diet (DC), Diabetes Mellitus Type 2 in Adults (DC), Chronic Obstructive Pulmonary Disease (DC), Chronic Hypertension (DC), Anemia (GEN), Anxiety (DC), End-Stage Kidney Disease (GEN), Cigarette Smoking and Your Health, 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
[2018-11-25] MEDS: Insulin LISPRO 300 UNITS/3 ML VIAL SQ SCH ×4 (11:32→20:59)
[2018-11-25] MEDS: Famotidine 20 MG TABLET PO SCH (11:39)
[2018-11-25] MEDS: Metoprolol XL (24 HR) Succ 25 MG TAB.ER.24H PO SCH (11:44)
[2018-11-25] MEDS: Isosorbide MONOnitrate (24 HR) 30 MG TAB.ER.24H PO SCH (11:44)
[2018-11-25] MEDS: Aspirin Enteric Coated 81 MG Tablet PO SCH (11:44)
[2018-11-25] MEDS: Methyl Salicylate/Menthol 57 APPL/57 GM TUBE TP SCH (11:44)
[2018-11-25] MEDS: Renal Vitamin 1 CAP CAPSULE PO SCH (11:44)
[2018-11-25] MEDS: Artificial Tears SOLN 15 ML BOTTLE BOTH EYES SCH ×3 (11:45→20:59)
[2018-11-25] MEDS: traMADol 50 MG TABLET PO PRN (13:38)
[2018-11-25] MEDS: Insulin DETEMIR 100 UNIT/ML X5UNITS SQ SCH (21:05)
[2018-11-25] MEDS: traZODone 50 MG TABLET PO SCH (21:05)
[2018-11-26 06:46] LABS: Hematocrit 36.3 % (37.5-50.1); Hemoglobin 11.1 g/dL (12.9-16.9); Mean Corpuscular HGB Conc 30.6 g/dL (31.6-35.5); Mean Corpuscular Hemoglobin 29.1 pg (28.0-33.3); Mean Corpuscular Volume 95.3 fL (83.0-100.0); Mean Platelet Volume 11.6 fL (9.4-12.4); Platelet Count 145 K/mcL (140-400); Red Blood Count 3.81 M/mcL (4.19-5.50); Red Cell Distribution Width 15.4 % (11.5-14.5); White Blood Count 6.5 K/mcL (4.3-11.1)
[2018-11-26 07:05] LABS: Calcium 11.3 mg/dL (8.6-10.3); Potassium 4.4 mEq/L (3.5-5.1)
--- NOTE | 2018-11-26 10:56 | Internal Med Progress Note ---
Hospitalist Progress Note - Encounter Date of Encounter: 11/26/18 Time of Encounter: 10:55 - Subjective Interval History: The patient was seen and examined at the bedside Patient feels wells no events overnight Plan for IR guided aspiration of psoas hematoma - Exam Vitals: Temp Pulse Resp BP Pulse Ox 97.6 F 86 18 123/72 91 11/26/18 07:01 11/26/18 07:01 11/25/18 20:26 11/26/18 07:01 11/25/18 20:26 Exam: . General: Patient is alert, oriented 3. Head: Atraumatic, normal inspection, normocephalic. Eye: EOMI, PERRLA, no scleral icterus noted. Neck: Normal inspection,. Respiratory: No respiratory distress, rhonchi, or wheezes noted. Cardiovascular: Regular rate , S1 and S2 audible. No murmurs, rubs, or gallops. GI: Soft, nondistended, normal bowel sounds. Extremities:No joint swelling,. Range of motion in right lower extremity is res tricted and limited due to pain, patient is unable to lift his right leg Neurological: Alert, oriented 3, right leg weakness mainly flexion movement 2/5 compared to the left leg CN II-XII is normal. , Patient able to move his upper limbs Skin: Dry, intact, warm. Normal color. No rashes. DVT Prophylaxis: SCD - Summary of Assessment and Plan Summary of Assessment and Plan: Mr Willett has pmhx systolic CHF, CAD s/p CABG, DM on insulin, ESRD on HD MWF, HTN, Valvular disease, Anxiety, depression and tobacco dependence. He presented with fluid overload secondary to non compliance with home fluid restriction and dialysis. Right hip pain with hip flexion weakness and lower back pain MRI of lumbar spine show 1. Spondylolysis of L5 with grade 1 anterolisthesis of L5 on S1. 2. No significant spinal canal stenosis of the lumbar spine. 3. Neural foraminal narrowing at L4-L5 and L5-S1 as above. 4. Interval decrease in the hematoma involving the right psoas musculature. 5. There is nonspecific stranding involving the soft tissues of the left retroperitoneum. I spoke with orthopedic team, plan for IR guided aspiration of hematoma d/c heparin , placed on SCD for DVT PPX H stable probably need outpatient neurosurgery evaluation, - Patient sustained a fall at home before presentation, he has right sided hip pain and right lower extremity weakness - Right hip x-ray revealed subtle sclerosis of the right femoral neck which could indicate nondisplaced fracture or normal variant trabecular pattern, MRI of the head did not reveal any fracture. It showed contracted muscle. - Workup MRI of the brain was negative, carotid Dopplers revealed calcified plauqes in the right and the left carotids but no stenosis noted , echo showed ejection fraction 40% - on aspirin and continue Lipitor at 40 mg. - Acute on Chronic decompensated HFrEF 45%, resolved with HD -2/2 non compliance with ESRD fluid restriction and Acute on chronic systolic CH - cont toprol XL ESRD on HD MWF -ESRD as per nephro, daily weights, got his session yesterday. -Nephrology team is following. Appreciate recommendations -Continue renal diet Trop Elevation: - Type 2 event 2/2 decompensated heart failure and ESRD, his troponin levels were less than previous admissions, has chronic troponin elevation due to ESRD - EKG without acute ischemic changes, adynamic mildly elevated trop - f/u with established cards on dc CAD s/p PCI and CABG- Continue asa, statin, imdur, and toprol. DM- cont SSI, home long acting is 38units HS, was on 10 units while in the hospital, increased his dose to 20 units. Continue to check his BJM before meals and at bedtime HTN,BP at goal- cont meds as above Anx/Depression- cont nortriptyline, trazadone Tobacco dependence- cessation education, refused nicotine patch vte heparin sc Disposition: inaptient, He is awaiting new SNF placement. Discharge tomorrow - Time Spent with Patient Total time spent is greater than 50% in coordination of care (as documented) at patient's floor/unit and/or counseling patient: Internal Medicine: Result - Labs CBC & Chem 7: 11/26/18 05:38 11/26/18 05:38 Labs: Short CBC 11/26/18 Range/Units 05:38 WBC 6.5 (4.3-11.1) K/mcL Hgb 11.1 L (12.9-16.9) g/dL Hct 36.3 L (37.5-50.1) % Plt Count 145 (140-400) K/mcL BMP 11/26/18 05:38 Sodium 133 L Potassium 4.4 Chloride 91 L Carbon Dioxide 32 H BUN 55 H Creatinine 6.31 H Glucose 150 H Calcium 11.3 H - ABG Interpretation ABG results: PT/INR, D-dimer PT 9.7 Seconds (9.4-12.1) 11/19/18 06:38 Consult Discharge Plan - Plan Instructions: Heart Failure (DC), Chest Pain (DC), Acute Respiratory Distress Syndrome (DC), Hemodialysis (DC), Dialysis Diet (DC), Diabetes Mellitus Type 2 in Adults (DC), Chronic Obstructive Pulmonary Disease (DC), Chronic Hypertension (DC), Anemia (GEN), Anxiety (DC), End-Stage Kidney Disease (GEN), Cigarette Smoking and Your Health, Picture Hanger (GEN) Additional Instructions: Continue routine HD sessions MWF 1.8 L daily fluid restriction [facility]errals: [facility] [Primary Care Provider] -
[2018-11-26] MEDS: Artificial Tears SOLN 15 ML BOTTLE BOTH EYES SCH ×3 (11:04→21:21)
[2018-11-26] MEDS: Insulin LISPRO 300 UNITS/3 ML VIAL SQ SCH ×4 (11:04→21:23)
[2018-11-26] MEDS: Aspirin Enteric Coated 81 MG Tablet PO SCH (11:11)
[2018-11-26] MEDS: Famotidine 20 MG TABLET PO SCH (11:11)
[2018-11-26] MEDS: Metoprolol XL (24 HR) Succ 25 MG TAB.ER.24H PO SCH (11:12)
[2018-11-26] MEDS: Renal Vitamin 1 CAP CAPSULE PO SCH (11:13)
[2018-11-26] MEDS: Methyl Salicylate/Menthol 57 APPL/57 GM TUBE TP SCH (11:13)
[2018-11-26] MEDS: Isosorbide MONOnitrate (24 HR) 30 MG TAB.ER.24H PO SCH (11:13)
[2018-11-26] MEDS: traMADol 50 MG TABLET PO PRN (16:24)
[2018-11-26] MEDS: Insulin DETEMIR 100 UNIT/ML X5UNITS SQ SCH (21:24)
[2018-11-26] MEDS: traZODone 50 MG TABLET PO SCH (21:24)
[2018-11-27 04:43] LABS: Hematocrit 35.7 % (37.5-50.1); Hemoglobin 11.1 g/dL (12.9-16.9); Mean Corpuscular HGB Conc 31.1 g/dL (31.6-35.5); Mean Corpuscular Hemoglobin 29.2 pg (28.0-33.3); Mean Corpuscular Volume 93.9 fL (83.0-100.0); Mean Platelet Volume 11.2 fL (9.4-12.4); Platelet Count 149 K/mcL (140-400); Red Cell Distribution Width 15.3 % (11.5-14.5); White Blood Count 7.8 K/mcL (4.3-11.1)
[2018-11-27 05:05] LABS: Albumin 3.7 g/dL (3.5-5.7); Albumin/Globulin Ratio 1.4 (1.1-2.2); Bilirubin,Total 0.5 mg/dL (0.3-1.0); Calcium 10.9 mg/dL (8.6-10.3); Globulin 2.6 g/dL (2.4-3.5); Magnesium 2.5 mg/dL (1.6-2.6); Phosphorous 5.2 mg/dL (2.7-4.5); Potassium 4.8 mEq/L (3.5-5.1); Total Protein 6.3 g/dL (6.4-8.9)
[2018-11-27] MEDS: Artificial Tears SOLN 15 ML BOTTLE BOTH EYES SCH ×3 (08:22→19:52)
[2018-11-27] MEDS: Methyl Salicylate/Menthol 57 APPL/57 GM TUBE TP SCH (08:23)
[2018-11-27] MEDS: Insulin LISPRO 300 UNITS/3 ML VIAL SQ SCH ×4 (08:23→19:47)
[2018-11-27] MEDS: Famotidine 20 MG TABLET PO SCH (08:30)
[2018-11-27] MEDS: Aspirin Enteric Coated 81 MG Tablet PO SCH (08:30)
[2018-11-27] MEDS: Isosorbide MONOnitrate (24 HR) 30 MG TAB.ER.24H PO SCH (08:32)
[2018-11-27] MEDS: Renal Vitamin 1 CAP CAPSULE PO SCH (08:35)
[2018-11-27] MEDS ORDERED: 0.9 % Sodium Chloride 1,000 ML ONE (08:48)
[2018-11-27] MEDS ORDERED: 0.9 % Sodium Chloride 250 ML IVC PRN (09:19)
--- NOTE | 2018-11-27 10:19 | Nephrology Progress Note ---
Date of Encounter: 11/27/18 Time of Encounter: 10:16 - Assessment and Plan (1) CHF (congestive heart failure) Current Visit: Yes Status: Resolved Per primary. Qualifiers: Heart failure type: systolic Heart failure chronicity: acute on chronic Qualified Code(s): I50.23 - Acute on chronic systolic (congestive) heart failure (2) ESRD (end stage renal disease) on dialysis Current Visit: Yes Status: Chronic Continue HD with UF as tolerated. HD in progress for today. Continue renal diet Continue fluid restriction Lytes stable Pt desires more PT (3) Anxiety and depression Current Visit: Yes Status: Chronic Per primary. (4) TIA (transient ischemic attack) Current Visit: Yes Status: Acute Neurology on board, appreciate recommendations. Subjective Principal diagnosis: right hip pain Interval history: Pt seen and examined during HD, tolerating well. Raw feeling okay. Denies nausea, vomiting, diarrhea. Denies chest pain or shortness of breath. Social work is still attempting to place in an ECF. Objective - Vital Signs Vital signs: Vital Signs Temp Pulse Resp BP Pulse Ox 11/27/18 07:16 98.1 F 96 17 124/80 95 11/27/18 04:32 98.5 F 93 16 134/86 92 11/26/18 18:56 97.2 F L 95 18 121/76 90 11/26/18 15:13 97.5 F L 100 110/76 Intake and Output 11/26/18 11/27/18 11/27/18 23:59 07:59 15:59 Intake Total 240 / 240 Balance 240 / 240 Intake: Oral 240 / 240 Other: Meal Dinner Breakfast Percent of Meal Consumed 20% 15% Stool Size Large Stool Consistency soft formed Stool Color Brown # Urine Diapers 1 # Bowel Movement Diapers 1 Weight 96.2 kg Blood Glucose* 172 123 Patient Weight 11/27/18 23:59 Weight 96.2 kg - General Appearance General appearance: Present: well-developed, well-nourished EENT: Present: ATNC, hearing intact, vision intact Neck: Present: supple Respiratory: Present: clear Cardiology: Present: no edema, normal S1, normal S2 Dialysis Vascular Access: Arteriovenous Fistula thrill: Yes bruit: Yes Gastrointestinal: Present: normoactive bowel sounds, no tenderness, no guarding Integumentary: Present: no rash, warm and dry Neurologic: Present: alert and oriented x3 Musculoskeletal: Present: no deformities, no erythema Psychiatric: Present: mood/affect appropriate, cooperative - Lab 11/27/18 04:06 11/27/18 04:06 Most recent lab results 11/27/18 04:06 Calcium 10.9 H Phosphorus 5.2 H Magnesium 2.5 Consult Discharge Plan - Plan Instructions: Heart Failure (DC), Chest Pain (DC), Acute Respiratory Distress Syndrome (DC), Hemodialysis (DC), Dialysis Diet (DC), Diabetes Mellitus Type 2 in Adults (DC), Chronic Obstructive Pulmonary Disease (DC), Chronic Hypertension (DC), Anemia (GEN), Anxiety (DC), End-Stage Kidney Disease (GEN), Cigarette Smoking and Your Health, 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
--- NOTE | 2018-11-27 10:43 | Discharge Summary ---
Orders not resulted at time of discharge: Pending orders 11/28/18 04:00 Basic Metabolic Panel AM 0400 CBC no Diff [Complete Blood Count w/o Diff] [HEME] AM 04011/29/18 04:00 Basic Metabolic Panel AM 0400 CBC no Diff [Complete Blood Count w/o Diff] [HEME] AM 04011/30/18 04:00 Basic Metabolic Panel AM 0400 CBC no Diff [Complete Blood Count w/o Diff] [HEME] AM 040 Date of Encounter: 11/27/18 Time of Encounter: 10:38 - Discharge Diagnosis (1) Hip pain, right Priority: Primary Status: Acute Assessment and Plan: Right hip pain with hip flexion weakness and lower back pain MRI of lumbar spine show 1. Spondylolysis of L5 with grade 1 anterolisthesis of L5 on S1. 2. No significant spinal canal stenosis of the lumbar spine. 3. Neural foraminal narrowing at L4-L5 and L5-S1 as above. 4. Interval decrease in the hematoma involving the right psoas musculature. 5. There is nonspecific stranding involving the soft tissues of the left retroperitoneum. I spoke with orthopedic team, plan for IR guided aspiration of hematoma d/c heparin , placed on SCD for DVT PPX H stable probably need outpatient neurosurgery evaluation, - Patient sustained a fall at home before presentation, he has right sided hip pain and right lower extremity weakness - Right hip x-ray revealed subtle sclerosis of the right femoral neck which could indicate nondisplaced fracture or normal variant trabecular pattern, MRI of the head did not reveal any fracture. It showed contracted muscle. - Workup MRI of the brain was negative, carotid Dopplers revealed calcified plauqes in the right and the left carotids but no stenosis noted , echo showed ejection fraction 40% - on aspirin and continue Lipitor at 40 mg. - Acute on Chronic decompensated HFrEF 45%, resolved with HD -2/2 non compliance with ESRD fluid restriction and Acute on chronic systolic CH - cont toprol XL ESRD on HD MWF -ESRD as per nephro, daily weights, got his session yesterday. -Nephrology team is following. Appreciate recommendations -Continue renal diet Trop Elevation: - Type 2 event 2/2 decompensated heart failure and ESRD, his troponin levels were less than previous admissions, has chronic troponin elevation due to ESRD - EKG without acute ischemic changes, adynamic mildly elevated trop - f/u with established cards on dc CAD s/p PCI and CABG- Continue asa, statin, imdur, and toprol. DM- cont SSI, home long acting is 38units HS, was on 10 units while in the hospital, increased his dose to 20 units. Continue to check his BJM before meals and at bedtime HTN,BP at goal- cont meds as above Anx/Depression- cont nortriptyline, trazadone Tobacco dependence- cessation education, refused nicotine patch Hospital course: Mr. Sidhu is a 68 year old male with history of end-stage renal disease on hemodialysis state of congestive heart failure diabetes high blood pressure was admitted because of volume overload, telephone services sales representative consulted on the patient arrange for that urgent hemodialysis to optimize ultrafiltration for fluid removal. Also the patient complained of right hip pain with hip flexion weakness, thought initially at the fracture however MRI of hip joint negative, then MRI of lumbar spine show Spondylolysis of L5 with grade 1 anterolisthesis of L5 on S1. 2. No significant spinal canal stenosis of the lumbar spine. 3. Neural foraminal narrowing at L4-L5 and L5-S1 as above. 4. Interval decrease in the hematoma involving the right psoas musculature. 5. There is nonspecific stranding involving the soft tissues of the left retroperitoneum. Orthopedics consulted, advise outpatient iron guided aspiration of hematoma to improve the hip pain and to improve range of movement Patient sustained a fall at home before presentation which is most likely the cause of psoas hematoma On the date of discharge the patient feels better no chest pain or shortness of breath the patient denied any hip pain and range of the hip movement is improved Patient [facility] follow up with her primary care in 1 week and follow up for the possible guided aspiration of psoas hematoma - Time Spent with Patient Total time spent providing and/or coordinating discharge services: 34 min - Discharge Medications Prescriptions: New Insulin DETEMIR [Levemir] 20 unit SQ HS [id number] Continued Nitroglycerin [Nitrostat] 0.4 mg SL Q5MIN PRN #0 PRN Reason: Chest Pain Sevelamer HCl [Renagel] 2,400 mg PO TID Docusate [Colace] 200 mg PO DAILY Isosorbide MONOnitrate (24 HR) [Imdur] 30 mg PO DAILY Acetaminophen [Tylenol] 1,000 mg PO Q6HR PRN PRN Reason: Pain Atorvastatin [Lipitor] 40 mg PO HS GuaiFENesin/Dextromethorphan [Mucinex Dm] 1 tab PO BID PRN PRN Reason: Cough Insulin LISPRO [HumaLOG] 0 units SQ AD Menthol [Bengay Ultra Strength] 1 patch TP DAILY Metoprolol Succinate [Toprol Xl] 12.5 mg PO DAILY Nortriptyline [Pamelor] 10 mg PO HS Omeprazole [PriLOSEC] 20 mg PO DAILY Polyethylene Glycol 3350 [MiraLax bowel prep] 17 gm PO DAILY Propylene Glycol/Peg 400 [Systane 0.3-0.4% Eye Drops] 1 drop BOTH EYES TID Tramadol HCl [Ultram] 50 mg PO Q12H PRN PRN Reason: Pain Trazodone HCl 300 mg PO HS B Complex W-C No.20/Folic Acid [Virt-Caps Softgel] 1 mg PO DAILY Glucagon,Human Recombinant [Glucagen] 1 mg IJ AD PRN PRN Reason: BLOOD GLUCOSE Lidocaine Patch [Lidoderm 5% patch] 1 patch TP DAILY PRN PRN Reason: Breakthrough Pain Ranitidine HCl [Acid Senior Network Engineer] 150 mg PO DAILY Discontinued Insulin Glargine,Hum.rec.anlog [Basaglar Kwikpen U-100] 38 unit SQ HS Home Medications: Nitroglycerin [Nitrostat] 0.4 mg SL Q5MIN PRN #0 09/15/17 [Rx] Sevelamer HCl [Renagel] 2,400 mg PO TID 04/29/18 [History] Docusate [Colace] 200 mg PO DAILY 09/11/18 [History] Isosorbide MONOnitrate (24 HR) [Imdur] 30 mg PO DAILY 09/11/18 [History] Acetaminophen [Tylenol] 1,000 mg PO Q6HR PRN 10/18/18 [History] Atorvastatin [Lipitor] 40 mg PO HS 10/18/18 [History] GuaiFENesin/Dextromethorphan [Mucinex Dm] 1 tab PO BID PRN 10/18/18 [History] Insulin LISPRO [HumaLOG] 0 units SQ AD 10/18/18 [History] Menthol [Bengay Ultra Strength] 1 patch TP DAILY 10/18/18 [History] Metoprolol Succinate [Toprol Xl] 12.5 mg PO DAILY 10/18/18 [History] Nortriptyline [Pamelor] 10 mg PO HS 10/18/18 [History] Omeprazole [PriLOSEC] 20 mg PO DAILY 10/18/18 [History] Polyethylene Glycol 3350 [MiraLax bowel prep] 17 gm PO DAILY 10/18/18 [History] Propylene Glycol/Peg 400 [Systane 0.3-0.4% Eye Drops] 1 drop BOTH EYES TID 10/18/18 [History] Tramadol HCl [Ultram] 50 mg PO Q12H PRN 10/18/18 [History] Trazodone HCl 300 mg PO HS 10/18/18 [History] B Complex W-C No.20/Folic Acid [Virt-Caps Softgel] 1 mg PO DAILY 11/10/18 [History] Glucagon,Human Recombinant [Glucagen] 1 mg IJ AD PRN 11/11/18 [History] Lidocaine Patch [Lidoderm 5% patch] 1 patch TP DAILY PRN 11/11/18 [History] Ranitidine HCl [Acid Senior Network Engineer] 150 mg PO DAILY 11/11/18 [History] Insulin DETEMIR [Levemir] 20 unit SQ HS [id number] 11/27/18 [Rx] Allergies/Adverse Reactions: Allergy/AdvReac Type Severity Reaction Status Date / Time diphenhydramine Allergy Rash Verified 09/11/18 20:49 [From Benadryl] meperidine AdvReac Nausea Verified 09/11/18 20:49 morphine AdvReac Nausea Verified 09/11/18 20:49 Date of admission: 11/10/18 15:15 [facility] care physician: [facility] Consults: 11/10/18 08:09 Consult to Nephrology [CONS] Stat Consulting Provider: [facility] Radha/HARRIET/RUY/CHERELLE Reason for Consult: ESRD on HD Time Notified: 08:10 Call Completed: Yes 11/10/18 08:15 Consult to Dialysis [CONS] ONCE 11/12/18 07:46 Consult to Case Management [CONS] Routine Comment: assess home needs, anticipate dc 11/1311/12/18 11:41 Consult to [facility] [place] [CONS] Routine Reason for SW Consult: pt does not want to go back to [place], family noting [place] [facility] placement, medically stable for dc 11/13/18 07:15 Consult to Dialysis [CONS] ONCE 11/15/18 08:00 Consult to Dialysis [CONS] ONCE 11/17/18 08:30 Consult to Dialysis [CONS] ONCE 11/19/18 10:32 Consult to Neurology [CONS] Routine Consulting Provider: [facility] Reason for Consult: possible TIA Call Completed: Yes 11/19/18 12:39 Consult to Orthopedic Surgery [CONS] Routine Consulting Provider: Orthopedics [facility] Reason for Consult: possible nondisplaced fracture of the right femoral neck Call Completed: Yes 11/20/18 03:21 Consult to Occupational Therapy [CONS] Routine Comment: Evaluate, develop and implement POC Reason for Consult: Patient reports right LE and hip pain. Pt. has fx. States he was ge tting PT which was helping his symptoms but now that he has been in the hospital, he has not had PT or OT and he is becoming worse. Pt. wishes to continue to improve and is frustrated. Please assess pt. for rehabilitation needs for post-discharge planning. Does patient have active BEDREST order?: No Is patient medically & hemodynamically stable?: Yes Patient assessed for mobility or mobilized this visit?: No Consult to Physical Therapy [CONS] Routine Comment: Evaluate, develop and implement POC Reason for Consult: Patient reports right LE and hip pain. Pt. has fx. States he was getting PT which was helping his symptoms but now that he has been in the hospital, he has not had PT or OT and he is becoming worse. Pt. wishes to continue to improve and is frustrated. Please assess pt. for rehabilitation needs for post-discharge planning. Does patient have active BEDREST order?: No Is patient medically & hemodynamically stable?: Yes Patient assessed for mobility or mobilized this visit?: No 11/20/18 07:45 Consult to Dialysis [CONS] ONCE 11/22/18 07:45 Consult to Dialysis [CONS] ONCE 11/24/18 08:30 Consult to Dialysis [CONS] ONCE 11/27/18 09:30 Consult to Dialysis [CONS] ONCE - Constitutional Vitals: Temp Pulse Resp BP Pulse Ox 98.1 F 96 17 124/80 95 11/27/18 07:16 11/27/18 07:16 11/27/18 07:16 11/27/18 07:16 07/15/19 07:16 General appearance: Present: A&O X 3 Exam: . General: Patient is alert, oriented 3. Head: Atraumatic, normal inspection, normocephalic. Eye: EOMI, PERRLA, no scleral icterus noted. Neck: Normal inspection,. Respiratory: No respiratory distress, rhonchi, or wheezes noted. Cardiovascular: Regular rate , S1 and S2 audible. No murmurs, rubs, or gallops. GI: Soft, nondistended, normal bowel sounds. Extremities:No joint swelling,. Range of motion in right lower extremity is restricted and limited due to pain, patient is unable to lift his right leg Neurological: Alert, oriented 3, right leg weakness mainly flexion movement 2/5 compared to the left leg CN II-XII is normal. , Patient able to move his upper limbs Skin: Dry, intact, warm. Normal color. No rashes. 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
--- NOTE | 2018-11-27 10:45 | Physician Discharge Referral ---
ExtendedCare Referral Info Transfer To: SNF Provider in Charge after Transfer: PCP - Diagnosis (1) Hip pain, right Priority: Primary Status: Acute Prognosis: Fair - Transfer Medications Home Medications: Nitroglycerin [Nitrostat] 0.4 mg SL Q5MIN PRN #0 09/15/17 [Rx] Sevelamer HCl [Renagel] 2,400 mg PO TID 04/29/18 [History] Docusate [Colace] 200 mg PO DAILY 09/11/18 [History] Isosorbide MONOnitrate (24 HR) [Imdur] 30 mg PO DAILY 09/11/18 [History] Acetaminophen [Tylenol] 1,000 mg PO Q6HR PRN 10/18/18 [History] Atorvastatin [Lipitor] 40 mg PO HS 10/18/18 [History] GuaiFENesin/Dextromethorphan [Mucinex Dm] 1 tab PO BID PRN 10/18/18 [History] Insulin LISPRO [HumaLOG] 0 units SQ AD 10/18/18 [History] Menthol [Bengay Ultra Strength] 1 patch TP DAILY 10/18/18 [History] Metoprolol Succinate [Toprol Xl] 12.5 mg PO DAILY 10/18/18 [History] Nortriptyline [Pamelor] 10 mg PO HS 10/18/18 [History] Omeprazole [PriLOSEC] 20 mg PO DAILY 10/18/18 [History] Polyethylene Glycol 3350 [MiraLax bowel prep] 17 gm PO DAILY 10/18/18 [History] Propylene Glycol/Peg 400 [Systane 0.3-0.4% Eye Drops] 1 drop BOTH EYES TID 10/18/18 [History] Tramadol HCl [Ultram] 50 mg PO Q12H PRN 10/18/18 [History] Trazodone HCl 300 mg PO HS 10/18/18 [History] B Complex W-C No.20/Folic Acid [Virt-Caps Softgel] 1 mg PO DAILY 11/10/18 [History] Glucagon,Human Recombinant [Glucagen] 1 mg IJ AD PRN 11/11/18 [History] Lidocaine Patch [Lidoderm 5% patch] 1 patch TP DAILY PRN 11/11/18 [History] Ranitidine HCl [Acid Clay Mixer] 150 mg PO DAILY 11/11/18 [History] Insulin DETEMIR [Levemir] 20 unit SQ HS [id number] 11/27/18 [Rx] Allergies/Adverse Reactions: Allergy/AdvReac Type Severity Reaction Status Date / Time diphenhydramine Allergy Rash Verified 09/11/18 20:49 [From Benadryl] meperidine AdvReac Nausea Verified 09/11/18 20:49 morphine AdvReac Nausea Verified 09/11/18 20:49 - Respiratory Orders Smoking Cessation: Smoking cessation has been advised. For more information, call the [place] Tobacco Quit Line at 9-600-ETZU-NOW. - Advance Directives Code Status: Full Code - Rehabiliation Orders Rehab Orders: Evaluation for Physical Therapy, Evaluation for Occupational Therapy - Diet Orders Renal CERTIFICATION: I certify that the transfer of the above named patient to an Extended Care Facility is necessary for the continuing treatment of the diagnosis listed. The above information is true and accurate reflection of patient's current condition. Confidential - Redisclosure prohibited without a patient's written consent.
[2018-11-27] MEDS: Metoprolol XL (24 HR) Succ 25 MG TAB.ER.24H PO SCH (17:07)
[2018-11-27] MEDS: traZODone 50 MG TABLET PO SCH (19:45)
[2018-11-27] MEDS: Insulin DETEMIR 100 UNIT/ML X5UNITS SQ SCH (19:47)
--- NOTE | 2018-11-27 23:47 | Nephrology Progress Note ---
Date of Encounter: 11/26/18 Time of Encounter: 11:34 - Assessment and Plan (1) CHF (congestive heart failure) Current Visit: Yes Status: Resolved Qualifiers: Heart failure type: systolic Heart failure chronicity: acute on chronic Qualified Code(s): I50.23 - Acute on chronic systolic (congestive) heart failure (2) ESRD (end stage renal disease) on dialysis Current Visit: Yes Status: Chronic Continue HD with UF as tolerated. Continue renal diet Continue fluid restriction Lytes stable (3) Anxiety and depression Current Visit: Yes Status: Chronic (4) TIA (transient ischemic attack) Current Visit: Yes Status: Acute Subjective Principal diagnosis: right hip pain Interval history: Patient seen. No new complaint. Objective - Vital Signs Vital signs: Vital Signs Temp Pulse Resp BP Pulse Ox 11/27/18 19:42 98.7 F 105 16 107/78 97 11/27/18 13:55 98.1 F 18 117/74 11/27/18 13:30 107/66 11/27/18 13:15 101/64 11/27/18 13:00 99/69 11/27/18 12:45 107/75 11/27/18 12:30 111/79 11/27/18 12:15 108/71 11/27/18 12:00 123/79 11/27/18 11:45 127/75 11/27/18 11:30 125/82 11/27/18 11:15 127/79 11/27/18 11:00 128/83 11/27/18 10:45 140/66 11/27/18 10:30 134/56 11/27/18 10:15 122/79 11/27/18 10:00 97.9 F 18 128/84 11/27/18 07:16 98.1 F 96 17 124/80 95 11/27/18 04:32 98.5 F 93 16 134/86 92 Intake and Output 11/27/18 11/27/18 11/27/18 07:59 15:59 23:59 Intake Total 840 / 900 60 / 900 Output Total 3600 / 3600 Balance -2760 / -2700 60 / -2700 Intake: Oral 240 / 300 60 / 300 Intake, Rinseback and Flushes 600 / 600 Output: Urine 0 / 0 Total Dialysis (HD) Output 3600 / 3600 Other: Meal Breakfast Dinner Percent of Meal Consumed 15% 100% # Urine Diapers 1 Weight 96.2 kg Blood Glucose* 123 175 229 Hemodialysis Net Fluid Removed 3000 (mL) Patient Weight 11/27/18 23:59 Weight 96.2 kg - General Appearance General appearance: Present: well-developed, well-nourished EENT: Present: ATNC Neck: Present: supple - Lab 11/27/18 04:06 11/27/18 04:06 Consult Discharge Plan - Plan Instructions: Heart Failure (DC), Chest Pain (DC), Acute Respiratory Distress Syndrome (DC), Hemodialysis (DC), Dialysis Diet (DC), Diabetes Mellitus Type 2 in Adults (DC), Chronic Obstructive Pulmonary Disease (DC), Chronic Hypertension (DC), Anemia (GEN), Anxiety (DC), End-Stage Kidney Disease (GEN), Cigarette Smoking and Your Health, Director Zone (GEN) Additional Instructions: Continue routine HD sessions MWF 1.8 L daily fluid restriction need outpatient follow up with spine orthopedic and outpatient IR guided psoas hematoma aspiration [facility]errals: [facility] [Primary Care Provider] -
[2018-11-28 06:12] LABS: Hematocrit 40.9 % (37.5-50.1); Hemoglobin 12.6 g/dL (12.9-16.9); Mean Corpuscular HGB Conc 30.8 g/dL (31.6-35.5); Mean Corpuscular Hemoglobin 29.2 pg (28.0-33.3); Mean Corpuscular Volume 94.9 fL (83.0-100.0); Mean Platelet Volume 11.3 fL (9.4-12.4); Platelet Count 144 K/mcL (140-400); Red Blood Count 4.31 M/mcL (4.19-5.50); Red Cell Distribution Width 15.4 % (11.5-14.5); White Blood Count 6.2 K/mcL (4.3-11.1)
[2018-11-28 06:32] LABS: Calcium 10.8 mg/dL (8.6-10.3); Potassium 4.3 mEq/L (3.5-5.1)
[2018-11-28] MEDS: Famotidine 20 MG TABLET PO SCH (08:50)
[2018-11-28] MEDS: Metoprolol XL (24 HR) Succ 25 MG TAB.ER.24H PO SCH (08:51)
[2018-11-28] MEDS: Isosorbide MONOnitrate (24 HR) 30 MG TAB.ER.24H PO SCH (08:51)
[2018-11-28] MEDS: Aspirin Enteric Coated 81 MG Tablet PO SCH (08:52)
[2018-11-28] MEDS: Renal Vitamin 1 CAP CAPSULE PO SCH (08:52)
[2018-11-28] MEDS: Artificial Tears SOLN 15 ML BOTTLE BOTH EYES SCH ×3 (08:53→21:32)
[2018-11-28] MEDS: Insulin LISPRO 300 UNITS/3 ML VIAL SQ SCH ×4 (08:53→21:32)
[2018-11-28] MEDS: Methyl Salicylate/Menthol 57 APPL/57 GM TUBE TP SCH (08:53)
[2018-11-28] MEDS: traMADol 50 MG TABLET PO PRN (10:30)
--- NOTE | 2018-11-28 12:38 | Internal Med Progress Note ---
Hospitalist Progress Note - Encounter Date of Encounter: 11/28/18 Time of Encounter: 12:37 - Subjective Interval History: She was seen and examined. No acute events. Awaiting placement. Patient is on dialysis per nephrology and is admitted for volume overload which seems to be improving now. Patient is on room air. He has been ready for discharge and please see dictated discharge summary from 11/27. - Exam Vitals: Temp Pulse Resp BP Pulse Ox 97.7 F 98 16 100/72 97 11/28/18 08:18 11/28/18 12:00 11/28/18 12:00 11/28/18 12:00 11/28/18 04:53 Exam: GEN: NAD CVS: RRR. S1, S2, No m/r/g RESP: CTAB ABD: Soft, NT, ND, +BS EXT: No edema. 2+ DP. No rashes NEURO: Nonfocal - Assessment and Plan (1) CAD (coronary artery disease) Current Visit: No Status: Chronic (2) CHF (congestive heart failure) Current Visit: Yes Status: Resolved (3) ESRD (end stage renal disease) on dialysis Current Visit: Yes Status: Chronic (4) HTN (hypertension), benign Current Visit: Yes Status: Chronic (5) HLD (hyperlipidemia) Current Visit: Yes Status: Chronic (6) Hip pain, right Current Visit: Yes Status: Acute (7) Diabetes Current Visit: Yes Status: Chronic (8) Noncompliance with renal dialysis Current Visit: No Status: Acute (9) Volume overload Current Visit: Yes Status: Resolved (10) Behavior concern Current Visit: Yes Status: Resolved (11) TIA (transient ischemic attack) Current Visit: Yes Status: Acute - Time Spent with Patient Total time spent is greater than 50% in coordination of care (as documented) at patient's floor/unit and/or counseling patient: Internal Medicine: Result - Labs CBC & Chem 7: 11/28/18 05:44 11/28/18 05:44 Labs: Short CBC 11/28/18 Range/Units 05:44 WBC 6.2 (4.3-11.1) K/mcL Hgb 12.6 L D (12.9-16.9) g/dL Hct 40.9 (37.5-50.1) % Plt Count 144 (140-400) K/mcL BMP 11/28/18 05:44 Sodium 137 Potassium 4.3 Chloride 92 L Carbon Dioxide 33 H BUN 41 H Creatinine 5.12 H Glucose 113 H Calcium 10.8 H - ABG Interpretation ABG results: PT/INR, D-dimer PT 9.7 Seconds (9.4-12.1) 11/19/18 06:38 Consult Discharge Plan - Plan Instructions: Heart Failure (DC), Chest Pain (DC), Acute Respiratory Distress Syndrome (DC), Hemodialysis (DC), Dialysis Diet (DC), Diabetes Mellitus Type 2 in Adults (DC), Chronic Obstructive Pulmonary Disease (DC), Chronic Hypertension (DC), Anemia (GEN), Anxiety (DC), End-Stage Kidney Disease (GEN), Cigarette Smoking and Your Health, 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 transplanted heart: [place] heart Associated angina: with unspecified angina Qualified Code(s): I25.119 - Atherosclerotic heart disease of [place] coronary artery with unspecified angina pectoris (2) CHF (congestive heart failure) Qualifiers: Heart failure type: systolic Heart failure chronicity: acute on chronic Qualified Code(s): I50.23 - Acute on chronic systolic (congestive) heart failure (5) HLD (hyperlipidemia) Qualifiers: Hyperlipidemia type: unspecified Qualified Code(s): E78.5 - Hyperlipidemia, unspecified (7) Diabetes Qualifiers: Diabetes mellitus type: type 2 Diabetes mellitus group home insulin use: with group home use Diabetes mellitus complication status: with kidney complications Diabetes mellitus complication detail: with chronic kidney disease Chronic kidney disease stage: on chronic dialysis Qualified Code(s): E11.22 - Type 2 diabetes mellitus with diabetic chronic kidney disease; N18.6 - End stage renal disease; 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
--- NOTE | 2018-11-28 13:04 | Nephrology Progress Note ---
Date of Encounter: 11/28/18 Time of Encounter: 13:02 - Assessment and Plan (1) CHF (congestive heart failure) Current Visit: Yes Status: Resolved Per primary. Qualifiers: Heart failure type: systolic Heart failure chronicity: acute on chronic Qualified Code(s): I50.23 - Acute on chronic systolic (congestive) heart failure (2) ESRD (end stage renal disease) on dialysis Current Visit: Yes Status: Chronic Continue HD with UF as tolerated. Plan for HD tomorrow. Continue renal diet Continue fluid restriction Lytes stable (3) Anxiety and depression Current Visit: Yes Status: Chronic Per primary. (4) TIA (transient ischemic attack) Current Visit: Yes Status: Acute Neurology on board, appreciate recommendations. Subjective Principal diagnosis: right hip pain Interval history: Pt seen and examined resting with eyes closed. Denies nausea, vomiting, diarrhea. Denies chest pain or shortness of breath. Social work is still attempting to place in an ECF. Objective - Vital Signs Vital signs: Vital Signs Temp Pulse Resp BP Pulse Ox 11/28/18 12:00 98 16 100/72 11/28/18 08:18 97.7 F 97 18 116/90 11/28/18 04:53 98.6 F 90 14 117/76 97 11/27/18 23:59 98 11/27/18 19:42 98.7 F 105 16 107/78 97 11/27/18 13:55 98.1 F 18 117/74 11/27/18 13:30 107/66 11/27/18 13:15 101/64 Intake and Output 11/27/18 11/28/18 11/28/18 23:59 07:59 15:59 Intake Total 60 / 900 60 / 180 120 / 180 Balance 60 / -2700 60 / 180 120 / 180 Intake: Oral 60 / 300 60 / 180 120 / 180 Other: Meal Dinner Breakfast Percent of Meal Consumed 100% 100% Weight 97.1 kg Blood Glucose* 229 195 Patient Weight 11/28/18 23:59 Weight 97.1 kg - General Appearance General appearance: Present: well-developed, well-nourished EENT: Present: ATNC, hearing intact, vision intact Neck: Present: supple Respiratory: Present: clear Cardiology: Present: no edema, normal S1, normal S2 Dialysis Vascular Access: Arteriovenous Fistula thrill: Yes bruit: Yes Gastrointestinal: Present: normoactive bowel sounds, no tenderness, no guarding Integumentary: Present: no rash, warm and dry Neurologic: Present: alert and oriented x3 Musculoskeletal: Present: no deformities, no erythema Psychiatric: Present: mood/affect appropriate, cooperative - Lab 11/28/18 05:44 11/28/18 05:44 Most recent lab results 11/28/18 05:44 Calcium 10.8 H Consult Discharge Plan - Plan Instructions: Heart Failure (DC), Chest Pain (DC), Acute Respiratory Distress Syndrome (DC), Hemodialysis (DC), Dialysis Diet (DC), Diabetes Mellitus Type 2 in Adults (DC), Chronic Obstructive Pulmonary Disease (DC), Chronic Hypertension (DC), Anemia (GEN), Anxiety (DC), End-Stage Kidney Disease (GEN), Cigarette Smoking and Your Health, Cleaner Laboratory Equipment (GEN) Additional Instructions: Continue routine HD sessions MWF 1.8 L daily fluid restriction need outpatient follow up with spine orthopedic and outpatient IR guided psoas hematoma aspiration [facility] [Primary Care Provider[facility] -
[2018-11-28] MEDS: Insulin DETEMIR 100 UNIT/ML X5UNITS SQ SCH (21:33)
[2018-11-28] MEDS: traZODone 50 MG TABLET PO SCH (21:34)
[2018-11-29 04:41] LABS: Hematocrit 37.4 % (37.5-50.1); Hemoglobin 11.6 g/dL (12.9-16.9); Mean Corpuscular Hemoglobin 29.7 pg (28.0-33.3); Mean Corpuscular Volume 95.9 fL (83.0-100.0); Platelet Count 141 K/mcL (140-400); Red Cell Distribution Width 15.4 % (11.5-14.5); White Blood Count 6.6 K/mcL (4.3-11.1)
[2018-11-29 05:01] LABS: Calcium 10.9 mg/dL (8.6-10.3); Potassium 4.5 mEq/L (3.5-5.1)
[2018-11-29] MEDS ORDERED: 0.9 % Sodium Chloride 250 ML IVC PRN (06:42)
[2018-11-29] MEDS ORDERED: 0.9 % Sodium Chloride 1,000 ML PRIME SCH (06:45)
[2018-11-29] MEDS: Famotidine 20 MG TABLET PO SCH (07:42)
[2018-11-29] MEDS: Isosorbide MONOnitrate (24 HR) 30 MG TAB.ER.24H PO SCH (07:42)
[2018-11-29] MEDS: Metoprolol XL (24 HR) Succ 25 MG TAB.ER.24H PO SCH (07:42)
[2018-11-29] MEDS: Renal Vitamin 1 CAP CAPSULE PO SCH (07:42)
[2018-11-29] MEDS: Aspirin Enteric Coated 81 MG Tablet PO SCH (07:43)
[2018-11-29] MEDS: Artificial Tears SOLN 15 ML BOTTLE BOTH EYES SCH ×3 (07:43→19:53)
[2018-11-29] MEDS: Methyl Salicylate/Menthol 57 APPL/57 GM TUBE TP SCH (07:43)
[2018-11-29] MEDS: Insulin LISPRO 300 UNITS/3 ML VIAL SQ SCH ×4 (07:47→22:47)
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
--- NOTE | 2018-11-29 10:32 | Nephrology Progress Note ---
Date of Encounter: 11/29/18 Time of Encounter: 10:31 - Assessment and Plan (1) CHF (congestive heart failure) Current Visit: Yes Status: Resolved Per primary. Qualifiers: Heart failure type: systolic Heart failure chronicity: acute on chronic Qualified Code(s): I50.23 - Acute on chronic systolic (congestive) heart failure (2) ESRD (end stage renal disease) on dialysis Current Visit: Yes Status: Chronic Continue HD with UF as tolerated. HD in progress today. Continue renal diet Continue fluid restriction Lytes stable (3) Anxiety and depression Current Visit: Yes Status: Chronic Per primary. (4) TIA (transient ischemic attack) Current Visit: Yes Status: Acute Neurology on board, appreciate recommendations. Subjective Principal diagnosis: right hip pain Interval history: Pt seen and examined resting during HD, tolerating well. Denies nausea, vomiting, diarrhea. Denies chest pain or shortness of breath. Social work is still attempting to place in an ECF. Objective - Vital Signs Vital signs: Vital Signs Temp Pulse Resp BP Pulse Ox 11/29/18 10:00 96/64 11/29/18 09:45 99/67 11/29/18 09:30 96/63 11/29/18 09:15 86/61 11/29/18 09:00 101/66 11/29/18 08:45 109/75 11/29/18 08:30 97.8 F 16 118/75 11/29/18 07:04 98.0 F 95 12 130/93 94 11/29/18 05:28 97.7 F 94 14 125/86 95 11/28/18 20:50 97.7 F 103 14 108/84 95 11/28/18 12:00 98 16 100/72 Intake and Output 11/28/18 11/29/18 11/29/18 23:59 07:59 15:59 Intake Total 140 / 320 60 / 660 600 / 660 Output Total 0 / 0 0 / 0 Balance 140 / 320 60 / 660 600 / 660 Intake: Oral 140 / 320 60 / 60 0 / 60 Intake, Rinseback and Flushes 600 / 600 Output: Urine 0 / 0 0 / 0 Other: Meal Dinner Breakfast Percent of Meal Consumed 95% 0% Weight 96.1 kg Blood Glucose* 250 147 Hemodialysis Net Fluid Removed 1010 (mL) Patient Weight 11/29/18 23:59 Weight 96.1 kg - General Appearance General appearance: Present: well-developed, well-nourished EENT: Present: ATNC, hearing intact, vision intact Neck: Present: supple Respiratory: Present: clear Cardiology: Present: no edema, normal S1, normal S2 Dialysis Vascular Access: Arteriovenous Fistula thrill: Yes bruit: Yes Gastrointestinal: Present: normoactive bowel sounds, no tenderness, no guarding Integumentary: Present: no rash, warm and dry Neurologic: Present: alert and oriented x3 Musculoskeletal: Present: no deformities, no erythema Psychiatric: Present: mood/affect appropriate, cooperative - Lab 11/29/18 04:15 11/29/18 04:15 Most recent lab results 11/29/18 04:15 Calcium 10.9 H Consult Discharge Plan - Plan Instructions: Heart Failure (DC), Chest Pain (DC), Acute Respiratory Distress Syndrome (DC), Hemodialysis (DC), Dialysis Diet (DC), Diabetes Mellitus Type 2 in Adults (DC), Chronic Obstructive Pulmonary Disease (DC), Chronic Hypertension (DC), Anemia (GEN), Anxiety (DC), End-Stage Kidney Disease (GEN), Cigarette Smoking and Your Health, Methods Analyst Data Processing (GEN) Additional Instructions: Continue routine HD sessions MWF 1.8 L daily fluid restriction need outpatient follow up with spine orthopedic and outpatient IR guided psoas hematoma aspiration [facility]errals: [facility] [Primary Care Provider] -
[2018-11-29] MEDS: traMADol 50 MG TABLET PO PRN (15:26)
[2018-11-29] MEDS: traZODone 50 MG TABLET PO SCH (19:53)
[2018-11-29] MEDS: Insulin DETEMIR 100 UNIT/ML X5UNITS SQ SCH (22:49)
[2018-11-30 05:20] LABS: Hematocrit 38.5 % (37.5-50.1); Hemoglobin 11.8 g/dL (12.9-16.9); Mean Corpuscular HGB Conc 30.6 g/dL (31.6-35.5); Mean Corpuscular Hemoglobin 29.5 pg (28.0-33.3); Mean Corpuscular Volume 96.3 fL (83.0-100.0); Mean Platelet Volume 11.1 fL (9.4-12.4); Platelet Count 133 K/mcL (140-400); Red Cell Distribution Width 15.3 % (11.5-14.5); White Blood Count 6.8 K/mcL (4.3-11.1)
[2018-11-30 05:35] LABS: Calcium 10.5 mg/dL (8.6-10.3); Potassium 4.2 mEq/L (3.5-5.1)
[2018-11-30 07:28] VITALS: BP 113/76
[2018-11-30] MEDS: Aspirin Enteric Coated 81 MG Tablet PO SCH (08:09)
[2018-11-30] MEDS: Isosorbide MONOnitrate (24 HR) 30 MG TAB.ER.24H PO SCH (08:09)
[2018-11-30] MEDS: Renal Vitamin 1 CAP CAPSULE PO SCH (08:09)
[2018-11-30] MEDS: Famotidine 20 MG TABLET PO SCH (08:09)
[2018-11-30] MEDS: Metoprolol XL (24 HR) Succ 25 MG TAB.ER.24H PO SCH (08:09)
[2018-11-30] MEDS: Artificial Tears SOLN 15 ML BOTTLE BOTH EYES SCH (08:10)
[2018-11-30] MEDS: Insulin LISPRO 300 UNITS/3 ML VIAL SQ SCH ×2 (08:10→12:21)
[2018-11-30] MEDS: Methyl Salicylate/Menthol 57 APPL/57 GM TUBE TP SCH (08:14)
--- NOTE | 2018-11-30 10:08 | Internal Med Progress Note ---
Hospitalist Progress Note - Encounter Date of Encounter: 11/30/18 Time of Encounter: 10:07 - Subjective Interval History: Patient was seen and examined. No acute events. frustrated. Awaiting placement still. Patient is on dialysis per nephrology and is admitted for volume overload which seems to be improving now. Patient is on room air. He has been ready for discharge and please see dictated discharge summary from 11/27. - Exam Vitals: Temp Pulse Resp BP Pulse Ox 98.6 F 92 14 113/76 94 11/30/18 07:23 11/30/18 07:23 11/30/18 07:23 11/30/18 07:23 11/30/18 07:23 Exam: GEN: NAD CVS: RRR. S1, S2, No m/r/g RESP: CTAB ABD: Soft, NT, ND, +BS EXT: No edema. 2+ DP. No rashes NEURO: Nonfocal - Assessment and Plan (1) CAD (coronary artery disease) Current Visit: No Status: Chronic Assessment and Plan: we'll continue home medication (2) CHF (congestive heart failure) Current Visit: Yes Status: Resolved Assessment and Plan: The patient has history of systolic heart failure, was estimated ejection fraction around 45%, he is anuric and volume control is fully dependent on rrenal replacement therapy, fluid restriction in between dialysis session was discussed with the patient. (3) ESRD (end stage renal disease) on dialysis Current Visit: Yes Status: Chronic Assessment and Plan: nephrology was consultedto provide renal replacement therapy while inpatient and assists with adjusting hemodialysis prescription for volume control. (4) HTN (hypertension), benign Current Visit: Yes Status: Chronic Assessment and Plan: we'll continue home antihypertensive regimen and adjust as indicated (5) HLD (hyperlipidemia) Current Visit: Yes Status: Chronic Assessment and Plan: we will continue home statin and obtain fasting lipid profile in a.m. (6) Hip pain, right Current Visit: Yes Status: Acute (7) Diabetes Current Visit: Yes Status: Chronic Assessment and Plan: c/w SSI. c/w levemir 20 units QHS. Accucheks (8) Noncompliance with renal dialysis Current Visit: No Status: Acute (9) Volume overload Current Visit: Yes Status: Resolved Assessment and Plan: The patient is end-stage and on the Tuesday, hysterectomy he is has been noncompliant with fluid restriction in between hemodialysis session, his clinical picture is consistent with volume overload in the setting of anuria due to end stage renal disease , nephrology was consulted ( appreciate their input) and arrange for urgent hemodialysis session to optimize ultrafiltration for fluid removal. (10) Behavior concern Current Visit: Yes Status: Resolved (11) TIA (transient ischemic attack) Current Visit: Yes Status: Acute - Time Spent with Patient Total time spent is greater than 50% in coordination of care (as documented) at patient's floor/unit and/or counseling patient: Internal Medicine: Result - Labs CBC & Chem 7: 11/30/18 04:39 11/30/18 04:39 Labs: Short CBC 11/30/18 Range/Units 04:39 WBC 6.8 (4.3-11.1) K/mcL Hgb 11.8 L (12.9-16.9) g/dL Hct 38.5 (37.5-50.1) % Plt Count 133 L (140-400) K/mcL BMP 11/30/18 04:39 Sodium 135 L Potassium 4.2 Chloride 93 L Carbon Dioxide 29 BUN 41 H Creatinine 4.85 H Glucose 124 H Calcium 10.5 H - ABG Interpretation ABG results: PT/INR, D-dimer PT 9.7 Seconds (9.4-12.1) 11/19/18 06:38 Consult Discharge Plan - Plan Instructions: Heart Failure (DC), Chest Pain (DC), Acute Respiratory Distress Syndrome (DC), Hemodialysis (DC), Dialysis Diet (DC), Diabetes Mellitus Type 2 in Adults (DC), Chronic Obstructive Pulmonary Disease (DC), Chronic Hypertension (DC), Anemia (GEN), Anxiety (DC), End-Stage Kidney Disease (GEN), Cigarette Smoking and Your Health, Route Delivery Clerk (GEN) Additional Instructions: Continue routine HD sessions MWF 1.8 L daily fluid restriction need outpatient follow up with spine orthopedic and outpatient IR guided psoas hematoma aspiration [facility]errals: [facility] [Primary Care Provider] - (1) CAD (coronary artery disease) Qualifiers: Coronary Disease-Associated Artery/Lesion type: unspecified vessel or lesion type [place] vs. transplanted heart: [place] heart Associated angina: with unspecified angina Qualified Code(s): I25.119 - Atherosclerotic heart disease of [place] coronary artery with unspecified angina pectoris (2) CHF (congestive heart failure) Qualifiers: Heart failure type: systolic Heart failure chronicity: acute on chronic Qualified Code(s): I50.23 - Acute on chronic systolic (congestive) heart failure (5) HLD (hyperlipidemia) Qualifiers: Hyperlipidemia type: unspecified Qualified Code(s): E78.5 - Hyperlipidemia, unspecified (7) Diabetes Qualifiers: Diabetes mellitus type: type 2 Diabetes mellitus assisted insulin use: with assisted use Diabetes mellitus complication status: with kidney complications Diabetes mellitus complication detail: with chronic kidney disease Chronic kidney disease stage: on chronic dialysis Qualified Code(s): E11.22 - Type 2 diabetes mellitus with diabetic chronic kidney disease; N18.6 - End stage renal disease; Z79.4 - custodial (current) use of insulin; Z99.2 - Dependence on renal dialysis (9) Volume overload Qualifiers: Hypervolemia type: other Qualified Code(s): E87.79 - Other fluid overload
[2018-11-30] MEDS: traMADol 50 MG TABLET PO PRN (13:33)
== END 2018-11-30 13:57 | DRG 291 ==
LOC: EMEROOARM 06:03 → 2NENU 06:03 → SUATTDRO 15:15
PROVIDERS: ADMIT Internal Medicine Nephrology; ATTEND Internal Medicine